=== PATIENT | female | born 1950 | race Caucasian/White ===

== ENCOUNTER → 2016-11-01 | Outpatient (REF) | payer MEDICARE, BC, OTHER ==
[~2016-11-01] MED LIST: /METO2TASA PO; /WARF25TA; ACET-654 PO; ACET50TAOT PO; ACET650S3 PO; ACIT1CAP PO; ALPH0.1S OS; ANUS2.5C2 PR; BACITAB3 PO; BISA10SU4 PR; BRIM1OPD OU; CALC1CAP PO; CALC1CAP31 PO; CATA0.1T PO; CEFD1CAP8 PO; CEPH250T PO; CHLO1.4S2 MT; DARB300VL SC; DARB30SYRN SC; DICY1CAP8 PO; DIFI200T PO; DIFL200T PO; DRIS1CAP PO; DRIS50002 PO; FENO134C PO; FENO48TA2 PO; FERR325T PO; FERR325T3 PO; FIRS1SOL3 PO; FLAG500T PO; FLUC200T2 PO; FOLI1TAB PO; FOLI1TAB2 PO; HEPA1000VL IV; HEPA1INJ IV; HEPA50VL SC; HYDR-3713 PO; HYDR-4266 PO; HYDR-4267 PO; HYDR100T13 PO; HYDR10TAB PO; IMIQ5CRE EXT; IMOD2TAB16 PO; IMODTAB PO; IMUR50TA PO; IMURAN PO; Imuran PO; LOFI134C PO; LOPE2CA PO; LOPR1TAB6 PO; MERO500I IV; METH250T PO; METHY25TA PO; METO-207 PO; METO50TA2 PO; MINO25TA PO; MIRC0.3I IJ; MULTCAP PO; NEPHTAB PO; NIAC500T4 PO; NITR1PA TD; NORCOTAB PO; NYST5000 PO; NYST50SS SS; Non-Formulary Medication XX; ONDA4TAB6 PO; ONDA8TAB8 PO; OXYC-517 PO; PRED1TABL PO; PRED5TA PO; PRED5TAB PO; PREPOI TOP; PROC20004 IJ; PROCAER4 PR; PROCRIT SC; RENA800T7 PO; RENATAB5 PO; RENV2TAB PO; ROCA0.25 PO; SIMV20TA2 PO; SKEL-29 PO; SODI0.65; TELM1TAB PO; TELM1TAB12 PO; TELM1TAB2 PO; THERGRAN PO; TOPR25TA PO; TOPR50TA PO; TYLE650T30 PO; VANC25SOL PO; VICO5TAB; VITA50003 PO; VITATAB11 PO; ZOCO20TA PO; [UNRECOGNIZED DRUG - CODE] EXT; [UNRECOGNIZED DRUG - CODE] INJ; [UNRECOGNIZED DRUG - CODE] PO; [UNRECOGNIZED DRUG - CODE] TOP; [UNRECOGNIZED DRUG - CODE] TOP; [UNRECOGNIZED DRUG - OTHER]; [UNRECOGNIZED DRUG - OTHER] PO; [UNRECOGNIZED DRUG - OTHER] PO; aldomet PO
== END ==
LOC: M LAB REF 12:45
PROVIDERS: ATTEND Internal Medicine Nephrology
DX: D62 Acute posthemorrhagic anemia (principal)

== ENCOUNTER 2016-11-04 11:49 | Outpatient (CLI) | payer MEDICARE, BC, OTHER ==
[~2016-11-04] VITALS: Ht 148.6 cm; Wt 46.4 kg
[2016-11-04 12:00] VITALS: BP 147/68
[2016-11-04 14:00] VITALS: BP 100/62
[2016-11-04] MEDS ORDERED: HEPARIN 1,000 UNITS/ML 10ML VIAL (FOR RADIOLOGY& DIALYSIS ONLY) IV ONE (21:00)
== END 2016-11-04 20:10 | disposition home or self-care (01) ==
LOC: M OPCLI4PV 11:49 → M MSPAV 11:53 → M OPCLI4PV 20:10
PROVIDERS: ATTEND Internal Medicine Nephrology
DX: D50.0 Iron deficiency anemia secondary to blood loss (chronic) (principal)
CPT/HCPCS: 36415; 36430; 86850; 86900; 86901; 86920; P9016

== ENCOUNTER → 2016-11-07 | Outpatient (REF) | payer MEDICARE, BC, OTHER | LOC: M LAB REF 12:50 | PROVIDERS: ATTEND Surgery | DX: C44.42 Squamous cell carcinoma of skin of scalp and neck (principal) ==

== ENCOUNTER → 2016-11-14 | Outpatient (REF) | payer MEDICARE, BC, OTHER | END | disposition home or self-care (01) | LOC: M SFHCPLAZ 17:21 | PROVIDERS: ATTEND Dermatology | DX: C44.622 Squamous cell carcinoma of skin of right upper limb, including shoulder (principal); C44.629 Squamous cell carcinoma of skin of left upper limb, including shoulder; C44.529 Squamous cell carcinoma of skin of other part of trunk; C44.42 Squamous cell carcinoma of skin of scalp and neck | CPT/HCPCS: 11100; 11101; 88305; G0463 ==

== ENCOUNTER → 2016-11-15 | Outpatient (REF) | payer MEDICARE, BC, OTHER ==
[2016-11-15 13:38] LABS: BASO % 0.2 % (0.0-1.0); EOS # 0.2 K/mm3 (0.0-0.50); EOS % 1.9 % (0.0-3.0); LARGE UNSTAINED CELL # 0.1 K/mm3 (0.0-0.4); LARGE UNSTAINED CELL % 0.7 % (0.0-4.0); LYMPH % 9.8 % (24.0-44.0); MEAN CORPUSCULAR HEMOGLOBIN 30.1 pg (27.0-33.0); MEAN CORPUSCULAR HGB CONC 32.3 g/dl (32.0-36.5); MONO # 0.6 K/mm3 (0.0-0.8); MONO % 6.2 % (0.0-5.0); NEUTROPHILS # 8.2 K/mm3 (1.8-7.7); NEUTROPHILS % 81.3 % (36.0-66.0); PLATELET COUNT, AUTOMATED 296 k/mm3 (150-450); RED CELL DISTRIBUTION WIDTH 14.7 % (11.5-14.5)
[2016-11-15 13:43] LABS: ALBUMIN 2.2 GM/DL (3.2-5.2); ALBUMIN/GLOBULIN RATIO 0.79 (1.00-1.93); BILIRUBIN,DIRECT 0.1 MG/DL (0.0-0.2); BILIRUBIN,TOTAL 0.3 MG/DL (0.2-1.0)
== END ==
LOC: M SFHCPLAZ 13:09
PROVIDERS: ATTEND Dermatology
DX: Z51.81 Encounter for therapeutic drug level monitoring (principal)

== ENCOUNTER → 2016-12-05 | Outpatient (REF) | payer MEDICARE, BC, OTHER | LOC: M SFHCPLAZ 15:47 | PROVIDERS: ATTEND Dermatology | DX: C44.329 Squamous cell carcinoma of skin of other parts of face (principal); C44.519 Basal cell carcinoma of skin of other part of trunk; C44.722 Squamous cell carcinoma of skin of right lower limb, including hip | CPT/HCPCS: 11100; 11101; 88305; G0463 ==

== ENCOUNTER → 2016-12-12 | Outpatient (CLI) | payer MEDICARE, BC, OTHER ==
[~2016-12-12] MED LIST changes: +LIDOCAINE 2% MDV 20 ML VIAL As Ordered ONE; +SODIUM BICARBONATE 8.4% INJ 50MEQ 50 ML VIAL As Ordered ONE
--- NOTE | 2016-12-12 16:45 | REPKIM ---
CLINICAL HISTORY: Patient with ESRD presents with a tunneled right IJ hemodialysis catheter. Patient is on peritoneal dialysis. The referring nephrology service has requested to remove the TDC because it is no longer needed. PROCEDURE PERFORMED: Right IJ Tunneled Dialysis Catheter Removal INTERVENTIONALIST: Dr. Cheng Moon CONSENT: The risks, benefits and alternatives to the procedure were explained to the patient and informed written consent was obtained. MEDICATION: Local Lidocaine 2% EBL: 5 mL PROCEDURE/FINDINGS: The patient was brought to the interventional radiology suite and placed in the supine position with head of bed elevated. Time out procedure was performed. The area was prepped and draped in a usual sterile fashion. Local anesthesia was administered subcutaneously to the catheter exit site using 2% Lidocaine. The catheter cuff was bluntly dissected free from the surrounding soft tissues. The catheter was removed, inspected and confirmed to be removed in its entirety. Hemostasis was achieved by manual compression. A sterile dressing was applied. The patient tolerated the procedure well with no immediate complications. No imaging was used. Dr. Moon was present. IMPRESSION: Tunneled dialysis catheter removal as discussed above. cc: Zamzam Rehman MD MTDD
== END | disposition home or self-care (01) ==
LOC: M IRPRO 12:35
PROVIDERS: ATTEND Internal Medicine Nephrology
DX: Z45.2 Encounter for adjustment and management of vascular access device (principal); N18.6 End stage renal disease; Z99.2 Dependence on renal dialysis

== ENCOUNTER → 2016-12-17 | Outpatient (REF) | payer MEDICARE, BC, OTHER ==
[~2016-12-17] MED LIST changes: -LIDOCAINE 2% MDV 20 ML VIAL As Ordered ONE; -SODIUM BICARBONATE 8.4% INJ 50MEQ 50 ML VIAL As Ordered ONE
== END ==
LOC: M LAB REF 17:14
PROVIDERS: ATTEND Surgery
DX: C44.42 Squamous cell carcinoma of skin of scalp and neck (principal); C44.622 Squamous cell carcinoma of skin of right upper limb, including shoulder

== ENCOUNTER → 2016-12-26 | Outpatient (REF) | payer MEDICARE, BC, OTHER ==
[~2016-12-26] MED LIST changes: -HEPA1INJ IV; +HEPA1INJ4 IV
== END ==
LOC: M SFHCPLAZ 15:53
PROVIDERS: ATTEND Dermatology
DX: C44.622 Squamous cell carcinoma of skin of right upper limb, including shoulder (principal)
CPT/HCPCS: 11100; 11101; 88305; G0463

== ENCOUNTER → 2016-12-31 | Outpatient (REF) | payer MEDICARE, BC, OTHER ==
[~2016-12-31] MED LIST changes: +HEPA1INJ IV; -HEPA1INJ4 IV
== END ==
LOC: M LAB REF 16:50
PROVIDERS: ATTEND Surgery
DX: C44.42 Squamous cell carcinoma of skin of scalp and neck (principal); C44.629 Squamous cell carcinoma of skin of left upper limb, including shoulder; C44.529 Squamous cell carcinoma of skin of other part of trunk

== ENCOUNTER → 2017-01-14 | Outpatient (REF) | payer MEDICARE, BC, OTHER | LOC: M LAB REF 16:37 | PROVIDERS: ATTEND Surgery | DX: C44.629 Squamous cell carcinoma of skin of left upper limb, including shoulder (principal) ==

== ENCOUNTER → 2017-01-15 | Outpatient (CLI) | payer MEDICARE, BC, OTHER ==
[~2017-01-15] MED LIST changes: -HEPA1INJ IV; +HEPA1INJ4 IV
--- NOTE | 2017-01-15 12:43 | REP ---
DIGITAL SCREENING BILATERAL MAMMOGRAPHY WITH CAD: Comparison mammography November 09, 2015, October 11, 2014, and October 07, 2013. MAMMOGRAPHIC FINDINGS: The breast parenchyma is heterogeneously dense in a pattern which may inhibit the sensitivity of mammography. There is vascular calcification noted. There is a grouping of predominantly punctate microcalcifications in the 6-o'clock position in the right breast, which appears to be new and which merits further evaluation. No mass lesion is seen. No architectural distortion or spiculation is seen. The left breast is unchanged and unremarkable. IMPRESSION: BIRADS category 0 incomplete breast imaging. Possible new grouping of microcalcifications inferiorly in the right breast. Diagnostic right breast mammography recommended. BI-RADS/ACR category 0 mammogram, incomplete. Additional imaging and/or prior images are needed before a final assessment can be assigned. This mammogram was interpreted with the aid of an FDA-approved computer-aided detection system. The patient states she/he had a clinical breast exam in November 2016. The patient letter being requested is M0 .
== END ==
LOC: M WHC 09:49
PROVIDERS: ATTEND Nurse Practitioner Women's Health
DX: Z12.31 Encounter for screening mammogram for malignant neoplasm of breast (principal)

== ENCOUNTER → 2017-01-17 | Outpatient (CLI) | payer MEDICARE, BC, OTHER ==
--- NOTE | 2017-01-17 12:05 | REP ---
DIGITAL DIAGNOSTIC UNILATERAL RIGHT BREAST MAMMOGRAPHY WITH CAD: HISTORY: Screening mammography from January 15, 2017 was BIRADS 0 incomplete due to an apparent grouping of microcalcifications. Diagnostic imaging was recommended. FINDINGS: Magnified focal spot compression CC, MLO, and MLO views of the right breast were obtained. These confirm the presence of a loose grouping of polymorphic microcalcifications in the 6-o'clock position of the right breast. These occupy an area spanning approximately 2 cm. No mass lesion or spiculation is observed. There are scattered non-grouped microcalcifications elsewhere. Breast parenchyma in the lateral aspect of the right breast is heterogeneously dense in a pattern which may inhibit the sensitivity of mammography. Vascular calcification is observed. IMPRESSION: BIRADS category 4 suspicious right breast imaging. Grouping of microcalcifications seen inferiorly at the 6-o'clock position. Stereotactic needle biopsy recommended. B-RADS/ACR category 4 mammogram. Suspicious abnormality - biopsy should be considered. Usually requires biopsy. This mammogram was interpreted with the aid of an FDA-approved computer-aided detection system. The patient states she/he had a clinical breast exam in November 2016 The patient letter being requested is M4. Signed by Hamzah Oliver MD 01/17/2017 06:35 P
== END ==
LOC: M RAD 10:49
PROVIDERS: ATTEND Nurse Practitioner Women's Health
DX: R92.8 Other abnormal and inconclusive findings on diagnostic imaging of breast (principal)

== ENCOUNTER → 2017-01-28 | Outpatient (REF) | payer MEDICARE, BC, OTHER | LOC: M LAB REF 11:30 | PROVIDERS: ATTEND Surgery | DX: C44.622 Squamous cell carcinoma of skin of right upper limb, including shoulder (principal) ==

== ENCOUNTER → 2017-02-06 | Outpatient (REF) | payer MEDICARE, BC, OTHER | LOC: M LAB REF 11:50 | PROVIDERS: ATTEND Dermatology | DX: C44.729 Squamous cell carcinoma of skin of left lower limb, including hip (principal) | CPT/HCPCS: 11100; 11101; 88305; G0463 ==

== ENCOUNTER → 2017-02-11 | Outpatient (REF) | payer MEDICARE, BC, OTHER | LOC: M LAB REF 15:48 | PROVIDERS: ATTEND Surgery | DX: C44.622 Squamous cell carcinoma of skin of right upper limb, including shoulder (principal); C44.629 Squamous cell carcinoma of skin of left upper limb, including shoulder ==

== ENCOUNTER → 2017-03-06 | Outpatient (REF) | payer MEDICARE, BC, OTHER | LOC: M SFHCPLAZ 12:57 | PROVIDERS: ATTEND Dermatology | DX: C44.629 Squamous cell carcinoma of skin of left upper limb, including shoulder (principal); C44.529 Squamous cell carcinoma of skin of other part of trunk ==

== ENCOUNTER → 2017-03-11 | Outpatient (REF) | payer MEDICARE, BC, OTHER | LOC: M LAB REF 16:35 | PROVIDERS: ATTEND Surgery | DX: C44.722 Squamous cell carcinoma of skin of right lower limb, including hip (principal) ==

== ENCOUNTER → 2017-05-15 | Outpatient (REF) | payer MEDICARE, BC, OTHER ==
[~2017-05-15] MED LIST changes: -ACET-654 PO; +ACET1TAB17 PO; +BACITAB PO; -BACITAB3 PO; +FERR1TAB8 PO; -FERR325T PO; -FOLI1TAB2 PO; +FOLI1TAB4 PO; +HYDR-3910 PO; +HYDR-3911 PO; -HYDR-4266 PO; -HYDR-4267 PO; -IMUR50TA PO; +IMUR50TA6 PO; -METO-207 PO; +METO1TAB7 PO; -METO50TA2 PO; +METO50TA7 PO; +RENA1TAB PO; -RENA800T7 PO; -SKEL-29 PO; +SKEL800T97 PO; +VITA1CAP40 PO; -VITA50003 PO
== END ==
LOC: M LAB REF 17:21
PROVIDERS: ATTEND Surgery
DX: C44.729 Squamous cell carcinoma of skin of left lower limb, including hip (principal)

== ENCOUNTER → 2017-06-02 | Outpatient (CLI) | payer MEDICARE, BC, OTHER ==
--- NOTE | 2017-06-02 15:50 | REP ---
Duplex extremity venous ultrasound: Left lower extremity. History: Left leg pain. Findings: The deep veins are anechoic and fully compressible from the groin to the popliteal fossa in the left lower extremity. Color flow imaging is homogeneous. Spectral Doppler interrogation demonstrates intact respiratory variation in flow and normal manual augmentation of flow. There is no evidence of deep vein thrombosis. Impression: Negative left lower extremity duplex venous ultrasound. No evidence of deep vein thrombosis. Signed by Hamzah Oliver MD 06/02/2017 03:41 P
== END ==
LOC: M RAD 15:12
PROVIDERS: ATTEND Physician Assistant
DX: M79.662 Pain in left lower leg (principal)

== ENCOUNTER → 2017-08-25 | Outpatient (CLI) | payer MEDICARE, BC, OTHER ==
--- NOTE | 2017-08-25 12:46 | REP ---
RIGHT WRIST, FOUR VIEWS: HISTORY: Pain. There is no acute fracture or dislocation. There is narrowing of the first carpal metacarpal joint space. Two dense calcifications are present in the soft tissue dorsal to the radiocarpal joint space. IMPRESSION: Degenerative change as described above. Signed by Nicolas Ayala MD 08/25/2017 12:49 P
== END ==
LOC: M WUC 12:17
PROVIDERS: ATTEND Physician Assistant
DX: M25.531 Pain in right wrist (principal)

== ENCOUNTER 2017-11-12 08:36 | Outpatient (CLI) | payer MEDICARE, BC, OTHER ==
[2017-11-12 10:46] LABS: IMMEDIATE SPIN CROSSMATCH 1 2
== END 2017-11-12 15:20 | disposition home or self-care (01) ==
LOC: M INFU 08:36
DX: D62 Acute posthemorrhagic anemia (principal); Z94.0 Kidney transplant status; Z88.5 Allergy status to narcotic agent; Z88.2 Allergy status to sulfonamides; Z91.011 Allergy to milk products; Z88.8 Allergy status to other drugs, medicaments and biological substances; Z79.52 Long term (current) use of systemic steroids; Z79.899 Other long term (current) drug therapy
CPT/HCPCS: 36430

== ENCOUNTER 2017-11-15 10:18 | Emergency (ER) | payer MEDICARE, BC, OTHER ==
[2017-11-15 11:01] LABS: BASO % 0.2 % (0.0-1.0); EOS # 0.1 10^3/uL (0.0-0.50); EOS % 0.7 % (0.0-3.0); HEMATOCRIT 35.4 % (36.0-47.0); HEMOGLOBIN 11.6 g/dl (12.0-16.0); IMMATURE GRANULOCYTE # 0.3 10^3/uL (0-0); LYMPH # 0.7 10^3/uL (1.5-4.5); LYMPH % 5.4 % (24.0-44.0); MEAN CORPUSCULAR HEMOGLOBIN 31.7 pg (27.0-33.0); MEAN CORPUSCULAR HGB CONC 32.8 g/dl (32.0-36.5); MEAN CORPUSCULAR VOLUME 96.7 fl (80.0-96.0); MONO % 7.1 % (0.0-5.0); NEUTROPHILS # 11.5 10^3/uL (1.8-7.7); NEUTROPHILS % 84.6 % (36.0-66.0); PLATELET COUNT, AUTOMATED 386 10^3/uL (150-450); RED BLOOD COUNT 3.66 10^6/uL (4.00-5.40); RED CELL DISTRIBUTION WIDTH 13.9 % (11.5-14.5); WHITE BLOOD COUNT 13.6 10^3/uL (4.0-10.0)
[2017-11-15 11:12] LABS: INR 1.12; PROTHROMBIN TIME 14.6 SECONDS (12.4-14.5)
[2017-11-15 11:29] LABS: ALBUMIN 1.9 GM/DL (3.2-5.2); ALBUMIN/GLOBULIN RATIO 0.49 (1.00-1.93); ALKALINE PHOSPHATASE 130 U/L (45-117); ALT/SGPT 99 U/L (12-78); ANION GAP 11 MEQ/L (8-16); AST/SGOT 101 U/L (7-37); BILIRUBIN,TOTAL 0.4 MG/DL (0.2-1.0); BLOOD UREA NITROGEN 64 MG/DL (7-18); CALCIUM LEVEL 7.4 MG/DL (8.8-10.2); CARBON DIOXIDE LEVEL 27 MEQ/L (21-32); CHLORIDE LEVEL 98 MEQ/L (98-107); CREATININE FOR GFR 7.37 MG/DL (0.55-1.30); GLOMERULAR FILTRATION RATE 5.8 (>45); GLUCOSE, FASTING 139 MG/DL (70-100); SODIUM LEVEL 136 MEQ/L (136-145); TOTAL PROTEIN 5.8 GM/DL (6.4-8.2)
[2017-11-15 14:26] LABS: LACTIC ACID SEPSIS PROTOCOL 0.8 MMOL/L (0.4-2.0)
[2017-11-15 14:26] LABS: BF MONONUCLEAR CELL % 74.3 % (0-0); BF POLYMORPHONUCLEAR CELL % 25.7 % (0-0); RBC BODY FLUID < 2 10^3/uL (<2); WBC BODY FLUID 35 /uL (0-10)
[2017-11-15 14:28] LABS: APPEARANCE, BODY FLUID CLEAR (CLEAR); BF DIFF IF INDICATED? YES (NO); PERITONEAL FL COLOR PALE YELLOW (COLORLESS); SOURCE, BODY FLUID PERITONEAL
== END 2017-11-15 15:33 | disposition home or self-care (01) ==
LOC: M ED 10:18
DX: R25.2 Cramp and spasm (principal); I12.0 Hypertensive chronic kidney disease with stage 5 chronic kidney disease or end stage renal disease; E78.00 Pure hypercholesterolemia, unspecified; N18.6 End stage renal disease; Z99.2 Dependence on renal dialysis; Z94.0 Kidney transplant status; E03.9 Hypothyroidism, unspecified; D18.00 Hemangioma unspecified site; K75.9 Inflammatory liver disease, unspecified; C92.90 Myeloid leukemia, unspecified, not having achieved remission; F41.9 Anxiety disorder, unspecified; F33.9 Major depressive disorder, recurrent, unspecified; Z86.19 Personal history of other infectious and parasitic diseases; Z79.899 Other long term (current) drug therapy; Z88.2 Allergy status to sulfonamides; Z88.5 Allergy status to narcotic agent; Z88.8 Allergy status to other drugs, medicaments and biological substances; Z91.018 Allergy to other foods
CPT/HCPCS: 71046

== ENCOUNTER → 2017-11-18 | Outpatient (REF) | payer MEDICARE, BC, OTHER ==
[2017-11-18 18:39] LABS: ALBUMIN 2.1 GM/DL (3.2-5.2); ALBUMIN/GLOBULIN RATIO 0.58 (1.00-1.93); ALKALINE PHOSPHATASE 115 U/L (45-117); ALT/SGPT 116 U/L (12-78); AST/SGOT 93 U/L (7-37); BILIRUBIN,DIRECT 0.2 MG/DL (0.0-0.2); BILIRUBIN,TOTAL 0.4 MG/DL (0.2-1.0); TOTAL PROTEIN 5.7 GM/DL (6.4-8.2)
== END ==
LOC: M LAB REF 18:12
DX: R79.89 Other specified abnormal findings of blood chemistry (principal)
CPT/HCPCS: 80076

== ENCOUNTER 2017-12-19 08:33 | Outpatient (CLI) | payer MEDICARE, BC, OTHER ==
[2017-12-19 11:19] LABS: IMMEDIATE SPIN CROSSMATCH 1 1
== END 2017-12-19 14:35 | disposition home or self-care (01) ==
LOC: M INFU 08:33
DX: D64.9 Anemia, unspecified (principal); Z94.0 Kidney transplant status; I10 Essential (primary) hypertension; F32.9 Major depressive disorder, single episode, unspecified; F41.9 Anxiety disorder, unspecified; Z79.899 Other long term (current) drug therapy; Z88.8 Allergy status to other drugs, medicaments and biological substances
CPT/HCPCS: 36430

== ENCOUNTER → 2018-04-02 | Outpatient (REF) | payer MEDICARE, BC, OTHER | LOC: M LAB REF 12:33 | DX: R19.7 Diarrhea, unspecified (principal); A04.71 Enterocolitis due to Clostridium difficile, recurrent | CPT/HCPCS: 87507 ==

== ENCOUNTER → 2018-04-27 | Outpatient (REF) | payer MEDICARE, BC, OTHER ==
[2018-04-27 14:21] LABS: FREE T4 1.12 NG/DL (0.76-1.46)
== END ==
LOC: M LAB REF 13:26
DX: R53.1 Weakness (principal); N18.6 End stage renal disease
CPT/HCPCS: 84443

== ENCOUNTER 2018-08-07 21:17 | Inpatient (IN) | payer MEDICARE, BC, OTHER ==
[2018-08-07] MEDS: traMADol 50 MG TAB PO (23:12)
[2018-08-08] MEDS: NORCO 5/325MG TABLET (BULK FOR ED) PO (01:00)
[2018-08-08] MEDS: PERCOCET 5MG/325MG TAB PO ×3 (05:09→17:24)
[2018-08-08 06:15] LABS: BASO % 0.1 % (0.0-1.0); EOS % 0.3 % (0.0-3.0); HEMATOCRIT 28.4 % (36.0-47.0); HEMOGLOBIN 8.9 g/dl (12.0-15.5); IMMATURE GRANULOCYTE % 0.7 % (0-3.0); LYMPH % 9.3 % (24.0-44.0); MEAN CORPUSCULAR HGB CONC 31.3 g/dl (32.0-36.5); MEAN CORPUSCULAR VOLUME 105.2 fl (80.0-96.0); MONO % 9.3 % (0.0-5.0); NEUTROPHILS # 8.6 10^3/uL (1.8-7.7); NEUTROPHILS % 80.3 % (36.0-66.0); PLATELET COUNT, AUTOMATED 214 10^3/uL (150-450); RED CELL DISTRIBUTION WIDTH 13.8 % (11.5-14.5); WHITE BLOOD COUNT 10.6 10^3/uL (4.0-10.0)
[2018-08-08] MEDS: SIMVASTATIN 20 MG TAB PO ×2 (06:17→21:39)
[2018-08-08 06:42] LABS: ANION GAP 9 MEQ/L (8-16); BLOOD UREA NITROGEN 48 MG/DL (7-18); CALCIUM LEVEL 7.4 MG/DL (8.8-10.2); CARBON DIOXIDE LEVEL 29 MEQ/L (21-32); CHLORIDE LEVEL 96 MEQ/L (98-107); CREATININE FOR GFR 7.28 MG/DL (0.55-1.30); GLOMERULAR FILTRATION RATE 5.9 (>39); GLUCOSE, FASTING 64 MG/DL (70-100); POTASSIUM SERUM 4.4 MEQ/L (3.5-5.1); SODIUM LEVEL 134 MEQ/L (136-145)
[2018-08-08] MEDS: METOPROLOL SUCC (TopROL XL) 50MG **XL** TAB PO ×2 (08:52→21:39)
[2018-08-08] MEDS: FOLIC ACID 1 MG TAB PO (08:52)
[2018-08-08] MEDS: BRIMONIDINE 0.1% OPHTH SOLN 5 ML OU ×2 (08:53→21:39)
[2018-08-08] MEDS: CINACALCET 30 MG TAB (SENSIPAR) PO (08:53)
[2018-08-08] MEDS: predniSONE 1 MG TAB PO (08:53)
[2018-08-08] MEDS: HEPARIN SOD (PORCINE) 5000 UNITS/ML VIAL SQ ×2 (08:53→21:00)
[2018-08-08 15:55] LABS: FERRITIN 3178 NG/ML (8-252); IRON (FE) 36 UG/DL (50-170); PERCENT SATURATION 18.1 % (13.2-45.0); TOTAL IRON BINDING CAPACITY 199 UG/DL (250-450)
[2018-08-08 16:29] LABS: BF MONONUCLEAR CELL % 72.7 % (0-0); BF POLYMORPHONUCLEAR CELL % 27.3 % (0-0); RBC BODY FLUID < 2 10^3/uL (<2); WBC BODY FLUID 106 /uL (0-10)
[2018-08-08 16:30] LABS: APPEARANCE, BODY FLUID CLEAR (CLEAR); PERITONEAL DIALYSATE FL COLOR PALE YELLOW (COLORLESS); SOURCE, BODY FLUID PERITONEAL DIALYSATE
[2018-08-08 16:31] LABS: BF DIFF IF INDICATED? YES (NO)
[2018-08-08] MEDS: DARBEPOETIN 100 MCG/0.5 ML *NON-DIALYSIS* SYRINGE (J0881) SQ (16:41)
[2018-08-08] MEDS: DICYCLOMINE 10 MG CAP PO (18:51)
[2018-08-09] MEDS: PERCOCET 5MG/325MG TAB PO ×2 (06:09→14:27)
[2018-08-09 06:51] LABS: HEMATOCRIT 27.7 % (36.0-47.0); HEMOGLOBIN 8.4 g/dl (12.0-15.5); MEAN CORPUSCULAR HEMOGLOBIN 32.9 pg (27.0-33.0); MEAN CORPUSCULAR HGB CONC 30.3 g/dl (32.0-36.5); MEAN CORPUSCULAR VOLUME 108.6 fl (80.0-96.0); PLATELET COUNT, AUTOMATED 215 10^3/uL (150-450); RED BLOOD COUNT 2.55 10^6/uL (4.00-5.40); WHITE BLOOD COUNT 11.5 10^3/uL (4.0-10.0)
[2018-08-09] MEDS: DICYCLOMINE 10 MG CAP PO ×3 (08:00→17:16)
[2018-08-09 08:09] LABS: ANION GAP 11 MEQ/L (8-16); BLOOD UREA NITROGEN 42 MG/DL (7-18); CALCIUM LEVEL 6.9 MG/DL (8.8-10.2); CARBON DIOXIDE LEVEL 27 MEQ/L (21-32); CHLORIDE LEVEL 96 MEQ/L (98-107); CREATININE FOR GFR 7.91 MG/DL (0.55-1.30); GLOMERULAR FILTRATION RATE 5.4 (>39); GLUCOSE, FASTING 106 MG/DL (70-100); POTASSIUM SERUM 4.1 MEQ/L (3.5-5.1); SODIUM LEVEL 134 MEQ/L (136-145)
[2018-08-09] MEDS: HEPARIN SOD (PORCINE) 5000 UNITS/ML VIAL SQ ×2 (09:00→20:24)
[2018-08-09 09:55] LABS: MAGNESIUM LEVEL 1.8 MG/DL (1.8-2.4)
[2018-08-09] MEDS: CINACALCET 30 MG TAB (SENSIPAR) PO (10:14)
[2018-08-09] MEDS: FOLIC ACID 1 MG TAB PO (10:14)
[2018-08-09] MEDS: predniSONE 1 MG TAB PO (10:14)
[2018-08-09] MEDS: BRIMONIDINE 0.1% OPHTH SOLN 5 ML OU ×2 (10:15→20:25)
[2018-08-09] MEDS: METOPROLOL SUCC (TopROL XL) 50MG **XL** TAB PO ×2 (10:15→20:25)
[2018-08-09] MEDS ORDERED: IRON SUCROSE 100MG 5ML VIAL (J1756 PER 1MG) IV (14:15)
[2018-08-09] MEDS: IRON SUCROSE 25 MG in NS 50 ML IV (16:20)
[2018-08-09] MEDS: (RENVELA) SEVELAMER **CARBONate** 800 MG TAB PO (17:16)
[2018-08-09] MEDS: FENOFIBRATE 145 MG TAB (TRICOR) PO (17:16)
[2018-08-09] MEDS: IRON SUCROSE 175 MG in NS 250 ML IV (17:43)
[2018-08-09] MEDS: SIMVASTATIN 20 MG TAB PO (20:25)
[2018-08-10] MEDS: PERCOCET 5MG/325MG TAB PO ×2 (05:39→22:49)
[2018-08-10 06:12] LABS: HEMATOCRIT 26.5 % (36.0-47.0); HEMOGLOBIN 8.3 g/dl (12.0-15.5); MEAN CORPUSCULAR HEMOGLOBIN 32.4 pg (27.0-33.0); MEAN CORPUSCULAR HGB CONC 31.3 g/dl (32.0-36.5); MEAN CORPUSCULAR VOLUME 103.5 fl (80.0-96.0); PLATELET COUNT, AUTOMATED 243 10^3/uL (150-450); RED BLOOD COUNT 2.56 10^6/uL (4.00-5.40); RED CELL DISTRIBUTION WIDTH 13.7 % (11.5-14.5); WHITE BLOOD COUNT 13.5 10^3/uL (4.0-10.0)
[2018-08-10 06:25] LABS: ANION GAP 9 MEQ/L (8-16); BLOOD UREA NITROGEN 47 MG/DL (7-18); CALCIUM LEVEL 6.8 MG/DL (8.8-10.2); CARBON DIOXIDE LEVEL 29 MEQ/L (21-32); CHLORIDE LEVEL 97 MEQ/L (98-107); CREATININE FOR GFR 7.15 MG/DL (0.55-1.30); GLUCOSE, FASTING 78 MG/DL (70-100); MAGNESIUM LEVEL 1.8 MG/DL (1.8-2.4); POTASSIUM SERUM 4.4 MEQ/L (3.5-5.1); SODIUM LEVEL 135 MEQ/L (136-145)
[2018-08-10] MEDS: predniSONE 1 MG TAB PO (08:17)
[2018-08-10] MEDS: FENOFIBRATE 145 MG TAB (TRICOR) PO (08:17)
[2018-08-10] MEDS: DICYCLOMINE 10 MG CAP PO ×2 (08:17→18:09)
[2018-08-10] MEDS: FOLIC ACID 1 MG TAB PO (08:17)
[2018-08-10] MEDS: CINACALCET 30 MG TAB (SENSIPAR) PO (08:17)
[2018-08-10] MEDS: HEPARIN SOD (PORCINE) 5000 UNITS/ML VIAL SQ ×2 (08:17→21:00)
[2018-08-10] MEDS: (RENVELA) SEVELAMER **CARBONate** 800 MG TAB PO ×3 (08:17→18:09)
[2018-08-10] MEDS: METOPROLOL SUCC (TopROL XL) 50MG **XL** TAB PO ×2 (08:18→21:46)
[2018-08-10] MEDS: BRIMONIDINE 0.1% OPHTH SOLN 5 ML OU ×2 (09:00→21:45)
[2018-08-10 12:31] LABS: BEDSIDE GLUCOSE 124 MG/DL (83-110)
[2018-08-10 13:03] LABS: PTH INTACT 206.6 PG/ML (18.5-88.0)
[2018-08-10 15:16] LABS: RBC BODY FLUID < 2 10^3/uL (<2); WBC BODY FLUID 20 /uL (0-10)
[2018-08-10 15:20] LABS: APPEARANCE, BODY FLUID CLEAR (CLEAR); BF DIFF IF INDICATED? YES (NO); PERITONEAL DIALYSATE FL COLOR COLORLESS (COLORLESS); SOURCE, BODY FLUID PERITONEAL DIALYSATE
[2018-08-10] MEDS: ONDANSETRON 4MG/2ML VIAL (J2405) IV (18:17)
[2018-08-10] MEDS: SIMVASTATIN 20 MG TAB PO (21:46)
[2018-08-11] MEDS: PERCOCET 5MG/325MG TAB PO ×2 (05:40→13:46)
[2018-08-11] MEDS: HEPARIN SOD (PORCINE) 5000 UNITS/ML VIAL SQ ×2 (09:00→21:00)
[2018-08-11] MEDS: DICYCLOMINE 10 MG CAP PO ×2 (09:07→18:13)
[2018-08-11] MEDS: FOLIC ACID 1 MG TAB PO (09:07)
[2018-08-11] MEDS: CINACALCET 30 MG TAB (SENSIPAR) PO (09:07)
[2018-08-11] MEDS: FENOFIBRATE 145 MG TAB (TRICOR) PO (09:07)
[2018-08-11] MEDS: predniSONE 1 MG TAB PO (09:07)
[2018-08-11] MEDS: METOPROLOL SUCC (TopROL XL) 50MG **XL** TAB PO ×2 (09:07→22:51)
[2018-08-11 09:08] LABS: HEMATOCRIT 27.1 % (36.0-47.0); HEMOGLOBIN 8.5 g/dl (12.0-15.5); MEAN CORPUSCULAR HEMOGLOBIN 33.2 pg (27.0-33.0); MEAN CORPUSCULAR HGB CONC 31.4 g/dl (32.0-36.5); MEAN CORPUSCULAR VOLUME 105.9 fl (80.0-96.0); PLATELET COUNT, AUTOMATED 256 10^3/uL (150-450); RED BLOOD COUNT 2.56 10^6/uL (4.00-5.40); RED CELL DISTRIBUTION WIDTH 13.9 % (11.5-14.5); WHITE BLOOD COUNT 12.7 10^3/uL (4.0-10.0)
[2018-08-11] MEDS: (RENVELA) SEVELAMER **CARBONate** 800 MG TAB PO ×3 (09:08→18:13)
[2018-08-11] MEDS: BRIMONIDINE 0.1% OPHTH SOLN 5 ML OU ×2 (09:09→22:51)
[2018-08-11 09:36] LABS: ALBUMIN 1.4 GM/DL (3.2-5.2); ANION GAP 9 MEQ/L (8-16); BLOOD UREA NITROGEN 42 MG/DL (7-18); CARBON DIOXIDE LEVEL 30 MEQ/L (21-32); CHLORIDE LEVEL 94 MEQ/L (98-107); CREATININE FOR GFR 6.72 MG/DL (0.55-1.30); GLOMERULAR FILTRATION RATE 6.5 (>39); GLUCOSE, FASTING 170 MG/DL (70-100); MAGNESIUM LEVEL 1.6 MG/DL (1.8-2.4); PHOSPHORUS LEVEL 2.9 MG/DL (2.5-4.9); POTASSIUM SERUM 3.7 MEQ/L (3.5-5.1); SODIUM LEVEL 133 MEQ/L (136-145)
[2018-08-11] MEDS: ONDANSETRON 4MG/2ML VIAL (J2405) IV (13:43)
[2018-08-11] MEDS: MAG SULF 1GM/100ML (MAG RUN) 1 GM in APPROPRIATE DILUENT 1 EA IV (15:44)
[2018-08-11] MEDS: LOPERAMIDE 2 MG CAP PO (15:45)
[2018-08-11] MEDS: SIMVASTATIN 20 MG TAB PO (22:50)
[2018-08-12] MEDS: PERCOCET 5MG/325MG TAB PO ×2 (06:08→21:36)
[2018-08-12 06:56] LABS: HEMOGLOBIN 8.9 g/dl (12.0-15.5); MEAN CORPUSCULAR HEMOGLOBIN 32.2 pg (27.0-33.0); MEAN CORPUSCULAR HGB CONC 30.7 g/dl (32.0-36.5); MEAN CORPUSCULAR VOLUME 105.1 fl (80.0-96.0); PLATELET COUNT, AUTOMATED 294 10^3/uL (150-450); RED BLOOD COUNT 2.76 10^6/uL (4.00-5.40); WHITE BLOOD COUNT 13.2 10^3/uL (4.0-10.0)
[2018-08-12 07:21] LABS: ANION GAP 8 MEQ/L (8-16); BLOOD UREA NITROGEN 39 MG/DL (7-18); CARBON DIOXIDE LEVEL 31 MEQ/L (21-32); CHLORIDE LEVEL 94 MEQ/L (98-107); CREATININE FOR GFR 6.65 MG/DL (0.55-1.30); GLOMERULAR FILTRATION RATE 6.6 (>39); GLUCOSE, FASTING 65 MG/DL (70-100); MAGNESIUM LEVEL 1.9 MG/DL (1.8-2.4); POTASSIUM SERUM 4.1 MEQ/L (3.5-5.1); SODIUM LEVEL 133 MEQ/L (136-145)
[2018-08-12] MEDS: FENOFIBRATE 145 MG TAB (TRICOR) PO (07:59)
[2018-08-12] MEDS: predniSONE 1 MG TAB PO (07:59)
[2018-08-12] MEDS: FOLIC ACID 1 MG TAB PO (07:59)
[2018-08-12] MEDS: DICYCLOMINE 10 MG CAP PO ×3 (07:59→17:17)
[2018-08-12] MEDS: CINACALCET 30 MG TAB (SENSIPAR) PO (07:59)
[2018-08-12] MEDS: METOPROLOL SUCC (TopROL XL) 50MG **XL** TAB PO ×2 (07:59→21:36)
[2018-08-12] MEDS: (RENVELA) SEVELAMER **CARBONate** 800 MG TAB PO ×3 (08:00→17:17)
[2018-08-12] MEDS: HEPARIN SOD (PORCINE) 5000 UNITS/ML VIAL SQ ×2 (08:00→21:00)
[2018-08-12] MEDS: BRIMONIDINE 0.1% OPHTH SOLN 5 ML OU ×2 (08:00→21:37)
[2018-08-12] MEDS: ONDANSETRON 4MG/2ML VIAL (J2405) IV (08:03)
[2018-08-12] MEDS: LOPERAMIDE 2 MG CAP PO (11:37)
[2018-08-12] MEDS: HEPARIN 1,000 UNITS/ML 10ML VIAL (FOR RADIOLOGY& DIALYSIS ONLY) XX (18:52)
[2018-08-12] MEDS: SIMVASTATIN 20 MG TAB PO (21:35)
[2018-08-13] MEDS: DICYCLOMINE 10 MG CAP PO ×3 (06:09→17:39)
[2018-08-13 06:12] LABS: HEMATOCRIT 30.4 % (36.0-47.0); HEMOGLOBIN 9.6 g/dl (12.0-15.5); MEAN CORPUSCULAR HEMOGLOBIN 32.9 pg (27.0-33.0); MEAN CORPUSCULAR HGB CONC 31.6 g/dl (32.0-36.5); MEAN CORPUSCULAR VOLUME 104.1 fl (80.0-96.0); PLATELET COUNT, AUTOMATED 323 10^3/uL (150-450); RED BLOOD COUNT 2.92 10^6/uL (4.00-5.40); RED CELL DISTRIBUTION WIDTH 14.2 % (11.5-14.5); WHITE BLOOD COUNT 12.7 10^3/uL (4.0-10.0)
[2018-08-13] MEDS: **hydrALAZINE** 50 MG TAB PO (06:13)
[2018-08-13 06:41] LABS: ANION GAP 10 MEQ/L (8-16); BLOOD UREA NITROGEN 35 MG/DL (7-18); CALCIUM LEVEL 7.3 MG/DL (8.8-10.2); CARBON DIOXIDE LEVEL 31 MEQ/L (21-32); CHLORIDE LEVEL 94 MEQ/L (98-107); GLOMERULAR FILTRATION RATE 7.8 (>39); GLUCOSE, FASTING 115 MG/DL (70-100); MAGNESIUM LEVEL 1.8 MG/DL (1.8-2.4); POTASSIUM SERUM 3.8 MEQ/L (3.5-5.1); SODIUM LEVEL 135 MEQ/L (136-145)
[2018-08-13] MEDS: HEPARIN SOD (PORCINE) 5000 UNITS/ML VIAL SQ ×2 (09:00→22:06)
[2018-08-13] MEDS: (RENVELA) SEVELAMER **CARBONate** 800 MG TAB PO ×3 (09:42→17:40)
[2018-08-13] MEDS: predniSONE 1 MG TAB PO (09:43)
[2018-08-13] MEDS: FENOFIBRATE 145 MG TAB (TRICOR) PO (09:43)
[2018-08-13] MEDS: CINACALCET 30 MG TAB (SENSIPAR) PO (09:43)
[2018-08-13] MEDS: FOLIC ACID 1 MG TAB PO (09:43)
[2018-08-13] MEDS: METOPROLOL SUCC (TopROL XL) 50MG **XL** TAB PO ×2 (09:47→22:12)
[2018-08-13] MEDS: BRIMONIDINE 0.1% OPHTH SOLN 5 ML OU ×2 (09:47→22:07)
[2018-08-13] MEDS: PERCOCET 5MG/325MG TAB PO (12:39)
[2018-08-13] MEDS: LOPERAMIDE 2 MG CAP PO (12:39)
[2018-08-13] MEDS: ONDANSETRON 4MG/2ML VIAL (J2405) IV (15:40)
[2018-08-13] MEDS: SIMVASTATIN 20 MG TAB PO (22:06)
[2018-08-14] MEDS: DICYCLOMINE 10 MG CAP PO ×3 (06:13→17:21)
[2018-08-14 06:22] LABS: HEMATOCRIT 27.5 % (36.0-47.0); HEMOGLOBIN 8.6 g/dl (12.0-15.5); MEAN CORPUSCULAR HEMOGLOBIN 32.7 pg (27.0-33.0); MEAN CORPUSCULAR HGB CONC 31.3 g/dl (32.0-36.5); MEAN CORPUSCULAR VOLUME 104.6 fl (80.0-96.0); PLATELET COUNT, AUTOMATED 346 10^3/uL (150-450); RED BLOOD COUNT 2.63 10^6/uL (4.00-5.40); RED CELL DISTRIBUTION WIDTH 14.5 % (11.5-14.5); WHITE BLOOD COUNT 13.2 10^3/uL (4.0-10.0)
[2018-08-14 06:45] LABS: ANION GAP 8 MEQ/L (8-16); BLOOD UREA NITROGEN 40 MG/DL (7-18); CALCIUM LEVEL 6.8 MG/DL (8.8-10.2); CARBON DIOXIDE LEVEL 30 MEQ/L (21-32); CHLORIDE LEVEL 93 MEQ/L (98-107); CREATININE FOR GFR 6.31 MG/DL (0.55-1.30); GLUCOSE, FASTING 62 MG/DL (70-100); MAGNESIUM LEVEL 1.8 MG/DL (1.8-2.4); POTASSIUM SERUM 4.3 MEQ/L (3.5-5.1); SODIUM LEVEL 131 MEQ/L (136-145)
[2018-08-14] MEDS: (RENVELA) SEVELAMER **CARBONate** 800 MG TAB PO ×3 (07:48→17:21)
[2018-08-14] MEDS: FENOFIBRATE 145 MG TAB (TRICOR) PO (07:48)
[2018-08-14] MEDS: CINACALCET 30 MG TAB (SENSIPAR) PO (07:48)
[2018-08-14] MEDS: FOLIC ACID 1 MG TAB PO (07:49)
[2018-08-14] MEDS: predniSONE 1 MG TAB PO (07:49)
[2018-08-14] MEDS: BRIMONIDINE 0.1% OPHTH SOLN 5 ML OU ×2 (07:54→21:17)
[2018-08-14] MEDS: HEPARIN SOD (PORCINE) 5000 UNITS/ML VIAL SQ ×2 (07:54→21:00)
[2018-08-14] MEDS: METOPROLOL SUCC (TopROL XL) 50MG **XL** TAB PO ×2 (07:54→21:18)
[2018-08-14] MEDS: PERCOCET 5MG/325MG TAB PO ×2 (08:02→22:48)
[2018-08-14] MEDS: HEPARIN 1,000 UNITS/ML 10ML VIAL (FOR RADIOLOGY& DIALYSIS ONLY) XX (10:18)
[2018-08-14] MEDS: LOPERAMIDE 2 MG CAP PO (12:32)
[2018-08-14] MEDS: ONDANSETRON 4MG/2ML VIAL (J2405) IV (12:32)
[2018-08-14] MEDS: SIMVASTATIN 20 MG TAB PO (21:18)
[2018-08-15] MEDS: DICYCLOMINE 10 MG CAP PO ×3 (05:34→17:00)
[2018-08-15 08:14] LABS: HEMATOCRIT 31.8 % (36.0-47.0); MEAN CORPUSCULAR HEMOGLOBIN 32.7 pg (27.0-33.0); MEAN CORPUSCULAR HGB CONC 31.4 g/dl (32.0-36.5); MEAN CORPUSCULAR VOLUME 103.9 fl (80.0-96.0); PLATELET COUNT, AUTOMATED 408 10^3/uL (150-450); RED BLOOD COUNT 3.06 10^6/uL (4.00-5.40); RED CELL DISTRIBUTION WIDTH 14.6 % (11.5-14.5); WHITE BLOOD COUNT 12.7 10^3/uL (4.0-10.0)
[2018-08-15 08:43] LABS: ANION GAP 11 MEQ/L (8-16); BLOOD UREA NITROGEN 41 MG/DL (7-18); CALCIUM LEVEL 7.6 MG/DL (8.8-10.2); CARBON DIOXIDE LEVEL 30 MEQ/L (21-32); CHLORIDE LEVEL 91 MEQ/L (98-107); CREATININE FOR GFR 5.93 MG/DL (0.55-1.30); GLOMERULAR FILTRATION RATE 7.5 (>39); GLUCOSE, FASTING 81 MG/DL (70-100); MAGNESIUM LEVEL 1.9 MG/DL (1.8-2.4); POTASSIUM SERUM 3.8 MEQ/L (3.5-5.1); SODIUM LEVEL 132 MEQ/L (136-145)
[2018-08-15] MEDS: HEPARIN SOD (PORCINE) 5000 UNITS/ML VIAL SQ ×2 (09:00→21:00)
[2018-08-15] MEDS: LOPERAMIDE 2 MG CAP PO ×2 (10:30→10:58)
[2018-08-15] MEDS: (RENVELA) SEVELAMER **CARBONate** 800 MG TAB PO ×3 (10:30→18:00)
[2018-08-15] MEDS: predniSONE 1 MG TAB PO (10:30)
[2018-08-15] MEDS: FOLIC ACID 1 MG TAB PO (10:35)
[2018-08-15] MEDS: FENOFIBRATE 145 MG TAB (TRICOR) PO (10:35)
[2018-08-15] MEDS: CINACALCET 30 MG TAB (SENSIPAR) PO (10:35)
[2018-08-15] MEDS: METOPROLOL SUCC (TopROL XL) 50MG **XL** TAB PO ×2 (10:35→21:48)
[2018-08-15] MEDS: DARBEPOETIN 100 MCG/0.5 ML *NON-DIALYSIS* SYRINGE (J0881) SQ (10:36)
[2018-08-15] MEDS: BRIMONIDINE 0.1% OPHTH SOLN 5 ML OU ×2 (10:37→21:48)
[2018-08-15] MEDS: PERCOCET 5MG/325MG TAB PO (14:10)
[2018-08-15] MEDS: ONDANSETRON 4MG/2ML VIAL (J2405) IV (17:23)
[2018-08-15] MEDS: SIMVASTATIN 20 MG TAB PO (21:48)
[2018-08-16] MEDS: DICYCLOMINE 10 MG CAP PO ×3 (05:39→17:15)
[2018-08-16 06:56] LABS: HEMOGLOBIN 9.7 g/dl (12.0-15.5); MEAN CORPUSCULAR HEMOGLOBIN 32.7 pg (27.0-33.0); MEAN CORPUSCULAR HGB CONC 31.3 g/dl (32.0-36.5); MEAN CORPUSCULAR VOLUME 104.4 fl (80.0-96.0); PLATELET COUNT, AUTOMATED 383 10^3/uL (150-450); RED BLOOD COUNT 2.97 10^6/uL (4.00-5.40); RED CELL DISTRIBUTION WIDTH 14.6 % (11.5-14.5); WHITE BLOOD COUNT 11.6 10^3/uL (4.0-10.0)
[2018-08-16 07:25] LABS: ANION GAP 10 MEQ/L (8-16); BLOOD UREA NITROGEN 46 MG/DL (7-18); CALCIUM LEVEL 7.2 MG/DL (8.8-10.2); CARBON DIOXIDE LEVEL 30 MEQ/L (21-32); CHLORIDE LEVEL 92 MEQ/L (98-107); CREATININE FOR GFR 6.19 MG/DL (0.55-1.30); GLOMERULAR FILTRATION RATE 7.1 (>39); GLUCOSE, FASTING 83 MG/DL (70-100); MAGNESIUM LEVEL 1.8 MG/DL (1.8-2.4); PHOSPHORUS LEVEL 4.1 MG/DL (2.5-4.9); POTASSIUM SERUM 3.9 MEQ/L (3.5-5.1); SODIUM LEVEL 132 MEQ/L (136-145)
[2018-08-16] MEDS: (RENVELA) SEVELAMER **CARBONate** 800 MG TAB PO ×3 (08:00→17:15)
[2018-08-16] MEDS: HEPARIN SOD (PORCINE) 5000 UNITS/ML VIAL SQ ×2 (09:00→21:39)
[2018-08-16] MEDS: CINACALCET 30 MG TAB (SENSIPAR) PO (10:19)
[2018-08-16] MEDS: FENOFIBRATE 145 MG TAB (TRICOR) PO (10:19)
[2018-08-16] MEDS: METOPROLOL SUCC (TopROL XL) 50MG **XL** TAB PO ×2 (10:26→21:38)
[2018-08-16] MEDS: predniSONE 1 MG TAB PO (10:27)
[2018-08-16] MEDS: ONDANSETRON 4 MG ORAL DISINTEGRATING TAB (Q0162 PER 1MG) PO (10:27)
[2018-08-16] MEDS: FOLIC ACID 1 MG TAB PO (10:27)
[2018-08-16] MEDS: PERCOCET 5MG/325MG TAB PO (10:27)
[2018-08-16] MEDS: BRIMONIDINE 0.1% OPHTH SOLN 5 ML OU ×2 (10:28→21:39)
[2018-08-16] MEDS: LOPERAMIDE 2 MG CAP PO (12:00)
[2018-08-16] MEDS: SIMVASTATIN 20 MG TAB PO (21:38)
[2018-08-17] MEDS: DICYCLOMINE 10 MG CAP PO ×3 (05:04→18:23)
[2018-08-17] MEDS: CINACALCET 30 MG TAB (SENSIPAR) PO (09:32)
[2018-08-17] MEDS: METOPROLOL SUCC (TopROL XL) 50MG **XL** TAB PO ×2 (09:32→21:58)
[2018-08-17] MEDS: FENOFIBRATE 145 MG TAB (TRICOR) PO (09:33)
[2018-08-17] MEDS: (RENVELA) SEVELAMER **CARBONate** 800 MG TAB PO ×3 (09:33→18:23)
[2018-08-17] MEDS: FOLIC ACID 1 MG TAB PO (09:33)
[2018-08-17] MEDS: predniSONE 1 MG TAB PO (09:33)
[2018-08-17] MEDS: HEPARIN SOD (PORCINE) 5000 UNITS/ML VIAL SQ ×2 (09:34→21:00)
[2018-08-17] MEDS: BRIMONIDINE 0.1% OPHTH SOLN 5 ML OU ×2 (09:34→21:58)
[2018-08-17] MEDS: LOPERAMIDE 2 MG CAP PO ×2 (11:23→11:27)
[2018-08-17] MEDS: PERCOCET 5MG/325MG TAB PO (11:25)
[2018-08-17 12:15] LABS: HEMATOCRIT 31.2 % (36.0-47.0); HEMOGLOBIN 9.8 g/dl (12.0-15.5); MEAN CORPUSCULAR HEMOGLOBIN 33.1 pg (27.0-33.0); MEAN CORPUSCULAR HGB CONC 31.4 g/dl (32.0-36.5); MEAN CORPUSCULAR VOLUME 105.4 fl (80.0-96.0); PLATELET COUNT, AUTOMATED 380 10^3/uL (150-450); RED BLOOD COUNT 2.96 10^6/uL (4.00-5.40); RED CELL DISTRIBUTION WIDTH 14.6 % (11.5-14.5); WHITE BLOOD COUNT 13.8 10^3/uL (4.0-10.0)
[2018-08-17 12:49] LABS: ANION GAP 8 MEQ/L (8-16); BLOOD UREA NITROGEN 45 MG/DL (7-18); CARBON DIOXIDE LEVEL 32 MEQ/L (21-32); CHLORIDE LEVEL 91 MEQ/L (98-107); CREATININE FOR GFR 6.62 MG/DL (0.55-1.30); GLOMERULAR FILTRATION RATE 6.6 (>39); GLUCOSE, FASTING 125 MG/DL (70-100); POTASSIUM SERUM 4.2 MEQ/L (3.5-5.1); SODIUM LEVEL 131 MEQ/L (136-145)
[2018-08-17] MEDS: SIMVASTATIN 20 MG TAB PO (21:58)
[2018-08-18] MEDS: DICYCLOMINE 10 MG CAP PO ×3 (06:44→17:54)
[2018-08-18] MEDS: CINACALCET 30 MG TAB (SENSIPAR) PO (08:50)
[2018-08-18] MEDS: FOLIC ACID 1 MG TAB PO (08:50)
[2018-08-18] MEDS: METOPROLOL SUCC (TopROL XL) 50MG **XL** TAB PO ×2 (08:52→21:22)
[2018-08-18] MEDS: FENOFIBRATE 145 MG TAB (TRICOR) PO (08:52)
[2018-08-18] MEDS: HEPARIN SOD (PORCINE) 5000 UNITS/ML VIAL SQ ×2 (08:52→21:00)
[2018-08-18] MEDS: (RENVELA) SEVELAMER **CARBONate** 800 MG TAB PO ×3 (08:52→17:54)
[2018-08-18] MEDS: predniSONE 1 MG TAB PO (08:53)
[2018-08-18] MEDS: BRIMONIDINE 0.1% OPHTH SOLN 5 ML OU ×2 (08:53→21:23)
[2018-08-18] MEDS: LOPERAMIDE 2 MG CAP PO (12:18)
[2018-08-18] MEDS: SIMVASTATIN 20 MG TAB PO (21:22)
[2018-08-19] MEDS: DICYCLOMINE 10 MG CAP PO ×3 (06:41→17:45)
[2018-08-19] MEDS: HEPARIN SOD (PORCINE) 5000 UNITS/ML VIAL SQ ×2 (08:55→20:12)
[2018-08-19] MEDS: METOPROLOL SUCC (TopROL XL) 50MG **XL** TAB PO ×2 (08:55→20:12)
[2018-08-19] MEDS: (RENVELA) SEVELAMER **CARBONate** 800 MG TAB PO ×3 (08:55→17:45)
[2018-08-19] MEDS: CINACALCET 30 MG TAB (SENSIPAR) PO (08:56)
[2018-08-19] MEDS: FENOFIBRATE 145 MG TAB (TRICOR) PO (08:56)
[2018-08-19] MEDS: predniSONE 1 MG TAB PO (08:56)
[2018-08-19] MEDS: BRIMONIDINE 0.1% OPHTH SOLN 5 ML OU ×2 (08:56→20:13)
[2018-08-19] MEDS: FOLIC ACID 1 MG TAB PO (08:56)
[2018-08-19] MEDS: LOPERAMIDE 2 MG CAP PO ×2 (12:00→12:13)
[2018-08-19] MEDS: SIMVASTATIN 20 MG TAB PO (20:11)
[2018-08-20] MEDS: PERCOCET 5MG/325MG TAB PO (00:09)
[2018-08-20] MEDS: DICYCLOMINE 10 MG CAP PO ×3 (06:32→18:38)
[2018-08-20] MEDS: CINACALCET 30 MG TAB (SENSIPAR) PO (08:12)
[2018-08-20] MEDS: predniSONE 1 MG TAB PO (08:12)
[2018-08-20] MEDS: (RENVELA) SEVELAMER **CARBONate** 800 MG TAB PO ×3 (08:12→18:38)
[2018-08-20] MEDS: FENOFIBRATE 145 MG TAB (TRICOR) PO (08:12)
[2018-08-20] MEDS: HEPARIN SOD (PORCINE) 5000 UNITS/ML VIAL SQ ×2 (08:13→21:00)
[2018-08-20] MEDS: FOLIC ACID 1 MG TAB PO (08:13)
[2018-08-20] MEDS: BRIMONIDINE 0.1% OPHTH SOLN 5 ML OU ×2 (08:13→21:56)
[2018-08-20] MEDS: METOPROLOL SUCC (TopROL XL) 50MG **XL** TAB PO ×2 (08:13→21:56)
[2018-08-20] MEDS: LOPERAMIDE 2 MG CAP PO (12:00)
[2018-08-20 12:41] LABS: HEMATOCRIT 34.9 % (36.0-47.0); HEMOGLOBIN 10.5 g/dl (12.0-15.5); MEAN CORPUSCULAR HEMOGLOBIN 32.1 pg (27.0-33.0); MEAN CORPUSCULAR HGB CONC 30.1 g/dl (32.0-36.5); MEAN CORPUSCULAR VOLUME 106.7 fl (80.0-96.0); PLATELET COUNT, AUTOMATED 385 10^3/uL (150-450); RED BLOOD COUNT 3.27 10^6/uL (4.00-5.40); WHITE BLOOD COUNT 13.8 10^3/uL (4.0-10.0)
[2018-08-20 13:22] LABS: ANION GAP 8 MEQ/L (8-16); BLOOD UREA NITROGEN 40 MG/DL (7-18); CALCIUM LEVEL 7.4 MG/DL (8.8-10.2); CARBON DIOXIDE LEVEL 32 MEQ/L (21-32); CHLORIDE LEVEL 92 MEQ/L (98-107); CREATININE FOR GFR 6.51 MG/DL (0.55-1.30); GLOMERULAR FILTRATION RATE 6.7 (>39); GLUCOSE, FASTING 103 MG/DL (70-100); POTASSIUM SERUM 4.2 MEQ/L (3.5-5.1); SODIUM LEVEL 132 MEQ/L (136-145)
[2018-08-20] MEDS: SIMVASTATIN 20 MG TAB PO (21:56)
[2018-08-21] MEDS: DICYCLOMINE 10 MG CAP PO ×3 (06:14→16:42)
[2018-08-21] MEDS: (RENVELA) SEVELAMER **CARBONate** 800 MG TAB PO ×3 (08:09→16:42)
[2018-08-21] MEDS: FENOFIBRATE 145 MG TAB (TRICOR) PO (08:09)
[2018-08-21] MEDS: HEPARIN SOD (PORCINE) 5000 UNITS/ML VIAL SQ ×3 (08:09→21:00)
[2018-08-21] MEDS: predniSONE 1 MG TAB PO (08:09)
[2018-08-21] MEDS: CINACALCET 30 MG TAB (SENSIPAR) PO (08:09)
[2018-08-21] MEDS: FOLIC ACID 1 MG TAB PO (08:09)
[2018-08-21] MEDS: BRIMONIDINE 0.1% OPHTH SOLN 5 ML OU ×2 (08:11→21:56)
[2018-08-21] MEDS: METOPROLOL SUCC (TopROL XL) 50MG **XL** TAB PO ×2 (08:11→21:56)
[2018-08-21] MEDS: LOPERAMIDE 2 MG CAP PO (11:28)
[2018-08-21] MEDS: SIMVASTATIN 20 MG TAB PO (21:55)
[2018-08-22] MEDS: DICYCLOMINE 10 MG CAP PO ×3 (07:34→17:13)
[2018-08-22] MEDS: (RENVELA) SEVELAMER **CARBONate** 800 MG TAB PO ×3 (08:13→17:14)
[2018-08-22] MEDS: predniSONE 1 MG TAB PO (08:13)
[2018-08-22] MEDS: CINACALCET 30 MG TAB (SENSIPAR) PO (08:14)
[2018-08-22] MEDS: FENOFIBRATE 145 MG TAB (TRICOR) PO (08:14)
[2018-08-22] MEDS: FOLIC ACID 1 MG TAB PO (08:14)
[2018-08-22] MEDS: METOPROLOL SUCC (TopROL XL) 50MG **XL** TAB PO ×2 (08:16→22:17)
[2018-08-22] MEDS: BRIMONIDINE 0.1% OPHTH SOLN 5 ML OU ×2 (08:17→22:17)
[2018-08-22] MEDS: HEPARIN SOD (PORCINE) 5000 UNITS/ML VIAL SQ ×2 (08:17→21:00)
[2018-08-22] MEDS: DARBEPOETIN 100 MCG/0.5 ML *NON-DIALYSIS* SYRINGE (J0881) SQ (09:46)
[2018-08-22] MEDS: LOPERAMIDE 2 MG CAP PO (11:49)
[2018-08-22] MEDS: ACETAMINOPHEN TAB 650MG DOSE (2X325MG) PO (22:17)
[2018-08-22] MEDS: SIMVASTATIN 20 MG TAB PO (22:17)
[2018-08-23] MEDS: DICYCLOMINE 10 MG CAP PO ×3 (06:32→18:00)
[2018-08-23] MEDS: BRIMONIDINE 0.1% OPHTH SOLN 5 ML OU ×2 (08:24→22:26)
[2018-08-23] MEDS: HEPARIN SOD (PORCINE) 5000 UNITS/ML VIAL SQ ×2 (08:24→21:00)
[2018-08-23] MEDS: (RENVELA) SEVELAMER **CARBONate** 800 MG TAB PO ×3 (08:24→18:00)
[2018-08-23] MEDS: FOLIC ACID 1 MG TAB PO (08:24)
[2018-08-23] MEDS: CINACALCET 30 MG TAB (SENSIPAR) PO (08:24)
[2018-08-23] MEDS: METOPROLOL SUCC (TopROL XL) 50MG **XL** TAB PO ×2 (08:24→22:26)
[2018-08-23] MEDS: predniSONE 1 MG TAB PO (08:24)
[2018-08-23] MEDS: LOPERAMIDE 2 MG CAP PO (12:00)
[2018-08-23] MEDS: ACETAMINOPHEN TAB 650MG DOSE (2X325MG) PO (12:47)
[2018-08-23] MEDS: SIMVASTATIN 20 MG TAB PO (22:26)
[2018-08-24] MEDS: ACETAMINOPHEN TAB 650MG DOSE (2X325MG) PO (04:50)
[2018-08-24] MEDS: DICYCLOMINE 10 MG CAP PO ×3 (06:19→17:19)
[2018-08-24] MEDS: HEPARIN SOD (PORCINE) 5000 UNITS/ML VIAL SQ ×2 (09:00→20:41)
[2018-08-24] MEDS: (RENVELA) SEVELAMER **CARBONate** 800 MG TAB PO ×3 (09:47→17:19)
[2018-08-24] MEDS: BRIMONIDINE 0.1% OPHTH SOLN 5 ML OU ×2 (09:47→20:11)
[2018-08-24] MEDS: FOLIC ACID 1 MG TAB PO (09:48)
[2018-08-24] MEDS: predniSONE 1 MG TAB PO (09:48)
[2018-08-24] MEDS: CINACALCET 30 MG TAB (SENSIPAR) PO (09:48)
[2018-08-24] MEDS: METOPROLOL SUCC (TopROL XL) 50MG **XL** TAB PO ×2 (09:48→20:11)
[2018-08-24] MEDS: LOPERAMIDE 2 MG CAP PO (11:02)
[2018-08-24 11:16] LABS: HEMATOCRIT 30.7 % (36.0-47.0); HEMOGLOBIN 9.4 g/dl (12.0-15.5); MEAN CORPUSCULAR HEMOGLOBIN 32.2 pg (27.0-33.0); MEAN CORPUSCULAR HGB CONC 30.6 g/dl (32.0-36.5); MEAN CORPUSCULAR VOLUME 105.1 fl (80.0-96.0); PLATELET COUNT, AUTOMATED 302 10^3/uL (150-450); RED BLOOD COUNT 2.92 10^6/uL (4.00-5.40); RED CELL DISTRIBUTION WIDTH 15.4 % (11.5-14.5); WHITE BLOOD COUNT 12.5 10^3/uL (4.0-10.0)
[2018-08-24 11:43] LABS: ANION GAP 9 MEQ/L (8-16); BLOOD UREA NITROGEN 37 MG/DL (7-18); CALCIUM LEVEL 6.6 MG/DL (8.8-10.2); CARBON DIOXIDE LEVEL 29 MEQ/L (21-32); CHLORIDE LEVEL 99 MEQ/L (98-107); CREATININE FOR GFR 6.07 MG/DL (0.55-1.30); GLOMERULAR FILTRATION RATE 7.3 (>39); GLUCOSE, FASTING 84 MG/DL (70-100); SODIUM LEVEL 137 MEQ/L (136-145)
[2018-08-24] MEDS: SIMVASTATIN 20 MG TAB PO (20:10)
[2018-08-25] MEDS: DICYCLOMINE 10 MG CAP PO ×3 (06:03→18:01)
[2018-08-25] MEDS: METOPROLOL SUCC (TopROL XL) 50MG **XL** TAB PO ×2 (08:09→21:58)
[2018-08-25] MEDS: (RENVELA) SEVELAMER **CARBONate** 800 MG TAB PO ×3 (08:09→18:01)
[2018-08-25] MEDS: HEPARIN SOD (PORCINE) 5000 UNITS/ML VIAL SQ ×2 (08:10→21:00)
[2018-08-25] MEDS: CINACALCET 30 MG TAB (SENSIPAR) PO (08:10)
[2018-08-25] MEDS: predniSONE 1 MG TAB PO (08:10)
[2018-08-25] MEDS: FOLIC ACID 1 MG TAB PO (08:10)
[2018-08-25] MEDS: BRIMONIDINE 0.1% OPHTH SOLN 5 ML OU ×2 (08:10→21:58)
[2018-08-25] MEDS: LOPERAMIDE 2 MG CAP PO (11:28)
[2018-08-25] MEDS: SIMVASTATIN 20 MG TAB PO (21:58)
[2018-08-26] MEDS: DICYCLOMINE 10 MG CAP PO ×3 (06:19→18:25)
[2018-08-26] MEDS: predniSONE 1 MG TAB PO (08:07)
[2018-08-26] MEDS: CINACALCET 30 MG TAB (SENSIPAR) PO (08:07)
[2018-08-26] MEDS: (RENVELA) SEVELAMER **CARBONate** 800 MG TAB PO ×3 (08:07→18:25)
[2018-08-26] MEDS: BRIMONIDINE 0.1% OPHTH SOLN 5 ML OU ×2 (08:07→21:49)
[2018-08-26] MEDS: METOPROLOL SUCC (TopROL XL) 50MG **XL** TAB PO ×2 (08:07→21:48)
[2018-08-26] MEDS: FOLIC ACID 1 MG TAB PO (08:07)
[2018-08-26] MEDS: HEPARIN SOD (PORCINE) 5000 UNITS/ML VIAL SQ ×2 (08:08→21:00)
[2018-08-26] MEDS: ACETAMINOPHEN TAB 650MG DOSE (2X325MG) PO (10:26)
[2018-08-26] MEDS: LOPERAMIDE 2 MG CAP PO (12:00)
[2018-08-26] MEDS: SIMVASTATIN 20 MG TAB PO (21:49)
[2018-08-27] MEDS: ACETAMINOPHEN TAB 650MG DOSE (2X325MG) PO (00:04)
[2018-08-27] MEDS: DICYCLOMINE 10 MG CAP PO ×2 (06:16→11:35)
[2018-08-27] MEDS: (RENVELA) SEVELAMER **CARBONate** 800 MG TAB PO (07:59)
[2018-08-27] MEDS: HEPARIN SOD (PORCINE) 5000 UNITS/ML VIAL SQ (09:00)
[2018-08-27] MEDS: predniSONE 1 MG TAB PO (09:20)
[2018-08-27] MEDS: CINACALCET 30 MG TAB (SENSIPAR) PO (09:20)
[2018-08-27] MEDS: BRIMONIDINE 0.1% OPHTH SOLN 5 ML OU (09:20)
[2018-08-27] MEDS: METOPROLOL SUCC (TopROL XL) 50MG **XL** TAB PO (09:21)
[2018-08-27] MEDS: FOLIC ACID 1 MG TAB PO (09:21)
[2018-08-27] MEDS: LOPERAMIDE 2 MG CAP PO (11:35)
== END 2018-08-27 11:54 | disposition home or self-care (01) | DRG 535 ==
LOC: M ED INP 08-08 02:55 → M MSPAV 08-08 05:20 → M ED 21:17 → M MSPAV 08-10 12:52
DX: S32.512A Fracture of superior rim of left pubis, initial encounter for closed fracture (principal); N18.6 End stage renal disease; E46 Unspecified protein-calorie malnutrition; N25.81 Secondary hyperparathyroidism of renal origin; E87.1 Hypo-osmolality and hyponatremia; Z99.2 Dependence on renal dialysis; Z95.828 Presence of other vascular implants and grafts; D63.1 Anemia in chronic kidney disease; I15.0 Renovascular hypertension; K59.00 Constipation, unspecified; F32.9 Major depressive disorder, single episode, unspecified; E73.9 Lactose intolerance, unspecified; E78.5 Hyperlipidemia, unspecified; Z85.42 Personal history of malignant neoplasm of other parts of uterus; Z85.828 Personal history of other malignant neoplasm of skin; Z85.6 Personal history of leukemia; Z90.710 Acquired absence of both cervix and uterus; Z96.643 Presence of artificial hip joint, bilateral; W01.0XXA Fall on same level from slipping, tripping and stumbling without subsequent striking against object, initial encounter; Y92.009 Unspecified place in unspecified non-institutional (private) residence as the place of occurrence of the external cause; Y93.01 Activity, walking, marching and hiking; Z79.52 Long term (current) use of systemic steroids; Z79.899 Other long term (current) drug therapy; Z88.2 Allergy status to sulfonamides; Z88.5 Allergy status to narcotic agent; Z88.8 Allergy status to other drugs, medicaments and biological substances

== ENCOUNTER 2018-09-30 22:18 | Emergency (ER) | payer MEDICARE, BC, OTHER ==
[2018-09-30] MEDS ORDERED: ACETAMINOPHEN 325 MG TAB As Ordered (23:05)
[2018-09-30] MEDS ORDERED: LIDOCAINE W/EPINEPHRINE 1% 20ML VIAL As Ordered (23:35)
[2018-09-30] MEDS ORDERED: LIDOCAINE W/EPINEPHRINE 1% 20ML VIAL SC (23:45)
== END 2018-10-01 02:21 | disposition home or self-care (01) ==
LOC: M ED 10-01 02:21
DX: L76.21 Postprocedural hemorrhage of skin and subcutaneous tissue following a dermatologic procedure (principal); I10 Essential (primary) hypertension; E78.5 Hyperlipidemia, unspecified; N17.9 Acute kidney failure, unspecified; Z85.828 Personal history of other malignant neoplasm of skin; Z88.5 Allergy status to narcotic agent; Z88.2 Allergy status to sulfonamides; Z91.011 Allergy to milk products; Z99.2 Dependence on renal dialysis; Z79.899 Other long term (current) drug therapy; Z79.52 Long term (current) use of systemic steroids
CPT/HCPCS: 99284

== ENCOUNTER → 2018-11-30 | Outpatient (REF) | payer MEDICARE, BC, OTHER ==
[~2018-11-30] MED LIST changes: -ACET1TAB17 PO; +ACET1TAB55 PO; +ACET500T15 PO; -ACET50TAOT PO; +CINA30TA PO; -DRIS50002 PO; +DRIS50003 PO; +FENO145T13 PO; -FIRS1SOL3 PO; +FIRS50SO PO; +FOLI1TAB11 PO; -FOLI1TAB4 PO; -IMUR50TA6 PO; +IMUR50TA7 PO; +MECL-86 PO; +MUPI2OI; +PERCOCET PO; +PROC1AER16 PR; -PROCAER4 PR; -TELM1TAB12 PO; -TELM1TAB2 PO; +TELM1TAB33 PO; +TELM1TAB37 PO; -TOPR25TA PO; +TOPR25TA13 PO; -TOPR50TA PO; +TOPR50TA23 PO; -VITA1CAP40 PO; +VITA50005 PO
== END ==
LOC: M SFHCPLAZ 17:09
PROVIDERS: ATTEND Dermatology
DX: C44.622 Squamous cell carcinoma of skin of right upper limb, including shoulder (principal); C44.629 Squamous cell carcinoma of skin of left upper limb, including shoulder; C44.729 Squamous cell carcinoma of skin of left lower limb, including hip

== ENCOUNTER → 2018-12-14 | Outpatient (REF) | payer MEDICARE, BC, OTHER ==
[~2018-12-14] MED LIST changes: -/METO2TASA PO; -/WARF25TA; +BRIM1OPD OS; -BRIM1OPD OU; +COUM1TAB18; +HEPA1INJ23 SC; -HEPA50VL SC; +HYDR-2773 PO; +HYDR-3715 PO; -HYDR10TAB PO; +IMUR50TA10 PO; -IMUR50TA7 PO; +MAGN64TASA PO; +MECL-68 PO; +METO-1 PO; +MUPI2OI TOP; +NEPH1TAB11 PO; -NEPHTAB PO; -NORCOTAB PO; +TOPR25TA PO; -TOPR25TA13 PO; +TOPR50TA PO; -TOPR50TA23 PO; +[UNRECOGNIZED DRUG - CODE] EXT; -[UNRECOGNIZED DRUG - CODE] EXT
== END ==
LOC: M SFHCPLAZ 19:00
PROVIDERS: ATTEND Dermatology
DX: C44.329 Squamous cell carcinoma of skin of other parts of face (principal); L57.0 Actinic keratosis

== ENCOUNTER 2018-12-28 09:29 | Inpatient (IN) | payer MEDICARE, BC, OTHER ==
[~2018-12-28] VITALS: Ht 147.3 cm; Wt 51.2 kg
[~2018-12-28 09:29] MED LIST changes: +/METO2TASA PO; +/WARF25TA; -COUM1TAB18; -HEPA1INJ23 SC; +HEPA50VL SC; -HYDR-2773 PO; -HYDR-3715 PO; +HYDR10TAB PO; -IMUR50TA10 PO; +IMUR50TA7 PO; -MAGN64TASA PO; -MECL-68 PO; -METO-1 PO; -MUPI2OI TOP; -NEPH1TAB11 PO; +NEPHTAB PO; +NORCOTAB PO; -TOPR25TA PO; +TOPR25TA13 PO; -TOPR50TA PO; +TOPR50TA23 PO; +[UNRECOGNIZED DRUG - CODE] EXT; -[UNRECOGNIZED DRUG - CODE] EXT
[2018-12-28] MEDS ORDERED: ACETAMINOPHEN 500 MG TAB PO ONE (09:45)
[2018-12-28 10:33] LABS: INFLUENZA A AMPLIFICATION NEGATIVE (NEGATIVE); INFLUENZA B AMPLIFICATION NEGATIVE (NEGATIVE)
[2018-12-28 10:36] LABS: BASO % 0.2 % (0.0-1.0); EOS % 0.1 % (0.0-3.0); HEMOGLOBIN 10.5 g/dl (12.0-15.5); LYMPH # 0.7 10^3/uL (1.5-4.5); LYMPH % 3.2 % (24.0-44.0); MEAN CORPUSCULAR HEMOGLOBIN 33.2 pg (27.0-33.0); MEAN CORPUSCULAR HGB CONC 31.8 g/dl (32.0-36.5); MEAN CORPUSCULAR VOLUME 104.4 fl (80.0-96.0); MONO # 1.4 10^3/uL (0.0-0.8); MONO % 6.2 % (0.0-5.0); NEUTROPHILS % 88.6 % (36.0-66.0); PLATELET COUNT, AUTOMATED 319 10^3/uL (150-450); RED BLOOD COUNT 3.16 10^6/uL (4.00-5.40); WHITE BLOOD COUNT 22.5 10^3/uL (4.0-10.0)
[2018-12-28] MEDS ORDERED: NS 500 ML IV ONE (10:45)
[2018-12-28 10:46] LABS: INR 1.11; PROTHROMBIN TIME 14.5 SECONDS (12.1-14.4)
--- NOTE | 2018-12-28 11:30 | REP ---
Chest two views HISTORY: Fever Comparison: 11/15/2017 Linear densities are present in the left lower lobe consistent with scar. The right lung is clear. The cardiac silhouette is enlarged. The heart is normal in size. The pulmonary vasculature is normal in appearance. The bony structure is intact. IMPRESSION: Cardiomegaly. Electronically Signed by Nicolas Ayala MD 12/28/2018 11:21 A
[2018-12-28] MEDS ORDERED: PIPERACILLIN/TAZOBACTAM SOD 2.25 GM in D5W MINI-BAG PLUS 50 ML IV ONE (11:45)
[2018-12-28] MEDS ORDERED: NS 1,000 ML IV ONE (12:00)
[2018-12-28 12:08] LABS: APPEARANCE, BODY FLUID CLEAR (CLEAR); PERITONEAL FL COLOR COLORLESS (COLORLESS); SOURCE, BODY FLUID PERITONEAL
[2018-12-28 12:15] LABS: ALBUMIN 2.1 GM/DL (3.2-5.2); BILIRUBIN,DIRECT 0.3 MG/DL (0.0-0.2); BILIRUBIN,TOTAL 0.6 MG/DL (0.2-1.0); CALCIUM LEVEL 7.6 MG/DL (8.8-10.2); CREATININE FOR GFR 6.03 MG/DL (0.55-1.30); GLOMERULAR FILTRATION RATE 7.3 (>39); MB/CK RELATIVE INDEX 2.25 (< OR =4); POTASSIUM SERUM 3.9 MEQ/L (3.5-5.1); TOTAL PROTEIN 5.2 GM/DL (6.4-8.2); TROPONIN I 1.04 NG/ML (< 0.10)
[2018-12-28] MEDS ORDERED: VANCOMYCIN HCL 1,000 MG, VIAL MATE ADAPTER 1 EACH in D5W 250 ML IV ONE (12:15)
[2018-12-28 12:18] LABS: SPEC. GRAVITY BODY FLUIDS 1.007 (NOT ESTABLISHED)
[2018-12-28 12:37] LABS: SOURCE, BODY FLUID ALBUMIN PERITONEAL; SOURCE, BODY FLUID GLUCOSE PERITONEAL; SOURCE, BODY FLUID TOT PROTEIN PERITONEAL; TOTAL PROTEIN, BODY FLUID 0.2 G/DL (NOT ESTABLISHED)
[2018-12-28] MEDS ORDERED: MECL-68 PO (13:51)
[2018-12-28] MEDS ORDERED: DICY1CAP8 PO (13:54)
[2018-12-28] MEDS ORDERED: MUPI2OI TOP (13:57)
--- NOTE | 2018-12-28 15:38 | ECGEPIP ---
Stationary ECG Study [facility] - ED Test Date: 2018-12-28 Pat Name: ANSELMO SERRATO Department: Room: - Gender: F [employer]: : 1950 Requested By: Sally Hunter Order Number: [id number] Reading MD: Noman Valdes Measurements Intervals [place] Rate: 98 P: -48 PA: 158 QRS: -15 QRSD: 74 T: 34 QT: 330 QTc: 422 Interpretive Statements ACCELERATED JUNCTIONAL RHYTHM LEFT VENTRICULAR HYPERTROPHY AND ST-T CHANGE SIMILAR TO 08/07/18 Electronically Signed On 12-28-2018 15:38:32 EDT by Noman Valdes
--- NOTE | 2018-12-28 15:42 | HPEPDOC ---
[facility] Medical History & Physical Date of Admission Dec 28, 2018 Attending Physician: TOMMIE NEWTON MD History and Physical CHIEF COMPLAINT: Nausea, Vomiting, Diarrhea, Weakness HISTORY OF PRESENT ILLNESS: Patient is a 68 year old female with a past medical history significant for ESRD on peritoneal dialysis, anemia of chronic disease, history of uterine cancer, hypertension, leukemia, squamous cell carcinoma or the arms, legs and neck, depression, and hyperlipidemia who presented to the [facility] ER with complaint of nausea, vomiting, diarrhea, and generalized weakness which has developed over the past 24 hours. Patient states that she was at home last night and developed nausea and vomiting followed by watery diarrhea. She states that she has lost a considerable amount of strength and found it difficult for her to lift herself up. In the ER the patient was found to be vitally stable with a fever of 101.7 and an elevated WBC. She did receive IV fluid and a dose of Vancomycin and Zosyn. Patient was found to be too weak for discharge and hospitalist service was consulted for further management PAST MEDICAL HISTORY: 1. ESRD on Peritoneal Dialysis 2. Anemia of Chronic Disease 3. Hx of Uterine Cancer 4. Hypertension 5. Leukemia 6. SSC of Arms, Legs, and Neck 7. Depression 8. Hyperlipidemia . PAST SURGICAL HISTORY: 1. Kidney Transplant 2016 (Failed) 2. Hysterectomy 2/2 uterine cancer 3. Removal of skin squamous cell carcinoma in arms and legs 4. Bilateral Hip replacements 5. Left femoral surgery from fracture 6. Left thumb amputation SOCIAL HISTORY: Patient currently lives alone. She denies smoking, alcohol use, or illicit drug use FAMILY HISTORY: Mother is from renal cancer. ALLERGIES: Please see below. REVIEW OF SYSTEMS: CONSTITUTIONAL: Complains of chills and fever. Denies night sweats. Denies unintentional weightloss or weight gain HEENT: Complains of cough. Denies sputum production. Denies changes in vision CARDIOVASCULAR: Denies chest pain, palpitations, or feelings of the heart racing RESPIRATORY: Denies shortness of breath. Complaints of sharp pain when she coughs or vomits. GASTROINTESTINAL: Complains of nausea, vomiting, and diarrhea. Complains of abdominal pain diffuse. GENITOURINARY: Denies dysuria. States that she does not make urine 2/2 ESRD SKIN: Admits to SCC lesions on legs, arms, and throughout entire body MUSCULOSKELETAL: Admits to muscle weakness diffuse NEUROLOGICAL: Denies changes in speech or gait. Admits to weakness PSYCHIATRIC: Admits to depression ENDOCRINE: Denies heat intolerance or cold intolerance HEMATOLOGIC/LYMPHATIC: Denies easy bruising or bleeding HOME MEDICATIONS: Please see below. PHYSICAL EXAMINATION: VITAL SIGNS: Temperature 101.7, pulse 101, respiratory rate 17, blood pressure 135/63, pulse oximetry 99% on room air. GENERAL APPEARANCE: Patient is awake, alert, and oriented. She appears in no acute distress. She is lying in bed comfortably HEENT: Atraumatic normocephalic. Eyes are non-icteric. Trachea is midline. Mucous membranes appear dry. Capillary refill <2 seconds. CARDIOVASCULAR: Regular rate and rhythm 2/6 Holosystolic murmur noted LUNGS: Clear vesicular lung sounds bilaterally with good respiratory effort ABDOMEN: Soft. Slight tenderness to palpation diffusely although more so in right lower quadrant. No rebound tenderness or guarding. MUSCULOSKELETAL: 4/5 muscle strength testing in bilateral lower and upper extremities EXTREMITIES: No edema. Pulses full and equal bilateral upper and lower extremities NEUROLOGICAL: No focal neurological deficits PSYCHIATRIC: Mood and affect appear appropriate LABORATORY DATA: See below. IMAGING: Chest two views HISTORY: Fever Comparison: 11/15/2017 Linear densities are present in the left lower lobe consistent with scar. The right lung is clear. The cardiac silhouette is enlarged. The heart is normal in size. The pulmonary vasculature is normal in appearance. The bony structure is intact. IMPRESSION: Cardiomegaly. Electronically Signed by Nicolas Ayala MD 12/28/2018 11:21 A MICROBIOLOGY: Please see below. ASSESSMENT: Patient is a 68 year old female with a past medical history significant for ESRD on peritoneal dialysis, anemia of chronic disease, SCC, hypertension, history of uterine cancer, and depression who presented to the ED with nausea, vomiting, diarrhea, and weakness. Patient was started on IV hydration and given a dose of vancomycin and zosyn . PLAN: 1. Acute Viral Gastroenteritis -Patient presents with a likely viral gastroenteritis. Her diarrhea has resolved. She does continue to complain of nausea without vomiting at this point in time. She continues to be weak. -Patient appears volume contracted on exam. She will receive IV fluid hydrati on. -Zofran PRN for Nausea -GI panel pending. C. diff assay pending. Patient received antibiotics in the ER. Will hold antibiotics for now pending results of GI panel. -Patient has had a history of C. diff in the past. C. diff assay pending. 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 2. ESRD on peritoneal Dialysis -Patient is being followed by nephrology. 3. Hypertension -Will continue patients home medications Vital Signs Vital Signs Date Time Temp Pulse Resp B/P (MAP) Pulse Ox O2 Delivery O2 Flow Rate FiO2 12/28/18 12:45 118/58 (78) 12/28/18 12:44 86 97 12/28/18 09:55 101.7 17 Room Air Laboratory Data Labs 24H Laboratory Tests 2 12/28/18 09:52: Influenza Type A (RT-PCR) NEGATIVE, Influenza Type B (RT-PCR) NEGATIVE 12/28/18 10:05: Immature Granulocyte % (Auto) 1.7, White Blood Count 22.5H, Red Blood Count 3.16L, Hemoglobin 10.5L, Hematocrit 33.0L, Mean Corpuscular Volume 104.4H, Mean Corpuscular Hemoglobin 33.2H, Mean Corpuscular Hemoglobin Concent 31.8L, Red Cell Distribution Width 13.9, Platelet Count 319, Neutrophils (%) (Auto) 88.6H, Lymphocytes (%) (Auto) 3.2L, Monocytes (%) (Auto) 6.2H, Eosinophils (%) (Auto) 0 .1, Basophils (%) (Auto) 0.2, Neutrophils # (Auto) 20.0H, Lymphocytes # (Auto) 0.7L, Monocytes # (Auto) 1.4H, Eosinophils # (Auto) 0.0, Basophils # (Auto) 0.0, Nucleated Red Blood Cells % (auto) 0.9H, Prothrombin Time 14.5H, Prothromb Time International Ratio 1.11, Lactic Acid Level 4.5*H 12/28/18 10:56: Anion Gap 12, Glomerular Filtration Rate 7.3L, Calcium Level 7.6L, Aspartate Amino Transf (AST/SGOT) 49H, Alanine Aminotransferase (ALT/SGPT) 33, Alkaline Phosphatase 109, Total Bilirubin 0.6, Direct Bilirubin 0.3H, Total Creatine Kinase 71, Creatine Kinase MB 2.0, Creatine Kinase MB Relative Index 2.25, Troponin I 1.04H, Total Protein 5.2L, Albumin 2.1L, Albumin/Globulin Ratio 0.68L, Lipase 361 12/28/18 11:45: Body Fluid Specific [place] 1.007, Body Fluid WBC (Auto) 12H, Body Fluid RBC (Auto) < 2, Body Fluid Mononuclear Cells % Auto 66.7H, Fluid Polymorphonuclear Cell % Auto 33.3H, Body Fluid Glucose Source PERITONEAL, Body Fluid Glucose 247, Body Fluid Protein Source PERITONEAL, Body Fluid Total Protein 0.2, Body Fluid Albumin Source PERITONEAL, Body Fluid Albumin 0.0, Peritoneal Fluid Source PERITONEAL, Peritoneal Fluid Color COLORLESS, Peritoneal Fluid Appearance CLEAR 12/28/18 14:53: CBC/BMP Laboratory Tests 12/28/18 10:05 Red Blood Count 3.16 L, Mean Corpuscular Volume 104.4 H, Mean Corpuscular Hemoglobin 33.2 H, Mean Corpuscular Hemoglobin Concent 31.8 L, Red Cell Distribution Width 13.9, Neutrophils (%) (Auto) 88.6 H, Lymphocytes (%) (Auto) 3.2 L, Monocytes (%) (Auto) 6.2 H, Eosinophils (%) (Auto) 0.1, Basophils (%) (Auto) 0.2, Neutrophils # (Auto) 20.0 H, Lymphocytes # (Auto) 0.7 L, Monocytes # (Auto) 1.4 H, Eosinophils # (Auto) 0.0, Basophils # (Auto) 0.0 12/28/18 10:56 Microbiology Microbiology 12/28/18 Blood Culture, Received Pending 12/28/18 Blood Culture, Received Pending 12/28/18 Fungal Smear, Received Pending 12/28/18 Fungal Culture, Received Pending 12/28/18 Anaerobic Culture, Received Pending 12/28/18 Acid Fast Stain, Received Pending 12/28/18 Mycobacterial Culture, Received Pending 12/28/18 Gram Stain - Final, Resulted 12/28/18 Body Fluid Culture, Resulted Pending 12/28/18 Group A Streptococcus Screen (MARITZA), Received Pending Home Medications Scheduled (Monique-Jimbo) 1 Tab Tab, 1 TAB PO DAILY (Acitretin) 10 Mg Cap, 10 MG PO DAILY Brimonidine Tartrate 0.1% (Alphagan P) 100 Drop/5 Ml Soln, 1 DROP OS BID Calcitriol (Calcitriol) 0.25 Mcg Cap, 0.25 MCG PO 1XWK MONDAYS Cinacalcet Hydrochloride (Sensipar) 30 Mg Tab, 30 MG PO DAILY Fenofibrate (Fenofibrate) 145 Mg Tab, 145 MG PO DAILY Folic Acid (Folic Acid) 1 Mg Tab, 1 MG PO DAILY Meclizine HCl (Meclizine HCl) 25 Mg Tab, 12.5 MG PO BID Metoprolol Succinate (Toprol Xl) 50 Mg Tab, 50 MG PO BID Mupirocin (Mupirocin) 2 % Oin, 1 APLCT TOP ASDIRECTED TO CATH SITE AND AFFECTED AREA(S) Prednisone (Prednisone) 1 Mg Tab, 4 MG PO DAILY Sevelamer Carbonate (Renvela) 800 Mg Tab, 1,600 MG PO WM Sevelamer Carbonate (Renvela) 800 Mg Tab, 800 MG PO DAILY WITH SNACK Simvastatin (Simvastatin) 20 Mg Tab, 20 MG PO QHS Vitamin D (Drisdol) 50,000 Unit Cap, 50,000 UNIT PO 1XWK MONDAYS Scheduled PRN Acetaminophen (Acetaminophen) 325 Mg Tab, 650 MG PO Q4H PRN for PAIN Dicyclomine HCl (Dicyclomine HCl) 10 Mg Cap, 20 MG PO BID PRN for GI UPSET Hydralazine HCl (Hydralazine HCl) 50 Mg Tab, 50 MG PO DAILY PRN for BLOOD PRESSURE >140 Allergies Coded Allergies: Lactose (Verified Adverse Reaction, Intermediate, LACTOSE INTOLERANT, 08/07/18) Morphine (Unverified Adverse Reaction, Unknown, VOMITING, 08/07/18) Sulfa Drugs (Unverified Adverse Reaction, Unknown, NAUSEA,VOMITING, 08/07/18) Sulfamethoxazole (Unverified Adverse Reaction, Unknown, NAUSEA,VOMITING, 08/07/18) Trimethoprim (Unverified Adverse Reaction, Unknown, NAUSEA,VOMITING, 08/07/18) GME ATTESTATION GME ATTESTATION My faculty preceptor for this patient encounter was physically present during the encounter and was fully available. All aspects of the patient interview, examination, medical decision making process, and medical care plan development were reviewed and approved by the faculty preceptor. The faculty preceptor is aware and concurs with the plan as stated in the body of this note and will attest to such by his/her cosignature. PIOTR IBARRA DO Dec 28, 2018 15:41
[2018-12-28] MEDS ORDERED: **hydrALAZINE** 50 MG TAB PO PRN (15:45)
[2018-12-28 16:00] VITALS: BP 165/61
[2018-12-28] MEDS: NS 1,000 ML IV SCH ×2 (17:04→22:07)
[2018-12-28 22:00] VITALS: BP 114/89
[2018-12-28] MEDS: ACETAMINOPHEN TAB 650MG DOSE (2X325MG) PO PRN (22:05)
[2018-12-28] MEDS: MECLIZINE 12.5 MG TAB PO SCH (22:06)
[2018-12-28] MEDS: SIMVASTATIN 20 MG TAB PO SCH (22:06)
[2018-12-28] MEDS: METOPROLOL SUCC (TopROL XL) 50MG **XL** TAB PO SCH (22:06)
[2018-12-28] MEDS: BRIMONIDINE 0.1% OPHTH SOLN 5 ML OS SCH (22:44)
[2018-12-29 06:00] VITALS: BP 116/90
[2018-12-29 06:25] LABS: BASO % 0.1 % (0.0-1.0); EOS # 0.1 10^3/uL (0.0-0.50); EOS % 0.7 % (0.0-3.0); HEMATOCRIT 24.5 % (36.0-47.0); LYMPH # 0.7 10^3/uL (1.5-4.5); LYMPH % 5.5 % (24.0-44.0); MEAN CORPUSCULAR HEMOGLOBIN 33.6 pg (27.0-33.0); MEAN CORPUSCULAR HGB CONC 31.8 g/dl (32.0-36.5); MEAN CORPUSCULAR VOLUME 105.6 fl (80.0-96.0); MONO # 0.7 10^3/uL (0.0-0.8); MONO % 5.5 % (0.0-5.0); NEUTROPHILS # 10.6 10^3/uL (1.8-7.7); NEUTROPHILS % 87.3 % (36.0-66.0); PLATELET COUNT, AUTOMATED 268 10^3/uL (150-450); RED BLOOD COUNT 2.32 10^6/uL (4.00-5.40); WHITE BLOOD COUNT 12.1 10^3/uL (4.0-10.0)
[2018-12-29] MEDS: ACETAMINOPHEN TAB 650MG DOSE (2X325MG) PO PRN ×3 (06:29→22:09)
[2018-12-29 06:36] LABS: HEMOGLOBIN 7.8 g/dl (12.0-15.5)
[2018-12-29 06:46] LABS: CALCIUM LEVEL 6.8 MG/DL (8.8-10.2); CREATININE FOR GFR 5.76 MG/DL (0.55-1.30); GLOMERULAR FILTRATION RATE 7.7 (>39); POTASSIUM SERUM 3.5 MEQ/L (3.5-5.1)
[2018-12-29 07:31] LABS: HEMOGLOBIN 7.9 g/dl (12.0-15.5)
[2018-12-29] MEDS ORDERED: FENOFIBRATE 145 MG TAB (TRICOR) PO SCH (09:00)
[2018-12-29] MEDS: FIDAXOMICIN 200 MG TAB (DIFICID) PO SCH ×2 (09:30→22:08)
[2018-12-29] MEDS: CINACALCET 30 MG TAB (SENSIPAR) PO SCH (09:30)
[2018-12-29] MEDS: MECLIZINE 12.5 MG TAB PO SCH ×2 (09:34→22:09)
[2018-12-29] MEDS: FOLIC ACID 1 MG TAB PO SCH (09:34)
[2018-12-29] MEDS: predniSONE 1 MG TAB PO SCH (09:34)
[2018-12-29] MEDS: BRIMONIDINE 0.1% OPHTH SOLN 5 ML OS SCH ×2 (09:34→22:09)
[2018-12-29] MEDS: NS 1,000 ML IV SCH (09:35)
[2018-12-29] MEDS: METOPROLOL SUCC (TopROL XL) 50MG **XL** TAB PO SCH ×2 (09:35→22:08)
--- NOTE | 2018-12-29 11:38 | IPNPDOC ---
Date Seen The patient was seen on 12/29/18. Progress Note SUBJECTIVE: c/o abdominal cramping and 3 episodes of watery diarrhea since awakening this morning. can't eat yogurt due to lactose intolerance. no fever or chills. "My belly hurts." ID consulted. no other issues per RN. no nausea or vomiting. tolerating her diet. OBJECTIVE: PHYSICAL EXAMINATION: VITAL SIGNS: PLS SEE BELOW GENERAL APPEARANCE: Patient is awake, alert, and oriented. She appears in no acute distress. She is lying in bed comfortably HEENT: Atraumatic normocephalic. Eyes are non-icteric. Trachea is midline. Mucous membranes appear dry. Capillary refill <2 seconds. CARDIOVASCULAR: Regular rate and rhythm 2/6 Holosystolic murmur noted LUNGS: Clear vesicular lung sounds bilaterally with good respiratory effort ABDOMEN: Soft. Slight tenderness to palpation diffusely although more so in right lower quadrant. No rebound tenderness or guarding. MUSCULOSKELETAL: 4/5 muscle strength testing in bilateral lower and upper extremities EXTREMITIES: No edema. Pulses full and equal bilateral upper and lower extremities NEUROLOGICAL: No focal neurological deficits PSYCHIATRIC: Mood and affect appear appropriate LABORATORY DATA, IMAGING STUDIES, MICROBIOLOGY : See below. IMAGING: Chest two views HISTORY: Fever Comparison: 11/15/2017 Linear densities are present in the left lower lobe consistent with scar. The right lung is clear. The cardiac silhouette is enlarged. The heart is normal in size. The pulmonary vasculature is normal in appearance. The bony structure is intact. IMPRESSION: Cardiomegaly. Electronically Signed by Nicolas Ayala MD 12/28/2018 11:21 A MICROBIOLOGY: Please see below. ASSESSMENT/PLAN: Patient is a 68 year old female with a past medical history significant for ESRD on peritoneal dialysis, anemia of chronic disease, history of uterine cancer, hypertension, leukemia, squamous cell carcinoma or the arms, legs and neck, depression, and hyperlipidemia who presented to the [facility] ER with complaint of nausea, vomiting, diarrhea, and generalized weakness which has developed over the past 24 hours. Patient states that she was at home last night and developed nausea and vomiting followed by watery diarrhea. She states that she has lost a considerable amount of strength and found it difficult for her to lift herself up. In the ER the patient was found to be vitally stable with a fever of 101.7 and an elevated WBC. She did receive IV fluid and a dose of Vancomycin and Zosyn. Patient was found to be too weak for discharge and hospitalist service was consulted for further management C diff colitis on IV fluid hydration. Zofran PRN for Nausea Patient has had a history of C. diff in the past. 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 on dificid. ID consulted c/o abd cramping Anemia of chronic Disease hemodilutional component. transfuse if symptomatic or hgb<8 consent for blood transfusion signed ESRD on peritoneal Dialysis Patient is being followed by nephrology. Hypertension Will continue patients home medications Hx of Uterine Cancer Leukemia SSC of Arms, Legs, and Neck Depression Hyperlipidemia . VS, I&O, 24H, Fishbone Vital Signs/I&O Vital Signs Date Time Temp Pulse Resp B/P (MAP) Pulse Ox O2 Delivery O2 Flow Rate FiO2 12/29/18 09:35 71 127/63 12/29/18 06:00 98.1 19 95 12/28/18 09:55 Room Air I&O- Last 24 Hours up to 6 AM 12/29/18 06:00 Intake Total 3240 ml Output Total 1200 ml Balance 2040 ml Laboratory Data 24H LABS Laboratory Tests 2 12/28/18 10:56: Anion Gap 12, Glomerular Filtration Rate 7.3L, Calcium Level 7.6L, Aspartate Amino Transf (AST/SGOT) 49H, Alanine Aminotransferase (ALT/SGPT) 33, Alkaline Phosphatase 109, Total Bilirubin 0.6, Direct Bilirubin 0.3H, Total Creatine Kinase 71, Creatine Kinase MB 2.0, Creatine Kinase MB Relative Index 2.25, Troponin I 1.04H, Total Protein 5.2L, Albumin 2.1L, Albumin/Globulin Ratio 0.68L, Lipase 361 12/28/18 11:45: Body Fluid Specific [place] 1.007, Body Fluid WBC (Auto) 12H, Body Fluid RBC (Auto) < 2, Body Fluid Mononuclear Cells % Auto 66.7H, Fluid Polymorphonuclear Cell % Auto 33.3H, Body Fluid Glucose Source PERITONEAL, Body Fluid Glucose 247, Body Fluid Protein Source PERITONEAL, Body Fluid Total Protein 0.2, Body Fluid Albumin Source PERITONEAL, Body Fluid Albumin 0.0, Peritoneal Fluid Source PERITONEAL, Peritoneal Fluid Color COLORLESS, Peritoneal Fluid Appearance CLEAR 12/28/18 14:53: Lactic Acid Followup at 4 Hours 0.9 12/29/18 02:54: Stool Clostridium difficile Result NEGATIVE, Clostridium difficile (PCR)(LAB) POSITIVEA 12/29/18 05:33: Immature Granulocyte % (Auto) 0.9, White Blood Count 12.1H, Red Blood Count 2.32L, Hemoglobin 7.8#L, Hematocrit 24.5L, Mean Corpuscular Volume 105.6H, Mean Corpuscular Hemoglobin 33.6H, Mean Corpuscular Hemoglobin Concent 31.8L, Red Cell Distribution Width 14.2, Platelet Count 268, Neutrophils (%) (Auto) 87.3H, Lymphocytes (%) (Auto) 5.5L, Monocytes (%) (Auto) 5.5H, Eosinophils (%) (Auto) 0.7, Basophils (%) (Auto) 0.1, Neutrophils # (Auto) 10.6H, Lymphocytes # (Auto) 0.7L, Monocytes # (Auto) 0.7, Eosinophils # (Auto) 0.1, Basophils # (Auto) 0.0, Nucleated Red Blood Cells % (auto) 0.2H, Anion Gap 7L, Glomerular Filtration Rate 7.7L, Blood Urea Nitrogen 43H, Creatinine 5.76H, Sodium Level 141, Potassium Level 3.5, Chloride Level 109H, Carbon Dioxide Level 25, Calcium Level 6.8L CBC/BMP Laboratory Tests 12/28/18 10:56 12/29/18 05:33 Red Blood Count 2.32 L, Mean Corpuscular Volume 105.6 H, Mean Corpuscular Hemoglobin 33.6 H, Mean Corpuscular Hemoglobin Concent 31.8 L, Red Cell Distribution Width 14.2, Neutrophils (%) (Auto) 87.3 H, Lymphocytes (%) (Auto) 5.5 L, Monocytes (%) (Auto) 5.5 H, Eosinophils (%) (Auto) 0.7, Basophils (%) (Auto) 0.1, Neutrophils # (Auto) 10.6 H, Lymphocytes # (Auto) 0.7 L, Monocytes # (Auto) 0.7, Eosinophils # (Auto) 0.1, Basophils # (Auto) 0.0, Calcium Level 6.8 L 12/29/18 07:25 Microbiology Microbiology 12/28/18 Blood Culture, Received Pending 12/28/18 Blood Culture, Received Pending 12/28/18 Fungal Smear, Received Pending 12/28/18 Fungal Culture, Received Pending 12/28/18 Anaerobic Culture, Received Pending 12/28/18 Acid Fast Stain, Received Pending 12/28/18 Mycobacterial Culture, Received Pending 12/28/18 Gram Stain - Final, Resulted 12/28/18 Body Fluid Culture, Resulted Pending 12/28/18 Group A Streptococcus Screen (MARITZA) - Final, Complete TOMMIE NEWTON MD Dec 29, 2018 10:32
[2018-12-29] MEDS ORDERED: traMADol 50 MG TAB PO ONE (11:45)
[2018-12-29] MEDS: LACTOBACILLUS ACIDOPHILUS CAP (BACID) PO SCH ×2 (12:09→17:59)
--- NOTE | 2018-12-29 13:27 | CR ---
DATE OF CONSULTATION: 12/29/2018 REQUESTING PHYSICIAN: Dr. Jannie Wyman CONSULTING PHYSICIAN: Dr. Alvarado REASON FOR CONSULTATION: Management of end-stage renal disease and peritoneal dialysis. CHIEF COMPLAINT: Patient presented to the hospital yesterday with nausea, vomiting, and diarrhea along with extreme weakness for about two days. 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 She presented to the hospital yesterday with nausea, vomiting, and diarrhea and generalized body weakness. It was going on for about 24 hours. Patient reported that she was having frequent diarrhea and she was so weak that she was unable to walk or get up from the toilet bowl. When patient presented to the emergency room, she was found to have fever spike of 101.7 degrees Fahrenheit. She had elevated white cell count. She had an elevated lactate. She was started on intravenous (IV) fluid hydration and was admitted under the hospitalist's service. Initial dose of vancomycin and Zosyn were ordered, but as reported by patient, she refused the IV antibiotics because she has history of C. difficile. Patient has history of peritoneal dialysis so nephrology service was called for further help in the management of peritoneal dialysis. I saw and evaluated the patient today morning at the bedside. She was sitting up in the sofa. She reported that she is feeling slightly better today as compared with yesterday. I had already ordered her peritoneal dialysis. She denies any complaints with peritoneal dialysis overnight. Lactic acid level and white cell count are improving today. PAST MEDICAL HISTORY: End-stage renal disease on peritoneal dialysis. History of anemia secondary to end-stage renal disease. Multiple squamous cell carcinoma lesions on the skin. Hypertension. Depression. Hyperlipidemia. History of uterine cancer in the past. History of failed kidney transplant. PAST SURGICAL HISTORY: Status post kidney transplant in 2016, which has failed. Status post hysterectomy in the past secondary to uterine cancer. History of removal of multiple squamous cell carcinoma lesions in upper extremities, head and neck area. Status post bilateral hip replacement. History of left hip surgery. Status post left thumb amputation. ALLERGIES: Patient is ALLERGIC to MORPHINE, SULFA DRUGS, and LACTOSE. FAMILY HISTORY: No family history of end-stage renal disease. There is positive family history of renal cancer in the mother. SOCIAL HISTORY: Patient lives at home. She lives alone. She denies any illicit drug abuse, smoking, or alcohol abuse. REVIEW OF SYSTEMS: CONSTITUTIONAL: When patient came in she complained of feeling very weak and tired and fatigued. EYES: She denies any blurry vision, double vision. EARS, NOSE, AND THROAT (ENT): She denies any dysphagia or odynophagia. CARDIOVASCULAR: She denies any chest pain, palpitations, or lower extremity edema. RESPIRATORY: She denies any shortness of breath, cough, or phlegm. GASTROINTESTINAL (GI): She denies nausea, vomiting, and diarrhea. She also reports abdominal pain. GENITOURINARY: She denies any dysuria, hematuria. MUSCULOSKELETAL: She reports muscle weakness on arrival. CENTRAL NERVOUS SYSTEM (SEEING EYE DOG TEACHER): She denies any strokes, seizures. PSYCHIATRIC: She reports history of depression. ENDOCRINE: She reports secondary hyperparathyroidism. HEMATOLOGICAL/ONCOLOGICAL: She denies any easy bleeding or bruising. All other review of systems is negative. PHYSICAL EXAM: GENERAL: Patient is awake, alert, oriented times three, sitting up in the sofa, in no apparent distress. VITAL SIGNS: Temperature is 98.1 degrees Fahrenheit, blood pressure 116/90, pulse is 80, respiratory rate of 19, saturating 95% on room air. HEAD AND NECK EXAM: Extraocular muscles intact. Pupils are equally round and reactive to light. Multiple precancerous and cancerous lesions on the head and neck area. Neck is supple. There is no jugular venous distention (JVD). CARDIOVASCULAR: S1, S2. Regular rate. No edema of the bilateral lower extremities. RESPIRATORY: Chest is clear to auscultation bilaterally. Bilateral equal air entry. No rales or rhonchi. ABDOMEN: Is soft, moderate amount of tenderness to deep palpation all over the abdomen. Peritoneal dialysis catheter was noted. Exit site is clean. MUSCULOSKELETAL: No clubbing or cyanosis. Power is 5/5 in all extremities. CENTRAL NERVOUS SYSTEM (SEEING EYE DOG TEACHER): No focal deficit. Patient is communicating and mentating well. SKIN: Multiple cancerous and precancerous lesions on the skin. PSYCHOLOGICAL: Normal mood and affect. LAB REVIEW: CBC showed WBC of 22.5 yesterday, 12.1 today, hemoglobin is 7.9, platelets are 268. BMP showed sodium 141, potassium 3.5, chloride 109, bicarbonate 25, BUN 43, creatinine is 5.6. Lactic acid was 4.5 on arrival, 0.9 today. Calcium is 6.8. Serology: C. difficile PCR is positive. IMAGING: A chest x-ray was done yesterday. It showed cardiomegaly. No acute infiltrate. CURRENT INPATIENT MEDICATIONS: Patient is getting normal saline. I have decreased it today to 60 mL an hour. She continues to be on Sensipar 30 mg by mouth daily, Tylenol as needed. She is on fenofibrate which I have stopped because of renal failure. She has been started on Dificid 200 mg by mouth twice a day. She is on folic acid 1 mg by mouth daily, hydralazine 50 mg by mouth daily as needed for blood pressure more than 140, Bacid one capsule with meal, Antivert 12.5 mg by mouth twice a day, metoprolol succinate 50 mg by mouth twice a day, prednisone 4 mg by mouth daily, Zofran as needed, simvastatin 20 mg nightly, and tramadol 50 mg by mouth, one dose was given today morning. ASSESSMENT: 68-year-old female with past medical history of end-stage renal disease on peritoneal dialysis, history of anemia, squamous cell carcinoma lesions of the skin, hypertension, and depression, admitted at this time with nausea, vomiting, diarrhea, dehydration, and leukocytosis. PLAN: 1. End-stage renal disease on peritoneal dialysis. I have already ordered her peritoneal dialysis manual exchanges, all 1.5 liter, all 1.5%. Volume status is optimal. Actually, she came in dry. Electrolytes are within the acceptable limit at this point. 2. Acute gastroenteritis. Most likely, patient has a viral gastroenteritis. She has history of Clostridium (C) difficile in the past requiring fecal transplant. I would avoid giving her any antibiotics at this point. Okay to continue intravenous (IV) fluids, but since she only weighs 47 kg, I have decreased the IV fluid rate to 60 mL/h for now. 3. Anemia, secondary to end-stage renal disease. Her hemoglobin level is dropping. It is 7.9 right now. Patient is already going to get 1 unit of packed red blood cells (PRBCs) transfusion. 4. Secondary hyperparathyroidism. Continue current dose of Sensipar 30 mg by mouth daily. 5. Hyperlipidemia. It is okay to continue simvastatin 20 mg nightly and stopping the Tricor because of renal failure. 6. Hypertension with end-stage renal disease. Continue current dose of metoprolol 50 mg by mouth twice a day and hydralazine as needed for blood pressure more than 140. Thank you for involving me in the care of this patient. I shall be happy to follow the patient along with you tomorrow morning.
[2018-12-29] MEDS: ONDANSETRON 4MG/2ML VIAL (J2405) IV PRN (14:19)
[2018-12-29 22:00] VITALS: BP 115/74
[2018-12-29] MEDS: SIMVASTATIN 20 MG TAB PO SCH (22:08)
--- NOTE | 2018-12-30 00:21 | CR ---
DATE OF CONSULTATION: 12/29/2018 My attending on this case is Jordana Martin REQUESTING PHYSICIAN: Dr. Jannie Wyman. REASON FOR CONSULTATION: Recurrent Clostridium difficile (C diff). HISTORY OF THE PRESENT ILLNESS: Ms. Thornton is a 68-year-old female with a pertinent past medical history of end-stage renal disease - on peritoneal dialysis, hypertension, multiple squamous cell carcinoma lesions of the skin, recurrent Clostridium difficile in the past with status post stool transplant times two, who presented to the emergency department (ED) on 12/28/2018, morning, for nausea, vomiting, diarrhea, and generalized weakness for the last 2 days. Patient states that she has noticed that her diarrheal symptoms have worsened in the last couple of days. She states that she has been having frequent diarrhea since her stool transplant, relatively about 3 years ago, and she has been managing it with Imodium and dicyclomine. She states that her symptoms are usually pretty manageable with this combination of drugs, but she has recently noted in the last 2 days that it has gotten worse. She is believed to have 6-8 diarrheal symptoms in the last few days, and she is unable to quantify how much she has had in the last 24 hours. She states that it used to be loose in nature but now it is more watery, and it is consistent to when she had Clostridium difficile in the past. She states to have some abdominal cramping but no sharp shooting pain and no nausea right now. She states that her mentation has improved since she has been admitted, and she does not feel as dehydrated. She did have a fever in the ER of 101.7, and she had a slight WBC and an elevated lactate. She was started on intravenous (IV) hydration. Initially she was ordered to get vancomycin and Zosyn in the emergency room (ER), but the patient requested not to have the antibiotics for she does know that she has a history of Clostridium difficile, and she cannot take antibiotics. Since being admitted, she was not started on any antibiotics. This morning, her stool culture did come back positive of Clostridium difficile and she was started on Dificid. She has no other complaints at this time. PAST MEDICAL HISTORY: 1. End-stage renal disease, on peritoneal dialysis. 2. Multiple squamous cell carcinoma lesions of the skin. 3. Hypertension. 4. Depression. 5. Hyperlipidemia. 6. History of uterine cancer in the past. 7. Failed kidney transplant, status post removal 2014. 8. History of anemia secondary to end-stage renal disease. 9. Recurrent Clostridium difficile, status post stool transplant times two. PAST SURGICAL HISTORY: 1. Status post kidney transplantation in 2016. 2. Status post hysterectomy secondary to uterine cancer. 3. Multiple squamous cell carcinoma lesions removal in the upper extremities, head and neck area. 4. Status post bilateral hip replacement. 5. Left hip surgery. 6. Left thumb amputation. ALLERGIES: Allergic to MORPHINE, SULFA and LACTOSE. FAMILY HISTORY: Positive for renal cancer in mother. No other pertinent family history. SOCIAL HISTORY: Lives at home alone. Denies any illicit drug use, alchohol abuse or any smoking. REVIEW OF SYSTEMS: Unless stated in the history of the present illness, the remaining 12-point system is negative. PHYSICAL EXAMINATION: Vital signs: Temperature 98.1, pulse 80, respirations 19, blood pressure 116/90 (99), pulse oximetry 95% on room air. General: This is a very pleasant 68-year-old female who does not appear in any acute distress, appropriately answering questions in a pleasant manner, able to speak in full sentences with no accessory muscle use. HEENT: Atraumatic, normocephalic. Pupils are equal, round, and reactive. Multiple skin lesions are appreciated on the head and neck area with multiple healing scars from skin removal from precancerous and cancerous lesions. No lymphadenopathy, no jugular venous distention (JVD) noted. Cardiovascular: Regular rate and rhythm. Systolic murmur in the right intercostal space 2/6, normal S1, S2 sounds. No lower extremity edema bilaterally. Respirations: Clear to auscultate bilaterally with no audible rales or rhonchi. Abdomen: Soft, nontender with soft palpation. With deep palpation, very minimal tenderness, though. Peritoneal dialysis is noted. No discharge, erythema at the site. Musculoskeletal: No clubbing, no cyanosis. Neurologic: Alert and oriented times three. No noticeable focal deficit. LABORATORY: Hematology: WBC 12.1, hemoglobin 7.8, hematocrit 24.5, platelets 268. Chemistry: Sodium 141, potassium 3.5, chloride 109, carbon dioxide 25, BUN 43, creatinine 5.76, fasting glucose 61, lactic acid on admission 4.5, followup 0.9, calcium 6.8. Serology positive for Clostridium difficile PCR, negative for influenza A and B. Microbiology: Blood cultures times two negative for growth for 24 hours. Gram stain of peritoneal fluid is negative. Body fluid cultures currently pending. Peritoneal fluid acid fast, anaerobic and fungal smears pending. Group A Streptococcus screen is negative. IMAGING: Chest x-ray done on admission was positive for cardiomegaly. IMPRESSION AND PLAN: This is a 68-year-old female with a pertinent past medical history of recurrent Clostridium difficile, status post stool transplant times two 3 years ago. 1. Diarrhea. Patient is positive for Clostridium difficile. She has had a history of Clostridium difficile in the past as well, and she has had stool transplants as well. She states that she has had diarrhea since the transplant, which is possibly due to postinfection irritable bowel syndrome. She said it used to be managed with Imodium, which is concurrent, but the fact that she currently has Clostridium difficile, we will treat her with Dificid. She does not have any recent antibiotic exposure. We do not recommend any other antibiotics at this time and will continue Dificid. I do not think she has any other underlying infectious process that can cause the nausea, vomiting, diarrhea. Will continue to follow the patient clinically. 2. History of end-stage renal disease, on peritoneal dialysis. Peritoneal dialysis fluid showed WBCs of 12 and PMNs of 33. It is unlikely that she has spontaneous bacterial peritonitis (SBP). We agree that no antibiotic treatment is needed at the time. We do recommend to follow the recommendations of nephrology for her peritoneal dialysis manual exchanges, and will follow the recommendations for IV fluid maintenance. 3. Anemia. Secondary to end-stage renal disease. Hemoglobin is currently 7.9. Will follow the recommendations of the hospitalist team and nephrology for transfusions. My faculty preceptor for this patient encounter was physically present during the encounter and was fully available. All aspects of the patient interview, examination, medical decision making process, and medical care plan development were reviewed and approved by the faculty preceptor. The faculty preceptor is aware and concurs with the plan as stated in the body of this note and will attest to such by his/her cosignature. FRANKLIN
[2018-12-30] MEDS: NS 1,000 ML IV SCH (01:54)
[2018-12-30 06:00] VITALS: BP 146/56
[2018-12-30] MEDS: ACETAMINOPHEN TAB 650MG DOSE (2X325MG) PO PRN ×3 (06:10→17:55)
[2018-12-30 06:13] LABS: BASO % 0.2 % (0.0-1.0); EOS # 0.1 10^3/uL (0.0-0.50); EOS % 0.9 % (0.0-3.0); HEMOGLOBIN 10.4 g/dl (12.0-15.5); LYMPH # 0.9 10^3/uL (1.5-4.5); LYMPH % 10.5 % (24.0-44.0); MEAN CORPUSCULAR HEMOGLOBIN 32.3 pg (27.0-33.0); MEAN CORPUSCULAR HGB CONC 32.5 g/dl (32.0-36.5); MEAN CORPUSCULAR VOLUME 99.4 fl (80.0-96.0); MONO # 0.8 10^3/uL (0.0-0.8); MONO % 8.8 % (0.0-5.0); NEUTROPHILS % 78.6 % (36.0-66.0); PLATELET COUNT, AUTOMATED 228 10^3/uL (150-450); RED BLOOD COUNT 3.22 10^6/uL (4.00-5.40); WHITE BLOOD COUNT 8.9 10^3/uL (4.0-10.0)
[2018-12-30 06:28] LABS: CALCIUM LEVEL 6.5 MG/DL (8.8-10.2); CREATININE FOR GFR 4.96 MG/DL (0.55-1.30); GLOMERULAR FILTRATION RATE 9.2 (>39); POTASSIUM SERUM 3.3 MEQ/L (3.5-5.1)
[2018-12-30] MEDS ORDERED: POTASSIUM CHLORIDE 10% LIQ 20 MEQ/15 ML UDC PO ONE (09:00)
[2018-12-30 09:15] LABS: CLOSTRIDIUM DIFFICILE PCR POSITIVE (NEGATIVE)
[2018-12-30] MEDS: FIDAXOMICIN 200 MG TAB (DIFICID) PO SCH ×2 (09:55→21:45)
[2018-12-30] MEDS: predniSONE 1 MG TAB PO SCH (09:55)
[2018-12-30] MEDS: LACTOBACILLUS ACIDOPHILUS CAP (BACID) PO SCH ×3 (09:55→17:56)
[2018-12-30] MEDS: FOLIC ACID 1 MG TAB PO SCH (09:55)
[2018-12-30] MEDS: CINACALCET 30 MG TAB (SENSIPAR) PO SCH (09:55)
[2018-12-30] MEDS: BRIMONIDINE 0.1% OPHTH SOLN 5 ML OS SCH ×2 (09:56→21:47)
[2018-12-30] MEDS: METOPROLOL SUCC (TopROL XL) 50MG **XL** TAB PO SCH ×2 (09:59→21:47)
[2018-12-30] MEDS: MECLIZINE 12.5 MG TAB PO SCH ×2 (10:00→21:46)
[2018-12-30] MEDS: MUPIROCIN 2% OINT 22 GM TUBE TOP SCH ×2 (12:39→21:47)
[2018-12-30 14:00] VITALS: BP 150/60
--- NOTE | 2018-12-30 15:49 | IPN ---
DATE: 12/30/2018 SUBJECTIVE: Patient as seen and examined at the bedside today morning. Patient reports that her diarrhea is getting better, and she wants to intravenous (IV) fluids to be stopped now. She does report pain at the peritoneal dialysis catheter exit site. She reports that fluid is clear, but the exit site is hurting. She denies any fevers or chills at this point. OBJECTIVE: Vital signs: Temperature is 97.2 degrees Fahrenheit, blood pressure 146/56, pulse is 60, respiratory rate of 15, saturating 99% on room air. Intake and output: There is no urine output recorded. Weight in the bed scale is not available. PHYSICAL EXAMINATION: GENERAL: Patient is awake, alert, oriented times three, sitting up in the sofa in no apparent distress. HEAD AND NECK: Extraocular muscles intact. Pupils equally round and reactive to light. Mucous membranes are moist. Neck is supple. There is no jugular venous distention (JVD). CARDIOVASCULAR: S1, S2, regular rate. Trace edema of the bilateral lower extremities. RESPIRATORY: Chest is clear to auscultation bilaterally. Bilateral equal air entry. No rales or rhonchi. ABDOMEN: Soft. Positive bowel sounds. Mild amount of tenderness to deep palpation. Peritoneal dialysis catheter in the left lower quadrant was noted. Exit site has mild erythema. There is no drainage, and there is moderate amount of tenderness on palpation. MUSCULOSKELETAL: No clubbing or cyanosis. Pulses are 2+. CENTRAL NERVOUS SYSTEM: No focal deficit. Power is 5/5 in all extremities. SKIN: Multiple cancerous and precancerous lesions on the skin. LABORATORY REVIEW: CBC showed a WBC of 8.9, hemoglobin 10.4, platelets are 228. BMP showed sodium 141, potassium 3.3, chloride 110, bicarbonate 24, BUN 37, creatinine is 4.9. CURRENT INPATIENT MEDICATIONS: Patient's medications were all reviewed by me. IV fluids have been stopped by myself today morning. I have started her on Bactroban for exit site, and I gave her a dose of potassium chloride 20 mEq by mouth today morning. ASSESSMENT AND PLAN: 1. End-stage renal disease, on peritoneal dialysis. Continue current regimen of 5 manual exchanged, all 1.5 liters, all 1.5%. Volume status is optimal. 2. Clostridium (C) difficile colitis diarrhea. Patient's symptoms are getting better. She is currently on oral Dificid. White cell count is also improving. IV fluids have been stopped. 3. Anemia secondary to end-stage renal disease. Hemoglobin level was low. Patient was given 1 unit of packed red blood cells (PRBC) transfusion. Hemoglobin is 10.4, which is optimal. I would also give her a dose of Aranesp. 4. Hypokalemia. Potassium level was 3.3. She was given a dose of potassium chloride orally today morning. 5. Hypertension with end-stage renal disease. Continue current dose of metoprolol and hydralazine. 6. Peritoneal catheter exit site infection. I have started the patient on topical mupirocin. I would avoid giving oral bas because of C. difficile colitis.
--- NOTE | 2018-12-30 17:33 | IPNPDOC ---
Date Seen The patient was seen on 12/30/18. Progress Note SUBJECTIVE: Despite dificid, pt had persistent diarrhea yesterday with abdominal cramping. "It was so much I couldn't count." NO changes in medications per ID for now. Pt feels a little bit better this morning, but still has persistent abdominal discomfort. had some nausea and dry heaving yesterday, but none today. no fever or chills. OBJECTIVE: PHYSICAL EXAMINATION: VITAL SIGNS: PLS SEE BELOW GENERAL APPEARANCE: Patient is awake, alert, and oriented. She appears in no acute distress. She is lying in bed comfortably HEENT: Atraumatic normocephalic. Eyes are non-icteric. Trachea is midline. Mucous membranes appear dry. Capillary refill <2 seconds. CARDIOVASCULAR: Regular rate and rhythm 2/6 Holosystolic murmur noted LUNGS: Clear vesicular lung sounds bilaterally with good respiratory effort ABDOMEN: Soft. Slight tenderness to palpation diffusely although more so in right lower quadrant. No rebound tenderness or guarding. MUSCULOSKELETAL: 4/5 muscle strength testing in bilateral lower and upper extremities EXTREMITIES: No edema. Pulses full and equal bilateral upper and lower extremities NEUROLOGICAL: No focal neurological deficits PSYCHIATRIC: Mood and affect appear appropriate LABORATORY DATA, IMAGING STUDIES, MICROBIOLOGY : See below. IMAGING: Chest two views HISTORY: Fever Comparison: 11/15/2017 Linear densities are present in the left lower lobe consistent with scar. The right lung is clear. The cardiac silhouette is enlarged. The heart is normal in size. The pulmonary vasculature is normal in appearance. The bony structure is intact. IMPRESSION: Cardiomegaly. Electronically Signed by Nicolas Ayala MD 12/28/2018 11:21 A MICROBIOLOGY: Please see below. ASSESSMENT/PLAN: Patient is a 68 year old female with a past medical history significant for ESRD on peritoneal dialysis, anemia of chronic disease, history of uterine cancer, hypertension, leukemia, squamous cell carcinoma or the arms, legs and neck, depression, and hyperlipidemia who presented to the [facility] ER with complaint of nausea, vomiting, diarrhea, and generalized weakness which has developed over the past 24 hours. Patient states that she was at home last night and developed nausea and vomiting followed by watery diarrhea. She states that she has lost a considerable amount of strength and found it difficult for her to lift herself up. In the ER the patient was found to be vitally stable with a fever of 101.7 and an elevated WBC. She did receive IV fluid and a dose of Vancomycin and Zosyn. Patient was found to be too weak for discharge and hospitalist service was consulted for further management C diff colitis , slowing down this morning s/p IV fluid hydration. Zofran PRN for Nausea Patient has had a history of C. diff in the past. 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 on dificid. ID consulted c/o abd cramping with no changes in dificid per ID. Anemia of chronic Disease due to renal failure and hemodilutional component. s/p 1unit rbc transfusion due to generalized weakness on 12/29/18. consent for blood transfusion signed. ESRD on peritoneal Dialysis Patient is being followed by nephrology. Hypertension Will continue patients home medications Hx of Uterine Cancer Leukemia SSC of Arms, Legs, and Neck Depression Hyperlipidemia . disposition: pending clinical improvement of diarrhea. VS, I&O, 24H, Fishbone Vital Signs/I&O Vital Signs Date Time Temp Pulse Resp B/P (MAP) Pulse Ox O2 Delivery O2 Flow Rate FiO2 12/30/18 14:00 97.1 60 18 150/60 (90) 98 12/28/18 09:55 Room Air I&O- Last 24 Hours up to 6 AM 12/30/18 06:00 Intake Total 02831 ml Output Total 8600 ml Balance 2020 ml Laboratory Data 24H LABS Laboratory Tests 2 12/30/18 05:44: Immature Granulocyte % (Auto) 1.0, White Blood Count 8.9, Red Blood Count 3.22L, Hemoglobin 10.4#L, Hematocrit 32.0L, Mean Corpuscular Volume 99.4H, Mean Corpuscular Hemoglobin 32.3, Mean Corpuscular Hemoglobin Concent 32.5, Red Cell Distribution Width 16.5H, Platelet Count 228, Neutrophils (%) (Auto) 78.6H, Lymphocytes (%) (Auto) 10.5L, Monocytes (%) (Auto) 8.8H, Eosinophils (%) (Auto) 0.9, Basophils (%) (Auto) 0.2, Neutrophils # (Auto) 7.0, Lymphocytes # (Auto) 0.9L, Monocytes # (Auto) 0.8, Eosinophils # (Auto) 0.1, Basophils # (Auto) 0.0, Nucleated Red Blood Cells % (auto) 0.2H, Anion Gap 7L, Glomerular Filtration Rate 9.2L, Blood Urea Nitrogen 37H, Creatinine 4.96H, Sodium Level 141, Potassium Level 3.3L, Chloride Level 110H, Carbon Dioxide Level 24, Calcium Level 6.5L CBC/BMP Laboratory Tests 12/30/18 05:44 Red Blood Count 3.22 L, Mean Corpuscular Volume 99.4 H, Mean Corpuscular Hemoglobin 32.3, Mean Corpuscular Hemoglobin Concent 32.5, Red Cell Distribution Width 16.5 H, Neutrophils (%) (Auto) 78.6 H, Lymphocytes (%) (Auto) 10.5 L, Monocytes (%) (Auto) 8.8 H, Eosinophils (%) (Auto) 0.9, Basophils (%) (Auto) 0.2, Neutrophils # (Auto) 7.0, Lymphocytes # (Auto) 0.9 L, Monocytes # (Auto) 0.8, Eosinophils # (Auto) 0.1, Basophils # (Auto) 0.0, Calcium Level 6.5 L Microbiology Microbiology 12/28/18 Blood Culture - Preliminary, Resulted No Growth after 48 hours. All Specime... 12/28/18 Blood Culture - Preliminary, Resulted No Growth after 48 hours. All Specime... 12/28/18 Fungal Smear, Received Pending 12/28/18 Fungal Culture, Received Pending 12/28/18 Anaerobic Culture - Final, Complete 12/28/18 Acid Fast Stain, Received Pending 12/28/18 Mycobacterial Culture, Received Pending 12/28/18 Gram Stain - Final, Complete 12/28/18 Body Fluid Culture - Final, Complete 12/28/18 Group A Streptococcus Screen (MARITZA) - Final, Complete TOMMIE NEWTON MD Dec 30, 2018 17:33
[2018-12-30] MEDS: SIMVASTATIN 20 MG TAB PO SCH (21:46)
[2018-12-30 22:00] VITALS: BP 159/64
[2018-12-31] MEDS: ACETAMINOPHEN TAB 650MG DOSE (2X325MG) PO PRN ×4 (00:23→20:32)
[2018-12-31 06:00] VITALS: BP 162/66
[2018-12-31 06:24] LABS: BASO % 0.2 % (0.0-1.0); EOS # 0.1 10^3/uL (0.0-0.50); EOS % 0.7 % (0.0-3.0); HEMATOCRIT 31.1 % (36.0-47.0); HEMOGLOBIN 10.2 g/dl (12.0-15.5); LYMPH % 11.6 % (24.0-44.0); MEAN CORPUSCULAR HEMOGLOBIN 32.8 pg (27.0-33.0); MEAN CORPUSCULAR HGB CONC 32.8 g/dl (32.0-36.5); MONO # 0.7 10^3/uL (0.0-0.8); MONO % 8.5 % (0.0-5.0); NEUTROPHILS # 6.6 10^3/uL (1.8-7.7); NEUTROPHILS % 78.1 % (36.0-66.0); PLATELET COUNT, AUTOMATED 234 10^3/uL (150-450); RED BLOOD COUNT 3.11 10^6/uL (4.00-5.40); WHITE BLOOD COUNT 8.5 10^3/uL (4.0-10.0)
[2018-12-31 06:36] LABS: CALCIUM LEVEL 6.6 MG/DL (8.8-10.2); CREATININE FOR GFR 4.7 MG/DL (0.55-1.30); GLOMERULAR FILTRATION RATE 9.8 (>39); POTASSIUM SERUM 3.3 MEQ/L (3.5-5.1)
[2018-12-31] MEDS ORDERED: POTASSIUM CHLORIDE 10% LIQ 20 MEQ/15 ML UDC PO SCH (09:00)
[2018-12-31] MEDS: CINACALCET 30 MG TAB (SENSIPAR) PO SCH (10:24)
[2018-12-31] MEDS: predniSONE 1 MG TAB PO SCH (10:24)
[2018-12-31] MEDS: FOLIC ACID 1 MG TAB PO SCH (10:24)
[2018-12-31] MEDS: METOPROLOL SUCC (TopROL XL) 50MG **XL** TAB PO SCH ×2 (10:24→20:31)
[2018-12-31] MEDS: POTASSIUM CHLORIDE 10 MEQ SR TABLET PO SCH ×2 (10:24→20:32)
[2018-12-31] MEDS: MECLIZINE 12.5 MG TAB PO SCH ×2 (10:24→20:32)
[2018-12-31] MEDS: FIDAXOMICIN 200 MG TAB (DIFICID) PO SCH ×2 (10:25→20:30)
[2018-12-31] MEDS: LACTOBACILLUS ACIDOPHILUS CAP (BACID) PO SCH ×3 (10:25→18:12)
[2018-12-31] MEDS: ONDANSETRON 4MG/2ML VIAL (J2405) IV PRN (10:31)
[2018-12-31] MEDS: BRIMONIDINE 0.1% OPHTH SOLN 5 ML OS SCH ×2 (10:32→20:32)
[2018-12-31] MEDS: MUPIROCIN 2% OINT 22 GM TUBE TOP SCH ×2 (10:32→20:33)
[2018-12-31 14:00] VITALS: BP 158/72
[2018-12-31] MEDS: DARBEPOETIN 100 MCG/0.5 ML *NON-DIALYSIS* SYRINGE (J0881) SC SCH (14:28)
--- NOTE | 2018-12-31 14:28 | IPN ---
DATE OF SERVICE: 12/31/2018 SUBJECTIVE: Patient was seen and examined at the bedside today morning. Patient is afebrile and hemodynamically stable. She denies any problems with the PD catheter. Her diarrhea is significantly better. The patient still has a persistent hypokalemia and leukocytosis is also improved. OBJECTIVE: Vital Signs: Temperature is 97.2 degrees Fahrenheit, blood pressure 162/66, pulse is 65, respiratory rate of 18, saturating 97% on room air. Intake and Output: There is no urine output recorded. Weight in the bed scale is not available. PHYSICAL EXAMINATION: GENERAL: Patient is awake, alert, oriented times three, sitting up in the bed in no apparent distress. HEAD AND NECK: Extraocular muscles intact. Pupils equally round and reactive to light. Mucous membranes are moist. Neck is supple. There is no jugular venous distention (JVD). CARDIOVASCULAR: S1, S2, regular rate. Trace edema of the bilateral lower extremities. RESPIRATORY: Chest is clear to auscultation bilaterally. Bilateral equal air entry. No rales or rhonchi. ABDOMEN: Soft. Positive bowel sounds. No tenderness. Peritoneal dialysis catheter on the left side, exit site is nontender today and it is covered with antibiotic ointment. MUSCULOSKELETAL: No clubbing or cyanosis. Pulses are 2+. CENTRAL NERVOUS SYSTEM: No focal deficit. Power is 5/5 in all extremities. SKIN: Multiple cancerous and precancerous lesions on the skin. LABORATORY REVIEW: CBC showed a WBC of 8.5, hemoglobin 10.2, platelets are 234. BMP showed sodium 139, potassium 3.3, chloride 109, bicarbonate 23, BUN 34, creatinine is 4.7, calcium 6.6. CURRENT INPATIENT MEDICATIONS: Patient's medications were all reviewed by me. There is no change in the medications today as compared with yesterday. ASSESSMENT AND PLAN: 1. End-stage renal disease, on peritoneal dialysis. Continue current regimen of 5 manual exchanges, all 1.5%, all 1.5 liters. 2. Clostridium (C) difficile colitis. Symptoms significantly better. Continue current dose of oral Dificid. 3. Anemia secondary to end-stage renal disease. The patient is status post 1 unit of packed red blood cells (PRBC) transfusion. Hemoglobin is stable at 10.2. The patient will be given a dose of Aranesp today. 4. Hypokalemia. Patient has persistent hypokalemia. I have started her on potassium chloride 20 mEq by mouth twice a day. 5. Hypertension with end-stage renal disease. Continue current dose of metoprolol and hydralazine. 6. Peritoneal catheter exit site infection. She is on topical mupirocin. Symptoms are getting better.
--- NOTE | 2018-12-31 19:21 | IPNPDOC ---
Date Seen The patient was seen on 12/31/18. Progress Note SUBJECTIVE: Patient was seen and examined at the bedside. Chart has been reviewed. She has had no diarrhea today, and feels feel. She is tolerating her diet, without nausea, vomiting, and abdominal pain is improved. She has been very cooperative with physical therapy, but still c/o generalized weakness. She is anxious to go home soon. OBJECTIVE: PHYSICAL EXAMINATION: VITAL SIGNS: PLS SEE BELOW GENERAL APPEARANCE: Patient is awake, alert, and oriented. She appears in no acute distress. She is lying in bed comfortably HEENT: Atraumatic normocephalic. Eyes are non-icteric. Trachea is midline. Mucous membranes appear dry. Capillary refill <2 seconds. CARDIOVASCULAR: Regular rate and rhythm 2/6 Holosystolic murmur noted LUNGS: Clear vesicular lung sounds bilaterally with good respiratory effort ABDOMEN: Soft. Slight tenderness to palpation diffusely although more so in right lower quadrant. No rebound tenderness or guarding. MUSCULOSKELETAL: 4/5 muscle strength testing in bilateral lower and upper extremities EXTREMITIES: No edema. Pulses full and equal bilateral upper and lower extremities NEUROLOGICAL: No focal neurological deficits PSYCHIATRIC: Mood and affect appear appropriate LABORATORY DATA, IMAGING STUDIES, MICROBIOLOGY : See below. IMAGING: Chest two views HISTORY: Fever Comparison: 11/15/2017 Linear densities are present in the left lower lobe consistent with scar. The right lung is clear. The cardiac silhouette is enlarged. The heart is normal in size. The pulmonary vasculature is normal in appearance. The bony structure is intact. IMPRESSION: Cardiomegaly. Electronically Signed by Nicolas Ayala MD 12/28/2018 11:21 A MICROBIOLOGY: Please see below. ASSESSMENT/PLAN: Patient is a 68 year old female with a past medical history significant for ESRD on peritoneal dialysis, anemia of chronic disease, history of uterine cancer, hypertension, leukemia, squamous cell carcinoma or the arms, legs and neck, depression, and hyperlipidemia who [facility] with complaint of nausea, vomiting, diarrhea, and generalized weakness which has developed over the past 24 hours. Patient states that she was at home last night and developed nausea and vomiting followed by watery diarrhea. She states that she has lost a considerable amount of strength and found it difficult for her to lift herself up. In the ER the patient was found to be vitally stable with a fever of 101.7 and an elevated WBC. She did receive IV fluid and a dose of Vancomycin and Zosyn. Patient was found to be too weak for discharge and hospitalist service was consulted for further management C diff colitis , resolving on Dificid s/p IV fluid hydration. ID consulted. Zofran PRN for Nausea Patient has had a history of C. diff in the past. 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 Anemia of chronic Disease due to renal failure and hemodilutional component. s/p 1unit rbc transfusion due to generalized weakness on 12/29/18. consent for blood transfusion signed. ESRD on peritoneal Dialysis Patient is being followed by nephrology. Hypertension Will continue patients home medications Hx of Uterine Cancer Leukemia SSC of Arms, Legs, and Neck Depression Hyperlipidemia . disposition: await PT recommendations. medically stable for discharge. VS, I&O, 24H, Fishbone Vital Signs/I&O Vital Signs Date Time Temp Pulse Resp B/P (MAP) Pulse Ox O2 Delivery O2 Flow Rate FiO2 12/31/18 10:24 60 163/73 12/31/18 06:00 97.2 18 97 12/28/18 09:55 Room Air I&O- Last 24 Hours up to 6 AM 12/31/18 06:00 Intake Total 8510 ml Output Total 8900 ml Balance -390 ml Laboratory Data 24H LABS Laboratory Tests 2 12/31/18 05:51: Immature Granulocyte % (Auto) 0.9, White Blood Count 8.5, Red Blood Count 3.11L, Hemoglobin 10.2L, Hematocrit 31.1L, Mean Corpuscular Volume 100.0H, Mean Corpuscular Hemoglobin 32.8, Mean Corpuscular Hemoglobin Concent 32.8, Red Cell Distribution Width 16.0H, Platelet Count 234, Neutrophils (%) (Auto) 78.1H, Lym phocytes (%) (Auto) 11.6L, Monocytes (%) (Auto) 8.5H, Eosinophils (%) (Auto) 0.7, Basophils (%) (Auto) 0.2, Neutrophils # (Auto) 6.6, Lymphocytes # (Auto) 1.0L, Monocytes # (Auto) 0.7, Eosinophils # (Auto) 0.1, Basophils # (Auto) 0.0, Nucleated Red Blood Cells % (auto) 0.6H, Anion Gap 7L, Glomerular Filtration Rate 9.8L, Blood Urea Nitrogen 34H, Creatinine 4.70H, Sodium Level 139, Potassium Level 3.3L, Chloride Level 109H, Carbon Dioxide Level 23, Calcium Level 6.6L CBC/BMP Laboratory Tests 12/31/18 05:51 Red Blood Count 3.11 L, Mean Corpuscular Volume 100.0 H, Mean Corpuscular Hemoglobin 32.8, Mean Corpuscular Hemoglobin Concent 32.8, Red Cell Distribution Width 16.0 H, Neutrophils (%) (Auto) 78.1 H, Lymphocytes (%) (Auto) 11.6 L, Monocytes (%) (Auto) 8.5 H, Eosinophils (%) (Auto) 0.7, Basophils (%) (Auto) 0.2, Neutrophils # (Auto) 6.6, Lymphocytes # (Auto) 1.0 L, Monocytes # (Auto) 0.7, Eosinophils # (Auto) 0.1, Basophils # (Auto) 0.0, Calcium Level 6.6 L Microbiology Microbiology 12/28/18 Blood Culture - Preliminary, Resulted No Growth after 72 hours. All specime... 12/28/18 Blood Culture - Preliminary, Resulted No Growth after 72 hours. All specime... 12/28/18 Fungal Smear, Received Pending 12/28/18 Fungal Culture, Received Pending 12/28/18 Anaerobic Culture - Final, Complete 12/28/18 Acid Fast Stain, Received Pending 12/28/18 Mycobacterial Culture, Received Pending 12/28/18 Gram Stain - Final, Complete 12/28/18 Body Fluid Culture - Final, Complete 12/28/18 Group A Streptococcus Screen (MARITZA) - Final, Complete TOMMIE NEWTON MD Dec 31, 2018 19:21
--- NOTE | 2018-12-31 20:05 | CR ---
DATE OF CONSULTATION: 12/29/2018 Apple seems to be doing much better today. She has no nausea, vomiting or diarrhea. She had no bowel movement today. She thought she was going to have a bowel movement, but she went to the bathroom and was not able to defecate. She has had no fever or chills. She would like to have a regular diet. LABORATORY DATA White count is 8.5 down from 22.5, hemoglobin 10.2, hematocrit 31.1, platelets 234, 78% neutrophils, 12% lymphocytes, 8% monocytes. Sodium 139, potassium 3.3, chloride 109, bicarb 23, BUN 34, creatinine 4.7, glucose 63, calcium 6.6. On 12/28, group A strep was negative. Peritoneal fluid culture was negative. Blood cultures two sets were negative. Fluid had only 12 white cells and less than two red cells. PHYSICAL EXAMINATION: Temperature is 97.2, pulse 65, respirations 18, blood pressure 162/66, O2 sat 97% on room air. Heart: Normal S1, S2. No murmurs. Lungs: Clear. No wheezes, rales or rhonchi. Abdomen: Nontender. PT catheter. Extremities: +1 pitting edema with multiple scaly lesions from multiple skin cancers. IMPRESSION 1. cDIFFICILE COLITIS Last episode was March of 2018. There was no precipitating antibiotic this time. The patient is doing much better with fidaxomicin, day number 12/24. 2. End-stage renal disease on peritoneal dialysis with no evidence of peritonitis. PLAN Advance diet to regular. Continue fidaxomicin. Please send prior authorization to see if she could afford this prescription as an outpatient. I would recommend using 200 mg by mouth (p.o.) twice a day for 5 days and then tapering schedule off every other day for 20 days. This would be a total prescription of 20 tablets which is what would be covered by her insurance. Continue probiotics. MTDD
[2018-12-31] MEDS: SIMVASTATIN 20 MG TAB PO SCH (20:32)
[2018-12-31 22:00] VITALS: BP 148/50
[2019-01-01 05:59] LABS: BASO % 0.2 % (0.0-1.0); EOS # 0.1 10^3/uL (0.0-0.50); EOS % 0.4 % (0.0-3.0); HEMATOCRIT 38.6 % (36.0-47.0); HEMOGLOBIN 12.5 g/dl (12.0-15.5); LYMPH # 1.6 10^3/uL (1.5-4.5); LYMPH % 12.4 % (24.0-44.0); MEAN CORPUSCULAR HEMOGLOBIN 32.6 pg (27.0-33.0); MEAN CORPUSCULAR HGB CONC 32.4 g/dl (32.0-36.5); MEAN CORPUSCULAR VOLUME 100.5 fl (80.0-96.0); MONO # 0.9 10^3/uL (0.0-0.8); MONO % 7.3 % (0.0-5.0); NEUTROPHILS % 78.8 % (36.0-66.0); PLATELET COUNT, AUTOMATED 282 10^3/uL (150-450); RED BLOOD COUNT 3.84 10^6/uL (4.00-5.40); WHITE BLOOD COUNT 12.6 10^3/uL (4.0-10.0)
[2019-01-01 06:00] VITALS: BP 158/89
[2019-01-01 06:27] LABS: CALCIUM LEVEL 6.9 MG/DL (8.8-10.2); CREATININE FOR GFR 4.64 MG/DL (0.55-1.30); GLOMERULAR FILTRATION RATE 9.9 (>39); POTASSIUM SERUM 4.5 MEQ/L (3.5-5.1)
[2019-01-01] MEDS: FOLIC ACID 1 MG TAB PO SCH (09:13)
[2019-01-01] MEDS: LACTOBACILLUS ACIDOPHILUS CAP (BACID) PO SCH ×3 (09:13→18:47)
[2019-01-01] MEDS: CINACALCET 30 MG TAB (SENSIPAR) PO SCH (09:13)
[2019-01-01] MEDS: predniSONE 1 MG TAB PO SCH (09:13)
[2019-01-01] MEDS: FIDAXOMICIN 200 MG TAB (DIFICID) PO SCH ×2 (09:13→20:51)
[2019-01-01] MEDS: MECLIZINE 12.5 MG TAB PO SCH ×2 (09:13→20:52)
[2019-01-01] MEDS: BRIMONIDINE 0.1% OPHTH SOLN 5 ML OS SCH ×2 (09:14→20:53)
[2019-01-01] MEDS: POTASSIUM CHLORIDE 10 MEQ SR TABLET PO SCH (09:14)
[2019-01-01] MEDS: MUPIROCIN 2% OINT 22 GM TUBE TOP SCH ×2 (09:15→20:53)
[2019-01-01] MEDS: ACETAMINOPHEN TAB 650MG DOSE (2X325MG) PO PRN ×2 (09:16→20:51)
[2019-01-01] MEDS: METOPROLOL SUCC (TopROL XL) 50MG **XL** TAB PO SCH ×2 (11:06→21:01)
--- NOTE | 2019-01-01 13:41 | IPNPDOC ---
Date Seen The patient was seen on 01/01/19. Progress Note SUBJECTIVE: Patient was seen and examined at the bedside. Chart has been reviewed. "I had a horrible day. My diarrhea won't stop." Pt c/o worsening weakness due to persistent >10 bm watery yesterday with more frequent abdominal cramping with starting a solid diet. Pt was doing well with no diarrhea and controlled abd pain on liquid diet. After dinner last night, pt had worsening symptoms and discharge postponed today. OBJECTIVE: PHYSICAL EXAMINATION: VITAL SIGNS: PLS SEE BELOW GENERAL APPEARANCE: Patient is awake, alert, and oriented. She appears in no acute distress. She is lying in bed comfortably HEENT: Atraumatic normocephalic. Eyes are non-icteric. Trachea is midline. Mucous membranes appear dry. Capillary refill <2 seconds. CARDIOVASCULAR: Regular rate and rhythm 2/6 Holosystolic murmur noted LUNGS: Clear vesicular lung sounds bilaterally with good respiratory effort ABDOMEN: Soft. Slight tenderness to palpation diffusely although more so in right lower quadrant. No rebound tenderness or guarding. MUSCULOSKELETAL: 4/5 muscle strength testing in bilateral lower and upper extremities EXTREMITIES: No edema. Pulses full and equal bilateral upper and lower extremities NEUROLOGICAL: No focal neurological deficits PSYCHIATRIC: Mood and affect appear appropriate LABORATORY DATA, IMAGING STUDIES, MICROBIOLOGY : See below. IMAGING: Chest two views HISTORY: Fever Comparison: 11/15/2017 Linear densities are present in the left lower lobe consistent with scar. The right lung is clear. The cardiac silhouette is enlarged. The heart is normal in size. The pulmonary vasculature is normal in appearance. The bony structure is intact. IMPRESSION: Cardiomegaly. Electronically Signed by Nicolas Ayala MD 12/28/2018 11:21 A MICROBIOLOGY: Please see below. ASSESSMENT/PLAN: Patient is a 68 year old female with a past medical history significant for ESRD on peritoneal dialysis, anemia of chronic disease, history of uterine cancer, hypertension, leukemia, squamous cell carcinoma or the arms, legs and neck, depression, and hyperlipidemia who presented to the [facility] ER with complaint of nausea, vomiting, diarrhea, and generalized weakness which has developed over the past 24 hours. Patient states that she was at home last night and developed nausea and vomiting followed by watery diarrhea. She states that she has lost a considerable amount of strength and found it difficult for her to lift herself up. In the ER the patient was found to be vitally stable with a fever of 101.7 and an elevated WBC. She did receive IV fluid and a dose of Vancomycin and Zosyn. Patient was found to be too weak for discharge and hospitalist service was consulted for further management C diff colitis , resolving on Dificid s/p IV fluid hydration. ID consulted. Zofran PRN for Nausea Patient has had a history of C. diff in the past. 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 Anemia of chronic Disease due to renal failure and hemodilutional component. s/p 1unit rbc transfusion due to generalized weakness on 12/29/18. consent for blood transfusion signed. ESRD on peritoneal Dialysis Patient is being followed by nephrology. Hypertension Will continue patients home medications Hx of Uterine Cancer Leukemia SSC of Arms, Legs, and Neck Depression Hyperlipidemia . VS, I&O, 24H, Fishbone Vital Signs/I&O Vital Signs Date Time Temp Pulse Resp B/P (MAP) Pulse Ox O2 Delivery O2 Flow Rate FiO2 01/01/19 11:06 66 144/70 01/01/19 06:00 97.8 19 98 12/28/18 09:55 Room Air I&O- Last 24 Hours up to 6 AM 01/01/19 06:00 Intake Total 8230 ml Output Total 9000 ml Balance -770 ml Laboratory Data 24H LABS Laboratory Tests 2 01/01/19 05:31: Immature Granulocyte % (Auto) 0.9, White Blood Count 12.6H, Red Blood Count 3.84L, Hemoglobin 12.5#, Hematocrit 38.6, Mean Corpuscular Volume 100.5H, Mean Corpuscular Hemoglobin 32.6, Mean Corpuscular Hemoglobin Concent 32.4, Red Cell Distribution Width 16.3H, Platelet Count 282, Neutrophils (%) (Auto) 78.8H, Lymphocytes (%) (Auto) 12.4L, Monocytes (%) (Auto) 7.3H, Eosinophils (%) (Auto) 0.4, Basophils (%) (Auto) 0.2, Neutrophils # (Auto) 10.0H, Lymphocytes # (Auto) 1.6, Monocytes # (Auto) 0.9H, Eosinophils # (Auto) 0.1, Basophils # (Auto) 0.0, Nucleated Red Blood Cells % (auto) 0.2H, Anion Gap 11, Glomerular Filtration Rate 9.9L, Blood Urea Nitrogen 35H, Creatinine 4.64H, Sodium Level 138, Potassium Level 4.5#, Chloride Level 106, Carbon Dioxide Level 21, Calcium Level 6.9L CBC/BMP Laboratory Tests 01/01/19 05:31 Red Blood Count 3.84 L, Mean Corpuscular Volume 100.5 H, Mean Corpuscular Hemoglobin 32.6, Mean Corpuscular Hemoglobin Concent 32.4, Red Cell Distribution Width 16.3 H, Neutrophils (%) (Auto) 78.8 H, Lymphocytes (%) (Auto) 12.4 L, Monocytes (%) (Auto) 7.3 H, Eosinophils (%) (Auto) 0.4, Basophils (%) (Auto) 0.2, Neutrophils # (Auto) 10.0 H, Lymphocytes # (Auto) 1.6, Monocytes # (Auto) 0.9 H, Eosinophils # (Auto) 0.1, Basophils # (Auto) 0.0, Calcium Level 6.9 L Microbiology Microbiology 12/28/18 Blood Culture - Preliminary, Resulted No Growth after 72 hours. All specime... 12/28/18 Blood Culture - Preliminary, Resulted No Growth after 72 hours. All specime... 12/28/18 Fungal Smear, Received Pending 12/28/18 Fungal Culture, Received Pending 12/28/18 Anaerobic Culture - Final, Complete 12/28/18 Acid Fast Stain, Received Pending 12/28/18 Mycobacterial Culture, Received Pending 12/28/18 Gram Stain - Final, Complete 12/28/18 Body Fluid Culture - Final, Complete 12/28/18 Group A Streptococcus Screen (MARITZA) - Final, Complete TOMMIE NEWTON MD Jan 01, 2019 13:41
[2019-01-01] MEDS: ONDANSETRON 4MG/2ML VIAL (J2405) IV PRN (13:53)
[2019-01-01 14:00] VITALS: BP 164/72
--- NOTE | 2019-01-01 19:34 | IPN ---
DATE: 01/01/2019 SUBJECTIVE: The patient was seen and examined at the bedside today, morning. The patient reports that she started eating a regular diet, and she started having a lot of diarrhea yesterday. She complains of abdominal pain and discomfort. She had three bowel movements yesterday, almost five bowel movements so far today since overnight. She is complaining that she is unable to do peritoneal exchanges with 1.5 liters, and she wants to reduce the amount of fluid. She is otherwise afebrile and hemodynamically stable. OBJECTIVE: VITAL SIGNS: Temperature is 97.8 degrees Fahrenheit, blood pressure 144/70, pulse is 66, respiratory rate of 19, saturating 98% on room air. INTAKE/OUTPUT: Patient is in 500 mL negative fluid balance since overnight. Weight on the bed scale is not available. PHYSICAL EXAMINATION: GENERAL: The patient is awake, alert, oriented times three, laying in bed, in no apparent distress. HEAD AND NECK EXAM: Extraocular muscles intact. Pupils equally round and reactive to light. Mucous membranes are moist. Neck is supple. There is no jugular venous distention (JVD). CARDIOVASCULAR: S1, S2, regular rate. No edema of the bilateral lower extremities. RESPIRATORY: Chest is clear to auscultation bilaterally. Bilateral equal air entry. No rales or rhonchi. ABDOMEN: Abdomen is soft. Positive bowel sounds, mildly tender to deep palpation. Peritoneal dialysis catheter on the left side. MUSCULOSKELETAL: No clubbing or cyanosis. Pulses are 2+. CENTRAL NERVOUS SYSTEM: No focal deficit. Power is 5/5 in all extremities. SKIN: Multiple cancerous and precancerous lesions. LAB REVIEW: CBC showed a WBC of 12.6, hemoglobin 12.5, platelets are 282. BMP showed sodium 138, potassium 4.5, chloride 106, bicarbonate 21, BUN 35, creatinine is 4.6. CURRENT INPATIENT MEDICATIONS: The patient's medications were all reviewed by me. Her potassium chloride dose has been changed to 20 mEq by mouth once a day. No other change in the medications today as compared with yesterday. ASSESSMENT AND PLAN: 1. End-stage renal disease, on peritoneal dialysis. Patient is having diarrhea, and she is refusing to have 1.5 liter exchanges. I have changed the peritoneal dialysis to 1 liter exchanges, all 1.5%, five manual exchanges per day. 2. Clostridium difficile diarrhea. Patient's diarrhea episodes are worse. She is going to be placed back on a liquid diet. Continue current dose of Dificid. 3. Hypokalemia. Potassium level has improved. I have decreased the potassium dose to 20 mEq by mouth once a day. 4. Hypertension. Continue current dose of metoprolol and hydralazine. Volume status is optimal. 5. Peritoneal dialysis (PD) catheter exit site infection. Continue topical mupirocin at this point.
[2019-01-01] MEDS: SIMVASTATIN 20 MG TAB PO SCH (20:52)
--- NOTE | 2019-01-01 23:09 | IPN ---
DATE: 01/01/2019 SUBJECTIVE: The patient was seen and examined this morning. Last night, she did have multiple bowel movements after she had a regular diet. She was doing really well the whole day until the evening time and they she continued to have watery diarrhea. She is very sadden because there is no improvement of the symptoms. She can't continue to live like this. She denies having any fevers, chills, night sweats, nausea or vomiting. She denies having any abdominal pain. There is no other overnight events reported. LABORATORY DATA: White blood count (WBC) 12.6, hemoglobin 12.5, hematocrit 38.6, platelets 282. Chemistry: Sodium 138, k4.5, chloride 106, carbon dioxide 21, anion gap 11, BUN 35, creatinine 4.64, fasting glucose 69, calcium 6.9. PHYSICAL EXAMINATION: VITAL SIGNS: Temperature 98.0, pulse 67, respirations 16, blood pressure 164/72 (102), pulse oximetry 100% on room air. GENERAL: This is a very pleasant 68-year-old female, who does not appear in acute distress laying down comfortably flat on the bed with a blanket around her head. HEART: Normal S1, S2 sounds. Right intercostal space 2/6 systolic murmur. LUNGS: Clear to auscultation bilaterally. ABDOMEN: Soft, nontender. Positive bowel sounds in all four quadrants. LOWER EXTREMITIES: No lower extremity edema. ASSESSMENT AND PLAN: 1. Recurrent Clostridium difficile, last episode March 2018. There was no precipitating antibiotic at this time. Will continue with the Dificid day 4 out of 14. 2. End-stage renal disease on peritoneal dialysis. No evidence of peritonitis. PLAN: Will continue with the Dificid, day 4 of 14. We are waiting for prior authorization so we can continue this outpatient. Will continue to monitor her for improvement of her diarrhea after tolerating a meal. We would recommend using Dificid 200 mg by mouth twice a day for five days and tapering schedule off every other day for 20 days. This will be a total prescription of 20 tablets, which should be covered by insurance. Will continue with probiotics. Because the patient would like to have snf relief to reduce her recurrence, we can consider possible Zinplava infusion, which is a one time infusion that can be done after her current infection is under control. My faculty preceptor for this patient encounter was physically present during the encounter and was fully available. All aspects of the patient interview, examination, medical decision making process, and medical care plan development were reviewed and approved by the faculty preceptor. The faculty preceptor is aware and concurs with the plan as stated in the body of this note and will attest to such by his/her cosignature.
[2019-01-02 06:00] VITALS: BP 155/58
[2019-01-02 06:33] LABS: CALCIUM LEVEL 6.9 MG/DL (8.8-10.2); CREATININE FOR GFR 4.89 MG/DL (0.55-1.30); GLOMERULAR FILTRATION RATE 9.3 (>39); POTASSIUM SERUM 4.3 MEQ/L (3.5-5.1)
[2019-01-02 06:36] LABS: BASO % 0.2 % (0.0-1.0); EOS # 0.1 10^3/uL (0.0-0.50); HEMATOCRIT 37.8 % (36.0-47.0); HEMOGLOBIN 12.4 g/dl (12.0-15.5); LYMPH # 1.8 10^3/uL (1.5-4.5); LYMPH % 14.2 % (24.0-44.0); MEAN CORPUSCULAR HEMOGLOBIN 33.1 pg (27.0-33.0); MEAN CORPUSCULAR HGB CONC 32.8 g/dl (32.0-36.5); MEAN CORPUSCULAR VOLUME 100.8 fl (80.0-96.0); MONO # 0.8 10^3/uL (0.0-0.8); MONO % 6.6 % (0.0-5.0); NEUTROPHILS # 9.6 10^3/uL (1.8-7.7); NEUTROPHILS % 76.8 % (36.0-66.0); PLATELET COUNT, AUTOMATED 289 10^3/uL (150-450); RED BLOOD COUNT 3.75 10^6/uL (4.00-5.40); WHITE BLOOD COUNT 12.5 10^3/uL (4.0-10.0)
[2019-01-02] MEDS: FOLIC ACID 1 MG TAB PO SCH (09:26)
[2019-01-02] MEDS: LACTOBACILLUS ACIDOPHILUS CAP (BACID) PO SCH ×3 (09:26→18:18)
[2019-01-02] MEDS: FIDAXOMICIN 200 MG TAB (DIFICID) PO SCH ×2 (09:26→21:49)
[2019-01-02] MEDS: METOPROLOL SUCC (TopROL XL) 50MG **XL** TAB PO SCH ×2 (09:26→21:50)
[2019-01-02] MEDS: MECLIZINE 12.5 MG TAB PO SCH ×2 (09:26→21:49)
[2019-01-02] MEDS: predniSONE 1 MG TAB PO SCH (09:26)
[2019-01-02] MEDS: CINACALCET 30 MG TAB (SENSIPAR) PO SCH (09:26)
[2019-01-02] MEDS: BRIMONIDINE 0.1% OPHTH SOLN 5 ML OS SCH ×2 (09:27→21:50)
[2019-01-02] MEDS: POTASSIUM CHLORIDE 10 MEQ SR TABLET PO SCH (09:27)
[2019-01-02] MEDS: MUPIROCIN 2% OINT 22 GM TUBE TOP SCH ×2 (09:27→21:50)
[2019-01-02] MEDS: ACETAMINOPHEN TAB 650MG DOSE (2X325MG) PO PRN ×2 (09:38→21:49)
[2019-01-02 14:00] VITALS: BP 148/74
--- NOTE | 2019-01-02 18:49 | IPNPDOC ---
Date Seen The patient was seen on 01/02/19. Progress Note SUBJECTIVE: Pt's diet was changed back to liquids, and diarrhea lessened after dinner last night. She feels less exhausted today, and feels more rested. no fever, chills, had 11 bm yesterday. OBJECTIVE: PHYSICAL EXAMINATION: VITAL SIGNS: PLS SEE BELOW GENERAL APPEARANCE: Patient is awake, alert, and oriented. She appears in no acute distress. She is lying in bed comfortably HEENT: Atraumatic normocephalic. Eyes are non-icteric. Trachea is midline. Mucous membranes appear dry. Capillary refill <2 seconds. CARDIOVASCULAR: Regular rate and rhythm 2/6 Holosystolic murmur noted LUNGS: Clear vesicular lung sounds bilaterally with good respiratory effort ABDOMEN: Soft. Slight tenderness to palpation diffusely although more so in right lower quadrant. No rebound tenderness or guarding. MUSCULOSKELETAL: 4/5 muscle strength testing in bilateral lower and upper extremities EXTREMITIES: No edema. Pulses full and equal bilateral upper and lower extremities NEUROLOGICAL: No focal neurological deficits PSYCHIATRIC: Mood and affect appear appropriate LABORATORY DATA, IMAGING STUDIES, MICROBIOLOGY : See below. IMAGING: Chest two views HISTORY: Fever Comparison: 11/15/2017 Linear densities are present in the left lower lobe consistent with scar. The right lung is clear. The cardiac silhouette is enlarged. The heart is normal in size. The pulmonary vasculature is normal in appearance. The bony structure is intact. IMPRESSION: Cardiomegaly. Electronically Signed by Nicolas Ayala MD 12/28/2018 11:21 A MICROBIOLOGY: Please see below. ASSESSMENT/PLAN: Patient is a 68 year old female with a past medical history significant for ESRD on peritoneal dialysis, anemia of chronic disease, history of uterine cancer, hypertension, leukemia, squamous cell carcinoma or the arms, legs and neck, depression, and hyperlipidemia who presented to the [facility] ER with complaint of nausea, vomiting, diarrhea, and generalized weakness which has developed over the past 24 hours. Patient states that she was at home last night and developed nausea and vomiting followed by watery diarrhea. She states that she has lost a considerable amount of strength and found it difficult for her to lift herself up. In the ER the patient was found to be vitally stable with a fever of 101.7 and an elevated WBC. She did receive IV fluid and a dose of Vancomycin and Zosyn. Patient was found to be too weak for discharge and hospitalist service was consulted for further management C diff colitis , resolving on Dificid s/p IV fluid hydration. ID consulted. Zofran PRN for Nausea Patient has had a history of C. diff in the past. 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 Anemia of chronic Disease due to renal failure and hemodilutional component. s/p 1unit rbc transfusion due to generalized weakness on 12/29/18. consent for blood transfusion signed. ESRD on peritoneal Dialysis Patient is being followed by nephrology. Hypertension Will continue patients home medications Hx of Uterine Cancer Leukemia SSC of Arms, Legs, and Neck Depression Hyperlipidemia . disposition: discharge postponed friday due to ongoing diarrhea which improved after solid diet changed back to liquids. VS, I&O, 24H, Fishbone Vital Signs/I&O Vital Signs Date Time Temp Pulse Resp B/P (MAP) Pulse Ox O2 Delivery O2 Flow Rate FiO2 01/02/19 14:00 97.1 72 18 148/74 (98) 99 12/28/18 09:55 Room Air I&O- Last 24 Hours up to 6 AM 01/02/19 06:00 Intake Total 6600 ml Output Total 6800 ml Balance -200 ml Laboratory Data 24H LABS Laboratory Tests 2 01/02/19 05:58: Immature Granulocyte % (Auto) 1.2, White Blood Count 12.5H, Red Blood Count 3.75L, Hemoglobin 12.4, Hematocrit 37.8, Mean Corpuscular Volume 100.8H, Mean Corpuscular Hemoglobin 33.1H, Mean Corpuscular Hemoglobin Concent 32.8, Red Cell Distribution Width 16.4H, Platelet Count 289, Neutrophils (%) (Auto) 76.8H, Lymphocytes (%) (Auto) 14.2L, Monocytes (%) (Auto) 6.6H, Eosinophils (%) (Auto) 1.0, Basophils (%) (Auto) 0.2, Neutrophils # (Auto) 9.6H, Lymphocytes # (Auto) 1.8, Monocytes # (Auto) 0.8, Eosinophils # (Auto) 0.1, Basophils # (Auto) 0.0, Nucleated Red Blood Cells % (auto) 0.4H, Anion Gap 9, Glomerular Filtration Rate 9.3L, Blood Urea Nitrogen 35H, Creatinine 4.89H, Sodium Level 140, Potassium Level 4.3, Chloride Level 106, Carbon Dioxide Level 25, Calcium Level 6.9L CBC/BMP Laboratory Tests 01/02/19 05:58 Red Blood Count 3.75 L, Mean Corpuscular Volume 100.8 H, Mean Corpuscular Hemoglobin 33.1 H, Mean Corpuscular Hemoglobin Concent 32.8, Red Cell Distribution Width 16.4 H, Neutrophils (%) (Auto) 76.8 H, Lymphocytes (%) (Auto) 14.2 L, Monocytes (%) (Auto) 6.6 H, Eosinophils (%) (Auto) 1.0, Basophils (%) (Auto) 0.2, Neutrophils # (Auto) 9.6 H, Lymphocytes # (Auto) 1.8, Monocytes # (Auto) 0.8, Eosinophils # (Auto) 0.1, Basophils # (Auto) 0.0, Calcium Level 6.9 L Microbiology Microbiology 12/28/18 Blood Culture - Final, Complete NO GROWTH AFTER 5 DAYS 12/28/18 Blood Culture - Final, Complete NO GROWTH AFTER 5 DAYS 12/28/18 Fungal Smear, Received Pending 12/28/18 Fungal Culture, Received Pending 12/28/18 Anaerobic Culture - Final, Complete 12/28/18 Acid Fast Stain, Received Pending 12/28/18 Mycobacterial Culture, Received Pending 12/28/18 Gram Stain - Final, Complete 12/28/18 Body Fluid Culture - Final, Complete 12/28/18 Group A Streptococcus Screen (MARITZA) - Final, Complete TOMMIE NEWTON MD Jan 02, 2019 18:49
[2019-01-02] MEDS: SIMVASTATIN 20 MG TAB PO SCH (21:49)
[2019-01-02 22:00] VITALS: BP 160/70
[2019-01-03 06:00] VITALS: BP 135/83
[2019-01-03 07:00] LABS: BASO % 0.2 % (0.0-1.0); EOS # 0.1 10^3/uL (0.0-0.50); EOS % 1.1 % (0.0-3.0); HEMATOCRIT 41.8 % (36.0-47.0); HEMOGLOBIN 13.4 g/dl (12.0-15.5); LYMPH # 2.3 10^3/uL (1.5-4.5); LYMPH % 17.4 % (24.0-44.0); MEAN CORPUSCULAR HEMOGLOBIN 32.8 pg (27.0-33.0); MEAN CORPUSCULAR HGB CONC 32.1 g/dl (32.0-36.5); MEAN CORPUSCULAR VOLUME 102.5 fl (80.0-96.0); MONO # 0.9 10^3/uL (0.0-0.8); MONO % 6.4 % (0.0-5.0); NEUTROPHILS # 9.8 10^3/uL (1.8-7.7); PLATELET COUNT, AUTOMATED 324 10^3/uL (150-450); RED BLOOD COUNT 4.08 10^6/uL (4.00-5.40); WHITE BLOOD COUNT 13.3 10^3/uL (4.0-10.0)
[2019-01-03 07:22] LABS: CALCIUM LEVEL 6.8 MG/DL (8.8-10.2); CREATININE FOR GFR 5.21 MG/DL (0.55-1.30); GLOMERULAR FILTRATION RATE 8.7 (>39); POTASSIUM SERUM 4.8 MEQ/L (3.5-5.1)
[2019-01-03] MEDS: LACTOBACILLUS ACIDOPHILUS CAP (BACID) PO SCH ×3 (08:00→18:10)
--- NOTE | 2019-01-03 09:42 | IPNPDOC ---
Date Seen The patient was seen on 01/03/19. Progress Note SUBJECTIVE: Pt was changed back to full liquids due to profuse diarrhea on renal diet. Pt has had some improvment from 11 to 5 bm but requesting "just broth and some toast." She still c/o abdomina discomfort with foods and tearful that she could not be advanced on her diet and her discharge postponed. OBJECTIVE: PHYSICAL EXAMINATION: VITAL SIGNS: PLS SEE BELOW GENERAL APPEARANCE: Patient is awake, alert, and oriented. She appears in no acute distress. She is lying in bed comfortably HEENT: Atraumatic normocephalic. Eyes are non-icteric. Trachea is midline. Mucous membranes appear dry. Capillary refill <2 seconds. CARDIOVASCULAR: Regular rate and rhythm 2/6 Holosystolic murmur noted LUNGS: Clear vesicular lung sounds bilaterally with good respiratory effort ABDOMEN: Soft. Slight tenderness to palpation diffusely although more so in right lower quadrant. No rebound tenderness or guarding. MUSCULOSKELETAL: 4/5 muscle strength testing in bilateral lower and upper extremities EXTREMITIES: No edema. Pulses full and equal bilateral upper and lower extremities NEUROLOGICAL: No focal neurological deficits PSYCHIATRIC: Mood and affect appear appropriate LABORATORY DATA, IMAGING STUDIES, MICROBIOLOGY : See below. IMAGING: Chest two views HISTORY: Fever Comparison: 11/15/2017 Linear densities are present in the left lower lobe consistent with scar. The right lung is clear. The cardiac silhouette is enlarged. The heart is normal in size. The pulmonary vasculature is normal in appearance. The bony structure is intact. IMPRESSION: Cardiomegaly. Electronically Signed by Nicolas Ayala MD 12/28/2018 11:21 A MICROBIOLOGY: Please see below. ASSESSMENT/PLAN: Patient is a 68 year old female with a past medical history significant for ESRD on peritoneal dialysis, anemia of chronic disease, history of uterine cancer, hypertension, leukemia, squamous cell carcinoma or the arms, legs and neck, depression, and hyperlipidemia who presented to the [facility] ER with complaint of nausea, vomiting, diarrhea, and generalized weakness which has developed over the past 24 hours. Patient states that she was at home last night and developed nausea and vomiting followed by watery diarrhea. She states that she has lost a considerable amount of strength and found it difficult for her to lift herself up. In the ER the patient was found to be vitally stable with a fever of 101.7 and an elevated WBC. She did receive IV fluid and a dose of Vancomycin and Zosyn. Patient was found to be too weak for discharge and hospitalist service was con sulted for further management C diff colitis , resolving on Dificid s/p IV fluid hydration. ID consulted. Zofran PRN for Nausea Patient has had a history of C. diff in the past. 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 Anemia of chronic Disease due to renal failure and hemodilutional component. s/p 1unit rbc transfusion due to generalized weakness on 12/29/18. consent for blood transfusion signed. ESRD on peritoneal Dialysis Patient is being followed by nephrology. Hypertension Will continue patients home medications Hx of Uterine Cancer Leukemia SSC of Arms, Legs, and Neck Depression Hyperlipidemia . disposition: discharge postponed friday due to ongoing diarrhea which improved after solid diet changed back to liquids. VS, I&O, 24H, Fishbone Vital Signs/I&O Vital Signs Date Time Temp Pulse Resp B/P (MAP) Pulse Ox O2 Delivery O2 Flow Rate FiO2 01/03/19 06:00 97.4 69 20 135/83 (100) 97 12/28/18 09:55 Room Air I&O- Last 24 Hours up to 6 AM 01/03/19 06:00 Intake Total 5120 ml Output Total 5700 ml Balance -580 ml Laboratory Data 24H LABS Laboratory Tests 2 01/03/19 06:39: Immature Granulocyte % (Auto) 0.9, White Blood Count 13.3H, Red Blood Count 4.08, Hemoglobin 13.4, Hematocrit 41.8, Mean Corpuscular Volume 102.5H, Mean Corpuscular Hemoglobin 32.8, Mean Corpuscular Hemoglobin Concent 32.1, Red Cell Distribution Width 17.1H, Platelet Count 324, Neutrophils (%) (Auto) 74.0H, Lymp hocytes (%) (Auto) 17.4L, Monocytes (%) (Auto) 6.4H, Eosinophils (%) (Auto) 1.1, Basophils (%) (Auto) 0.2, Neutrophils # (Auto) 9.8H, Lymphocytes # (Auto) 2.3, Monocytes # (Auto) 0.9H, Eosinophils # (Auto) 0.1, Basophils # (Auto) 0.0, Nucleated Red Blood Cells % (auto) 0.5H, Anion Gap 10, Glomerular Filtration Rate 8.7L, Blood Urea Nitrogen 37H, Creatinine 5.21H, Sodium Level 140, Potassium Level 4.8, Chloride Level 108H, Carbon Dioxide Level 22, Calcium Level 6.8L CBC/BMP Laboratory Tests 01/03/19 06:39 Red Blood Count 4.08, Mean Corpuscular Volume 102.5 H, Mean Corpuscular Hemoglobin 32.8, Mean Corpuscular Hemoglobin Concent 32.1, Red Cell Distribution Width 17.1 H, Neutrophils (%) (Auto) 74.0 H, Lymphocytes (%) (Auto) 17.4 L, Monocytes (%) (Auto) 6.4 H, Eosinophils (%) (Auto) 1.1, Basophils (%) (Auto) 0.2, Neutrophils # (Auto) 9.8 H, Lymphocytes # (Auto) 2.3, Monocytes # (Auto) 0.9 H, Eosinophils # (Auto) 0.1, Basophils # (Auto) 0.0, Calcium Level 6.8 L Microbiology Microbiology 12/28/18 Blood Culture - Final, Complete NO GROWTH AFTER 5 DAYS 12/28/18 Blood Culture - Final, Complete NO GROWTH AFTER 5 DAYS 12/28/18 Fungal Smear, Received Pending 12/28/18 Fungal Culture, Received Pending 12/28/18 Anaerobic Culture - Final, Complete 12/28/18 Acid Fast Stain, Received Pending 12/28/18 Mycobacterial Culture, Received Pending 12/28/18 Gram Stain - Final, Complete 12/28/18 Body Fluid Culture - Final, Complete 12/28/18 Group A Streptococcus Screen (MARITZA) - Final, Complete TOMMIE NEWTON MD Jan 03, 2019 09:42
[2019-01-03] MEDS: CINACALCET 30 MG TAB (SENSIPAR) PO SCH (10:30)
[2019-01-03] MEDS: POTASSIUM CHLORIDE 10 MEQ SR TABLET PO SCH (10:30)
[2019-01-03] MEDS: FIDAXOMICIN 200 MG TAB (DIFICID) PO SCH ×2 (10:30→21:40)
[2019-01-03] MEDS: FOLIC ACID 1 MG TAB PO SCH (10:31)
[2019-01-03] MEDS: predniSONE 1 MG TAB PO SCH (10:31)
[2019-01-03] MEDS: MECLIZINE 12.5 MG TAB PO SCH ×2 (10:31→21:41)
[2019-01-03] MEDS: BRIMONIDINE 0.1% OPHTH SOLN 5 ML OS SCH ×2 (10:35→21:44)
[2019-01-03] MEDS: METOPROLOL SUCC (TopROL XL) 50MG **XL** TAB PO SCH ×2 (10:35→21:46)
[2019-01-03] MEDS: MUPIROCIN 2% OINT 22 GM TUBE TOP SCH ×2 (10:35→21:44)
[2019-01-03 14:00] VITALS: BP 132/56
--- NOTE | 2019-01-03 15:15 | IPN ---
DATE: 01/02/2019 SUBJECTIVE: The patient was seen and examined at the bedside today morning. The patient reports that her diarrhea is better today since she is not taking the regular diet. She is just on liquids at this point. She denies any problems with the peritoneal dialsysis. Shed any fevers or chills. OBJECTIVE: VITAL SIGNS: Temperature is 97.1 degrees Fahrenheit, blood pressure 148/74, pulse is 72, respiratory rate of 18, saturating 99% on room air. INTAKE AND OUTPUT: There is no urine output recorded. Output with the peritoneal dialysis is 4.6 liters. Weight on the bed scale is 37.5 kg. PHYSICAL EXAMINATION: GENERAL: The patient is awake, alert and oriented times three, laying in bed, in no apparent distress. HEAD AND NECK: Extraocular muscles intact. Pupils equally round and reactive to light. Mucous membranes are moist. Neck is supple. There is no jugular venous distention (JVD). CARDIOVASCULAR: S1, S2, regular rate. Trace edema of the bilateral lower extremities. RESPIRATORY: Chest is clear to auscultation bilaterally. Bilateral equal air entry. No rales or rhonchi. ABDOMEN: Abdomen is soft. Positive bowel sounds. Left lower quadrant peritoneal dialysis catheter access site is nontender at this point. MUSCULOSKELETAL: No clubbing or cyanosis. Pulses are 2+. CENTRAL NERVOUS SYSTEM (PURCHASE ANALYST): No focal deficit. Power is 5/5 in all extremities. SKIN: Multiple cancerous and precancerous lesions on the skin all over the body. LABORATORY REVIEW: CBC showed a WBC of 12.5, hemoglobin 12.4, platelets are 289. BMP showed sodium 140, potassium 4.3, chloride 106, bicarbonate 25, BUN 35, creatinine is 4.8. MICROBIOLOGY: Cultures are negative so far. CURRENT INPATIENT MEDICATIONS: The patient's medications were all reviewed by me. There is no change in the medications today as compared with yesterday. ASSESSMENT AND PLAN: 1. End-stage renal disease, on peritoneal dialysis. Because of the Clostridium (C) difficile associated diarrhea, she is only getting one liter exchanges, all 1.5%, total of five manual exchanges a day. 2. C. difficile colitis diarrhea. She had 11 bowel movements yesterday. Her was changed back to a liquid diet. Continue Dificid. Rest of the management is as per infectious disease (ID) recommendations. 3. Hypertension. Blood pressure is optimal. Continue current dose of metoprolol and hydralazine. 4. Peritoneal dialysis (PD) catheter exit site infection. Symptoms are better. Continue current dose of mupirocin topical.
[2019-01-03] MEDS: ACETAMINOPHEN TAB 650MG DOSE (2X325MG) PO PRN (21:40)
[2019-01-03] MEDS: SIMVASTATIN 20 MG TAB PO SCH (21:41)
[2019-01-03 22:00] VITALS: BP 158/62
[2019-01-04 06:00] VITALS: BP 148/62
[2019-01-04 06:08] LABS: BASO % 0.4 % (0.0-1.0); EOS # 0.1 10^3/uL (0.0-0.50); HEMATOCRIT 37.7 % (36.0-47.0); HEMOGLOBIN 11.9 g/dl (12.0-15.5); LYMPH # 1.3 10^3/uL (1.5-4.5); LYMPH % 11.4 % (24.0-44.0); MEAN CORPUSCULAR HEMOGLOBIN 32.6 pg (27.0-33.0); MEAN CORPUSCULAR HGB CONC 31.6 g/dl (32.0-36.5); MEAN CORPUSCULAR VOLUME 103.3 fl (80.0-96.0); MONO # 0.6 10^3/uL (0.0-0.8); MONO % 5.8 % (0.0-5.0); NEUTROPHILS # 8.9 10^3/uL (1.8-7.7); NEUTROPHILS % 80.5 % (36.0-66.0); PLATELET COUNT, AUTOMATED 281 10^3/uL (150-450); RED BLOOD COUNT 3.65 10^6/uL (4.00-5.40)
[2019-01-04 06:41] LABS: ALBUMIN 1.3 GM/DL (3.2-5.2); CALCIUM LEVEL 6.5 MG/DL (8.8-10.2); CREATININE FOR GFR 5.21 MG/DL (0.55-1.30); GLOMERULAR FILTRATION RATE 8.7 (>39); POTASSIUM SERUM 4.5 MEQ/L (3.5-5.1)
[2019-01-04 07:20] VITALS: BP 184/66
[2019-01-04] MEDS: FIDAXOMICIN 200 MG TAB (DIFICID) PO SCH ×2 (08:34→23:10)
[2019-01-04] MEDS: METOPROLOL SUCC (TopROL XL) 50MG **XL** TAB PO SCH ×2 (08:34→23:10)
[2019-01-04] MEDS: CINACALCET 30 MG TAB (SENSIPAR) PO SCH (08:34)
[2019-01-04] MEDS: FOLIC ACID 1 MG TAB PO SCH (08:35)
[2019-01-04] MEDS: predniSONE 1 MG TAB PO SCH (08:35)
[2019-01-04] MEDS: MECLIZINE 12.5 MG TAB PO SCH ×2 (08:35→23:09)
[2019-01-04] MEDS: LACTOBACILLUS ACIDOPHILUS CAP (BACID) PO SCH ×3 (08:35→18:20)
[2019-01-04] MEDS: MUPIROCIN 2% OINT 22 GM TUBE TOP SCH ×2 (08:36→23:09)
[2019-01-04] MEDS: BRIMONIDINE 0.1% OPHTH SOLN 5 ML OS SCH ×2 (08:36→23:08)
--- NOTE | 2019-01-04 09:38 | IPNPDOC ---
Date Seen The patient was seen on 01/04/19. Progress Note SUBJECTIVE: Pt was changed back to clear liquids and due to profuse diarrhea on renal diet. Pt has had some improvment from 11 to 5 bm but requesting "just broth and some toast." improved abdominal discomfort and requesting egg whites and "clear ensure". business systems administrator consulted. OBJECTIVE: PHYSICAL EXAMINATION: VITAL SIGNS: PLS SEE BELOW GENERAL APPEARANCE: Patient is awake, alert, and oriented. She appears in no acute distress. She is lying in bed comfortably HEENT: Atraumatic normocephalic. Eyes are non-icteric. Trachea is midline. Mucous membranes appear dry. Capillary refill <2 seconds. CARDIOVASCULAR: Regular rate and rhythm 2/6 Holosystolic murmur noted LUNGS: Clear vesicular lung sounds bilaterally with good respiratory effort ABDOMEN: Soft. Slight tenderness to palpation diffusely although more so in right lower quadrant. No rebound tenderness or guarding. MUSCULOSKELETAL: 4/5 muscle strength testing in bilateral lower and upper extremities EXTREMITIES: No edema. Pulses full and equal bilateral upper and lower extremities NEUROLOGICAL: No focal neurological deficits PSYCHIATRIC: Mood and affect appear appropriate LABORATORY DATA, IMAGING STUDIES, MICROBIOLOGY : See below. IMAGING: Chest two views HISTORY: Fever Comparison: 11/15/2017 Linear densities are present in the left lower lobe consistent with scar. The right lung is clear. The cardiac silhouette is enlarged. The heart is normal in size. The pulmonary vasculature is normal in appearance. The bony structure is intact. IMPRESSION: Cardiomegaly. Electronically Signed by Nicolas Ayala MD 12/28/2018 11:21 A MICROBIOLOGY: Please see below. ASSESSMENT/PLAN: Patient is a 68 year old female with a past medical history significant for ESRD on peritoneal dialysis, anemia of chronic disease, history of uterine cancer, hypertension, leukemia, squamous cell carcinoma or the arms, legs and neck, depression, and hyperlipidemia who presented to the [facility] ER with complaint of nausea, vomiting, diarrhea, and generalized weakness which has developed over the past 24 hours. Patient states that she was at home last night and developed nausea and vomiting followed by watery diarrhea. She states that she has lost a considerable amount of strength and found it difficult for her to lift herself up. In the ER the patient was found to be vitally stable with a fever of 101.7 and an elevated WBC. She did receive IV fluid and a dose of Vancomycin and Zosyn. Patient was found to be too weak for discharge and hospitalist service was consulted for further management C diff colitis , resolving on Dificid s/p IV fluid hydration. ID consulted. Zofran PRN for Nausea Patient has had a history of C. diff in the past. 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 Anemia of chronic Disease due to renal failure and hemodilutional component. s/p 1unit rbc transfusion due to generalized weakness on 12/29/18. consent for blood transfusion signed. ESRD on peritoneal Dialysis Patient is being followed by nephrology. Hypertension Will continue patients home medications Hx of Uterine Cancer Leukemia SSC of Arms, Legs, and Neck Depression Hyperlipidemia . disposition: discharge postponed friday due to ongoing diarrhea which improved after solid diet changed back to liquids. VS, I&O, 24H, Fishbone Vital Signs/I&O Vital Signs Date Time Temp Pulse Resp B/P (MAP) Pulse Ox O2 Delivery O2 Flow Rate FiO2 01/04/19 08:34 68 184/66 01/04/19 07:20 98.0 16 97 I&O- Last 24 Hours up to 6 AM 01/04/19 06:00 Intake Total 5600 ml Output Total 4400 ml Balance 1200 ml Laboratory Data 24H LABS Laboratory Tests 2 01/04/19 05:41: Immature Granulocyte % (Auto) 0.9, White Blood Count 11.0H, Red Blood Count 3.65L, Hemoglobin 11.9L, Hematocrit 37.7, Mean Corpuscular Volume 103.3H, Mean Corpuscular Hemoglobin 32.6, Mean Corpuscular Hemoglobin Concent 31.6L, Red Cell Distribution Width 17.0H, Platelet Count 281, Neutrophils (%) (Auto) 80.5H, Lymphocytes (%) (Auto) 11.4L, Monocytes (%) (Auto) 5.8H, Eosinophils (%) (Auto) 1.0, Basophils (%) (Auto) 0.4, Neutrophils # (Auto) 8.9H, Lymphocytes # (Auto) 1.3L, Monocytes # (Auto) 0.6, Eosinophils # (Auto) 0.1, Basophils # (Auto) 0.0, Nucleated Red Blood Cells % (auto) 0.7H, Anion Gap 9, Glomerular Filtration Rate 8.7L, Blood Urea Nitrogen 33H, Creatinine 5.21H, Sodium Level 143, Potassium Level 4.5, Chloride Level 111H, Carbon Dioxide Level 23, Calcium Level 6.5L, Phosphorus Level 3.0, Albumin 1.3L CBC/BMP Laboratory Tests 01/04/19 05:41 Red Blood Count 3.65 L, Mean Corpuscular Volume 103.3 H, Mean Corpuscular Hemoglobin 32.6, Mean Corpuscular Hemoglobin Concent 31.6 L, Red Cell Distribution Width 17.0 H, Neutrophils (%) (Auto) 80.5 H, Lymphocytes (%) (Auto) 11.4 L, Monocytes (%) (Auto) 5.8 H, Eosinophils (%) (Auto) 1.0, Basophils (%) (Auto) 0.4, Neutrophils # (Auto) 8.9 H, Lymphocytes # (Auto) 1.3 L, Monocytes # (Auto) 0.6, Eosinophils # (Auto) 0.1, Basophils # (Auto) 0.0, Calcium Level 6.5 L Microbiology Microbiology 12/28/18 Blood Culture - Final, Complete NO GROWTH AFTER 5 DAYS 12/28/18 Blood Culture - Final, Complete NO GROWTH AFTER 5 DAYS 12/28/18 Fungal Smear, Received Pending 12/28/18 Fungal Culture, Received Pending 12/28/18 Anaerobic Culture - Final, Complete 12/28/18 Acid Fast Stain, Received Pending 12/28/18 Mycobacterial Culture, Received Pending 12/28/18 Gram Stain - Final, Complete 12/28/18 Body Fluid Culture - Final, Complete 12/28/18 Group A Streptococcus Screen (MARITZA) - Final, Complete TOMMIE NEWTON MD Jan 04, 2019 08:54
[2019-01-04] MEDS ORDERED: **hydrALAZINE** 50 MG TAB PO ONE (10:00)
[2019-01-04 10:11] LABS: PREALBUMIN 18.3 MG/DL (20.0-40.0)
--- NOTE | 2019-01-04 11:20 | IPN ---
DATE OF SERVICE: 01/03/2019 SUBJECTIVE: Apple was seen and examined this morning at the bedside. She denies any acute overnight issues. She continues on the clear liquid diet and tells me that her bowel movements are improving. Temperature 98.0, pulse 72, respiratory rate 20, blood pressure 132/56, saturating 99% on room. Review of intake and output yesterday shows net negative 580 mL. Weight on the bed scale today is not recorded. There were 5 bowel movements recorded yesterday; thus far today only 2 bowel movements are recorded. General, patient is seen lying in bed, elderly female, frail and petite, in no distress. Extraocular muscles are intact. Pupils are round and reactive to light. Mucous membranes are moist. Neck is supple. No jugular venous distention (JVD). Cardiac: S1, S2, regular rate. Trace edema in the lower extremities. Respiratory: Lungs are clear to auscultation bilaterally. Bilateral equal air entry. No rales or rhonchi. Abdomen is soft. There are bowel sounds. Her left lower quadrant peritoneal dialysis (PD) catheter access site has some scab formation and no drainage. Skin: There is multiple cancerous and precancerous lesions all over the body and multiple sites of biopsies and skin resection. Neurologic: She is conversational, interactive, appropriate at baseline mentation and moving all extremities. LABS: White count 13.3, hemoglobin 13.4, platelets 324. Sodium 140, potassium 4.8, glucose 61. INPATIENT MEDICATIONS: Reviewed by myself, and no change from prior. PROBLEMS: 1. End-stage renal disease, on peritoneal dialysis. Because of the Clostridium (C) difficile associated diarrhea, she is only getting 1 liter exchanges. All are 1.5%. Total of five manual exchanges per day. Her volume status and electrolytes are acceptable, and no changes presently being made to her prescription. As her diarrhea improves, I will go back to the usual 1.5 liter exchange. 2. Clostridium (C) difficile with diarrhea. Her frequency of bowel movements is decreasing. She continues on Dificid, as per infectious disease, she continues on a liquid diet. 3. Hypertension. Blood pressures are acceptable. Systolic is from 130s-160s. She continues on metoprolol and hydralazine. No changes are being made. She has not been requiring the hydralazine with the generous holding parameters. 4. Anemia related to chronic renal failure. The patient continues on Aranesp, and hemoglobin is above target at 13.4. She is not due for another dose of Aranesp until , and hemoglobin remains above target, I will hold it at that time. 5. Hypokalemia. This is significantly improved. Potassium has gone from 3.3 up to 4.8 in the past couple of days, and I am discontinuing the potassium supplement.
[2019-01-04] MEDS ORDERED: DIFI200T PO (12:19)
[2019-01-04 14:11] VITALS: BP 154/65
[2019-01-04 18:00] LABS: C REACTIVE PROTEIN QUANTITATIV 5.15 MG/DL (0.00-0.30)
--- NOTE | 2019-01-04 19:26 | IPN ---
DATE: 01/04/2019 Apple seems to be doing better today. She states she had only one bowel movement today which was semi-formed. She is still only drinking liquids and some toast. She is worried about eating regular food as the last time Friday when she ate, she had severe abdominal pain and diarrhea. She has no nausea or vomiting. No fever or chills. On physical exam, temperature is 96.4, pulse 70, respirations 16, oxygen saturation (O2 sat) 99% on room air Heart: Normal S1, S2. No murmurs appreciated. Lungs are clear. No wheezes, rales, or rhonchi. Abdomen is soft, tender in the lower quadrant on the left side. She has a peritoneal dialysis (PD) catheter. Extremities: Trace edema. Multiple cancerous and precancerous lesions all over her body. Neurologic Exam: Alert, oriented times three and motor strength within normal. LABORATORY DATA: White count is 11, hemoglobin 11.9, hematocrit 37.7, platelets 281, 80% neutrophils, 11% lymphocytes, 6% monocytes. Sodium 143, potassium 4.5, chloride 111, bicarbonate 23, BUN 33, creatinine 5.2, glucose 61, calcium 6.5, phosphorus 3, albumin 1.3, prealbumin 18.3. IMPRESSION: 1. Clostridium difficile (C difficile) colitis, currently day number #7 of fidaxomicin and probiotics, doing better. 2. End-stage renal disease, on peritoneal dialysis, doing well with negative peritoneal cultures. 3. Protein-calorie malnutrition. The patient was encouraged to start eating some protein, she is worried that it may worsen her C difficile. PLAN: Encourage more oral intake. I have discussed with her IV Zinplava monoclonal antibodies to decrease the risk of recurrent C difficile. This will need prior authorization as an outpatient and will be done through the infusion unit once she is discharged. Please also obtain prior authorization for fidaxomicin. I would suggest doing a tapering schedule on her of 200 mg by mouth twice a day for 2 weeks total, then every other day for 3 weeks. MTDD
[2019-01-04 22:00] VITALS: BP 157/64
[2019-01-04] MEDS: SIMVASTATIN 20 MG TAB PO SCH (23:09)
[2019-01-04] MEDS: ACETAMINOPHEN TAB 650MG DOSE (2X325MG) PO PRN (23:10)
[2019-01-05 06:00] VITALS: BP 160/60
--- NOTE | 2019-01-05 07:06 | IPN ---
DATE OF VISIT: 01/04/2019 SUBJECTIVE: The patient is seen and examined this morning at the bedside reports she is still having the multi-liquid diet but now wants to try some toast and egg whites. Her stool is semiformed. PHYSICAL EXAMINATION: VITAL SIGNS: Temperature 98.0, pulse 68, respiratory rate 16, blood pressure systolic 140-180, saturating 97-99% on room air. Intake yesterday and output yesterday shows net positive of 1.1 liter. Weight in the bed scale today is 45.3 kg. GENERAL: The patient is seen lying in bed. She is an elderly female, frail and petite. No distress. HEENT: Extraocular muscles intact. Pupils equal, round, and reactive to light. Moist mucous membranes. NECK: Supple, no jugular venous distention. CARDIAC: S1, S2, regular rate. Trace edema in the lower extremities. LUNGS: Clear to auscultation bilaterally. Equal air entry. No rales or rhonchi. ABDOMEN: Soft, there are bowel sounds. Left lower quadrant peritoneal dialysis (PD) catheter exit site has a dressing. SKIN: Multiple cancerous and precancerous lesions all over the body and multiple sites of biopsies. NEUROLOGY: She is oriented times four at baseline mentation. No focal deficit. LABORATORY DATA: White count 11.0, hemoglobin 11.9, platelets 281. Sodium 143, potassium 4.5, glucose 61, phosphorus 3.0. INPATIENT MEDICATIONS: Reviewed by myself. She received hydralazine today. The remainder of the medications are unchanged from prior. PROBLEMS: 1. End-stage renal disease on peritoneal dialysis. Because of the Clostridium difficile diarrhea, she is only getting 1 liter exchanged, all are 1.5%, total of 5 manual exchanges per day. She is refusing to increase the volume to 1500 mL at present. We will rediscuss with her tomorrow since her diarrhea is now improving. 2. Clostridium difficile with diarrhea, improving. Continues on Dificid, as per infectious diseases and the patient reports that she wants to try something beyond the liquid diet. Her stool is now semi formed. 3. Hypertension. Blood pressures have been above her usual range. She did receive a dose of hydralazine. She otherwise continues on metoprolol. 4. Anemia related to chronic renal failure. She continues on Aranesp and her hemoglobin is fairly close to target. 5. Protein calorie malnutrition. Albumin of only 1.3. She wants to try some egg whites and also Ensure plus. Encourage dietary protein intake as tolerated. She is chronically significantly hypoalbuminemic related to her renal failure and chronic inflammatory state.
[2019-01-05] MEDS: MECLIZINE 12.5 MG TAB PO SCH ×2 (10:11→22:57)
[2019-01-05] MEDS: CINACALCET 30 MG TAB (SENSIPAR) PO SCH (10:11)
[2019-01-05] MEDS: FOLIC ACID 1 MG TAB PO SCH (10:11)
[2019-01-05] MEDS: FIDAXOMICIN 200 MG TAB (DIFICID) PO SCH ×2 (10:11→22:57)
[2019-01-05] MEDS: predniSONE 1 MG TAB PO SCH (10:12)
[2019-01-05] MEDS: METOPROLOL SUCC (TopROL XL) 50MG **XL** TAB PO SCH ×2 (10:15→22:57)
[2019-01-05] MEDS: BRIMONIDINE 0.1% OPHTH SOLN 5 ML OS SCH ×2 (10:16→22:58)
[2019-01-05] MEDS: MUPIROCIN 2% OINT 22 GM TUBE TOP SCH ×2 (10:16→22:58)
[2019-01-05] MEDS: LACTOBACILLUS ACIDOPHILUS CAP (BACID) PO SCH ×3 (10:24→18:44)
[2019-01-05 14:00] VITALS: BP 158/63
--- NOTE | 2019-01-05 18:07 | IPN ---
DATE: 01/05/2019 SUBJECTIVE: Apple is seen and examined this morning, walking around the room with the physical therapist and then sitting at the chair. She states she is feeling better, is starting to tolerate some food; had eggs this morning. Reports her stool is more formed and complains of some puffiness in the legs. VITAL SIGNS: Temperature 98.5, pulse 63, respiratory rate 20, blood pressure 158/63, saturating 96% on room air. Intake yesterday and output yesterday shows negative fluid balance of 600 mL. Weight on the bed scale today is 51.2 kg, which is significantly different from previous days and likely inaccurate. General: The patient is seen walking around the room with the physical therapist and then sitting at the chair, elderly, frail, and small female in no distress. Extraocular muscles are intact. Tongue is moist. Neck is supple. No jugular venous distention. Cardiac: S1, S2, regular rate. There is some trace edema in the lower extremities that goes up to the mid nassar. Lungs: Clear to auscultation bilaterally, equal air entry. No rales or rhonchi. Abdomen: Soft. There are bowel sounds. The peritoneal dialysis (PD) catheter exit site has a dressing. Skin: Shows multiple cancerous and precancerous lesions all over the body and multiple sites of prior resections and biopsies. Neurologic: She is oriented times four, at baseline mentation. No focal deficit. LABORATORY: White count 11.0, hemoglobin 11.9. Sodium 143, potassium 4.5. INPATIENT MEDICATIONS: Reviewed by myself and no change from prior. PROBLEMS: 1. End-stage renal disease, on peritoneal dialysis. Her diarrhea is improving; stool is more formed. I am switching her to two exchanges of 2.5% Dianeal in addition to three exchanges of 1.5% because her legs are looking a little bit puffy as compared to prior days. She is refusing to increase the volume to 1500 mL, but we will revisit this topic with her tomorrow now that her appetite and diarrhea are both improving. 2. Clostridium difficile with diarrhea. Improving, on Dificid. Followed by infectious disease. Now having some improved dietary intake and formed stool. 3. Hypertension. Blood pressure has been above her usual range. As we start the 2.5% Dianeal exchanges, I expect blood pressures to improve. She continues on metoprolol and hydralazine. 4. Anemia related to chronic renal failure. Continues on Aranesp. Hemoglobin is at target. 5. Protein-calorie malnutrition. A chronic problem related to her renal failure and her chronic inflammatory state. Albumin is only 1.3. Encouraged dietary protein as tolerated.
--- NOTE | 2019-01-05 20:19 | IPN ---
DATE: 01/05/2019 SUBJECTIVE: The patient is seen and examined in the room today. Patient stated her loose stool started to improve. She thinks that she may have seen some very small formed stools, but the majority of stool is still loose. Denies any fever or chills. Denies any abdominal pain. OBJECTIVE: VITAL SIGNS: Temperature is 98.2, pulse is 65, respirations 20, blood pressure is 160/60, pulse oximetry is 95% in room air. GENERAL: No sign of acute distress. Alert and awake. HEENT: Normocephalic, atraumatic. Extraocular motor grossly intact. CARDIOVASCULAR: Positive S1, S2, positive systolic murmur. LUNGS: Clear to auscultation bilaterally. ABDOMEN: Soft, nondistended. MUSCULOSKELETAL: Positive lower extremity edema. DERMATOLOGICAL: There are some scattered rash and skin plaques throughout the body. LABORATORY DATA: Most recent laboratory data showed WBC 10, hemoglobin 11.9, hematocrit 37.7, platelet count is 281. Sodium 143, potassium 4.5, chloride is 111, carbon dioxide 23, BUN 33, creatinine 5.21, GFR is 8.7, fasting glucose 61, calcium 6.5, phosphorus 3, C-reactive protein is 5.15, albumin 1.3, prealbumin is 18.3. ASSESSMENT AND PLAN: 1. Clostridium difficile Colitis. Infectious disease consulted. Gastrointestinal (GI) symptoms improving. Patient is on Dificid. Patient on probiotics. storage worker is helping with medication preauthorization. 2. End-stage renal disease, on peritoneal dialysis. Nephrology consulted, appreciate their assistance. 3. Anemia of chronic disease. The patient had a one pack red blood cell transfusion on 12/29/2018. Continue to monitor hemoglobin and hematocrit. No sign of active bleeding at this moment. 4. History of uterine cancer. 5. Squamous cell carcinoma of the arm, leg, and neck. Patient is following with law reporter in the outpatient setting. 6. History of leukemia. 7. Deep vein thrombosis (DVT) prophylaxis. On thromboembolism deterrent (DHEERAJ) stockings. MTDD
[2019-01-05 22:00] VITALS: BP 169/62
[2019-01-05] MEDS: SIMVASTATIN 20 MG TAB PO SCH (22:57)
[2019-01-05] MEDS: ACETAMINOPHEN TAB 650MG DOSE (2X325MG) PO PRN (22:58)
[2019-01-06 02:00] VITALS: BP 152/70
[2019-01-06 06:00] VITALS: BP 155/64
[2019-01-06 06:48] LABS: HEMATOCRIT 37.9 % (36.0-47.0); MEAN CORPUSCULAR HEMOGLOBIN 32.1 pg (27.0-33.0); MEAN CORPUSCULAR HGB CONC 31.7 g/dl (32.0-36.5); MEAN CORPUSCULAR VOLUME 101.3 fl (80.0-96.0); PLATELET COUNT, AUTOMATED 237 10^3/uL (150-450); RED BLOOD COUNT 3.74 10^6/uL (4.00-5.40); WHITE BLOOD COUNT 9.9 10^3/uL (4.0-10.0)
[2019-01-06 07:09] LABS: C REACTIVE PROTEIN QUANTITATIV 5.48 MG/DL (0.00-0.30); CALCIUM LEVEL 6.3 MG/DL (8.8-10.2); CREATININE FOR GFR 5.37 MG/DL (0.55-1.30); GLOMERULAR FILTRATION RATE 8.4 (>39); MAGNESIUM LEVEL 1.4 MG/DL (1.8-2.4); POTASSIUM SERUM 3.3 MEQ/L (3.5-5.1)
--- NOTE | 2019-01-06 08:30 | IPN ---
DATE: 01/05/2019 Apple is doing fairly well. She only had one bowel movement today. She has no nausea, vomiting. She does have some abdominal pain, but she states it is because she had 1.5 liters of peritoneal fluid for dialysis today, which caused her to have some bloating. She also was weak with ambulation and was feeling lightheaded. She has not been increased her diet from clears yet. She only eats some broth and may be some toast. She is worried about increasing her diet and causing worsening diarrhea. At this point, her bowel movement was soft and only one this morning. LABS: White count is 11, hemoglobin 11.9, hematocrit 281, 80% neutrophils, 11% lymphocytes, 5% monocytes. Sodium 143, potassium 4.5, chloride 111, bicarb 23, BUN 33, creatinine 5.21, glucose 61, calcium 6.5, phosphorus 3, albumin of 1.3, CRP 5.15. Temperature is 98.5, pulse 63, respirations 20, blood pressure 158/63, O2 sat 96% on room air. Heart: Normal S1-S2. No murmurs. Lungs: Clear. No wheezes or rhonchi. Abdomen: Soft and mildly tender in the lower quadrant around the PD catheter. Extremities: +1 pitting edema bilaterally. Skin: With multiple cancerous lesions. IMPRESSION: 1. C. difficile colitis on fidaxomicin. I have sent a prescription to her pharmacy. The plan on discharge would be to give her one tablet twice a day for 5 days and then every other day for 20 days. Also, I have asked for prior authorization for intravenous ZINPLAVA infusion at a dose of 500 mg times one dose as an outpatient. This will be done 1-2 days after discharge. My nurse at the office is working for the prior authorization. 2. End-stage renal disease on peritoneal dialysis with an increased volume of 1500 mL for her exchanges. 3. Protein calorie malnutrition. Patient was advised to start eating a regular diet, increase her protein intake, as much of her edema is related to hypoalbuminemia. PLAN: Continue to fidaxomicin 200 mg p.o. b.i.d., IV ZINPLAVA 500 mg as an outpatient. Continue probiotics.
[2019-01-06] MEDS: MAGNESIUM CHLORIDE 64 MG TABCR (SLO MAG) PO SCH (09:00)
[2019-01-06] MEDS ORDERED: POTASSIUM CHLORIDE 10 MEQ SR TABLET PO ONE (10:00)
[2019-01-06] MEDS: BRIMONIDINE 0.1% OPHTH SOLN 5 ML OS SCH ×2 (10:39→22:02)
[2019-01-06] MEDS: MECLIZINE 12.5 MG TAB PO SCH ×2 (10:40→22:01)
[2019-01-06] MEDS: CINACALCET 30 MG TAB (SENSIPAR) PO SCH (10:40)
[2019-01-06] MEDS: FIDAXOMICIN 200 MG TAB (DIFICID) PO SCH ×2 (10:41→22:01)
[2019-01-06] MEDS: FOLIC ACID 1 MG TAB PO SCH (10:41)
[2019-01-06] MEDS: predniSONE 1 MG TAB PO SCH (10:41)
[2019-01-06] MEDS: METOPROLOL SUCC (TopROL XL) 50MG **XL** TAB PO SCH ×2 (10:46→22:01)
[2019-01-06] MEDS: LACTOBACILLUS ACIDOPHILUS CAP (BACID) PO SCH ×3 (10:53→18:27)
[2019-01-06 14:00] VITALS: BP 131/65
--- NOTE | 2019-01-06 18:42 | IPNPDOC ---
Text Note Date of Service The patient was seen on 01/06/19. NOTE SUBJECTIVE: The patient is seen and examined in the room today. Patient feels her bowel movements are improving. Denies fever or chill. Denies any abdominal pain. OBJECTIVE: VITAL SIGNS: Listed below. GENERAL: No sign of acute distress. Alert and awake. HEENT: Normocephalic, atraumatic. Extraocular motor grossly intact. CARDIOVASCULAR: Positive S1, S2, positive systolic murmur. LUNGS: Clear to auscultation bilaterally. ABDOMEN: Soft, nondistended. MUSCULOSKELETAL: Positive lower extremity edema. DERMATOLOGICAL: Some scattered rash and skin plaques throughout the body. Posi tive lower extremity swellings. LABORATORY DATA: Listed below ASSESSMENT AND PLAN: #. Clostridium difficile Colitis. - Infectious disease consulted. On Dificid. Patient on probiotics. care worker is helping with medication preauthorization. #. End-stage renal disease, - On peritoneal dialysis. Nephrology consulted. #. Anemia of chronic disease. - S/P one pack red blood cell transfusion on 12/29/2018. Continue to monitor hemoglobin and hematocrit. No sign of active bleeding at this moment. #. History of uterine cancer. #. Squamous cell carcinoma of the arm, leg, and neck. - Patient is following with medical billing manager in the outpatient setting. #. History of leukemia. #. Deep vein thrombosis (DVT) prophylaxis. On thromboembolism deterrent (DHEERAJ) stockings. VS,Fishbone, I+O VS, Fishbone, I+O Laboratory Tests 01/06/19 06:36 Red Blood Count 3.74 L, Mean Corpuscular Volume 101.3 H, Mean Corpuscular Hemoglobin 32.1, Mean Corpuscular Hemoglobin Concent 31.7 L, Red Cell Distribution Width 17.6 H, Calcium Level 6.3 L Vital Signs Date Time Temp Pulse Resp B/P (MAP) Pulse Ox O2 Delivery O2 Flow Rate FiO2 01/06/19 14:00 96.2 74 17 131/65 (87) 100 I&O- Last 24 Hours up to 6 AM 01/06/19 06:00 Intake Total 6680 ml Output Total 6000 ml Balance 680 ml MANJULA MCDANIEL DO Jan 06, 2019 18:42
[2019-01-06 22:00] VITALS: BP 163/78
[2019-01-06] MEDS: SIMVASTATIN 20 MG TAB PO SCH (22:01)
[2019-01-07 06:00] VITALS: BP 170/77
[2019-01-07 06:27] LABS: HEMATOCRIT 40.6 % (36.0-47.0); HEMOGLOBIN 12.9 g/dl (12.0-15.5); MEAN CORPUSCULAR HGB CONC 31.8 g/dl (32.0-36.5); MEAN CORPUSCULAR VOLUME 103.8 fl (80.0-96.0); PLATELET COUNT, AUTOMATED 255 10^3/uL (150-450); RED BLOOD COUNT 3.91 10^6/uL (4.00-5.40); WHITE BLOOD COUNT 13.4 10^3/uL (4.0-10.0)
[2019-01-07 06:52] LABS: CALCIUM LEVEL 6.4 MG/DL (8.8-10.2); CREATININE FOR GFR 5.64 MG/DL (0.55-1.30); GLOMERULAR FILTRATION RATE 7.9 (>39); MAGNESIUM LEVEL 1.4 MG/DL (1.8-2.4); POTASSIUM SERUM 4.1 MEQ/L (3.5-5.1)
[2019-01-07] MEDS: MECLIZINE 12.5 MG TAB PO SCH ×2 (09:10→22:00)
[2019-01-07] MEDS: LACTOBACILLUS ACIDOPHILUS CAP (BACID) PO SCH ×3 (09:10→18:43)
[2019-01-07] MEDS: FIDAXOMICIN 200 MG TAB (DIFICID) PO SCH ×2 (09:10→22:00)
[2019-01-07] MEDS: FOLIC ACID 1 MG TAB PO SCH (09:10)
[2019-01-07] MEDS: CINACALCET 30 MG TAB (SENSIPAR) PO SCH (09:10)
[2019-01-07] MEDS: predniSONE 1 MG TAB PO SCH (09:11)
[2019-01-07] MEDS: METOPROLOL SUCC (TopROL XL) 50MG **XL** TAB PO SCH ×2 (09:11→22:01)
[2019-01-07] MEDS: MAGNESIUM CHLORIDE 64 MG TABCR (SLO MAG) PO SCH (09:11)
[2019-01-07] MEDS: BRIMONIDINE 0.1% OPHTH SOLN 5 ML OS SCH ×2 (09:11→22:00)
[2019-01-07] MEDS: DARBEPOETIN 100 MCG/0.5 ML *NON-DIALYSIS* SYRINGE (J0881) SC SCH (10:40)
[2019-01-07] MEDS: MAG SULF 1GM/100ML (MAG RUN) 1 GM in APPROPRIATE DILUENT 1 EA IV SCH ×2 (10:56→12:00)
--- NOTE | 2019-01-07 11:29 | IPN ---
DATE: 01/06/2019 SUBJECTIVE: Apple is seen and examined this morning at the bedside. Reports improved oral intake. Reports formed stool and reports leg swelling. VITAL SIGNS: Temperature 96.2, pulse 74, respiratory rate 17, blood pressure 131/65, saturating 100% on room air. Review of intake and output yesterday showed positive fluid balance of 900 mL. Weight on the bed scale today is not recorded. PHYSICAL EXAMINATION: GENERAL: The patient is seen lying down. Elderly, frail female in no acute distress. Extraocular muscles are intact. Tongue is moist. Neck is supple. Jugular veins are not elevated. Cardiac: S1, S2, regular rate. There is 1+ edema in the lower extremities that goes up to the knee. Lungs: Clear to auscultation bilaterally, equal air entry. No rales or rhonchi. Abdomen: Soft. There are bowel sounds. The peritoneal dialysis (PD) catheter exit site has a dressing. Skin: Shows multiple cancerous and precancerous lesions all over the body and multiple sites of prior resections and biopsies. Neurologic: She is oriented times four, at baseline mentation. No focal deficit. LABORATORY: White count 9.9, hemoglobin 12.0, platelets 237. Sodium 143, potassium 3.3, magnesium 1.4. INPATIENT MEDICATIONS: She received potassium 40 mEq by mouth times one and was started on Slo-Mag one tablet daily. Remainder of medications are unchanged from prior. PROBLEMS: 1. End-stage renal disease, on peritoneal dialysis. Hypervolemia noted. 1+ edema in the legs. Switching to all 2.5% Dianeal exchanges now. Her appetite and diarrhea have both improved, that is accounting for the mild edema. She has not been following appropriate fluid restriction. She had almost 2 liters of oral fluid intake yesterday. She should be on a 1500 mL oral fluid restriction. 2. Clostridium difficile. Improving, on Dificid. Followed by infectious disease. Having much improved oral intake and reports formed stool. 3. Hypertension. She continues on metoprolol and hydralazine with holding parameters. Her blood pressure is a little bit higher than her usual baseline. All of her exchanges will now be 2.5% Dianeal. 4. Anemia related to chronic renal failure. Hemoglobin is acceptable. She continues on weekly Aranesp. 5. Hypokalemia, hypomagnesemia. She is receiving appropriate supplementation.
[2019-01-07 14:00] VITALS: BP 153/75
--- NOTE | 2019-01-07 18:56 | IPNPDOC ---
Text Note Date of Service The patient was seen on 01/07/19. NOTE SUBJECTIVE: The patient is seen and examined in the room today. Patient states most of her stools are formed. Denies fever or chill. Denies any abdominal pain. OBJECTIVE: VITAL SIGNS: Listed below. GENERAL: No sign of acute distress. Alert and awake. HEENT: Normocephalic, atraumatic. Extraocular motor grossly intact. CARDIOVASCULAR: Positive S1, S2, positive systolic murmur. LUNGS: Clear to auscultation bilaterally. ABDOMEN: Soft, nondistended. MUSCULOSKELETAL: Positive lower extremity edema. DERMATOLOGICAL: Some scattered rash and skin plaques throughout the body. Positive lower extremity swelling. LABORATORY DATA: Listed below ASSESSMENT AND PLAN: #. Clostridium difficile Colitis. - Infectious disease consulted. On Dificid. Patient on probiotics. farmworker bulbs is helping with medication preauthorization. - Continue PT/OT. #. End-stage renal disease, - On peritoneal dialysis. Nephrology consulted. #. Anemia of chronic disease. - S/P one pack red blood cell transfusion on 12/29/2018. Continue to monitor hemoglobin and hematocrit. No sign of active bleeding at this moment. #. History of uterine cancer. #. Squamous cell carcinoma of the arm, leg, and neck. - Patient is following with administrative accountant in the outpatient setting. #. History of leukemia. #. Deep vein thrombosis (DVT) prophylaxis. On thromboembolism deterrent (DHEERAJ) stockings. VS,Fishbone, I+O VS, Fishbone, I+O Laboratory Tests 01/07/19 06:03 Red Blood Count 3.91 L, Mean Corpuscular Volume 103.8 H, Mean Corpuscular Hemoglobin 33.0, Mean Corpuscular Hemoglobin Concent 31.8 L, Red Cell Distribution Width 18.2 H, Calcium Level 6.4 L Vital Signs Date Time Temp Pulse Resp B/P (MAP) Pulse Ox O2 Delivery O2 Flow Rate FiO2 01/07/19 14:00 98.2 73 18 153/75 (101) 98 I&O- Last 24 Hours up to 6 AM 01/07/19 06:00 Intake Total 5510 ml Output Total 5800 ml Balance -290 ml MANJULA MCDANIEL DO Jan 07, 2019 18:56
[2019-01-07 22:00] VITALS: BP 156/70
[2019-01-07] MEDS: SIMVASTATIN 20 MG TAB PO SCH (22:00)
[2019-01-08 06:00] VITALS: BP 150/70
[2019-01-08 06:18] LABS: HEMATOCRIT 39.1 % (36.0-47.0); HEMOGLOBIN 12.4 g/dl (12.0-15.5); MEAN CORPUSCULAR HGB CONC 31.7 g/dl (32.0-36.5); PLATELET COUNT, AUTOMATED 225 10^3/uL (150-450); RED BLOOD COUNT 3.87 10^6/uL (4.00-5.40); WHITE BLOOD COUNT 13.1 10^3/uL (4.0-10.0)
[2019-01-08 06:31] LABS: CALCIUM LEVEL 6.4 MG/DL (8.8-10.2); CREATININE FOR GFR 5.71 MG/DL (0.55-1.30); GLOMERULAR FILTRATION RATE 7.8 (>39); MAGNESIUM LEVEL 2.2 MG/DL (1.8-2.4)
[2019-01-08] MEDS: BRIMONIDINE 0.1% OPHTH SOLN 5 ML OS SCH (08:46)
[2019-01-08] MEDS: LACTOBACILLUS ACIDOPHILUS CAP (BACID) PO SCH ×2 (08:47→12:54)
[2019-01-08] MEDS: FIDAXOMICIN 200 MG TAB (DIFICID) PO SCH (08:47)
[2019-01-08] MEDS: CINACALCET 30 MG TAB (SENSIPAR) PO SCH (08:47)
[2019-01-08] MEDS: MAGNESIUM CHLORIDE 64 MG TABCR (SLO MAG) PO SCH (08:47)
[2019-01-08] MEDS: FOLIC ACID 1 MG TAB PO SCH (08:47)
[2019-01-08 08:48] VITALS: BP 142/76
[2019-01-08] MEDS: predniSONE 1 MG TAB PO SCH (08:48)
[2019-01-08] MEDS: METOPROLOL SUCC (TopROL XL) 50MG **XL** TAB PO SCH (08:48)
[2019-01-08] MEDS: MECLIZINE 12.5 MG TAB PO SCH (08:48)
[2019-01-08] MEDS ORDERED: BACITAB PO (11:43)
[2019-01-08] MEDS ORDERED: MAGN64TASA PO (11:43)
[2019-01-08] MEDS ORDERED: RENV2TAB PO ×2 (11:48)
--- NOTE | 2019-01-08 16:24 | IPN ---
DATE: 01/08/2019 Apple is to doing very well today. She is anxious to go home. She has no nausea, vomiting, or diarrhea. No abdominal pain. She had two bowel movements today, which were semi-formed. She has no fever. Temperature is 97.6, pulse 68, respirations 18, blood pressure 150/70, oxygen saturation 99% room air. Heart: Normal S1, S2. No murmurs. Lungs are clear. No wheezes, rales, or rhonchi. Abdomen soft, nontender. Peritoneal dialysis (PD) catheter. No erythema. Extremities: Trace edema. LABORATORY DATA: White count 13.1, hemoglobin 12.4, hematocrit 39.1, platelets 225. Sodium 140, potassium 4, chloride 107, bicarbonate 23, BUN 35, creatinine 5.7, glucose 67, calcium 6.4. IMPRESSION: Recurrent Clostridium (C) difficile colitis. The patient is doing much better on by mouth fidaxomicin. She received a total of 10 days while in the hospital. PLAN She will continue with fidaxomicin 200 mg by mouth twice a day for 5 more days and then every other day for 20 days. The patient will continue using probiotics one tablet twice a day. She is scheduled to have effusion on January 11 at 2 p.m. of intravenous (IV) Zinplava 500 mg, which is a monoclonal C. difficile toxin antibody, to prevent recurrent disease. The patient is aware about appointment. She will followup with infectious disease in 7-10 days. [facility]
[2019-01-08] MEDS ORDERED: DIFI200T PO (20:20)
--- NOTE | 2019-01-09 10:20 | IPN ---
DATE OF SERVICE: 01/07/2019 SUBJECTIVE: General, patient is seen this morning lying in bed. She denies any acute overnight events or issues. She is tolerating her PD exchanges. Her stools are mostly formed. She is tolerating oral diet. She inquires in regards to discharge plans. VITAL SIGNS: Temperature 98.2, pulse 73, respiratory rate 18, blood pressure 153/75, saturating 98-100% on room air. INTAKE AND OUTPUT: Intake and output yesterday reviewed and showed net negative 300 mL. Weight on the bed scale today is not recorded. PHYSICAL EXAMINATION: Patient is seen lying down in bed, elderly female, frail, and small stature. No acute distress. Extraocular muscles are intact. Tongue is moist. Neck is supple. Jugular veins are not elevated. Cardiac S1, S2, regular rate. There is 1+ edema in the lower extremities that goes up to the mid nassar. Lungs clear to auscultation bilaterally, equal air entry. No rales or rhonchi. Abdomen is soft. There are bowel sounds. There is a PD catheter with a dressing at the exit site. Skin shows multiple cancerous and precancerous lesions all over the body and multiple sites of prior resections and biopsies. Neurologic she is oriented times four, at baseline mentation. No focal deficit. LABS: White count 13.4, hemoglobin 12.9, platelets 255. Sodium 141, potassium 4.1, magnesium 1.4. INPATIENT MEDICATIONS: Reviewed by myself. She is ordered for 2 grams of magnesium sulfate. Remainder of medications are unchanged from prior. PROBLEMS: 1. End-stage renal disease on peritoneal dialysis with mild hypervolemia (1+ edema to mid nassar). Continue all 2.5% DIANEAL exchanges. Increase volume to 1500 mL. Her appetite and her diarrhea have both improved. She is put back on appropriate fluid restriction which she has been following now. 2. C. difficile colitis. Improving. Stools are mostly formed. On Dificid, followed by infectious diseases. Having improved tolerance of solid food. Phosphorous binders should be resumed upon discharge and she is being set up for IV ZINPLAVA per infectious diseases. 3. Hypertension. Blood pressures are acceptable and I am making no changes to her antihypertensive regimen. 4. Anemia related to chronic renal failure. Weekly Aranesp is discontinued. Hemoglobin is above goal. 5. Hypomagnesemia. She is receiving IV supplementation today.
--- NOTE | 2019-01-09 12:23 | DSES ---
DATE OF ADMISSION: 12/28/2018 DATE OF DISCHARGE: 01/08/2019 PRIMARY CARE PROVIDER: Dr. Rehman CONSULTANTS: Nephrology. Infectious disease. DISCHARGE DIAGNOSES: Recurrent Clostridium C. difficile colitis. End-stage renal disease on peritoneal dialysis. Anemia of chronic disease. History of uterine cancer. Squamous cell carcinoma of the arm, leg, and the neck. History of leukemia. HOSPITALIZATION COURSE: The patient is a 68-year-old female, presented to [facility] on 12/28/2018 with complaint of nausea, vomiting, and diarrhea. Diagnostic workup initiated, patient started on the intravenous (IV) support, and nephrology consulted for the end-stage renal disease. Infectious disease was also consulted for the recurrent C. difficile colitis, and patient started on the antibiotic for recurrent C. difficile colitis. Patient was found to have generalized weakness due to anemia, and 1 packed red blood cells transfusion was given to the patient after blood consent. Initially, patient had improvement of the bowel movements. Patient's diet was advanced. Later, patient had worsening of the diarrhea. Patient's diet was then adjusted. the patient was switched back to the liquid diet, the frequency and severity of the diarrhea started to improve. Later, patient started to see some formed stool. Advancement of the diet was attempted again. Patient tolerated well, and on 01/08/2019 patient was determined stable for discharge with recommendation to followup with primary care provider (PCP), Dr. Rehman in 1 week. Patient should follow with peritoneal dialysis nurse at the scheduled time to resume her home peritoneal dialysis. Patient should also follow with Dr. Martin in 2 weeks. Patient should follow 1.5 liter fluid restriction. Patient recommended to finish the course of antibiotics for her recurrent C. difficile. After discharge, patient should have IV Zinplava monoclonal antibody at the schedule time to decrease the risk of recurrent C. difficile. DISCHARGE MEDICATIONS: - IV Zinplava 500 mg on 01/11/2019 at 2 p.m. - Dificid 200 mg by mouth twice a day for 5 days, then 200 mg every 2 days for 20 days - Bacid one tablet by mouth with meal - magnesium chloride 64 mg by mouth daily - Tylenol 650 mg by mouth every 4 hour as needed - acitretin 10 mg by mouth daily - Alphagan one drop left eye twice a day - calcitriol 0.25 mcg by mouth once a week - Sensipar 30 mg by mouth daily - dicyclomine 20 mg by mouth twice a day as needed for gastrointestinal (GI) upset - fenofibrate 145 mg by mouth daily - folic acid 1 mg by mouth daily - hydralazine 50 mg by mouth daily as needed for hypertension - meclizine 12.5 mg by mouth twice a day - metoprolol succinate 50 mg by mouth twice a day - prednisone 4 mg by mouth daily - Renvela 1600 mg by mouth with meals - Renvela 800 mg by mouth daily - simvastatin 20 mg by mouth nightly - vitamin D 50,000 units by mouth once a week DISCHARGE INSTRUCTIONS: Discontinue line. Discharge home. Activity as tolerated. Renal diet as tolerated. Patient should follow with primary care provider in 1 week. Patient should follow with peritoneal dialysis nurse to resume her home peritoneal dialysis. Patient should follow with infectious disease doctor in 1 week. Patient should follow with the plate stacker at scheduled time. Patient has an appointment on 01/11/2019 at 2 p.m. for LISSETTE Majano. Patient should finish a course of Dificid taper. DISCHARGE CONDITION: Fair. DISCHARGE TIME: Greater than 30 minutes.
== END 2019-01-08 14:58 | disposition home or self-care (01) | DRG 371 ==
LOC: M ED 09:29 → EDBD 09:29 → M ED INP 14:02 → M MSPAV 16:48 → OBSVTOIN 12-29 07:08
PROVIDERS: ADMIT Internal Medicine; ATTEND Internal Medicine
PROC: 30233N1 Transfusion of Nonautologous Red Blood Cells into Peripheral Vein, Percutaneous Approach (ICD-10-PCS; principal; 2018-12-29)
DX: A04.71 Enterocolitis due to Clostridium difficile, recurrent (principal); N18.6 End stage renal disease; E46 Unspecified protein-calorie malnutrition; I12.0 Hypertensive chronic kidney disease with stage 5 chronic kidney disease or end stage renal disease; D63.1 Anemia in chronic kidney disease; Z85.42 Personal history of malignant neoplasm of other parts of uterus; Z85.828 Personal history of other malignant neoplasm of skin; Z85.6 Personal history of leukemia; Z79.899 Other long term (current) drug therapy; E78.5 Hyperlipidemia, unspecified; F32.9 Major depressive disorder, single episode, unspecified; Z96.641 Presence of right artificial hip joint; Z96.642 Presence of left artificial hip joint; Z88.2 Allergy status to sulfonamides; Z88.5 Allergy status to narcotic agent; Z88.8 Allergy status to other drugs, medicaments and biological substances; E73.9 Lactose intolerance, unspecified; E87.6 Hypokalemia

== ENCOUNTER 2019-01-11 13:39 | Outpatient (CLI) | payer MEDICARE, BC, OTHER ==
--- NOTE | 2019-01-09 10:32 | IPN ---
DATE: 01/08/2019 SUBJECTIVE: Apple is seen and examined this morning at the bedside. She has discharge pending. She denies any overnight complaints, reports her leg edema is resolving. She has had two bowel movement thus far, which were pasty. VITAL SIGNS: Temperature 97.6, pulse 68, respiratory rate 18, blood pressure 150/70 saturating 99% on room air. Review of intake and output yesterday shows net negative 100 mL. Weight on the bed scale today is not recorded. General: The patient is seen lying down in bed, thin and frail elderly female, in no acute distress. Extraocular muscles are intact. The tongue is moist. Neck is supple. Jugular veins are not elevated. Heart sounds are regular, S1, S2. There is improving edema in the legs, only trace now. Lungs are clear to auscultation bilaterally. No rales or rhonchi. Abdomen is soft. There are bowel sounds. There is peritoneal dialysis fluid in situ. Skin shows multiple cancerous and precancerous lesions all over the body and multiple sites of prior resections and biopsy. Neurologic: She is oriented times four, at baseline mentation. No focal deficits. LABORATORY: Sodium 140, potassium 4, magnesium 2.2, INPATIENT MEDICATIONS: Reviewed by myself and no change from prior. PROBLEMS: 1. End-stage renal disease, on peritoneal dialysis. Her mild hypervolemia is improving. She is being discharged today. I asked her to use all 2.5% Dianeal exchanges at home. She will continue with her usual peritoneal dialysis (PD) prescription and oral fluid restriction, and she will followup in the home therapies clinic. 2. Clostridium (C) difficile colitis, improving. On Dificid. Followed by infectious diseases and [facility] She reports semiformed stool now and improving oral intake. 3. Hypertension. Continue metoprolol and hydralazine. Continue 2.5% Dianeal exchanges. 4. Anemia related to chronic renal failure. Hemoglobin is above target. Aranesp is on hold. DISPOSITION: Patient is acceptable for discharge from a nephrology point of view.
[~2019-01-11] VITALS: Ht 147.3 cm; Wt 51.2 kg
[~2019-01-11 13:39] MED LIST changes: -/METO2TASA PO; -/WARF25TA; +COUM1TAB18; +HEPA1INJ23 SC; -HEPA50VL SC; +HYDR-2773 PO; +HYDR-3715 PO; -HYDR10TAB PO; +IMUR50TA10 PO; -IMUR50TA7 PO; +MAGN64TASA PO; +MECL-68 PO; +METO-1 PO; +MUPI2OI TOP; +NEPH1TAB11 PO; -NEPHTAB PO; -NORCOTAB PO; +TOPR25TA PO; -TOPR25TA13 PO; +TOPR50TA PO; -TOPR50TA23 PO; +[UNRECOGNIZED DRUG - CODE] EXT; -[UNRECOGNIZED DRUG - CODE] EXT
[2019-01-11 13:55] VITALS: BP 175/72
[2019-01-11] MEDS ORDERED: FILTER 1.2 MICRON (ADULT TPN/MANNITOL/REMICADE) XX ONE (14:00)
[2019-01-11] MEDS ORDERED: BEZLOTOXUMAB 500 MG in NS 100 ML IV ONE (14:00)
[2019-01-11 16:26] VITALS: BP 162/74
== END 2019-01-11 16:30 | disposition home or self-care (01) ==
LOC: M INFU 13:39
PROVIDERS: ATTEND Internal Medicine Infectious Disease
DX: A04.71 Enterocolitis due to Clostridium difficile, recurrent (principal); N18.6 End stage renal disease; I12.0 Hypertensive chronic kidney disease with stage 5 chronic kidney disease or end stage renal disease; D63.1 Anemia in chronic kidney disease; E73.9 Lactose intolerance, unspecified; Z88.1 Allergy status to other antibiotic agents; Z88.2 Allergy status to sulfonamides; Z88.5 Allergy status to narcotic agent
CPT/HCPCS: 96365; J0565

== ENCOUNTER → 2019-01-19 | Outpatient (REF) | payer MEDICARE, BC, OTHER ==
[~2019-01-19] MED LIST changes: -CINA30TA PO; +CINA30TA4 PO
== END ==
LOC: M SFHCPLAZ 17:56
PROVIDERS: ATTEND Dermatology
DX: C44.622 Squamous cell carcinoma of skin of right upper limb, including shoulder (principal)

== ENCOUNTER → 2019-02-25 | Outpatient (REF) | payer MEDICARE, BC, OTHER | LOC: M SFHCPLAZ 18:06 | PROVIDERS: ATTEND Dermatology | DX: C44.722 Squamous cell carcinoma of skin of right lower limb, including hip (principal) ==

== ENCOUNTER → 2019-03-11 | Outpatient (REF) | payer MEDICARE, BC, OTHER ==
[~2019-03-11] MED LIST changes: +LOPE1CAP5 PO; +ONDA-195 PO
== END ==
LOC: M SFHCPLAZ 09:50
PROVIDERS: ATTEND Dermatology
DX: C44.42 Squamous cell carcinoma of skin of scalp and neck (principal)

== ENCOUNTER → 2019-03-17 | Outpatient (CLI) | payer MEDICARE, BC, OTHER ==
[~2019-03-17] MED LIST changes: -LOPE1CAP5 PO; -ONDA-195 PO
--- NOTE | 2019-03-17 13:19 | REPMRS ---
Patient History The patient states she had a clinical breast exam in 01/2019. Patient is postmenopausal, has history of other cancer at age 50, had previous chemotherapy at age 50, and has history of endometrial cancer at age 43. Family history of breast cancer at age 50 or over in maternal grandmother. Benign stereotactic core biopsy of the right breast, March 01, 2018. Took unspecified hormones for 10 years. 3D TOMOSYNTHESIS WAS PERFORMED. Digital Woman Screen Mammo: March 17, 2019 - Exam #: [id number] Bilateral CC and MLO view(s) were taken. Technologist: Roma Mckeon, Technologist Prior study comparison: January 17, 2017, right breast digital mammo diagnostic unilateral, performed at [facility]. January 15, 2017, digital woman screen mammo performed at [facility]. FINDINGS: The breast tissue is extremely dense which could obscure a lesion on mammography. There is no evidence of cancer on this mammogram. Large coarse benign appearing calcifications are present. Assessment: BI-RADS/ACR category 2 mammogram. Benign Findings. Recommendation Routine screening mammogram of both breasts in 1 year (for women over age 40). This mammogram was interpreted with the aid of an FDA-approved computer-aided dectection system. Electronically Signed By: Karthikeyan Chen MD 03/17/19 [id number]
== END ==
LOC: M WHC 11:22
PROVIDERS: ATTEND Nurse Practitioner Women's Health
DX: Z12.31 Encounter for screening mammogram for malignant neoplasm of breast (principal); Z78.0 Asymptomatic menopausal state; Z92.21 Personal history of antineoplastic chemotherapy; Z85.42 Personal history of malignant neoplasm of other parts of uterus

== ENCOUNTER 2019-04-04 08:58 | Inpatient (IN) | payer MEDICARE, BC, OTHER ==
[~2019-04-04] VITALS: Ht 147.3 cm; Wt 44.0 kg
[2019-04-04] VITALS (13 sets, daily range): BP systolic 105–192; BP diastolic 55–87
[2019-04-04] MEDS ORDERED: TOPR25TA PO (09:23)
[2019-04-04 10:58] LABS: BASO % 0.2 % (0.0-1.0); EOS # 0.1 10^3/uL (0.0-0.50); EOS % 0.7 % (0.0-3.0); HEMATOCRIT 28.6 % (36.0-47.0); HEMOGLOBIN 9.5 g/dl (12.0-15.5); LYMPH # 1.4 10^3/uL (1.5-4.5); LYMPH % 12.7 % (24.0-44.0); MEAN CORPUSCULAR HEMOGLOBIN 34.5 pg (27.0-33.0); MEAN CORPUSCULAR HGB CONC 33.2 g/dl (32.0-36.5); MONO # 1.1 10^3/uL (0.0-0.8); NEUTROPHILS # 8.4 10^3/uL (1.8-7.7); NEUTROPHILS % 75.6 % (36.0-66.0); PLATELET COUNT, AUTOMATED 162 10^3/uL (150-450); RED BLOOD COUNT 2.75 10^6/uL (4.00-5.40); WHITE BLOOD COUNT 11.1 10^3/uL (4.0-10.0)
[2019-04-04] MEDS ORDERED: NS 1,000 ML IV SCH (11:04)
[2019-04-04] MEDS ORDERED: METOPROLOL SUCC *XL* 25MG TAB (TopROL *XL*) PO ONE (11:15)
--- NOTE | 2019-04-04 11:20 | REP ---
CT of the abdomen pelvis without IV and oral contrast: Comparison is 08/14/2016. There are bilateral nephrostomies. This is unchanged. There are small bilateral pleural effusions. There is a 16 mm pleural-based nodule in the deep lateral sulcus of the right hemithorax, unchanged from the prior study. There is a hypodense lesion containing multiple calcifications. These calcifications are not present previously. On the prior study. This was thought to be consistent with a cavernous hemangioma. The hepatic parenchyma is otherwise unremarkable. The gallbladder is unremarkable. There is a cyst in the body of the pancreas measuring up to 16 mm. This measured 32 mm previously. The spleen is normal size and unremarkable except for calcified granulomas. This is unchanged. There is an abdominal dialysis catheter. There is free fluid throughout the abdomen. This is unchanged. The adrenals are unremarkable. There are bilateral nephrectomies. Abdominal aorta is unremarkable except for calcified atheroma. There is no periaortic adenopathy or mass. There is no bowel distension or obstruction. Pelvis: The previous right rectus sheath hematoma has resolved. There are diverticula in the descending colon and sigmoid colon without evidence of diverticulitis. There is a 13 mm ring-shaped lesion arising from the sigmoid colon posteriorly on image 89. This measured 7 mm previously. This may represent appendagitis or sequela of appendagitis. There is a hysterectomy. Vaginal cuff and adnexa are unremarkable. The appendix is not identified. There is no pericecal phlegmon. There is free fluid throughout the abdomen and pelvis. The terminal ileum is unremarkable. There is bilateral hip internal fixation. This is unchanged. There is a fracture of the pubic symphysis on the left. This is an interval change. Impression: Bilateral nephrectomy. The superior dialysis catheter. Free fluid throughout the abdomen and pelvis. There is a cyst in the body of the pancreas and is decreased size from the prior study. The pancreas is otherwise unremarkable. There is a large hypodense lesion containing calcifications posteriorly in the hepatic right lobe, previously compatible with cavernous hemangioma. Splenic granulomas, unchanged. Bilateral small pleural effusions. No bowel distension or obstruction. The appendix is not identified. There is free fluid throughout the pelvis. No definite pericecal phlegmon. Hysterectomy. Vaginal cuff and adnexa are unremarkable. Diverticulosis without diverticulitis. Sigmoid colon appendagitis/appendagitis sequelae as described. Bilateral hip internal fixation. Fracture of the pubic symphysis on the left, age indeterminate, not present previously. Electronically Signed by Karthikeyan Rooney MD 04/04/2019 11:11 A
[2019-04-04] MEDS ORDERED: ACETAMINOPHEN 325 MG TAB As Ordered ONE (11:21)
[2019-04-04 11:28] LABS: ALBUMIN 2.2 GM/DL (3.2-5.2); BILIRUBIN,DIRECT 0.4 MG/DL (0.0-0.2); BILIRUBIN,TOTAL 0.7 MG/DL (0.2-1.0); CREATININE FOR GFR 6.66 MG/DL (0.55-1.30); GLOMERULAR FILTRATION RATE 6.5 (>39); MAGNESIUM LEVEL 1.3 MG/DL (1.8-2.4); PHOSPHORUS LEVEL 4.5 MG/DL (2.5-4.9); POTASSIUM SERUM 2.9 MEQ/L (3.5-5.1); TOTAL PROTEIN 5.9 GM/DL (6.4-8.2)
[2019-04-04] MEDS ORDERED: ACETAMINOPHEN TAB 650MG DOSE (2X325MG) PO ONE (11:30)
[2019-04-04] MEDS ORDERED: RENV2TAB PO ×2 (11:57)
[2019-04-04] MEDS ORDERED: NIAC500T4 PO (11:57)
[2019-04-04] MEDS ORDERED: LOPE1CAP5 PO (11:57)
[2019-04-04] MEDS ORDERED: HYDR-3910 PO (11:57)
[2019-04-04] MEDS ORDERED: ONDA-195 PO (11:57)
[2019-04-04] MEDS ORDERED: FENO134C PO (11:57)
[2019-04-04] MEDS ORDERED: ACET500T15 PO (11:57)
[2019-04-04] MEDS ORDERED: METO1TAB7 PO (11:57)
[2019-04-04] MEDS ORDERED: POTASSIUM CHLORIDE 10 MEQ SR TABLET PO ONE (12:00)
[2019-04-04] MEDS ORDERED: KCL 10MEQ/100ML SWI (KRUN) 10 MEQ in APPROPRIATE DILUENT 1 EA IV ONE (12:00)
[2019-04-04] MEDS ORDERED: ONDANSETRON 4MG/2ML VIAL (J2405) As Ordered ONE (12:13)
[2019-04-04] MEDS ORDERED: ONDANSETRON 4MG/2ML VIAL (J2405) IV ONE (12:15)
--- NOTE | 2019-04-04 13:40 | HPEPDOC ---
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 Patient reported that on Friday evening she began to experience abdominal discomfort and diarrhea. . She does with that. She started with 5 bowel movements a day that is progressive 10 or more bowel movements a day. , Described as watery with trace amounts of blood at the end. Patient to be subluxed to hemorrhoids. Patient does experience nausea and was seen and vomiting in the emergency room. She reports very poor appetite. Patient has had a history of C. difficile colitis and has received a stool transplant in the past. Patient denies chest pain, shortness of breath, palpitations, cough or any fevers or chills in the last 2 weeks. Home Medications Scheduled Acitretin (Acitretin) 10 Mg Cap, 10 MG PO QPM, (Reported) Brimonidine Tartrate (Alphagan P) 100 Drop/5 Ml Soln, 1 DROP OS BID, (Reported) Calcitriol (Calcitriol) 0.25 Mcg Cap, 0.25 MCG PO DAILY, (Reported) Cinacalcet (Sensipar) 30 Mg Tab, 30 MG PO Q2D, (Reported) Dicyclomine HCl (Dicyclomine HCl) 10 Mg Cap, 10 MG PO BID, (Reported) BEFORE MEALS Ergocalciferol (Vitamin D2) (Drisdol) 50,000 Unit Cap, 50,000 UNIT PO 1XWK, (Reported) MONDAYS Fenofibrate,Micronized (Fenofibrate) 134 Mg Capsule, 134 MG PO DAILY, (Reported) Folic Acid (Folic Acid) 1 Mg Tab, 1 MG PO DAILY, (Reported) Folic Acid/Vit B Complex and C (Monique-Jimbo Tablet) 1 Tab Tab, 1 TAB PO DAILY, (Reported) Loperamide HCl (Loperamide) 2 Mg Capsule, 2 MG PO QHS, (Reported) Metoprolol Succinate (Toprol Xl) 50 Mg Tab, 50 MG PO QPM, (Reported) Metoprolol Succinate (Metoprolol Succinate) 50 Mg Tab.er.24h, 25 MG PO DAILY, (Reported) Mupirocin (Mupirocin) 2 % Oin, 1 APLCT TOP ASDIRECTED, (Reported) TO CATH SITE AND AFFECTED AREA(S) Niacinamide (Niacinamide) 500 Mg Tablet, 500 MG PO QHS, (Reported) Prednisone (Prednisone) 1 Mg Tab, 4 MG PO DAILY, (Reported) Sevelamer Carbonate (Renvela) 800 Mg Tablet, 1,600 MG PO WM, (Reported) Sevelamer Carbonate (Renvela) 800 Mg Tablet, 800 MG PO ASDIRECTED, (Reported) WITH SNACKS Simvastatin (Simvastatin) 20 Mg Tab, 20 MG PO QHS, (Reported) Scheduled PRN Acetaminophen (Acetaminophen) 500 Mg Tablet, 1,000 MG PO Q4H PRN for PAIN, (Reported) Hydralazine HCl (Hydralazine HCl) 25 Mg Tablet, 25 MG PO BID PRN for BP >140, (Reported) Ondansetron HCl (Ondansetron HCl) 4 Mg Tablet, 4 MG PO Q8H PRN for NAUSEA OR VOMITING, (Reported) Allergies Coded Allergies: Sulfa (Sulfonamide Antibiotics) (Verified Adverse Reaction, Intermediate, n/v, 01/06/19) lactose (Verified Adverse Reaction, Intermediate, intolerant, 01/06/19) morphine (Verified Adverse Reaction, Intermediate, vomitting, 01/06/19) sulfamethoxazole (Verified Adverse Reaction, Intermediate, n/v, 01/06/19) trimethoprim (Verified Adverse Reaction, Intermediate, n/v, 01/06/19) Past Medical History Medical History ESRD on PD, HTN, DLP, Anemia of Chronic disease, Hx of Uterine CA, Hx of Leukemia, 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), Depression and history of recurrent C. diff colitis (s/p Stool transplant) Surgical History Kidney transfer, had failed in 2016 Hysterectomy and bilateral salpingo-oophorectomy secondary to uterine cancer Removal of squamous cell carcinoma at arms and legs; follows with dermatology Bilateral pain placement for hip fracture prophylaxis Left thumb amputation Family History - Mother with a history of renal cancer Social History - Denies the use of alcohol, tobacco or illicit drugs - Denies recent travel or sick contacts - Lives alone Review of Systems Other systems 10 point review of systems complete, all negative otherwise stated in HPI Vital Signs - Vitals: BP 201/65, HR 68, RR 16, Sat 100%RA, Temp 97.3F - General: Lying in bed, No acute distress, Speaking in full sentences, AAOx3 - HEENT: NC, AT, PERRLA, EOMI - CVS: RRR, +S1S2, - Lungs: Fair air entry bilaterally, No wheezing / rales / rhonchi - Abdomen: Soft, Non-distended, Non-tender - Extremities: No lower extremity edema, No calf tenderness - Neuro: No focal motor or sensory deficit - Skin: No visible rashes Laboratory Data Labs 24H Laboratory Tests 2 04/04/19 09:59: Immature Granulocyte % (Auto) 0.8, White Blood Count 11.1H, Red Blood Count 2.75L, Hemoglobin 9.5L, Hematocrit 28.6L, Mean Corpuscular Volume 104.0H, Mean Corpuscular Hemoglobin 34.5H, Mean Corpuscular Hemoglobin Concent 33.2, Red Cell Distribution Width 15.3H, Platelet Count 162, Neutrophils (%) (Auto) 75.6H, Lymphocytes (%) (Auto) 12.7L, Monocytes (%) (Auto) 10.0H, Eosinophils (%) (Auto) 0.7, Basophils (%) (Auto) 0.2, Neutrophils # (Auto) 8.4H, Lymphocytes # (Auto) 1.4L, Monocytes # (Auto) 1.1H, Eosinophils # (Auto) 0.1, Basophils # (Auto) 0.0, Nucleated Red Blood Cells % (auto) 0.0, Anion Gap 12, Glomerular Filtration Rate 6.5L, Calcium Level 8.0L, Phosphorus Level 4.5, Magnesium Level 1.3L, Aspartate Amino Transf (AST/SGOT) 40H, Alanine Aminotransferase (ALT/SGPT) 30, Alkaline Phosphatase 78, Total Bilirubin 0.7, Direct Bilirubin 0.4H, Total Protein 5.9L, Albumin 2.2L, Albumin/Globulin Ratio 0.59L, Lipase 921H 04/04/19 12:17: Lactic Acid Level 1.0 CBC/BMP Laboratory Tests 04/04/19 09:59 Red Blood Count 2.75 L, Mean Corpuscular Volume 104.0 H, Mean Corpuscular Hemoglobin 34.5 H, Mean Corpuscular Hemoglobin Concent 33.2, Red Cell Distribution Width 15.3 H, Neutrophils (%) (Auto) 75.6 H, Lymphocytes (%) (Auto) 12.7 L, Monocytes (%) (Auto) 10.0 H, Eosinophils (%) (Auto) 0.7, Basophils (%) (Auto) 0.2, Neutrophils # (Auto) 8.4 H, Lymphocytes # (Auto) 1.4 L, Monocytes # (Auto) 1.1 H, Eosinophils # (Auto) 0.1, Basophils # (Auto) 0.0 Microbiology Microbiology 04/04/19 Gastrointestinal Tract Panel (PCR) - Final, Complete Clostridium Difficile A/B Plan / VTE VTE Prophylaxis Ordered?: Yes Plan Plan Abdominal pain / Diarrhea - likely 2/2 C. diff colitis - Presented to the ER with abdominal pain and diarrhea since Friday - Patient has a history of C. 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 difficile colitis on 01/08 and was discharged with Fidaxomycin - No significant leukocytosis noted, no lactic acidosis - Creatinine does appear to be elevated from her baseline - Will start the patient on Fidaxomycin Electrolyte abnormalities - Low potassium and magnesium - EKG reviewed without any changes - Will supplement orally and by IV - Repeat levels after supplementation Anemia of Chronic disease - Patients hemoglobin appears to be lower than her baseline - Currently hemoglobin of possibly 9.5, baseline runs approximately 12 - Will continue to follow hemoglobin ESRD on PD - Will consult Nephrology HTN Urgency - Likely 2/2 inability to take oral medications - Patients home medication of her presumed to the emergency room - Will continue with hydralazine IV with modified old and parameters DLP - Currently not on any medications Hx of Uterine CA - s/p Hysterectomy and bilateral salpingo-oophorectomy Hx of Leukemia - s/p Cytoxan 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) - Follows with Dermatology as an outpatient Depression - Currently not on any medications DVT prophylaxis - Will start DHEERAJ / SHARYN Brenner MD Apr 04, 2019 13:40
[2019-04-04] MEDS ORDERED: DICYCLOMINE 10 MG CAP PO PRN (13:45)
[2019-04-04] MEDS: KCL 40MEQ in NS 1000ML 1,000 ML IV SCH (14:42)
[2019-04-04] MEDS: MAG SULF 1GM/100ML (MAG RUN) 1 GM in APPROPRIATE DILUENT 1 EA IV SCH ×2 (14:43→16:32)
[2019-04-04] MEDS: hydrALAZINE INJ 20 MG/ML VIAL IV SCH ×2 (14:44→21:42)
[2019-04-04] MEDS: FOLIC ACID 1 MG TAB PO SCH (14:51)
[2019-04-04] MEDS: FIDAXOMICIN 200 MG TAB (DIFICID) PO SCH ×2 (15:39→21:00)
[2019-04-04 16:13] LABS: HEMATOCRIT 28.1 % (36.0-47.0); HEMOGLOBIN 9.2 g/dl (12.0-15.5)
[2019-04-04] MEDS: ONDANSETRON 4MG/2ML VIAL (J2405) IV PRN (16:32)
[2019-04-04 16:52] LABS: CALCIUM LEVEL 7.6 MG/DL (8.8-10.2); CREATININE FOR GFR 6.53 MG/DL (0.55-1.30); GLOMERULAR FILTRATION RATE 6.7 (>39); POTASSIUM SERUM 3.6 MEQ/L (3.5-5.1)
[2019-04-04] MEDS: ACETAMINOPHEN TAB 650MG DOSE (2X325MG) PO PRN (19:52)
[2019-04-04] MEDS: BRIMONIDINE 0.1% OPHTH SOLN 5 ML OS SCH (21:01)
[2019-04-04] MEDS: METOPROLOL SUCC (TopROL XL) 50MG **XL** TAB PO SCH (21:01)
[2019-04-04] MEDS: SIMVASTATIN 20 MG TAB PO SCH (21:01)
[2019-04-04 22:26] LABS: APPEARANCE, BODY FLUID CLEAR (CLEAR); SOURCE, BODY FLUID PERITONEAL DIALYSATE
[2019-04-04 22:27] LABS: PERITONEAL DIALYSATE FL COLOR PALE YELLOW (COLORLESS)
[2019-04-05] VITALS (11 sets, daily range): BP systolic 116–169; BP diastolic 58–78
[2019-04-05] MEDS: KCL 40MEQ in NS 1000ML 1,000 ML IV SCH (02:38)
[2019-04-05] MEDS: ACETAMINOPHEN TAB 650MG DOSE (2X325MG) PO PRN ×4 (04:15→22:56)
--- NOTE | 2019-04-05 04:33 | CR ---
DATE OF CONSULTATION: 04/04/2019 REQUESTING PHYSICIAN: Dr. Keith Zhang REASON FOR CONSULTATION: Management of end-stage renal disease on peritoneal dialysis in this patient who was admitted with recurrent Clostridium difficile (C. diff). HISTORY OF PRESENT ILLNESS: Apple Thornton is well known to me. She is a 68-year-old female with a past medical history of end-stage renal disease on peritoneal dialysis, history of hypertension, secondary hyperparathyroidism of renal origin, multiple squamous cell carcinoma skin lesions, history of recurrent Clostridium difficile (C. diff) and other comorbid conditions mentioned below. The patient has a long history of Clostridium difficile (C. diff) and she has failed fecal transplants. She has also received intravenous (IV) Zinplava recently as an outpatient. She presented to the emergency room (ER) with complaint of watery diarrhea and poor appetite and generalized weakness and nausea. It has been going on for several days and it has been worsening and she complains of weakness and was having more than five watery bowel movements a day. She was admitted for Clostridium difficile (C. diff) and a nephrology consultation was requested for management of her peritoneal dialysis. PAST MEDICAL HISTORY: 1. End-stage renal disease on peritoneal dialysis (PD). 2. Multiple squamous cell carcinoma lesions of the skin. 3. Hypertension. 4. Depression. 5. Dyslipidemia. 6. Vertigo. 7. History of uterine cancer in the past. 8. History of failed kidney transplant status post removal. 9. History of anemia secondary to end-stage renal disease. 10. History of recurrent Clostridium difficile status post failed stool transplants multiple times. PAST SURGICAL HISTORY: 1. Status post kidney transplantation and removal of failed allograft. 2. Status post hysterectomy. 3. Multiple squamous cell carcinoma lesions removal diffusely. 4. Status post bilateral hip replacement. 5. Status post left thumb amputation. 6. Status post peritoneal dialysis (PD) catheter placement. 7. Status post multiple colonoscopy and fecal transplants. 8. Status post bilateral [place] nephrectomy. ALLERGIES: MORPHINE, SULFA, TRIMETHOPRIM, and LACTOSE. FAMILY HISTORY: Renal cancer in her mother. No other family history of end-stage renal disease. SOCIAL HISTORY: She lives at home. A son lives nearby. She denies any illicit drug use, alcohol abuse or any smoking. HOME MEDICATIONS: Home medications are reviewed and include: - Tylenol - calcitriol - Sensipar - dicyclomine - vitamin D - fenofibrate - folic acid - hydralazine - loperamide - metoprolol - niacin - Zofran - Renvela - simvastatin REVIEW OF SYSTEMS: CONSTITUTIONAL: She complains of generalized weakness and fatigue. She denies fevers or chills. HEENT: Eyes: She denies any new visual changes or tearing. ENT: She denies epistaxis or rhinorrhea or dysphasia. CARDIAC: She denies chest pain or palpitations or leg edema. RESPIRATORY: She denies shortness of breath or cough. GASTROINTESTINAL (GI): She reports some nausea, poor appetite and diarrhea and history of recurrent Clostridium difficile (C. diff). ENDOCRINE: She reports secondary hyperparathyroidism of renal origin. She denies diabetes. HEMATOLOGY: She reports a chronic anemia. She denies anticoagulant use. MUSCULOSKELETAL: She denies any new myalgias or arthralgias. She complains of generalized weakness and deconditioning. NEUROLOGIC: She denies syncope or seizure. SKIN: She reports multiple skin lesions and recent resections and very close dermatology followup for her history of skin cancer. The remainder of review of systems is negative or as per history of present illness. PHYSICAL EXAMINATION: VITAL SIGNS: Temperature 96.7, pulse 71, respiratory rate 20, blood pressure 148/68, saturating 100% on room air. GENERAL: The patient is seen in the intensive care unit lying in bed. An elderly female anxious but in no distress, awake, alert and oriented x3. Extraocular muscles are intact. Tongue is moist. Neck is supple. There are diffuse skin lesions present on her head, neck and extremities. She has bandages in various places where she has had recent resections. CARDIAC: Regular rate and rhythm. S1, S2. No edema in the peripheries. LUNGS: Lungs show symmetric air entry bilaterally. No crackle or rales. ABDOMEN: Abdomen is soft. There is peritoneal dialysis fluid in place. The peritoneal dialysis (PD) catheter exit site is clean, dry and intact with dressing. EXTREMITIES: The extremities are negative for edema. SKIN: The skin shows diffuse lesions and skin cancers as mentioned previously. LABORATORY DATA: White count 11.1, hemoglobin 9.5. Sodium 138, potassium 3.6, bicarbonate 21, stool polymerase chain reaction (PCR) showed Clostridium difficile (C. diff). CT of the abdomen and pelvis: There is bilateral nephrectomy. There is a cavernous hemangioma in the liver. There are bilateral small pleural effusions. There is peritoneal dialysis fluid present. There is diverticulosis without diverticulitis. INPATIENT MEDICATIONS: The patient is receiving: - potassium supplementation intravenous (IV) and is on normal saline plus 40 mEq of potassium chloride running at 150 mL per hour - Tylenol as needed - Sensipar 30 mg every other day - Dificid 200 mg by mouth twice a day - folic acid 1 mg by mouth daily - hydralazine as needed - metoprolol 50 mg in the evening and 25 mg in the morning - Zofran as needed - simvastatin 20 mg by mouth at bedtime PROBLEMS: 1. End-stage renal disease on peritoneal dialysis. Given that the patient is having a recurrence of her Clostridium difficile (C. diff) and is having nausea and poor oral intake, I have put her on a very gentle peritoneal dialysis prescription of 5 exchanges daily. Each exchange will be low volume of 1 liter and we will use 1.5% Dianeal. I am cutting the intravenous (IV) fluids down to 30 mL an hour now that her potassium has improved. We will check a peritoneal cell count as well although I am not suspicious of peritonitis. 2. Diarrhea likely recurrent Clostridium difficile (C. diff) colitis. The patient has had a lengthy history of Clostridium difficile (C. diff) colitis and has had multiple stool transplants in the past and has received intravenous (IV) Zinplava as well and she follows up with Dr. Martin. The primary team has restarted the patient on Dificid. Peritoneal dialysis (PD) prescription will be gentle in view of gastrointestinal (GI) issues. Intravenous (IV) fluids are being cut down. 3. Hypokalemia. She has received oral and intravenous (IV) supplementation. I am cutting down the rate of intravenous (IV) fluids. Her potassium level has already improved and normalized. 4. Hypertension. Continue patient's home regimen of metoprolol and hydralazine. Thank you for involving me in the care of Ms. Thornton. I will be happy to follow her along with you.
[2019-04-05] MEDS: hydrALAZINE INJ 20 MG/ML VIAL IV SCH (06:29)
--- NOTE | 2019-04-05 06:54 | ECGEPIP ---
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
[2019-04-05 07:16] LABS: BASO % 0.3 % (0.0-1.0); EOS # 0.1 10^3/uL (0.0-0.50); EOS % 0.7 % (0.0-3.0); HEMATOCRIT 28.3 % (36.0-47.0); LYMPH # 1.3 10^3/uL (1.5-4.5); LYMPH % 12.4 % (24.0-44.0); MEAN CORPUSCULAR HGB CONC 31.8 g/dl (32.0-36.5); MEAN CORPUSCULAR VOLUME 103.7 fl (80.0-96.0); MONO # 1.2 10^3/uL (0.0-0.8); NEUTROPHILS # 8.1 10^3/uL (1.8-7.7); NEUTROPHILS % 74.7 % (36.0-66.0); PLATELET COUNT, AUTOMATED 178 10^3/uL (150-450); RED BLOOD COUNT 2.73 10^6/uL (4.00-5.40); WHITE BLOOD COUNT 10.8 10^3/uL (4.0-10.0)
[2019-04-05 07:41] LABS: CALCIUM LEVEL 7.8 MG/DL (8.8-10.2); CREATININE FOR GFR 6.44 MG/DL (0.55-1.30); GLOMERULAR FILTRATION RATE 6.8 (>39); MAGNESIUM LEVEL 2.2 MG/DL (1.8-2.4); POTASSIUM SERUM 4.2 MEQ/L (3.5-5.1)
[2019-04-05] MEDS: FIDAXOMICIN 200 MG TAB (DIFICID) PO SCH ×2 (09:24→20:14)
[2019-04-05] MEDS: CINACALCET 30 MG TAB (SENSIPAR) PO SCH (09:25)
[2019-04-05] MEDS: METOPROLOL SUCC *XL* 25MG TAB (TopROL *XL*) PO SCH (09:25)
[2019-04-05] MEDS: FOLIC ACID 1 MG TAB PO SCH (09:25)
[2019-04-05] MEDS: BRIMONIDINE 0.1% OPHTH SOLN 5 ML OS SCH ×2 (09:25→20:11)
--- NOTE | 2019-04-05 09:28 | IPNPDOC ---
Text Note Date of Service The patient was seen on 04/05/19. 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 Patient reported that on Friday evening she began to experience abdominal discomfort and diarrhea. . She does with that. She started with 5 bowel movements a day that is progressive 10 or more bowel movements a day. In the ER she was found to be C. diff positive. Patient was admitted to hospitalist service for further evaluation and treatment Patient was seen and examined at the bedside. Patient reports her abdominal pain is resolving. Denies any nausea or vomiting. Reports her diarrhea is subsiding. Denies chest pain, short of breath or palpitations. Objective: Vitals (See below) General: Lying in bed, no acute distress, comfortable, AAOx3 HEENT: NC, AT CVS: +S1S2 Lungs: Fair air entry b/l, -w/r/r Abdomen: Soft, ND, NT, +PD catheter Extremities: - Edema, - Calf tenderness Assessment and plan: Abdominal pain / Diarrhea - likely 2/2 C. diff colitis - Presented to the ER with abdominal pain and diarrhea since Friday; has a history of C. 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 difficile colitis on 01/08 and was discharged with Fidaxomycin - Currently, patient reports that her diarrhea subsiding - No significant leukocytosis noted, no lactic acidosis - c/w Fidaxomicin (Day #2) s/p Electrolyte abnormalities - s/p supplementation Anemia of Chronic disease - Patients hemoglobin appears to be lower than her baseline of 12 - Has remained stable ESRD on PD - Nephrology on consult HTN ; s/p Urgency - likely 2/2 inability to take oral medications - BP better controlled - c/w Metoprolol; will transition Hydralazine to PO today DLP - Currently not on any medications Hx of Uterine CA - s/p Hysterectomy and bilateral salpingo-oophorectomy Hx of Leukemia - s/p Cytoxan 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) - Follows with Dermatology as an outpatient Depression - Currently not on any medications DVT prophylaxis - c/w DHEERAJ / Sequentials Disposition: - Will transition to Med/Surg today VS,Fishbone, I+O VS, Fishbone, I+O Laboratory Tests 04/04/19 09:59 Red Blood Count 2.75 L, Mean Corpuscular Volume 104.0 H, Mean Corpuscular Hemoglobin 34.5 H, Mean Corpuscular Hemoglobin Concent 33.2, Red Cell Distribution Width 15.3 H, Neutrophils (%) (Auto) 75.6 H, Lymphocytes (%) (Auto) 12.7 L, Monocytes (%) (Auto) 10.0 H, Eosinophils (%) (Auto) 0.7, Basophils (%) (Auto) 0.2, Neutrophils # (Auto) 8.4 H, Lymphocytes # (Auto) 1.4 L, Monocytes # (Auto) 1.1 H, Eosinophils # (Auto) 0.1, Basophils # (Auto) 0.0 04/04/19 16:07 Calcium Level 7.6 L 04/05/19 06:54 Red Blood Count 2.73 L, Mean Corpuscular Volume 103.7 H, Mean Corpuscular Hemoglobin 33.0, Mean Corpuscular Hemoglobin Concent 31.8 L, Red Cell Distribution Width 16.0 H, Neutrophils (%) (Auto) 74.7 H, Lymphocytes (%) (Auto) 12.4 L, Monocytes (%) (Auto) 11.0 H, Eosinophils (%) (Auto) 0.7, Basophils (%) (Auto) 0.3, Neutrophils # (Auto) 8.1 H, Lymphocytes # (Auto) 1.3 L, Monocytes # (Auto) 1.2 H, Eosinophils # (Auto) 0.1, Basophils # (Auto) 0.0, Calcium Level 7.8 L Vital Signs Date Time Temp Pulse Resp B/P (MAP) Pulse Ox O2 Delivery O2 Flow Rate FiO2 04/05/19 06:29 157/70 04/05/19 06:00 81 15 96 04/05/19 04:00 98.0 04/04/19 13:57 Room Air I&O- Last 24 Hours up to 6 AM 04/05/19 06:00 Intake Total 3510 ml Output Total 3700 ml Balance -190 ml SHARYN MAO MD Apr 05, 2019 09:28
[2019-04-05] MEDS: ONDANSETRON 4MG/2ML VIAL (J2405) IV PRN (09:44)
[2019-04-05] MEDS ORDERED: SLF 3 ML SYR IV PRN (16:15)
[2019-04-05] MEDS: METOPROLOL SUCC (TopROL XL) 50MG **XL** TAB PO SCH (20:18)
[2019-04-05] MEDS: SIMVASTATIN 20 MG TAB PO SCH (20:19)
[2019-04-05] MEDS: **hydrALAZINE HCL** 25 MG TAB PO SCH (20:48)
[2019-04-05] MEDS: SLF 3 ML SYR IV SCH (22:52)
[2019-04-06] VITALS (7 sets, daily range): BP systolic 110–176; BP diastolic 62–82
[2019-04-06 05:59] LABS: BASO % 0.2 % (0.0-1.0); EOS # 0.1 10^3/uL (0.0-0.50); EOS % 1.2 % (0.0-3.0); HEMATOCRIT 27.7 % (36.0-47.0); HEMOGLOBIN 8.9 g/dl (12.0-15.5); LYMPH # 1.4 10^3/uL (1.5-4.5); LYMPH % 14.3 % (24.0-44.0); MEAN CORPUSCULAR HEMOGLOBIN 33.2 pg (27.0-33.0); MEAN CORPUSCULAR HGB CONC 32.1 g/dl (32.0-36.5); MEAN CORPUSCULAR VOLUME 103.4 fl (80.0-96.0); MONO # 1.1 10^3/uL (0.0-0.8); MONO % 10.9 % (0.0-5.0); NEUTROPHILS # 7.2 10^3/uL (1.8-7.7); NEUTROPHILS % 72.6 % (36.0-66.0); PLATELET COUNT, AUTOMATED 157 10^3/uL (150-450); RED BLOOD COUNT 2.68 10^6/uL (4.00-5.40); WHITE BLOOD COUNT 9.9 10^3/uL (4.0-10.0)
[2019-04-06] MEDS: SLF 3 ML SYR IV SCH ×3 (06:00→21:32)
[2019-04-06 06:32] LABS: CALCIUM LEVEL 7.5 MG/DL (8.8-10.2); CREATININE FOR GFR 6.45 MG/DL (0.55-1.30); GLOMERULAR FILTRATION RATE 6.8 (>39); MAGNESIUM LEVEL 1.9 MG/DL (1.8-2.4); POTASSIUM SERUM 3.7 MEQ/L (3.5-5.1)
--- NOTE | 2019-04-06 08:35 | IPN ---
DATE: 04/05/2019 SUBJECTIVE: Jazzy seen and examined this morning at the bedside. Reports no issues with her PD exchanges overnight she is starting to feel hungry has not had any recurrent vomiting and reports that the watery diarrhea is less from prior. She continues on Dificid. Her peritoneal cell count was negative temperature 97.5, pulse 69, respiratory rate 16, blood pressure 125/68, saturating 99% on room air. Intake yesterday and output yesterday was reviewed. Weight in the bed scale today is 44.6 kg which is stable. General: The patient is seen lying in bed, looks to be in better spirits today as compared to yesterday, smiles, makes good eye contact. Tongue is moist. Neck is supple. Jugular veins are not elevated. There are dressings present on her forehead and the right side of her face which she had recent resections of skin cancer. Cardiac S1, S2 regular rate and rhythm. Lungs were clear to auscultation bilaterally. No crackle rale or rhonchus. Abdomen is soft and nontender. There are PD catheter exit site was not examined today. There is peritoneal fluid present. The lower extremities have compression stockings and there is no significant peripheral edema. Neurologic: She is oriented times three at baseline mentation cooperative and interactive. Skin has diffuse skin lesions and the sites of previous resection of her widespread skin cancers WBC is 10.8, hemoglobin is 9.0, sodium 140, potassium 4.2, magnesium 2.2. INPATIENT MEDICATIONS: Her IV fluids were discontinued. Remainder medications are unchanged from prior. PROBLEMS: 1. End-stage renal disease on peritoneal dialysis. The patient continues on five exchanges daily all 1.5% Dianeal with a volume of 1 liter. It is a gentle prescription in view of her C diff colitis and poor oral intake. Her volume status and electrolytes are acceptable. She is off of IV fluids. I am making no change to the current prescription. Her peritoneal cell count was benign and negative for peritonitis. 2. Diarrhea with C diff colitis. The patient has lengthy history of c-diff and has had failed stool transplant in the past and the previously received IV. She follows with Dr. Martin as an outpatient. She is presently back on Dificid and symptomatically improving deferred to primary team and infectious diseases the peritoneal dialysis prescription is gentle in view of her GI issues. 3. Hypokalemia it is resolved. She received vigorous supplementation and her potassium level and magnesium level both improved and normalized. 4. Hypertension. Continue her home regimen of metoprolol and hydralazine. 5. Anemia related to a chronic renal failure and if she remains in house we will give a dose of Aranesp at the end of the week.
[2019-04-06] MEDS: FOLIC ACID 1 MG TAB PO SCH (09:07)
[2019-04-06] MEDS: FIDAXOMICIN 200 MG TAB (DIFICID) PO SCH ×2 (09:07→21:25)
[2019-04-06] MEDS: BRIMONIDINE 0.1% OPHTH SOLN 5 ML OS SCH ×2 (09:07→21:25)
[2019-04-06] MEDS: **hydrALAZINE HCL** 25 MG TAB PO SCH ×2 (09:11→17:02)
[2019-04-06] MEDS: METOPROLOL SUCC *XL* 25MG TAB (TopROL *XL*) PO SCH (09:12)
--- NOTE | 2019-04-06 13:52 | IPNPDOC ---
Date Seen The patient was seen on 04/06/19. 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 Patient reported that on Friday evening she began to experience abdominal discomfort and diarrhea. She started with 5 bowel movements a day that progressed to 10 or more bowel movements a day. In the ER she was found to be C. diff positive. Patient was admitted to hospitalist service for further evaluation and treatment Patient was seen sitting in bed. She states she had the urge to use the restroom but denies producing an stool. Patient reports her abdominal pain is resolving. She feels abdominal pressure from the peritoneal dialysis and has been experiencing flatulence. Denies any nausea or vomiting. Reports she had diarrhea of a liquid consistency yesterday evening. Denies chest pain, short of breath or palpitations. OBJECTIVE PHYSICAL EXAMINATION: VITAL SIGNS: Please see below. General: Sitting in bed, anxious about being discharged home due to the fact that she lives alone, no acute distress, comfortable, AAOx3 HEENT: NC, AT CVS: +S1S2 Lungs: Fair air entry b/l, no appreciable rhonchi / rales / wheezing Abdomen: Distended, NT, +PD catheter, no rebound tenderness Extremities: - Edema, - denies calf tenderness LABORATORY DATA, IMAGING STUDIES, MICROBIOLOGY: Please see below. Echocardiogram: Moderate voltage criteria for LVH, consider normal variant DVT prophylaxis ordered?: Yes, c/w DHEERAJ / Sequentials. 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 PROBLEMS: Abdominal pain / Diarrhea - likely 2/2 C. diff colitis - Presented to the ER with abdominal pain and diarrhea since Friday; has a history of C. 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 difficile colitis on 01/08 and was discharged with Fidaxomicin - The patient reports she had 5 episodes of diarrhea yesterday. Last night the diarrhea was "liquid" in form. - Patient producing flatulence but no stool as of this morning - No significant leukocytosis noted, no lactic acidosis - c/w Fidaxomicin (Day #3) - Will consult infectious disease; considering stool transplant or bezlotoxumab immune therapy as potential treatment options s/p Electrolyte abnormalities - s/p supplementation Anemia of Chronic disease - Patients hemoglobin appears to be lower than her baseline of 12. 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 - Physical therapy visited patient for a Home safety evaluation in order to move forward with discharge orders. VS, I&O, 24H, Fishbone Vital Signs/I&O Vital Signs Date Time Temp Pulse Resp B/P (MAP) Pulse Ox O2 Delivery O2 Flow Rate FiO2 04/06/19 12:00 98.0 76 18 141/64 (89) 98 04/04/19 13:57 Room Air I&O- Last 24 Hours up to 6 AM 04/06/19 06:00 Intake Total 5360 ml Output Total 5800 ml Balance -440 ml Laboratory Data 24H LABS Laboratory Tests 2 04/06/19 05:41: Immature Granulocyte % (Auto) 0.8, White Blood Count 9.9, Red Blood Count 2.68L, Hemoglobin 8.9L, Hematocrit 27.7L, Mean Corpuscular Volume 103.4H, Mean Corpuscular Hemoglobin 33.2H, Mean Corpuscular Hemoglobin Concent 32.1, Red Cell Distribution Width 16.0H, Platelet Count 157, Neutrophils (%) (Auto) 72.6H, Lymphocytes (%) (Auto) 14.3L, Monocytes (%) (Auto) 10.9H, Eosinophils (%) (Auto) 1.2, Basophils (%) (Auto) 0.2, Neutrophils # (Auto) 7.2, Lymphocytes # (Auto) 1.4L, Monocytes # (Auto) 1.1H, Eosinophils # (Auto) 0.1, Basophils # (Auto) 0.0, Nucleated Red Blood Cells % (auto) 0.0, Anion Gap 9, Glomerular Filtration Rate 6.8L, Blood Urea Nitrogen 42H, Creatinine 6.45H, Sodium Level 141, Potassium Level 3.7, Chloride Level 110H, Carbon Dioxide Level 22, Calcium Level 7.5L, Magnesium Level 1.9 CBC/BMP Laboratory Tests 04/06/19 05:41 Red Blood Count 2.68 L, Mean Corpuscular Volume 103.4 H, Mean Corpuscular Hemoglobin 33.2 H, Mean Corpuscular Hemoglobin Concent 32.1, Red Cell Distribution Width 16.0 H, Neutrophils (%) (Auto) 72.6 H, Lymphocytes (%) (Auto) 14.3 L, Monocytes (%) (Auto) 10.9 H, Eosinophils (%) (Auto) 1.2, Basophils (%) (Auto) 0.2, Neutrophils # (Auto) 7.2, Lymphocytes # (Auto) 1.4 L, Monocytes # (Auto) 1.1 H, Eosinophils # (Auto) 0.1, Basophils # (Auto) 0.0, Calcium Level 7.5 L Microbiology Microbiology 04/04/19 Gastrointestinal Tract Panel (PCR) - Final, Complete Clostridium Difficile A/B GME ATTESTATION GME ATTESTATION My faculty preceptor for this patient encounter was physically present during the encounter and was fully available. All aspects of the patient interview, ex amination, medical decision making process, and medical care plan development were reviewed and approved by the faculty preceptor. The faculty preceptor is aware and concurs with the plan as stated in the body of this note and will attest to such by his/her cosignature. ATTENDING NOTE I, Keith Mao, have independently examined this patient and performed my own physical exam, as well as reviewed the documentation and edited where necessary. I have discussed in detail with the resident / student the findings and plan of treatment as documented by the resident / student and edited their note. I agree with their findings and treatment plan and have edited their documentation. I will continue to follow the patient during this hospital stay. ROMA AMBROSE-3 Apr 06, 2019 13:52 KEITH MAO MD Apr 06, 2019 13:55
--- NOTE | 2019-04-06 14:34 | IPN ---
DATE: 04/06/2019 SUBJECTIVE: Ms. Thornton is seen and examined this morning on bedside rounds. She is having no issues with her peritoneal dialysis (PD) exchanges. She is in very poor spirits as she is extremely discouraged because she does not feel like her antibiotics for her C difficile are working and she has no appetite. It appears as though she is rather afraid to eat because it is just "going right through her". She does continue on Dificid. PHYSICAL EXAMINATION: VITALS: Temperature 98, pulse 75, respiratory rate 17, blood pressure 172/82, pulse oximetry 99% on room air. GENERAL: Patient is seen lying in bed, she unfortunately is not in very good spirits today, very tearful on physical examination. Moist mucous membranes, cannot appreciated elevated jugular veins. HEENT: There continues to be dressing on the right side of her forehead, this is from a recent resection for skin cancer. Extraocular muscles intact. CARDIAC: Normal S1 and S2. No murmurs, rubs or gallops appreciated. LUNGS: Clear to auscultation bilaterally, somewhat diminished bibasilar, there are no crackles, rales or rhonchi on examination. ABDOMEN: Soft and nontender to palpation. No rebound, rigidity or guarding, no hepatosplenomegaly or masses appreciated, there is a PD catheter exit site, which was not examined during physical examination today. Peritoneal fluid is present. EXTREMITIES: Lower extremities do have compression stockings on again today, there is no peripheral edema, cyanosis or mottling appreciated. NEUROLOGIC: She is awake, alert and oriented times three. She is cooperative and interactive. No focal deficits appreciated. PSYCHIATRIC: The patient does appear sad on examination today. She is frustrated with her clinical course and tearful on examination. INPATIENT MEDICATIONS: Medications reviewed: It appears as though hydralazine 25 mg by mouth twice a day has been scheduled for her elevated blood pressures. PROBLEMS: 1. End-stage renal disease on peritoneal dialysis: Patient continues on 5 exchanges daily, 1.5% Dianeal with a volume of 1 liter. This is gentle prescription due to her current C difficile colitis, and consequent poor oral intake. Volume status and electrolytes are acceptable today. She is no longer on IV fluids. There will be no changes to her current medical regimen. 2. Diarrhea with C difficile colitis: Patient does have quite a lengthy history of C difficile and has failed two stool transplants in the past and previously received IV antibiotics. She follows with Dr. Martin as an outpatient. She is on Dificid currently and unfortunately, this morning she states that she is still having diarrhea, even being on antibiotics, she is afraid to eat because it goes right through her. She is currently being treated for her C difficile by the primary managing team. 3. Hypokalemia: Potassium today was normal at 3.7. Magnesium level was also noted to be normal at 1.9. She is status post supplementation of both. 4. Hypertension: She may continue on metoprolol and hydralazine dosing, which was increased. 5. Anemia: Hemoglobin and hematocrit is suboptimal but stable at 8.9 and 27.7 respectively. Likely secondary to her chronic renal failure. By the end of the week, should this not improve or should worsen, we will likely give her a dose of Aranesp. MTDD
[2019-04-06] MEDS: ONDANSETRON 4MG/2ML VIAL (J2405) IV PRN (20:44)
[2019-04-06] MEDS: SIMVASTATIN 20 MG TAB PO SCH (21:25)
[2019-04-06] MEDS: METOPROLOL SUCC (TopROL XL) 50MG **XL** TAB PO SCH (21:31)
[2019-04-07 04:00] VITALS: BP 160/60
[2019-04-07 05:11] LABS: BASO % 0.3 % (0.0-1.0); EOS # 0.1 10^3/uL (0.0-0.50); HEMATOCRIT 27.7 % (36.0-47.0); HEMOGLOBIN 8.9 g/dl (12.0-15.5); LYMPH # 1.9 10^3/uL (1.5-4.5); LYMPH % 16.6 % (24.0-44.0); MEAN CORPUSCULAR HEMOGLOBIN 33.7 pg (27.0-33.0); MEAN CORPUSCULAR HGB CONC 32.1 g/dl (32.0-36.5); MEAN CORPUSCULAR VOLUME 104.9 fl (80.0-96.0); MONO # 1.4 10^3/uL (0.0-0.8); MONO % 12.2 % (0.0-5.0); NEUTROPHILS # 7.9 10^3/uL (1.8-7.7); NEUTROPHILS % 69.1 % (36.0-66.0); PLATELET COUNT, AUTOMATED 162 10^3/uL (150-450); RED BLOOD COUNT 2.64 10^6/uL (4.00-5.40); WHITE BLOOD COUNT 11.4 10^3/uL (4.0-10.0)
[2019-04-07 05:24] LABS: CALCIUM LEVEL 7.2 MG/DL (8.8-10.2); CREATININE FOR GFR 6.66 MG/DL (0.55-1.30); GLOMERULAR FILTRATION RATE 6.5 (>39); MAGNESIUM LEVEL 1.8 MG/DL (1.8-2.4); POTASSIUM SERUM 3.6 MEQ/L (3.5-5.1)
[2019-04-07] MEDS: SLF 3 ML SYR IV SCH ×3 (06:37→22:43)
[2019-04-07 08:00] VITALS: BP 179/70
[2019-04-07] MEDS ORDERED: predniSONE 1 MG TAB PO SCH (09:00)
[2019-04-07] MEDS: FOLIC ACID 1 MG TAB PO SCH (09:04)
[2019-04-07] MEDS: FIDAXOMICIN 200 MG TAB (DIFICID) PO SCH ×2 (09:04→21:52)
[2019-04-07] MEDS: CINACALCET 30 MG TAB (SENSIPAR) PO SCH (09:04)
[2019-04-07] MEDS: BRIMONIDINE 0.1% OPHTH SOLN 5 ML OS SCH ×2 (09:05→22:43)
[2019-04-07] MEDS: METOPROLOL SUCC *XL* 25MG TAB (TopROL *XL*) PO SCH (09:05)
[2019-04-07] MEDS: **hydrALAZINE HCL** 25 MG TAB PO SCH ×2 (09:05→21:55)
[2019-04-07] MEDS: ACETAMINOPHEN TAB 650MG DOSE (2X325MG) PO PRN ×2 (10:50→18:43)
--- NOTE | 2019-04-07 10:51 | IPNPDOC ---
Text Note Date of Service The patient was seen on 04/07/19. 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 Patient reported that on Friday evening she began to experience abdominal discomfort and diarrhea. . She does with that. She started with 5 bowel movements a day that is progressive 10 or more bowel movements a day. In the ER she was found to be C. diff positive. Patient was admitted to hospitalist service for further evaluation and treatment Patient was seen and examined at the bedside. Patient reports that she is still expressing diarrhea. Denies any shortness of breath, palpitations or CP. Denies nausea, vomiting, has been advanced on full diet. Denies abdominal pain, still expresses loose watery diarrhea. Objective: Vitals (See below) General: Lying in bed, no acute distress, comfortable, AAOx3 HEENT: NC, AT CVS: +S1S2 Lungs: Fair air entry b/l, auscultation is without wheezing, rhonchi, rales Abdomen: Soft, nondistended, without tenderness, +PD catheter Extremities: Trace edema noted, - Calf tenderness Assessment and plan: Abdominal pain / Diarrhea - likely 2/2 C. diff colitis - Presented to the ER with abdominal pain and diarrhea since Friday; has a history of C. 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 difficile colitis on 01/08 and was discharged with Fidaxomicin - Persistent watery diarrhea - Mild leukocytosis noted, no lactic acidosis - c/w Fidaxomicin (Day #4) - Infectious diseases on consultation; discussions about immunotherapy versus possible stool transplant s/p Electrolyte abnormalities - s/p supplementation Anemia of Chronic disease - Patients hemoglobin appears to be lower than her baseline of 12 - Has remained stable ESRD on PD - Nephrology on consult HTN ; s/p Urgency - likely 2/2 inability to take oral medications - BP better controlled this morning - c/w Metoprolol and Hydralazine PO DLP - Currently not on any medications Hx of Uterine CA - s/p Hysterectomy and bilateral salpingo-oophorectomy Hx of Leukemia - s/p Cytoxan 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 stool transplant based on ID recommendations VS,Fishbone, I+O VS, Fishbone, I+O Laboratory Tests 04/07/19 04:22 Red Blood Count 2.64 L, Mean Corpuscular Volume 104.9 H, Mean Corpuscular Hemoglobin 33.7 H, Mean Corpuscular Hemoglobin Concent 32.1, Red Cell Distribution Width 16.4 H, Neutrophils (%) (Auto) 69.1 H, Lymphocytes (%) (Auto) 16.6 L, Monocytes (%) (Auto) 12.2 H, Eosinophils (%) (Auto) 1.0, Basophils (%) (Auto) 0.3, Neutrophils # (Auto) 7.9 H, Lymphocytes # (Auto) 1.9, Monocytes # (Auto) 1.4 H, Eosinophils # (Auto) 0.1, Basophils # (Auto) 0.0, Calcium Level 7.2 L Vital Signs Date Time Temp Pulse Resp B/P (MAP) Pulse Ox O2 Delivery O2 Flow Rate FiO2 04/07/19 09:05 146/68 04/07/19 09:05 88 04/07/19 08:00 97.9 18 98 04/04/19 13:57 Room Air I&O- Last 24 Hours up to 6 AM 04/07/19 06:00 Intake Total 4510 ml Output Total 3900 ml Balance 610 ml SHARYN MAO MD Apr 07, 2019 10:51
[2019-04-07 11:54] VITALS: BP 132/62
--- NOTE | 2019-04-07 11:59 | IPN ---
DATE: 04/07/2019 SUBJECTIVE: Ms. Thornton is seen and examined this morning on bedside rounds. She is lying in bed and appears comfortable, although she does appear sad again today due to her current situation. She does not think that her diarrhea is improving very much. She does not have a very good appetite. She states that she ate a little bit of toast this morning, but again it went right through her. She does continue on Dificid. PHYSICAL EXAMINATION: VITAL SIGNS: Temperature 97.9, pulse 86, respiratory rate is 18, blood pressure 179/70, pulse oximetry is 98% on room air. GENERAL: The patient is lying in bed, she is not in very good spirits unfortunately again today. She does say that she feels better that she is able to get roses to her granddaughter's graduation, although she does not think that she will be able to attend in person, this makes her sad. HEENT: There are dressings on the right side of her forehead and just anterior to her right ear. This is for recent resection for skin cancer. Moist mucous membranes. Extraocular muscles intact. CARDIAC: Normal S1, S2. No murmurs, rubs or gallops appreciated. LUNGS: Clear to auscultation bilaterally. Somewhat diminished in the bibasilar area. There are no crackles, rales or rhonchi on examination. ABDOMEN: Minimal tenderness throughout on examination. No rebound, rigidity or guarding. No hepatosplenomegaly or masses. There is a PD catheter exit site that was not examined on physical examination today. Peritoneal fluid is present. EXTREMITIES: Lower extremities do have compression stockings on. There is no peripheral, cyanosis, or mottling appreciated. NEUROLOGIC: She is awake, alert, and oriented times three. She is cooperative and interactive. Speaking in full sentences. No focal deficits appreciated. PSYCHIATRIC: She has a little bit of improvement in her emotional status today, as she states that she is happy that she will at least be able to give roses to her granddaughter, although she does not think that she will be able to attend her graduation in her person. However, she is frustrated and a bit sad on examination given her current sickness. PROBLEMS: 1. End stage renal disease on peritoneal dialysis. There will be no changes made to her PDD prescription. She continues on five exchanges daily, 1.5% Dianeal with a volume of 1 liter. It is a gentle prescription due to her current Clostridium (C.) difficile colitis. She unfortunately still has poor oral intake. Again, her volume status and electrolytes are acceptable for us today. Status post IV fluids. She did receive a dose of Aranesp today. 2. Diabetes with Clostridium (C.) difficile colitis. The patient has a lengthy history of Clostridium (C.) difficile and has failed two stool transplants in the past. She also has previously received IV antibiotics. She continues on Dificid. There are talks apparently of her having a third stool transplant this visit. She follows with Dr. Martin as an outpatient. She is currently being treated for C difficile by the primary managing team and infectious disease. 3. Hypokalemia. Potassium today was noted to be 3.6. Magnesium level is acceptable. She is status post supplementation. 4. Hypertension. She continues on metoprolol and hydralazine dosing. 5. Anemia. Hemoglobin and hematocrit are again suboptimal but stable today at 8.9 and 27.7. As mentioned above, she is getting a dose of Aranesp today.
--- NOTE | 2019-04-07 14:35 | CR.PDOC ---
General Date of Consultation: Apr 07, 2019 Referring Provider: SHARYN MAO MD Attending Physician: Jordana Martin MD Consultation INFECTIOUS DISEASE CONSULTATION REASON FOR CONSULTATION/CHIEF COMPLAINT: recurrent C. Diff HISTORY OF PRESENT ILLNESS: Ms. Thornton is a 68 yo F patient here for diarrhea and generalized malaise. She has a hx of two previous fecal transplants done 1 week apart in 04/[address] Overton for recurrent C. Diff infections. She states she no longer had any C. Diff infections since the transplant until December of this year, and again now. After her last discharge 01/09/19, she also received IV Zinplava to prevent recurrent episodes, which apparently was not effective. She reports nonbloody, loose BMs throughout the day and waking her up at night as well, too numerous for her to count, associated n/v. Denies f/c, abd pain, bright red blood or melena. Symptoms have been ongoing for the past 1 week, without any inciting factors. No recent antibiotic use, travel history, or sick contacts. She tested positive for C. Diff on this hospitalization and Infectious Disease was consulted to assist with this. She is currently on Dificid inpatient, currently Day 4. She reports her diarrhea has not much improved yet. Denies any other complaints. ALLERGIES: Please see below. HOME MEDICATIONS: Please see below. PAST MEDICAL HISTORY: 1. History of recurrent C. Diff 2. HTN 3. Dyslipidemia 4. ESRD with peritoneal dialysis 5. Squamous cell skin cancer 6. 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 PHYSICAL EXAMINATION: VITAL SIGNS: Please see below. General exam: Alert and cooperative, A&O 3, NAD Eye exam: PERRLA, EOMI, subconjunctival hemorrhage of left medial eye ENT: Atraumatic, normocephalic, dry mucous membranes Neck: supple without adenopathy Cardiac: RRR, normal S1 & S2, 2/6 systolic murmur heard best on right sternal border Respiratory: CTAB, equal chest rise, no adventitious sounds Abdomen: hyperactive bowel sounds, soft, nontender, nondistended, PD catheter in place Extremity: no edema or tenderness Skin: [place], warm. Multiple ecchymosis throughout limbs. Dressings on face & neck from recent skin cancers Psych: Normal mood and affect LABORATORY DATA: Please see below. ASSESSMENT/PLAN: Recurrent C. Diff infection in setting of two prior failed fecal transplants. Continue on Dificid and monitor volume status and supplement dehydration as needed. In the past, pt has required extended course of treatment for her infection given her slow response to improve. She may again take lo [id number] to recover. She is otherwise afebrile and doing well. Continue contact precautions. Limit long-term antibiotics and acid-suppressing medications. Pt may benefit from additional fecal transplant-recommend consulting Dr. Overton. This was briefly discussed with pt earlier today. She is hesitant about taking bowel prep given her PD catheter, but other options include upper GI tract, to which she is amenable. Thank you for the consult. We shall be happy to follow along. Vital Signs/I&O Vital Signs Date Time Temp Pulse Resp B/P (MAP) Pulse Ox O2 Delivery O2 Flow Rate FiO2 04/07/19 08:00 97.9 86 18 179/70 (106) 98 04/04/19 13:57 Room Air I&O- Last 24 Hours up to 6 AM 04/07/19 06:00 Intake Total 4510 ml Output Total 3900 ml Balance 610 ml Laboratory Data Labs 24H Laboratory Tests 2 04/07/19 04:22: Immature Granulocyte % (Auto) 0.8, White Blood Count 11.4H, Red Blood Count 2.64L, Hemoglobin 8.9L, Hematocrit 27.7L, Mean Corpuscular Volume 104.9H, Mean Corpuscular Hemoglobin 33.7H, Mean Corpuscular Hemoglobin Concent 32.1, Red Cell Distribution Width 16.4H, Platelet Count 162, Neutrophils (%) (Auto) 69.1H, Lymphocytes (%) (Auto) 16.6L, Monocytes (%) (Auto) 12.2H, Eosinophils (%) (Auto) 1.0, Basophils (%) (Auto) 0.3, Neutrophils # (Auto) 7.9H, Lymphocytes # (Auto) 1.9, Monocytes # (Auto) 1.4H, Eosinophils # (Auto) 0.1, Basophils # (Auto) 0.0, Nucleated Red Blood Cells % (auto) 0.0, Anion Gap 10, Glomerular Filtration Rate 6.5L, Blood Urea Nitrogen 39H, Creatinine 6.66H, Sodium Level 142, Potassium Level 3.6, Chloride Level 108H, Carbon Dioxide Level 24, Calcium Level 7.2L, Magnesium Level 1.8 CBC/BMP Laboratory Tests 04/07/19 04:22 Red Blood Count 2.64 L, Mean Corpuscular Volume 104.9 H, Mean Corpuscular Hemoglobin 33.7 H, Mean Corpuscular Hemoglobin Concent 32.1, Red Cell Distr ibution Width 16.4 H, Neutrophils (%) (Auto) 69.1 H, Lymphocytes (%) (Auto) 16.6 L, Monocytes (%) (Auto) 12.2 H, Eosinophils (%) (Auto) 1.0, Basophils (%) (Auto) 0.3, Neutrophils # (Auto) 7.9 H, Lymphocytes # (Auto) 1.9, Monocytes # (Auto) 1.4 H, Eosinophils # (Auto) 0.1, Basophils # (Auto) 0.0, Calcium Level 7.2 L Microbiology Microbiology 04/04/19 Gastrointestinal Tract Panel (PCR) - Final, Complete Clostridium Difficile A/B Allergies Coded Allergies: Sulfa (Sulfonamide Antibiotics) (Verified Adverse Reaction, Intermediate, n/v, 01/06/19) lactose (Verified Adverse Reaction, Intermediate, intolerant, 01/06/19) morphine (Verified Adverse Reaction, Intermediate, vomitting, 01/06/19) sulfamethoxazole (Verified Adverse Reaction, Intermediate, n/v, 01/06/19) trimethoprim (Verified Adverse Reaction, Intermediate, n/v, 01/06/19) Home Medications Scheduled Acitretin (Acitretin) 10 Mg Cap, 10 MG PO QPM, (Reported) Brimonidine Tartrate (Alphagan P) 100 Drop/5 Ml Soln, 1 DROP OS BID, (Reported) Calcitriol (Calcitriol) 0.25 Mcg Cap, 0.25 MCG PO DAILY, (Reported) Cinacalcet (Sensipar) 30 Mg Tab, 30 MG PO Q2D, (Reported) Dicyclomine HCl (Dicyclomine HCl) 10 Mg Cap, 10 MG PO BID, (Reported) BEFORE MEALS Ergocalciferol (Vitamin D2) (Drisdol) 50,000 Unit Cap, 50,000 UNIT PO 1XWK, (Reported) MONDAYS Fenofibrate,Micronized (Fenofibrate) 134 Mg Capsule, 134 MG PO DAILY, (Reported) Folic Acid (Folic Acid) 1 Mg Tab, 1 MG PO DAILY, (Reported) Folic Acid/Vit B Complex and C (Monique-Jimbo Tablet) 1 Tab Tab, 1 TAB PO DAILY, (Reported) Loperamide HCl (Loperamide) 2 Mg Capsule, 2 MG PO QHS, (Reported) Metoprolol Succinate (Toprol Xl) 50 Mg Tab, 50 MG PO QPM, (Reported) Metoprolol Succinate (Metoprolol Succinate) 50 Mg Tab.er.24h, 25 MG PO DAILY, (Reported) Mupirocin (Mupirocin) 2 % Oin, 1 APLCT TOP ASDIRECTED, (Reported) TO CATH SITE AND AFFECTED AREA(S) Niacinamide (Niacinamide) 500 Mg Tablet, 500 MG PO QHS, (Reported) Prednisone (Prednisone) 1 Mg Tab, 4 MG PO DAILY, (Reported) Sevelamer Carbonate (Renvela) 800 Mg Tablet, 1,600 MG PO WM, (Reported) Sevelamer Carbonate (Renvela) 800 Mg Tablet, 800 MG PO ASDIRECTED, (Reported) WITH SNACKS Simvastatin (Simvastatin) 20 Mg Tab, 20 MG PO QHS, (Reported) Scheduled PRN Acetaminophen (Acetaminophen) 500 Mg Tablet, 1,000 MG PO Q4H PRN for PAIN, (Reported) Hydralazine HCl (Hydralazine HCl) 25 Mg Tablet, 25 MG PO BID PRN for BP >140, (Reported) Ondansetron HCl (Ondansetron HCl) 4 Mg Tablet, 4 MG PO Q8H PRN for NAUSEA OR VO MITING, (Reported) GME ATTESTATION GME ATTESTATION My faculty preceptor for this patient encounter was physically present during the encounter and was fully available. All aspects of the patient interview, examination, medical decision making process, and medical care plan development were reviewed and approved by the faculty preceptor. The faculty preceptor is aware and concurs with the plan as stated in the body of this note and will attest to such by his/her cosignature. ELIZABETH MARTIN DO Apr 07, 2019 09:02
[2019-04-07] MEDS: predniSONE 1 MG TAB PO SCH (14:43)
[2019-04-07 16:00] VITALS: BP 147/66
[2019-04-07 18:55] VITALS: BP 114/81
[2019-04-07] MEDS: SIMVASTATIN 20 MG TAB PO SCH (21:52)
[2019-04-07] MEDS: METOPROLOL SUCC (TopROL XL) 50MG **XL** TAB PO SCH (21:54)
[2019-04-07 22:00] VITALS: BP 138/68
[2019-04-08 06:00] VITALS: BP 140/68
[2019-04-08] MEDS: SLF 3 ML SYR IV SCH ×3 (06:19→22:55)
[2019-04-08 06:29] LABS: BASO % 0.2 % (0.0-1.0); EOS % 0.2 % (0.0-3.0); HEMATOCRIT 26.9 % (36.0-47.0); LYMPH # 1.8 10^3/uL (1.5-4.5); LYMPH % 14.6 % (24.0-44.0); MEAN CORPUSCULAR HEMOGLOBIN 35.3 pg (27.0-33.0); MEAN CORPUSCULAR HGB CONC 33.5 g/dl (32.0-36.5); MEAN CORPUSCULAR VOLUME 105.5 fl (80.0-96.0); MONO # 0.9 10^3/uL (0.0-0.8); MONO % 7.3 % (0.0-5.0); NEUTROPHILS # 9.6 10^3/uL (1.8-7.7); NEUTROPHILS % 76.9 % (36.0-66.0); PLATELET COUNT, AUTOMATED 146 10^3/uL (150-450); RED BLOOD COUNT 2.55 10^6/uL (4.00-5.40); WHITE BLOOD COUNT 12.5 10^3/uL (4.0-10.0)
[2019-04-08 06:56] LABS: CALCIUM LEVEL 7.3 MG/DL (8.8-10.2); CREATININE FOR GFR 6.81 MG/DL (0.55-1.30); GLOMERULAR FILTRATION RATE 6.4 (>39); MAGNESIUM LEVEL 1.8 MG/DL (1.8-2.4); POTASSIUM SERUM 3.1 MEQ/L (3.5-5.1)
[2019-04-08] MEDS: FIDAXOMICIN 200 MG TAB (DIFICID) PO SCH ×3 (08:57→23:34)
[2019-04-08] MEDS: predniSONE 1 MG TAB PO SCH (08:57)
[2019-04-08] MEDS: METOPROLOL SUCC *XL* 25MG TAB (TopROL *XL*) PO SCH (08:57)
[2019-04-08] MEDS: FOLIC ACID 1 MG TAB PO SCH (08:58)
[2019-04-08] MEDS: **hydrALAZINE HCL** 25 MG TAB PO SCH ×2 (08:58→22:54)
[2019-04-08] MEDS: BRIMONIDINE 0.1% OPHTH SOLN 5 ML OS SCH ×2 (08:59→22:56)
[2019-04-08] MEDS: ACETAMINOPHEN TAB 650MG DOSE (2X325MG) PO PRN ×2 (09:49→16:53)
[2019-04-08] MEDS ORDERED: POTASSIUM CHLORIDE 10 MEQ SR TABLET PO ONE (11:00)
[2019-04-08] MEDS: DARBEPOETIN 100 MCG/0.5 ML *NON-DIALYSIS* SYRINGE (J0881) SC SCH (11:28)
--- NOTE | 2019-04-08 12:40 | IPN ---
DATE OF SERVICE: 04/08/2019 SUBJECTIVE: Ms. Thornton is seen and examined this morning on bedside rounds. She is laying in bed. She appears comfortable. Her spirits do seem improved today. She talked about her granddaughter winning an award ceremony at her high school. She thinks that her diarrhea has improved a little bit. She states that she did have a bowel movement this morning that did have some formed stool in it. She also ate some bagel this morning for breakfast, which she was happy about. PHYSICAL EXAMINATION: Vital Signs: Temperature 97.2, pulse 74, respiratory rate 15, blood pressure 140/68 and pulse oximetry 98% on room air. General: Ms. Thornton is laying in bed, her spirits seem somewhat improved today. She states that she feels a little bit better and she does admit to having recently a more formed bowel movement. She is speaking in complete sentences and is in no acute distress. HEENT: Continued dressings on the right side of her forehead secondary to resection for skin cancer. Moist mucous membranes. Extraocular muscles intact (EOMI). No jugular venous distention (JVD) appreciated. Cardiac: Normal S1 and S2. No murmurs, rubs or gallops appreciated. Lungs: Clear to auscultation bilaterally. There is somewhat diminished breath sounds in the bases, likely secondary to patient effort. No crackles, rales or rhonchi. Abdomen: There is no tenderness to palpation. There is no rebound, rigidity or guarding. No hepatosplenomegaly or masses. She has a PD catheter exit site that was not examined today. Peritoneal fluid is present. Normoactive bowel sounds times four. Extremities: Lower extremities actually have sequentials on today. There is no cyanosis, mottling or edema appreciated. Neurologic: She is awake, alert and oriented times three, cooperative and interactive, speaking in full sentences. No focal deficits appreciated. Psychiatric: She is improved in her spirits today, she is very proud that her granddaughter was given high awards at a recent graduation ceremony. PROBLEMS: 1. End stage renal disease on peritoneal dialysis. There will be no changes made to her PDD prescription. She continues on five exchanges daily with 1.5% Dianeal with a volume of 1 liter. Gentle prescription in light of her current Clostridium difficile colitis. Her oral intake seems to have improved a little bit this morning, which is fortunate. Her volume status is acceptable, we did supplement her potassium today for a low potassium this morning on her lab work. She is status post IV fluids. She is receiving Aranesp. 2. Diarrhea with Clostridium difficile colitis. Patient reports that she had somewhat formed stool this morning which she was happy about. She does have history of Clostridium difficile in the past with at least two stool transplants. There is talk of having another stool transplant this stay. She has received IV antibiotic in the past for her Clostridium difficile. She now continues on Dificid. She is being seen by infectious disease. 3. Hypokalemia. Potassium was supplemented today. Potassium this morning was noted to be 3.1. Magnesium was noted to be acceptable this morning. 4. Hypertension. Stable. She continues on metoprolol and hydralazine. 5. Anemia. Hemoglobin and hematocrit today are 9 and 26.9, suboptimal. She is getting Aranesp.
[2019-04-08 14:00] VITALS: BP 138/72
--- NOTE | 2019-04-08 14:37 | IPNPDOC ---
Subjective Date Seen The patient was seen on 04/08/19. Subjective Chief Complaint/HPI Patient seen and examined at the bedside. Continues to have loose stools. States that her main complaint today is arthritic pain in her back which is chronic. Denies any other complaints of nausea or vomiting. Does endorse mild abdominal pain. Objective Physical Examination General Exam: Positive: Alert, Cooperative, No Acute Distress ENT Exam: Positive: Atraumatic, Mucous membr. moist/pink Neck Exam: Negative: JVD Chest Exam: Positive: Clear to auscultation, Normal air movement Heart Exam: Positive: Rate Normal, Normal S1, Normal S2 Abdomen Exam: Positive: Soft, Tenderness (mild tenderness to deep palpation in the lower abdominal quadrants. No rebound tenderness, guarding, or rigidity noted. +PD Catheter) Extremity Exam: Negative: Tenderness, Swelling Psych Exam: Positive: Oriented x 3 Assessment /Plan Plan/VTE VTE Prophylaxis Ordered?: Yes Plan Abdominal pain / Diarrhea / C. diff colitis Patient has a history of C. difficile colitis; received stool transplant x 2 in 04/2016 Patient had a recent episode of C. 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 VS, I&O, 24H, Fishbone Vital Signs/I&O Vital Signs Date Time Temp Pulse Resp B/P (MAP) Pulse Ox O2 Delivery O2 Flow Rate FiO2 04/08/19 08:58 137/61 04/08/19 08:57 87 04/08/19 06:00 97.2 15 98 04/04/19 13:57 Room Air I&O- Last 24 Hours up to 6 AM 04/08/19 06:00 Intake Total 7120 ml Output Total 6250 ml Balance 870 ml Laboratory Data 24H LABS Laboratory Tests 2 04/08/19 05:50: Immature Granulocyte % (Auto) 0.8, White Blood Count 12.5H, Red Blood Count 2.55L, Hemoglobin 9.0L, Hematocrit 26.9L, Mean Corpuscular Volume 105.5H, Mean Corpuscular Hemoglobin 35.3H, Mean Corpuscular Hemoglobin Concent 33.5, Red Cell Distribution Width 16.1H, Platelet Count 146L, Neutrophils (%) (Auto) 76.9H, Lymphocytes (%) (Auto) 14.6L, Monocytes (%) (Auto) 7.3H, Eosinophils (%) (Auto) 0.2, Basophils (%) (Auto) 0.2, Neutrophils # (Auto) 9.6H, Lymphocytes # (Auto) 1.8, Monocytes # (Auto) 0.9H, Eosinophils # (Auto) 0.0, Basophils # (Auto) 0.0, Nucleated Red Blood Cells % (auto) 0.0, Anion Gap 8, Glomerular Filtration Rate 6.4L, Blood Urea Nitrogen 38H, Creatinine 6.81H, Sodium Level 143, Potassium Level 3.1L, Chloride Level 108H, Carbon Dioxide Level 27, Calcium Level 7.3L, Magnesium Level 1.8 CBC/BMP Laboratory Tests 04/08/19 05:50 Red Blood Count 2.55 L, Mean Corpuscular Volume 105.5 H, Mean Corpuscular Hemoglobin 35.3 H, Mean Corpuscular Hemoglobin Concent 33.5, Red Cell Distribut ion Width 16.1 H, Neutrophils (%) (Auto) 76.9 H, Lymphocytes (%) (Auto) 14.6 L, Monocytes (%) (Auto) 7.3 H, Eosinophils (%) (Auto) 0.2, Basophils (%) (Auto) 0.2, Neutrophils # (Auto) 9.6 H, Lymphocytes # (Auto) 1.8, Monocytes # (Auto) 0.9 H, Eosinophils # (Auto) 0.0, Basophils # (Auto) 0.0, Calcium Level 7.3 L Microbiology Microbiology 04/04/19 Gastrointestinal Tract Panel (PCR) - Final, Complete Clostridium Difficile A/B JOEL TAYLOR MD Apr 08, 2019 14:36
--- NOTE | 2019-04-08 18:02 | IPN ---
DATE: 04/08/2019 Apple continues to have watery diarrhea. Her abdominal cramps somewhat improved. She is scheduled to have a fecal transplantation done through an upper endoscopy by Dr. Overton tomorrow. She has been switched back to clear liquid diet even though she is hungry, which is good news. LABORATORY DATA: White count 12.5, hemoglobin 9, hematocrit 26.9, platelets 146, 77% neutrophils, 15% lymphocytes, 7% monocytes. Sodium 143, potassium 3.1, chloride 108, bicarbonate 27, BUN 38, creatinine 6.81, glucose 90, calcium 7.3, magnesium 1.8. PHYSICAL EXAMINATION: HEART: Normal S1, S2. No murmurs. LUNGS: Clear. No wheezes, rales, or rhonchi. ABDOMEN: Soft, mildly tender diffusely. Peritoneal dialysis (PD) catheter in place. EXTREMITIES: No edema. IMPRESSION: 1. Recurrent Clostridium (C) difficile colitis with minimal improvement after 5 days of fidaxomicin. Has already received intravenous (IV) bezlotoxumab in December 2018. patient is scheduled for fecal transplantation through the upper endoscopy. 2. End-stage renal disease, on peritoneal dialysis with mild hypokalemia. The patient will definitely benefit from potassium replacement.. PLAN: Discontinue the fidaxomicin today. The patient is on the add-on schedule tomorrow for fecal transplantation. MTDD
[2019-04-08 22:00] VITALS: BP 136/70
[2019-04-08] MEDS: SIMVASTATIN 20 MG TAB PO SCH (22:53)
[2019-04-08] MEDS: METOPROLOL SUCC (TopROL XL) 50MG **XL** TAB PO SCH (22:54)
[2019-04-09] MEDS: ACETAMINOPHEN TAB 650MG DOSE (2X325MG) PO PRN ×2 (00:32→23:05)
[2019-04-09 06:00] VITALS: BP 98/48
[2019-04-09] MEDS ORDERED: HEPARIN SOD (PORCINE) 5000 UNITS/ML VIAL PD ONE (06:00)
[2019-04-09 06:30] VITALS: BP 105/53
[2019-04-09] MEDS: SLF 3 ML SYR IV SCH ×3 (06:43→21:45)
[2019-04-09 06:50] LABS: BASO % 0.2 % (0.0-1.0); EOS % 0.1 % (0.0-3.0); HEMATOCRIT 27.9 % (36.0-47.0); HEMOGLOBIN 9.1 g/dl (12.0-15.5); LYMPH # 1.3 10^3/uL (1.5-4.5); LYMPH % 5.6 % (24.0-44.0); MEAN CORPUSCULAR HEMOGLOBIN 34.6 pg (27.0-33.0); MEAN CORPUSCULAR HGB CONC 32.6 g/dl (32.0-36.5); MEAN CORPUSCULAR VOLUME 106.1 fl (80.0-96.0); MONO # 1.7 10^3/uL (0.0-0.8); MONO % 7.1 % (0.0-5.0); NEUTROPHILS # 20.2 10^3/uL (1.8-7.7); NEUTROPHILS % 85.9 % (36.0-66.0); PLATELET COUNT, AUTOMATED 173 10^3/uL (150-450); RED BLOOD COUNT 2.63 10^6/uL (4.00-5.40); WHITE BLOOD COUNT 23.5 10^3/uL (4.0-10.0)
[2019-04-09 07:17] LABS: CALCIUM LEVEL 7.1 MG/DL (8.8-10.2); CREATININE FOR GFR 6.8 MG/DL (0.55-1.30); GLOMERULAR FILTRATION RATE 6.4 (>39); MAGNESIUM LEVEL 1.6 MG/DL (1.8-2.4); POTASSIUM SERUM 3.5 MEQ/L (3.5-5.1)
[2019-04-09] MEDS ORDERED: MAGNESIUM OXIDE 400 MG TAB (MAG-OX) PO ONE (08:15)
[2019-04-09] MEDS: **hydrALAZINE HCL** 25 MG TAB PO SCH ×3 (09:00→21:44)
[2019-04-09] MEDS: CINACALCET 30 MG TAB (SENSIPAR) PO SCH (09:18)
[2019-04-09] MEDS: predniSONE 1 MG TAB PO SCH (09:18)
[2019-04-09] MEDS: FOLIC ACID 1 MG TAB PO SCH (09:19)
[2019-04-09] MEDS: BRIMONIDINE 0.1% OPHTH SOLN 5 ML OS SCH ×2 (09:25→21:45)
[2019-04-09] MEDS: METOPROLOL SUCC *XL* 25MG TAB (TopROL *XL*) PO SCH (09:25)
[2019-04-09] MEDS: KCL 20MEQ IN D5W 1000ML 1,000 ML IV SCH (12:00)
--- NOTE | 2019-04-09 13:34 | IPN ---
DATE: 04/09/2019 SUBJECTIVE: Ms. Thornton is seen and examined with bedside rounds this morning. She is laying in bed and appears comfortable. Fortunately, her symptoms are much improved today, she began talking of how proud she is of her granddaughter for winning a scholarship award at her high school. Unfortunately, though she thinks that her diarrhea has not improved at all, she admits to at least nine loose watery bowel movements yesterday. She has been nothing by mouth in anticipation of stool transplant later today, however, this does not look like it will happen as there have been difficulties in obtaining a stool specimen. This news was relayed to us via nursing staff. PHYSICAL EXAMINATION: VITAL SIGNS: Temperature 97.4, pulse 87, respiratory rate 17, blood pressure 98/48, pulse ox is 99 on room air. GENERAL: This is an elderly 68-year-old female who is laying in bed and appears comfortable, she is speaking in full sentences. She is smiling today on physical examination as she thinks about how proud she is of her granddaughter. No acute distress. HEENT: Continue dressing on the right side of her forehead secondary to resection for skin cancer. Moist mucous membranes. Extraocular muscles intact. NECK: No jugular venous distention (JVD) appreciated. CARDIAC: There is normal S1, and S2. No murmur, rubs or gallops appreciated. LUNGS: Clear to auscultation bilaterally. No crackles, rales or rhonchi appreciated. ABDOMEN: No tenderness to palpation. There is no rebound, rigidity or guarding and non hepatosplenomegaly or masses. She has a peritoneal dialysis (PD) catheter exit site that was not examined today. Peritoneal fluid is present. Normoactive bowel sounds times four. EXTREMITIES: Lower extremities actually have no cyanosis mottling or edema appreciated. NEUROLOGIC: She is awake, alert, oriented times three, cooperative and interactive. She is speaking in full sentences. Cannot appreciate any focal deficits. PSYCHIATRIC: She is much improved in her emotional state today. She has a normal affect. PROBLEMS: 1. End-stage renal disease on peritoneal dialysis: There are no changes made to her PD prescription. She does continue on five exchanges daily of 1.5% Dianeal with a volume of 1 liter. Nursing staff did alert us that as they were instilling 1000 mL, that they only received back 100, we are aware of this, likely secondary to patient's dehydration. Her sodium did elevate a little bit today on laboratory work. As such, we are going to give her a little bit of fluid today and see how she does with this. This has been ordered. She does have a general prescription for her PDD prescriptions in light of current c difficile colitis. Oral intake is hard to ascertain today as she has been nothing by mouth. Volume status today, she does appear a little bit dry. As discussed above, we are beginning some IV fluids, she does have free water deficit and hypernatremia. This is why we are beginning hypotonic fluids today. 2. Diarrhea with C difficile colitis: Patient has reported that she had at least nine watery bowel movements overnight. This also was documented. She has a history of C difficile colitis in the past with at least two stool plants. The plan was for her to get a stool transplant today, her nursing staff has told us that this may not happen until mid next week as stool specimen was unable to be obtained. She has received IV antibiotics in the past for C difficile. She continues on Dificid. She is being seen and treated by infectious disease. 3. Hypokalemia, status post supplementation: Her potassium this morning is was noted to be 3.5, as mentioned above, we are beginning fluids, KCL 20 mEq and D5W. 4. Hypertension: This is stable. She continues on metoprolol and hydralazine which she did not receive today due to parameters. 5. Anemia: Hemoglobin and hematocrit stable today 9.1 and 27.9. She is getting Aranesp.
[2019-04-09 14:00] VITALS: BP 138/61
[2019-04-09] MEDS: ONDANSETRON 4MG/2ML VIAL (J2405) IV PRN (14:24)
--- NOTE | 2019-04-09 15:00 | IPNPDOC ---
Subjective Date Seen The patient was seen on 04/09/19. Subjective Chief Complaint/HPI Patient seen and examined at the bedside. Reports that she continues to have watery bowel movements and abdominal cramping. Denies any nausea or vomiting. She is tentatively scheduled for a stool transplant today with GI. Objective Physical Examination General Exam: Positive: Alert, Cooperative, No Acute Distress ENT Exam: Positive: Atraumatic, Mucous membr. moist/pink Neck Exam: Negative: JVD Chest Exam: Positive: Clear to auscultation, Normal air movement Heart Exam: Positive: Rate Normal, Normal S1, Normal S2 Abdomen Exam: Positive: Soft, Tenderness (mild tenderness to deep palpation in the lower abdominal quadrants. No rebound tenderness, guarding, or rigidity noted. +PD Catheter) Extremity Exam: Negative: Tenderness, Swelling Psych Exam: Positive: Oriented x 3 Assessment /Plan Plan/VTE VTE Prophylaxis Ordered?: Yes Plan Abdominal pain / Diarrhea 2/2 C. diff colitis Patient has a history of C. difficile colitis; received stool transplant x 2 in 04/2016 Patient had a recent episode of C. 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 VS, I&O, 24H, Fishbone Vital Signs/I&O Vital Signs Date Time Temp Pulse Resp B/P (MAP) Pulse Ox O2 Delivery O2 Flow Rate FiO2 04/09/19 09:25 86 139/59 04/09/19 06:00 97.4 17 99 04/04/19 13:57 Room Air I&O- Last 24 Hours up to 6 AM 04/09/19 06:00 Intake Total 6420 ml Output Total 25262 ml Balance -5580 ml Laboratory Data 24H LABS Laboratory Tests 2 04/09/19 06:02: Immature Granulocyte % (Auto) 1.1, White Blood Count 23.5H, Red Blood Count 2.63L, Hemoglobin 9.1L, Hematocrit 27.9L, Mean Corpuscular Volume 106.1H, Mean Corpuscular Hemoglobin 34.6H, Mean Corpuscular Hemoglobin Concent 32.6, Red Cell Distribution Width 16.5H, Platelet Count 173, Neutrophils (%) (Auto) 85.9H, Lymphocytes (%) (Auto) 5.6L, Monocytes (%) (Auto) 7.1H, Eosinophils (%) (Auto) 0.1, Basophils (%) (Auto) 0.2, Neutrophils # (Auto) 20.2H, Lymphocytes # (Auto) 1.3L, Monocytes # (Auto) 1.7H, Eosinophils # (Auto) 0.0, Basophils # (Auto) 0.0, Nucleated Red Blood Cells % (auto) 0.0, Anion Gap 12, Glomerular Filtration Rate 6.4L, Blood Urea Nitrogen 39H, Creatinine 6.80H, Sodium Level 149H, Potassium Level 3.5, Chloride Level 112H, Carbon Dioxide Level 25, Calcium Level 7.1L, Magnesium Level 1.6L CBC/BMP Laboratory Tests 04/09/19 06:02 Red Blood Count 2.63 L, Mean Corpuscular Volume 106.1 H, Mean Corpuscular Hemoglobin 34.6 H, Mean Corpuscular Hemoglobin Concent 32.6, Red Cell Distribution Width 16.5 H, Neutrophils (%) (Auto) 85.9 H, Lymphocytes (%) (Auto) 5.6 L, Monocytes (%) (Auto) 7.1 H, Eosinophils (%) (Auto) 0.1, Basophils (%) (Auto) 0.2, Neutrophils # (Auto) 20.2 H, Lymphocytes # (Auto) 1.3 L, Monocytes # (Auto) 1.7 H, Eosinophils # (Auto) 0.0, Basophils # (Auto) 0.0, Calcium Level 7.1 L Microbiology Microbiology 04/04/19 Gastrointestinal Tract Panel (PCR) - Final, Complete Clostridium Difficile A/B JOEL TAYLOR MD Apr 09, 2019 15:00
[2019-04-09] MEDS: SIMVASTATIN 20 MG TAB PO SCH (21:43)
[2019-04-09] MEDS: FIDAXOMICIN 200 MG TAB (DIFICID) PO SCH (21:43)
[2019-04-09] MEDS: METOPROLOL SUCC (TopROL XL) 50MG **XL** TAB PO SCH (21:44)
[2019-04-09 22:00] VITALS: BP 144/63
[2019-04-10] MEDS: SLF 3 ML SYR IV SCH ×3 (05:34→21:29)
[2019-04-10] MEDS: KCL 20MEQ IN D5W 1000ML 1,000 ML IV SCH (05:54)
[2019-04-10 06:00] VITALS: BP 142/63
[2019-04-10 06:57] LABS: BASO % 0.1 % (0.0-1.0); EOS # 0.1 10^3/uL (0.0-0.50); EOS % 0.4 % (0.0-3.0); HEMATOCRIT 24.9 % (36.0-47.0); HEMOGLOBIN 7.9 g/dl (12.0-15.5); LYMPH # 2.2 10^3/uL (1.5-4.5); LYMPH % 12.7 % (24.0-44.0); MEAN CORPUSCULAR HEMOGLOBIN 33.2 pg (27.0-33.0); MEAN CORPUSCULAR HGB CONC 31.7 g/dl (32.0-36.5); MEAN CORPUSCULAR VOLUME 104.6 fl (80.0-96.0); MONO # 1.3 10^3/uL (0.0-0.8); MONO % 7.5 % (0.0-5.0); NEUTROPHILS # 13.3 10^3/uL (1.8-7.7); NEUTROPHILS % 78.2 % (36.0-66.0); PLATELET COUNT, AUTOMATED 166 10^3/uL (150-450); RED BLOOD COUNT 2.38 10^6/uL (4.00-5.40)
[2019-04-10] MEDS ORDERED: HEPARIN SOD (PORCINE) 5000 UNITS/ML VIAL IP ONE (07:00)
[2019-04-10 07:12] LABS: CALCIUM LEVEL 7.1 MG/DL (8.8-10.2); CREATININE FOR GFR 6.66 MG/DL (0.55-1.30); GLOMERULAR FILTRATION RATE 6.5 (>39); MAGNESIUM LEVEL 1.4 MG/DL (1.8-2.4); POTASSIUM SERUM 3.6 MEQ/L (3.5-5.1)
[2019-04-10] MEDS ORDERED: MAG SULF 1GM/100ML (MAG RUN) 1 GM in APPROPRIATE DILUENT 1 EA IV ONE (08:45)
[2019-04-10 09:03] LABS: PERCENT SATURATION 55.8 % (13.2-45.0)
[2019-04-10] MEDS: FIDAXOMICIN 200 MG TAB (DIFICID) PO SCH ×2 (10:06→21:28)
[2019-04-10] MEDS: METOPROLOL SUCC *XL* 25MG TAB (TopROL *XL*) PO SCH (10:07)
[2019-04-10] MEDS: predniSONE 1 MG TAB PO SCH (10:07)
[2019-04-10] MEDS: **hydrALAZINE HCL** 25 MG TAB PO SCH ×2 (10:08→21:28)
[2019-04-10] MEDS: BRIMONIDINE 0.1% OPHTH SOLN 5 ML OS SCH ×2 (10:08→21:28)
[2019-04-10] MEDS: FOLIC ACID 1 MG TAB PO SCH (10:09)
[2019-04-10] MEDS: ACETAMINOPHEN TAB 650MG DOSE (2X325MG) PO PRN ×3 (10:12→21:55)
[2019-04-10 14:00] VITALS: BP 138/58
--- NOTE | 2019-04-10 14:31 | IPNPDOC ---
Subjective Date Seen The patient was seen on 04/10/19. Subjective Chief Complaint/HPI Patient seen and examined at the bedside. She is noted to be tearful this morning, as she continues to have loose bowel movements and abdominal cramping. Denies any nausea or vomiting. She tells me that she does not want to consider a colonoscopy based stool transplant. Objective Physical Examination General Exam: Positive: Alert, Cooperative, Mild Distress (tearful) ENT Exam: Positive: Atraumatic, Mucous membr. moist/pink Neck Exam: Negative: JVD Chest Exam: Positive: Clear to auscultation, Normal air movement Heart Exam: Positive: Rate Normal, Normal S1, Normal S2 Abdomen Exam: Positive: Soft, Tenderness (mild tenderness to deep palpation in the lower abdominal quadrants. No rebound tenderness, guarding, or rigidity noted. +PD Catheter) Extremity Exam: Negative: Tenderness, Swelling Psych Exam: Positive: Oriented x 3 Assessment /Plan Plan/VTE VTE Prophylaxis Ordered?: Yes Plan Abdominal pain / Diarrhea 2/2 C. diff colitis Patient has a history of C. difficile colitis; received stool transplant x 2 in 04/2016 Patient had a recent episode of C. difficile colitis on 01/08 and was discharged with Fidaxomicin However continues to have persistent watery diarrhea, abdominal discomfort Continues to have leukocytosis, however WBC is improved this AM Infectious diseases input appreciated GI consulted for stool transplant---Unfortunately the patient could not get a stool transplant yesterday as the sample was not available. Apparently the stool sample for EGD based stool transplantation will not be available until Friday04/14/19. I discussed the option of having a Colonoscopy based stool transplantation with the patient (Dr. Overton has said that this can be done on Thursday 04/12). She has adamantly declined this option as she states that she cannot tolerate the bowel prep. I discussed the risks, benefits, and alternative options in depth with the patient. She has verbalized understanding of the same, and she notes that she will only consider EGD based stool transplantation. In the meantime, we will continue to try to optimize the patient and see whether the patient can be discharged home and follow-up as an outpatient or whether she will have to stay here until this transplant can be done. We will continue Dificid in the mean time. 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 VS, I&O, 24H, Fishbone Vital Signs/I&O Vital Signs Date Time Temp Pulse Resp B/P (MAP) Pulse Ox O2 Delivery O2 Flow Rate FiO2 04/10/19 10:07 72 140/78 04/10/19 06:00 98.0 17 98 04/04/19 13:57 Room Air I&O- Last 24 Hours up to 6 AM 04/10/19 06:00 Intake Total 4940 ml Output Total 3000 ml Balance 1940 ml Laboratory Data 24H LABS Laboratory Tests 2 04/10/19 06:25: Immature Granulocyte % (Auto) 1.1, White Blood Count 17.0H, Red Blood Count 2.38L, Hemoglobin 7.9L, Hematocrit 24.9L, Mean Corpuscular Volume 104.6H, Mean Corpuscular Hemoglobin 33.2H, Mean Corpuscular Hemoglobin Concent 31.7L, Red Cell Distribution Width 16.1H, Platelet Count 166, Neutrophils (%) (Auto) 78.2H, Lymphocytes (%) (Auto) 12.7L, Monocytes (%) (Auto) 7.5H, Eosinophils (%) (Auto) 0.4, Basophils (%) (Auto) 0.1, Neutrophils # (Auto) 13.3H, Lymphocytes # (Auto) 2.2, Monocytes # (Auto) 1.3H, Eosinophils # (Auto) 0.1, Basophils # (Auto) 0.0, Nucleated Red Blood Cells % (auto) 0.1H, Anion Gap 10, Glomerular Filtration Rate 6.5L, Blood Urea Nitrogen 39H, Creatinine 6.66H, Sodium Level 140#, Potassium Level 3.6, Chloride Level 106, Carbon Dioxide Level 24, Calcium Level 7.1L, Magnesium Level 1.4L, Iron Level 116, Total Iron Binding Capacity 208L, Transferrin % Saturation 55.8H, Ferritin 3754H CBC/BMP Laboratory Tests 04/10/19 06:25 Red Blood Count 2.38 L, Mean Corpuscular Volume 104.6 H, Mean Corpuscular Hemoglobin 33.2 H, Mean Corpuscular Hemoglobin Concent 31.7 L, Red Cell Distribution Width 16.1 H, Neutrophils (%) (Auto) 78.2 H, Lymphocytes (%) (Auto) 12.7 L, Monocytes (%) (Auto) 7.5 H, Eosinophils (%) (Auto) 0.4, Basophils (%) (Auto) 0.1, Neutrophils # (Auto) 13.3 H, Lymphocytes # (Auto) 2.2, Monocytes # (Auto) 1.3 H, Eosinophils # (Auto) 0.1, Basophils # (Auto) 0.0, Calcium Level 7.1 L Microbiology Microbiology 04/04/19 Gastrointestinal Tract Panel (PCR) - Final, Complete Clostridium Difficile A/B JOEL TAYLOR MD Apr 10, 2019 14:31
--- NOTE | 2019-04-10 15:01 | IPN ---
DATE OF SERVICE: 04/10/2019 SUBJECTIVE: Patient was seen and examined at the bedside today morning. Patient reports that she is still having loose bowel movements. She denies any problems with the peritoneal dialysis. Peritoneal fluid was reported to be cloudy by the nurse and today heparin intraperitoneal has been ordered. She is otherwise hemodynamically stable. She was started on IV fluid hydration yesterday because of dehydration secondary to diarrhea. She is feeling better. OBJECTIVE: Vital signs: Temperature is 98.0 degrees Fahrenheit, blood pressure 142/63, pulse is 81, respiratory of 17, saturating 98% on room air. Intake and output with peritoneal dialysate so far since overnight is 1100 mL. Weight in the bed scale is of 44 kg. PHYSICAL EXAMINATION: General: Patient is awake, alert, oriented times three, laying in bed. She has facial puffiness. Mucous membranes are moist. Neck is supple. There is no jugular venous distention (JVD). Cardiovascular: S1, S2, regular rate, 1+ edema of the bilateral lower extremities. Respiratory: Chest is clear to auscultation bilaterally. Bilateral equal air entry. No rales or rhonchi. Abdomen: Soft, mildly tender. Positive bowel sounds. Peritoneal dialysis catheter exit site is clean. Musculoskeletal: No clubbing or cyanosis. 1+ edema of the bilateral lower extremities. Skin: Patient has multiple precancerous and cancerous lesions on the skin all over. 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 Power is 5/5 in bilateral upper extremities. LAB REVIEW: CBC showed WBC of 17, hemoglobin 7.9, platelets are 166. BMP showed sodium 140, potassium 3.6, chloride 106, bicarbonate 24, BUN 39, creatinine is 6.6, calcium 7.1, magnesium is 1.4. CURRENT INPATIENT MEDICATIONS: Patient's medications were all reviewed by me. She continues to be on KCl 20 mEq in D5W at 60 mL/h. I have changed it to 40 mL/h now. I have also ordered magnesium sulfate 1 gram IV times one dose. ASSESSMENT/PLAN: 1. End-stage renal disease on peritoneal dialysis. Patient is getting very gentle peritoneal dialysis because of ongoing diarrhea. She is getting five exchanges of 1 liter each all 1.5%. Continue the current regimen. Patient does not want to increase the volume of the peritoneal dialysate because she has difficulty walking with higher volume 2. Clostridium (C) difficile associated diarrhea. Patient continues to have diarrhea. She is pending a fecal transplant next week. Because of the diarrhea, she is getting gentle IV fluid hydration. She will get a total of 1.5 liters of fluid. 3. Hypomagnesemia. Patient will be given 1 gram of magnesium sulfate IV today morning. 4. Anemia in end-stage renal disease. Hemoglobin has dropped to 7.9. I am going to check the iron levels. She was already given a dose of Aranesp before the weekend. If hemoglobin drops further, I will give her a unit of her packed red blood cells (PRBC) transfusion tomorrow. 5. Hypertension. Patient is receiving hydralazine and metoprolol with holding parameters. 6. Fibrin in the peritoneal dialysate. Patient will get a dose of heparin 1000 units intraperitoneally with peritoneal exchange.
--- NOTE | 2019-04-10 15:03 | CR ---
DATE OF CONSULTATION: 04/08/2019 68-year white female apparently known to me from 3-4 years ago where the patient had refractory Clostridium (C) difficile and had received to two stool transplants which apparently resolved her symptoms. The patient is now admitted with current medical problems including end-stage renal disease on peritoneal dialysis, hypertension, anemia of chronic disease, history of uterine cancer, history of leukemia, depression, and a history again of recurrent C diff. The patient is having complaints of abdominal pain and frequent bowel movements up to 7-10 times a day. No apparent melena, hematochezia, or bright blood per rectum. The patient has no complains of chest pain, shortness of breath, or fevers. The patient is being seen by GI again for stool transplant because the patient is on standard treatments including Dificid and she is not having good resolution of her diarrhea. The patient's medications is as in the patient's admission note. ALLERGIES to SULFA, MORPHINE, BACTRIM, and LACTOSE. PAST MEDICAL HISTORY: As above. SURGICAL HISTORY: 1. 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 2. Hysterectomy. 3. Total hysterectomy for uterine cancer. 4. 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 5. Bilateral pin placement for hip fracture prophylaxis. FAMILY HISTORY: Mother had a history of renal cancer. SOCIAL HISTORY: Cigarettes, alcohol, drugs negative. 10 point review of systems noncontributory to the above problem. PHYSICAL EXAMINATION: Well-developed, thin white female, in no acute distress. Lungs clear to auscultation. Cardiovascular exam showed a regular rhythm with a 1/6 systolic ejection murmur left lower sternal border. Abdomen was soft, nontender. No masses, guarding, rebound, hepatosplenomegaly. Bowel sounds positive. Laboratory studies on the patient including a CBC from 04/04/2019 showed a white count of 11,000. Hemoglobin and hematocrit was 9.5 and 28.6. MCV was 104. Platelets 462,000. The patient's chemistry was basically normal. The patient has a BUN and creatinine that is elevated due to chronic renal failure. Imaging studies include and abdominal CT, which did not show any colonic inflammation or strictures. Microbiology studies for the patient's stool testing was again positive for C diff. ANALYSIS: Recurrent diarrhea, abdominal pain with positive stool sampling showing C diff again. The patient will be setup for a stool transplant. The patient and I have discussed this. She did not wish to attempt colonoscopy in bowel prep, so we will set the patient up for an upper endoscopy with transfer of stool material within the distal small bowel. [place]
[2019-04-10] MEDS: SIMVASTATIN 20 MG TAB PO SCH (21:28)
[2019-04-10] MEDS: METOPROLOL SUCC (TopROL XL) 50MG **XL** TAB PO SCH (21:29)
[2019-04-10 22:00] VITALS: BP 140/64
[2019-04-11] MEDS: ACETAMINOPHEN TAB 650MG DOSE (2X325MG) PO PRN ×3 (05:40→14:10)
[2019-04-11] MEDS: SLF 3 ML SYR IV SCH ×3 (05:41→20:56)
[2019-04-11 06:00] VITALS: BP 132/63
[2019-04-11 06:10] LABS: BASO % 0.1 % (0.0-1.0); EOS % 0.3 % (0.0-3.0); HEMATOCRIT 28.1 % (36.0-47.0); LYMPH # 2.3 10^3/uL (1.5-4.5); LYMPH % 14.8 % (24.0-44.0); MEAN CORPUSCULAR HEMOGLOBIN 33.1 pg (27.0-33.0); MEAN CORPUSCULAR VOLUME 103.3 fl (80.0-96.0); MONO # 1.2 10^3/uL (0.0-0.8); MONO % 7.9 % (0.0-5.0); NEUTROPHILS # 11.5 10^3/uL (1.8-7.7); NEUTROPHILS % 75.3 % (36.0-66.0); PLATELET COUNT, AUTOMATED 196 10^3/uL (150-450); RED BLOOD COUNT 2.72 10^6/uL (4.00-5.40); WHITE BLOOD COUNT 15.3 10^3/uL (4.0-10.0)
[2019-04-11 06:30] LABS: CALCIUM LEVEL 7.2 MG/DL (8.8-10.2); CREATININE FOR GFR 6.3 MG/DL (0.55-1.30); MAGNESIUM LEVEL 1.8 MG/DL (1.8-2.4); POTASSIUM SERUM 3.8 MEQ/L (3.5-5.1)
[2019-04-11] MEDS: CINACALCET 30 MG TAB (SENSIPAR) PO SCH (10:06)
[2019-04-11] MEDS: **hydrALAZINE HCL** 25 MG TAB PO SCH ×2 (10:06→20:56)
[2019-04-11] MEDS: FOLIC ACID 1 MG TAB PO SCH (10:06)
[2019-04-11] MEDS: predniSONE 1 MG TAB PO SCH (10:07)
[2019-04-11] MEDS: METOPROLOL SUCC *XL* 25MG TAB (TopROL *XL*) PO SCH (10:07)
[2019-04-11] MEDS: FIDAXOMICIN 200 MG TAB (DIFICID) PO SCH ×2 (10:07→20:55)
--- NOTE | 2019-04-11 11:31 | IPNPDOC ---
Subjective Date Seen The patient was seen on 04/11/19. Subjective Chief Complaint/HPI Patient seen and examined at bedside. Reports that her stool is becoming a bit more formed. However, continues to have increased frequency. Objective Physical Examination General Exam: Positive: Alert, Cooperative, No Acute Distress ENT Exam: Positive: Atraumatic, Mucous membr. moist/pink Neck Exam: Negative: JVD Chest Exam: Positive: Clear to auscultation, Normal air movement Heart Exam: Positive: Rate Normal, Normal S1, Normal S2 Abdomen Exam: Positive: Soft, Tenderness (mild tenderness to deep palpation in the lower abdominal quadrants. No rebound tenderness, guarding, or rigidity noted. +PD Catheter) Extremity Exam: Negative: Tenderness, Swelling Psych Exam: Positive: Oriented x 3 Assessment /Plan Plan/VTE VTE Prophylaxis Ordered?: Yes Plan Abdominal pain / Diarrhea 2/2 C. diff colitis Patient has a history of C. difficile colitis; received stool transplant x 2 in 04/2016 Patient had a recent episode of C. difficile colitis on 01/08 and was discharged with Fidaxomicin However continues to have persistent watery diarrhea, abdominal discomfort Continues to have leukocytosis, however WBC is improved this AM Infectious diseases input appreciated GI consulted for stool transplant---Unfortunately the patient could not get a stool transplant on 04/09 as the sample was not available. Apparently the stool sample for EGD based stool transplantation will not be available until Friday04/14/19. I discussed the option of having a Colonoscopy based stool transplantati on with the patient (Dr. Overton has said that this can be done on Thursday 04/12). She has adamantly declined this option as she states that she cannot tolerate the bowel prep. I discussed the risks, benefits, and alternative options in depth with the patient. She has verbalized understanding of the same, and she notes that she will only consider EGD based stool transplantation. In the meantime, we will continue to try to optimize the patient and see whether the patient can be discharged home and follow-up as an outpatient or whether she will have to stay here until this transplant can be done. We will continue Dificid in the mean time. 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 VS, I&O, 24H, Fishbone Vital Signs/I&O Vital Signs Date Time Temp Pulse Resp B/P (MAP) Pulse Ox O2 Delivery O2 Flow Rate FiO2 04/11/19 10:07 74 131/64 04/11/19 06:00 97.5 18 98 I&O- Last 24 Hours up to 6 AM 04/11/19 06:00 Intake Total 5730 ml Output Total 5100 ml Balance 630 ml Laboratory Data 24H LABS Laboratory Tests 2 04/11/19 05:25: Immature Granulocyte % (Auto) 1.6, White Blood Count 15.3H, Red Blood Count 2.72L, Hemoglobin 9.0L, Hematocrit 28.1L, Mean Corpuscular Volume 103.3H, Mean Corpuscular Hemoglobin 33.1H, Mean Corpuscular Hemoglobin Concent 32.0, Red Cell Distribution Width 15.8H, Platelet Count 196, Neutrophils (%) (Auto) 75.3H, Lymphocytes (%) (Auto) 14.8L, Monocytes (%) (Auto) 7.9H, Eosinophils (%) (Auto) 0.3, Basophils (%) (Auto) 0.1, Neutrophils # (Auto) 11.5H, Lymphocytes # (Auto) 2.3, Monocytes # (Auto) 1.2H, Eosinophils # (Auto) 0.0, Basophils # (Auto) 0.0, Nucleated Red Blood Cells % (auto) 0.3H, Anion Gap 12, Glomerular Filtration Rate 7.0L, Blood Urea Nitrogen 40H, Creatinine 6.30H, Sodium Level 136, Potassium Level 3.8, Chloride Level 101, Carbon Dioxide Level 23, Calcium Level 7.2L, Magnesium Level 1.8 CBC/BMP Laboratory Tests 04/11/19 05:25 Red Blood Count 2.72 L, Mean Corpuscular Volume 103.3 H, Mean Corpuscular Hemoglobin 33.1 H, Mean Corpuscular Hemoglobin Concent 32.0, Red Cell Distribution Width 15.8 H, Neutrophils (%) (Auto) 75.3 H, Lymphocytes (%) (Auto) 14.8 L, Monocytes (%) (Auto) 7.9 H, Eosinophils (%) (Auto) 0.3, Basophils (%) (Auto) 0.1, Neutrophils # (Auto) 11.5 H, Lymphocytes # (Auto) 2.3, Monocytes # (Auto) 1.2 H, Eosinophils # (Auto) 0.0, Basophils # (Auto) 0.0, Calcium Level 7.2 L Microbiology Microbiology 04/04/19 Gastrointestinal Tract Panel (PCR) - Final, Complete Clostridium Difficile A/B JOEL TAYLOR MD Apr 11, 2019 11:31
[2019-04-11] MEDS: BRIMONIDINE 0.1% OPHTH SOLN 5 ML OS SCH ×2 (12:33→20:55)
[2019-04-11] MEDS: DIAPER RELIEF PASTE (DESITIN) 60GM TOP SCH ×2 (12:34→17:17)
[2019-04-11 14:00] VITALS: BP 125/61
--- NOTE | 2019-04-11 16:21 | IPN ---
DATE: 04/11/2019 SUBJECTIVE: Patient was seen and examined at the bedside today morning. She denies any complaints with the peritoneal dialysis. The fibrin in the peritoneal dialysis is clearing. She was given a dose of heparin yesterday; however, she does report persistent diarrhea and she reports rash in the gluteal region because of persistent diarrhea and she has pain in the rash area. She otherwise is afebrile and hemodynamically stable. OBJECTIVE: VITAL SIGNS: Temperature is 97.5 degrees Fahrenheit, blood pressure 132/63, pulse is 79, respiratory rate of 18, saturating 98% on room air. INTAKE AND OUTPUT: There is no urine output recorded. Output with the peritoneal dialysate exchange overnight is 1 liter. Weight in the bed scale is not available. She has had three bowel movements so far since overnight. PHYSICAL EXAMINATION: GENERAL: Patient is awake, alert, oriented times three, laying in bed in no apparent distress. HEAD AND NECK EXAM: Extraocular muscles intact. Pupils equally round and reactive to light. Mucous membranes are moist. She has a mild facial puffiness. Neck is supple. There is no jugular venous distention (JVD). CARDIOVASCULAR: S1, S2. Regular rate. Trace edema of the bilateral lower extremities. RESPIRATORY: Chest is clear to auscultation bilaterally. Bilateral equal air entry. No rales or rhonchi. ABDOMEN: Soft. Positive bowel sounds. Mildly tender to deep palpation. Catheter exit site is clean. MUSCULOSKELETAL: No clubbing or cyanosis. Pulses are 2+. 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 Power is 5/5 in all extremities. SKIN: Patient has multiple precancerous lesions on the skin. LABORATORY REVIEW: Complete blood count (CBC) showed a WBC of 15.3, hemoglobin is 9, platelets are 196. Basic metabolic panel (BMP) showed sodium 136, potassium 3.8, chloride 101, bicarbonate 23, BUN 40, creatinine 6.3. CURRENT INPATIENT MEDICATIONS: Patient's medications were all reviewed by me. Intravenous (IV) fluids have been stopped now. Patient continues to be on Dificid for Clostridium (C) difficile. ASSESSMENT/PLAN 1. End-stage renal disease on peritoneal dialysis. Continue current gentle peritoneal dialysis regimen of five exchanges, all 1 liter, all 1.5%. 2. Clostridium (C) difficile-associated diarrhea. Continue Dificid. Patient is going to have an esophagogastroduodenoscopy (EGD) based fecal transplant which will be done on coming Friday. She is refusing to have colonoscopy-based fecal transplant. 3. Anemia in end-stage renal disease. Patient's iron levels are adequate. She was given a dose of Aranesp. Hemoglobin level is improving. No need of blood transfusion. 4. Hypertension. Blood pressure is optimal. Continue current dose of metoprolol and hydralazine with holding parameters. 5. Rash in the gluteal area secondary to diarrhea. I have prescribed Desitin for the rash.
[2019-04-11] MEDS: ONDANSETRON 4MG/2ML VIAL (J2405) IV PRN (17:16)
[2019-04-11] MEDS: SIMVASTATIN 20 MG TAB PO SCH (20:55)
[2019-04-11] MEDS: METOPROLOL SUCC (TopROL XL) 50MG **XL** TAB PO SCH (20:55)
[2019-04-11 22:00] VITALS: BP 142/69
[2019-04-12] MEDS: DIAPER RELIEF PASTE (DESITIN) 60GM TOP SCH ×5 (00:19→23:27)
[2019-04-12] MEDS: SLF 3 ML SYR IV SCH ×3 (05:59→21:56)
[2019-04-12 06:00] VITALS: BP 116/63
[2019-04-12 08:22] LABS: HEMOGLOBIN 9.1 g/dl (12.0-15.5); MEAN CORPUSCULAR HEMOGLOBIN 34.5 pg (27.0-33.0); MEAN CORPUSCULAR HGB CONC 32.5 g/dl (32.0-36.5); MEAN CORPUSCULAR VOLUME 106.1 fl (80.0-96.0); PLATELET COUNT, AUTOMATED 205 10^3/uL (150-450); RED BLOOD COUNT 2.64 10^6/uL (4.00-5.40); WHITE BLOOD COUNT 11.5 10^3/uL (4.0-10.0)
[2019-04-12 08:43] LABS: CALCIUM LEVEL 7.5 MG/DL (8.8-10.2); CREATININE FOR GFR 6.38 MG/DL (0.55-1.30); GLOMERULAR FILTRATION RATE 6.9 (>39); POTASSIUM SERUM 3.5 MEQ/L (3.5-5.1)
[2019-04-12] MEDS: METOPROLOL SUCC *XL* 25MG TAB (TopROL *XL*) PO SCH (09:00)
[2019-04-12] MEDS: **hydrALAZINE HCL** 25 MG TAB PO SCH ×2 (09:00→21:00)
[2019-04-12] MEDS: predniSONE 1 MG TAB PO SCH (09:48)
[2019-04-12] MEDS: FOLIC ACID 1 MG TAB PO SCH (09:51)
[2019-04-12] MEDS: FIDAXOMICIN 200 MG TAB (DIFICID) PO SCH ×2 (09:51→21:55)
[2019-04-12] MEDS: BRIMONIDINE 0.1% OPHTH SOLN 5 ML OS SCH ×2 (09:52→21:56)
[2019-04-12 14:00] VITALS: BP 98/46
--- NOTE | 2019-04-12 14:13 | IPNPDOC ---
Subjective Date Seen The patient was seen on 04/12/19. Subjective Chief Complaint/HPI Patient seen and examined at bedside. Reports that she had some nausea and vomiting yesterday. However, states that she is feeling much better today. She notes that she was able to eat a bagel and have some juice for breakfast this morning without any acute complaints. Denies any loose bowel movements over the last 12 hours. Reports that her nausea has resolved. Objective Physical Examination General Exam: Positive: Alert, Cooperative, No Acute Distress ENT Exam: Positive: Atraumatic, Mucous membr. moist/pink Neck Exam: Negative: JVD Chest Exam: Positive: Clear to auscultation, Normal air movement Heart Exam: Positive: Rate Normal, Normal S1, Normal S2 Abdomen Exam: Positive: Soft, Tenderness (mild tenderness to deep palpation in the lower abdominal quadrants. No rebound tenderness, guarding, or rigidity noted. +PD Catheter) Extremity Exam: Negative: Tenderness, Swelling Psych Exam: Positive: Oriented x 3 Assessment /Plan Plan/VTE VTE Prophylaxis Ordered?: Yes Plan Abdominal pain / Diarrhea 2/2 C. diff colitis Patient has a history of C. difficile colitis; received stool transplant x 2 in 04/2016 Patient had a recent episode of C. difficile colitis on 01/08 and was discharged with Fidaxomicin However continues to have persistent watery diarrhea, abdominal discomfort Continues to have leukocytosis, however WBC is improved once again this AM Infectious diseases input appreciated GI consulted for stool transplant---Unfortunately the patient could not get a stool transplant on 04/09 as the sample was not available. Apparently the stool sample for EGD based stool transplantation will not be available until Friday04/14/19. I discussed the option of having a Colonoscopy based stool transplantation with the patient (Dr. Overton has said that this can be done on Thursday 04/12). She has adamantly declined this option as she states that she cannot tolerate the bowel prep. I discussed the risks, benefits, and alternative options in depth with the patient. She has verbalized understanding of the same, and she notes that she will only consider EGD based stool transplantation. In the meantime, we will continue to try to optimize the patient and see whether the patient can be discharged home and follow-up as an outpatient or whether she will have to stay here until this transplant can be done. We will continue Dificid in the mean time. 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 VS, I&O, 24H, Fishbone Vital Signs/I&O Vital Signs Date Time Temp Pulse Resp B/P (MAP) Pulse Ox O2 Delivery O2 Flow Rate FiO2 04/12/19 09:00 98/51 04/12/19 06:00 96.8 77 18 98 I&O- Last 24 Hours up to 6 AM 04/12/19 06:00 Intake Total 4700 ml Output Total 4100 ml Balance 600 ml Laboratory Data 24H LABS Laboratory Tests 2 04/12/19 08:06: Nucleated Red Blood Cells % (auto) 0.2H, Anion Gap 10, Glomerular Filtration Rate 6.9L, Blood Urea Nitrogen 40H, Creatinine 6.38H, Sodium Level 135L, Potassium Level 3.5, Chloride Level 100, Carbon Dioxide Level 25, Calcium Level 7.5L CBC/BMP Laboratory Tests 04/12/19 08:06 Red Blood Count 2.64 L, Mean Corpuscular Volume 106.1 H, Mean Corpuscular Hemoglobin 34.5 H, Mean Corpuscular Hemoglobin Concent 32.5, Red Cell Distribution Width 15.9 H, Calcium Level 7.5 L Microbiology Microbiology 04/04/19 Gastrointestinal Tract Panel (PCR) - Final, Complete Clostridium Difficile A/B JOEL TAYLOR MD Apr 12, 2019 14:13
[2019-04-12 14:36] VITALS: BP_SYST 102; BP_SYST 90; BP_DIAS 47; BP_DIAS 48; BP_DIAS 53
[2019-04-12] MEDS: ACETAMINOPHEN TAB 650MG DOSE (2X325MG) PO PRN (18:34)
[2019-04-12] MEDS: METOPROLOL SUCC (TopROL XL) 50MG **XL** TAB PO SCH (21:00)
--- NOTE | 2019-04-12 21:12 | IPN ---
DATE: 04/12/2019 SUBJECTIVE: Patient was seen and examined at the bedside today morning. She is afebrile, hemodynamically stable. She reports that her diarrhea is slightly better today as compared with yesterday. She was given Desitin for the rash in the gluteal region. She reports rash and pain is also better. She denies any complaints with the peritoneal dialysis. Leukocytosis is slightly better today as compared with yesterday. OBJECTIVE VITAL SIGNS: Temperature is 98.2 degrees Fahrenheit, blood pressure 102/53, pulse is 85, respiratory rate of 18, saturating 98% on room air. INTAKE AND OUTPUT: Urine output is not recorded. Peritoneal dialysate output is 4 liters. Weight in the bed scale is not available. She had she has had two bowel movements so far since overnight. PHYSICAL EXAMINATION: GENERAL: Patient is awake, alert, oriented times three, laying in bed in no apparent distress. HEAD AND NECK EXAM: Extraocular muscles intact. Pupils equally round and reactive to light. Mucous membranes are moist. Neck is supple. There is no jugular venous distention (JVD). CARDIOVASCULAR: S1, S2. Regular rate. 1+ edema of the bilateral lower extremities. RESPIRATORY: Chest is clear to auscultation bilaterally. Bilateral equal air entry. No rales or rhonchi. ABDOMEN: Soft. Positive bowel sounds. Nontender. MUSCULOSKELETAL: No clubbing or cyanosis. Pulses are 2+. CENTRAL NERVOUS SYSTEM (CODE INSPECTOR): No focal deficit. Power is 5/5 in all extremities. LABORATORY REVIEW: Complete blood count (CBC) showed a WBC 11.5, hemoglobin is 9.1, platelets of 205. Basic metabolic panel (BMP) showed sodium 135, potassium 3.5, chloride 100, bicarbonate 25, BUN 40, creatinine is 6.3. CURRENT INPATIENT MEDICATIONS: Patient's medications were all reviewed by me. Patient continues to be on Dificid. There is no change in the medications today as compared with yesterday. ASSESSMENT AND PLAN: 1. End-stage renal disease on peritoneal dialysis. Patient's peritoneal dialysis regimen is very gentle. She is getting five manual exchanges of 1.5%, all 1 liter. If patient starts to develop edema, then her regimen will be changed to a mix of 1.5% and 2.5%. Patient refuses to have more than 1 liter of volume in the peritoneal dialysate exchange, because she reports she is unable to walk around with that much fluid in the abdomen. 2. Clostridium (C) difficile colitis diarrhea. The patient's diarrhea symptoms are getting better. She has not had fecal transplant so far. She is refusing the colonoscopy-based prep. She will get the esophagogastroduodenoscopy (EGD)-based prep on coming Friday. 3. Anemia in end-stage renal disease. Patient is currently on Aranesp. Hemoglobin level is improving to 9.1 today. 4. Hypertension. Continue current dose of metoprolol and hydralazine.
[2019-04-12] MEDS: SIMVASTATIN 20 MG TAB PO SCH (21:55)
[2019-04-12 22:00] VITALS: BP 110/64
[2019-04-13] MEDS: ACETAMINOPHEN TAB 650MG DOSE (2X325MG) PO PRN (01:10)
[2019-04-13 06:00] VITALS: BP 114/54
[2019-04-13 06:14] LABS: HEMATOCRIT 28.5 % (36.0-47.0); HEMOGLOBIN 9.1 g/dl (12.0-15.5); MEAN CORPUSCULAR HEMOGLOBIN 34.3 pg (27.0-33.0); MEAN CORPUSCULAR HGB CONC 31.9 g/dl (32.0-36.5); MEAN CORPUSCULAR VOLUME 107.5 fl (80.0-96.0); PLATELET COUNT, AUTOMATED 206 10^3/uL (150-450); RED BLOOD COUNT 2.65 10^6/uL (4.00-5.40); WHITE BLOOD COUNT 10.5 10^3/uL (4.0-10.0)
[2019-04-13] MEDS: SLF 3 ML SYR IV SCH ×3 (06:20→22:39)
[2019-04-13] MEDS: DIAPER RELIEF PASTE (DESITIN) 60GM TOP SCH ×3 (06:21→17:01)
[2019-04-13 07:04] LABS: CALCIUM LEVEL 7.5 MG/DL (8.8-10.2); CREATININE FOR GFR 6.53 MG/DL (0.55-1.30); GLOMERULAR FILTRATION RATE 6.7 (>39); POTASSIUM SERUM 3.3 MEQ/L (3.5-5.1)
[2019-04-13] MEDS: predniSONE 1 MG TAB PO SCH (09:00)
[2019-04-13] MEDS: **hydrALAZINE HCL** 25 MG TAB PO SCH ×2 (09:00→20:17)
[2019-04-13] MEDS ORDERED: POTASSIUM CHLORIDE 10 MEQ SR TABLET PO ONE (10:00)
[2019-04-13] MEDS: FOLIC ACID 1 MG TAB PO SCH (10:27)
[2019-04-13] MEDS: METOPROLOL SUCC *XL* 25MG TAB (TopROL *XL*) PO SCH (10:28)
[2019-04-13] MEDS: CINACALCET 30 MG TAB (SENSIPAR) PO SCH (10:29)
[2019-04-13] MEDS: BRIMONIDINE 0.1% OPHTH SOLN 5 ML OS SCH ×2 (10:29→20:21)
--- NOTE | 2019-04-13 11:43 | IPNPDOC ---
Date Seen The patient was seen on 04/13/19. Progress Note SUBJECTIVE: The patient is a 68-year-old female who presented to the ER with complaints of abdominal pain and diarrhea. Patient seen sitting in chair eating broth. Patient is happy to be out of bed and is in a good mood today. Reports that she was able to eat a bagel and have some juice for breakfast yesterday without having any acute complaints. Denies any loose bowel movements over the last 12 hours. Reports that her nausea has resolved. She was awakened last night on multiple occasions from pain associated with rash in gluteal region. She plans on taking a shower this afternoon. OBJECTIVE PHYSICAL EXAMINATION: VITAL SIGNS: Please see below. General Exam: Positive: Alert, Pleasant demeanor, No Acute Distress ENT Exam: Positive: Atraumatic, Mucous membr. moist/pink Neck Exam: Negative: JVD Chest Exam: Positive: Clear to auscultation, Normal air movement Heart Exam: Positive: Rate Normal, Normal S1, Normal S2 Abdomen Exam: Positive: Soft, Tenderness (mild tenderness to deep palpation in the lower abdominal quadrants. No rebound tenderness, guarding, or rigidity noted. +PD Catheter) Extremity Exam: Negative: Tenderness, Swelling Psych Exam: Positive: Oriented x 3 LABORATORY DATA, IMAGING STUDIES, MICROBIOLOGY: Please see below. DVT prophylaxis ordered?: Yes. 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 PROBLEMS: Abdominal pain / Diarrhea 2/2 C. diff colitis Patient has a history of C. difficile colitis; received stool transplant x 2 in 04/2016 Patient had a recent episode of C. difficile colitis on 01/08 and was discharged with Fidaxomicin However continues to have persistent watery diarrhea, abdominal discomfort Continues to have leukocytosis, however WBC is improved once again this AM Infectious diseases input appreciated GI consulted for stool transplant---Unfortunately the patient could not get a stool transplant on 04/09 as the sample was not available. Apparently the stool sample for EGD based stool transplantation will not be available until Friday04/14/19. I discussed the option of having a Colonoscopy based stool transplantation with the patient (Dr. Overton has said that this can be done on Thursday 04/12). She has adamantly declined this option as she states that she cannot tolerate the bowel prep. I discussed the risks, benefits, and alternative options in depth with the patient. She has verbalized understanding of the same, and she notes that she will only consider EGD based stool transplantation. Patient placed on clear liquid diet while awaiting EGD based stool transplant on Friday04/14/19. Fidaxomicin discontinued 04/13/19 for anticipation of stool transplant Leukocytosis 2/2 Above Continue to monitor CBC. WBC is improved once again this AM. 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 She is on a clear liquid diet and awaiting EGD based stool transplant. GI is on board and their input is appreciated. VS, I&O, 24H, Fishbone Vital Signs/I&O Vital Signs Date Time Temp Pulse Resp B/P (MAP) Pulse Ox O2 Delivery O2 Flow Rate FiO2 04/13/19 10:28 76 113/56 04/13/19 06:00 97.5 16 99 I&O- Last 24 Hours up to 6 AM 04/13/19 06:00 Intake Total 6120 ml Output Total 5600 ml Balance 520 ml Laboratory Data 24H LABS Laboratory Tests 2 04/13/19 05:33: Nucleated Red Blood Cells % (auto) 0.5H, Anion Gap 11, Glomerular Filtration Rate 6.7L, Blood Urea Nitrogen 39H, Creatinine 6.53H, Sodium Level 140, Potassium Level 3.3L, Chloride Level 104, Carbon Dioxide Level 25, Calcium Level 7.5L CBC/BMP Laboratory Tests 04/13/19 05:33 Red Blood Count 2.65 L, Mean Corpuscular Volume 107.5 H, Mean Corpuscular Hemoglobin 34.3 H, Mean Corpuscular Hemoglobin Concent 31.9 L, Red Cell Distribution Width 16.4 H, Calcium Level 7.5 L Microbiology Microbiology 04/04/19 Gastrointestinal Tract Panel (PCR) - Final, Complete Clostridium Difficile A/B GME ATTESTATION GME ATTESTATION My faculty preceptor for this patient encounter was physically present during the encounter and was fully available. All aspects of the patient interview, examination, medical decision making process, and medical care plan development were reviewed and approved by the faculty preceptor. The faculty preceptor is aware and concurs with the plan as stated in the body of this note and will attest to such by his/her cosignature. ATTENDING NOTE I, Keith Mao, have independently examined this patient and performed my own physical exam, as well as reviewed the documentation and edited where necessary. I have discussed in detail with the resident / student the findings and plan of treatment as documented by the resident / student and edited their note. I agree with their findings and treatment plan and have edited their documentation. I will continue to follow the patient during this hospital stay. ROMA AMBROSE S-3 Apr 13, 2019 11:43 KEITH MAO MD Apr 13, 2019 16:24
--- NOTE | 2019-04-13 11:50 | IPN ---
DATE OF SERVICE: 04/13/2019 SUBJECTIVE: Patient was seen and examined at the bedside today morning. She still reports mild persistent diarrhea. She denies any complaints with the peritoneal dialysis, however, she is not getting much ultrafiltration done and she is scared that she might start getting edema without ultrafiltration. She does report mild abdominal fullness and gaseous distention. The rest of the review of systems is negative. OBJECTIVE VITAL SIGNS: Temperature is 97.5 degrees Fahrenheit, blood pressure 114/54, pulse is 78, respiratory rate of 16, saturating 99% on room air. INTAKE AND OUTPUT: Peritoneal dialysis output was 4600 yesterday with a positive fluid balance of 400 mL and is 1 liter so far today. Weight on the bed scale is not available. PHYSICAL EXAMINATION: GENERAL: Patient is awake, alert, oriented times three, laying in bed, in no apparent distress. HEAD AND NECK EXAM: Extraocular muscles intact. Pupils equally round and reactive to light. Mucous membranes are moist. Neck is supple. There is no jugular venous distention (JVD). CARDIOVASCULAR: S1, S2. Regular rate. Trace edema of the bilateral lower extremities. RESPIRATORY: Chest is clear to auscultation bilaterally. Bilateral equal air entry. No rales or rhonchi. ABDOMEN: Soft. Mildly distended. Tympanitic percussion note. Positive bowel sounds. PD catheter exit site is clean. MUSCULOSKELETAL: No clubbing or cyanosis. Pulses are 2+. CENTRAL NERVOUS SYSTEM (CORRECTIONAL SUPERVISING COOK): No focal deficit. Power is 5/5 in all extremities. LABORATORY REVIEW: Complete blood count (CBC) showed a WBC 10.5, hemoglobin is 9.1 and platelets of 206. Basic metabolic panel (BMP) showed sodium 140, potassium 3.3, chloride 104, bicarbonate 25, BUN 39, creatinine is 6.5. CURRENT INPATIENT MEDICATIONS: Patient's medications were all reviewed by me. She was given a dose of potassium chloride 20 mEq by mouth times one dose today morning. Dificid has been stopped. No other change in the medications today as compared with yesterday. ASSESSMENT AND PLAN: 1. End-stage renal disease on peritoneal dialysis. Patient is getting very gentle dialysis regimen because of diarrhea. She is getting five manual exchanges all 1 liter, all 1.5%. The patient retained fluid yesterday. I have changed her PD regimen to 1 exchange of 2.5% in the afternoon today. 2. Clostridium (C) difficile associated diarrhea. The patient was getting Dificid. She is getting prepared for esophagogastroduodenoscopy (EGD)-based cecal transplant which will be done tomorrow morning. Dificid has been stopped now. 3. Anemia in end-stage renal disease. Hemoglobin level is stable. Continue current dose of Aranesp 100 mcg subcutaneous once a week on . 4. Hypertension. The patient is on hydralazine and metoprolol with holding parameters and most of the time the patient is not receiving the medications because of low blood pressures. 5. Secondary hyperparathyroidism. Continue current dose of Sensipar 30 mg by mouth every other day.
[2019-04-13 14:00] VITALS: BP 137/67
[2019-04-13] MEDS: METOPROLOL SUCC (TopROL XL) 50MG **XL** TAB PO SCH (20:17)
[2019-04-13] MEDS: SIMVASTATIN 20 MG TAB PO SCH (20:21)
[2019-04-13 22:00] VITALS: BP 107/56
[2019-04-14] MEDS: DIAPER RELIEF PASTE (DESITIN) 60GM TOP SCH ×5 (00:09→23:23)
[2019-04-14 06:00] VITALS: BP 137/70
[2019-04-14] MEDS: SLF 3 ML SYR IV SCH ×3 (06:14→22:11)
[2019-04-14 06:43] LABS: HEMATOCRIT 29.5 % (36.0-47.0); HEMOGLOBIN 9.2 g/dl (12.0-15.5); MEAN CORPUSCULAR HEMOGLOBIN 34.6 pg (27.0-33.0); MEAN CORPUSCULAR HGB CONC 31.2 g/dl (32.0-36.5); MEAN CORPUSCULAR VOLUME 110.9 fl (80.0-96.0); PLATELET COUNT, AUTOMATED 210 10^3/uL (150-450); RED BLOOD COUNT 2.66 10^6/uL (4.00-5.40)
[2019-04-14 07:00] LABS: CALCIUM LEVEL 7.2 MG/DL (8.8-10.2); CREATININE FOR GFR 6.13 MG/DL (0.55-1.30); GLOMERULAR FILTRATION RATE 7.2 (>39); POTASSIUM SERUM 3.6 MEQ/L (3.5-5.1)
[2019-04-14] MEDS: predniSONE 1 MG TAB PO SCH (10:07)
[2019-04-14] MEDS: METOPROLOL SUCC *XL* 25MG TAB (TopROL *XL*) PO SCH (10:07)
[2019-04-14] MEDS: FOLIC ACID 1 MG TAB PO SCH (10:07)
[2019-04-14] MEDS: **hydrALAZINE HCL** 25 MG TAB PO SCH ×2 (10:08→21:00)
[2019-04-14] MEDS: BRIMONIDINE 0.1% OPHTH SOLN 5 ML OS SCH ×2 (10:08→22:11)
--- NOTE | 2019-04-14 11:04 | IPNPDOC ---
Text Note Date of Service The patient was seen on 04/14/19. 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 Patient reported that on Friday evening she began to experience abdominal discomfort and diarrhea. . She does with that. She started with 5 bowel movements a day that is progressive 10 or more bowel movements a day. In the ER she was found to be C. diff positive. Patient was admitted to hospitalist service for further evaluation and treatment Patient was seen and examined at the bedside. Reports her abdominal pain is doing better. Denies nausea, vomiting. Has not eating anything today in anticipation for her procedure. Still reports loose stools. Denies chest pain, shortness of breath or palpitations. Objective: Vitals (See below) General: Lying in bed, no acute distress, comfortable, AAOx3 HEENT: NC, AT CVS: +S1S2 Lungs: Fair air entry b/l, no appreciable rales, rhonchi or wheezing Abdomen: Remains soft without distention or tenderness, +PD catheter Extremities: Again trace edema still appreciated - Calf tenderness Assessment and plan: Abdominal pain / Diarrhea - likely 2/2 C. diff colitis - Presented to the ER with abdominal pain and diarrhea since Friday; has a history of C. difficile colitis; received stool transplant x2 on 04/2016 - Patient had a recent episode of C. difficile colitis on 01/08 and was discharged with Fidaxomicin - Persistent watery diarrhea - Leukocytosis noted, no lactic acidosis - s/p Fidaxomicin - Patient will be going for EGD stool transplant today with Dr. Overton - Infectious diseases on consultation; appreciate their input s/p Electrolyte abnormalities - s/p supplementation Anemia of Chronic disease - Patients hemoglobin appears to be lower than her baseline of 12 - Has remained stable ESRD on PD - Nephrology on consult HTN ; s/p Urgency - likely 2/2 inability to take oral medications - BP better controlled this morning - c/w Metoprolol and Hydralazine PO Possible adrenal insufficiency - Has chronically been on prednisone since her kidney transplant DLP - Currently not on any medications Hx of Uterine CA - s/p Hysterectomy and bilateral salpingo-oophorectomy Hx of Leukemia - s/p Cytoxan 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) - Follows with Dermatology as an outpatient DVT prophylaxis - c/w DHEERAJ / Sequentials Disposition: - Awaiting resolution of diarrhea after stool transplant VS,Fishbone, I+O VS, Fishbone, I+O Laboratory Tests 04/14/19 06:21 Red Blood Count 2.66 L, Mean Corpuscular Volume 110.9 H, Mean Corpuscular Hemoglobin 34.6 H, Mean Corpuscular Hemoglobin Concent 31.2 L, Red Cell Distribution Width 17.1 H, Calcium Level 7.2 L Vital Signs Date Time Temp Pulse Resp B/P (MAP) Pulse Ox O2 Delivery O2 Flow Rate FiO2 04/14/19 10:07 87 140/70 04/14/19 06:00 97.2 16 100 I&O- Last 24 Hours up to 6 AM 04/14/19 05:59 Intake Total 6230 ml Output Total 6600 ml Balance -370 ml SHARYN MAO MD Apr 14, 2019 11:04
[2019-04-14] MEDS ORDERED: FECAL MICROBIOTA PREPARATION 30 ML BTL (J3590) XX ONE (12:00)
[2019-04-14] MEDS ORDERED: PROPOFOL 200 MG/20 ML VIAL As Ordered ONE (13:02)
[2019-04-14] MEDS ORDERED: fentaNYL 100 MCG/2 ML INJECTION (J3010) As Ordered ONE (13:02)
[2019-04-14] MEDS ORDERED: LIDOCAINE 2% INJ 100 MG/5 ML SDV (FOR ANES.) As Ordered ONE (13:02)
--- NOTE | 2019-04-14 14:10 | ROOR ---
Patient Name: Apple Thornton Procedure Date: 04/14/2019 1:37 PM Date of : 1950 Age: 68 Room: [facility] Gender: Female Note Status: Finalized Procedure: Upper GI endoscopy + Fecal Microbiota Transplant Indications: Diarrhea, presumed infectious Providers: Domingo Overton MD Referring MD: Zamzam Rehman MD Requesting Provider: Medicines: Monitored Anesthesia Care Complications: No immediate complications. Procedure: Pre-Anesthesia Assessment: - The heart rate, respiratory rate, oxygen saturations, blood pressure, adequacy of pulmonary ventilation, and response to care were monitored throughout the procedure. The Enteroscope was introduced through the mouth, and advanced to the fourth part of duodenum. The upper GI endoscopy was accomplished without difficulty. The patient tolerated the procedure well. Findings: The Z-line was regular and was found 40 cm from the incisors. No other significant abnormalities were identified in a careful examination of the stomach. The exam of the duodenum was otherwise normal. Stool Transplant-30 cc The exam was otherwise without abnormality. Impression: - Z-line regular, 40 cm from the incisors. - The examination was otherwise normal. - No specimens collected. Stool Transplant-30 cc into the distal small bowel using the pediatric colonoscope. - The examination was otherwise normal. Recommendation: - Patient has a contact number available for emergencies. The signs and symptoms of potential delayed complications were discussed with the patient. Return to normal activities tomorrow. Written discharge instructions were provided to the patient. - Return patient to [facility] for ongoing care. - The findings and recommendations were discussed with the patient and their primary physician. Domingo Overton MD Domingo Overton MD 04/14/2019 2:10:11 PM Electronically signed by Domingo Overton MD Number of Addenda: 0 Note Initiated On: 04/14/2019 1:37 PM Estimated Blood Loss: Estimated blood loss: none.
[2019-04-14 14:42] VITALS: BP 123/58
[2019-04-14 15:20] VITALS: BP 122/56
[2019-04-14] MEDS: METOPROLOL SUCC (TopROL XL) 50MG **XL** TAB PO SCH (21:00)
--- NOTE | 2019-04-14 21:29 | IPN ---
DATE: 04/14/2019 SUBJECTIVE The patient was seen and examined at the bedside today morning. She is afebrile, hemodynamically stable. She continues to have loose stools. She is going to have her fecal transplant done today. She got one exchange of 2.5% dextrose and she put out a lot of fluid with that. Volume status is optimal. She denies any problems with peritoneal dialysis at this point. OBJECTIVE Vital signs: Temperature is 97.2 degrees Fahrenheit, blood pressure 137/70, pulse is 90, respiratory rate of 16, saturating 100% on room air. Intake and output: There is no urine output recorded. Patient had five bowel movements yesterday. Ultrafiltration with peritoneal dialysis yesterday was 1600 mL. Weight in the bed scale is not available. PHYSICAL EXAMINATION General: The patient is awake, alert, oriented times three, laying in bed, in no apparent distress. Head and neck examination: Extraocular muscles intact. Pupils equally round and reactive to light. Mucous membranes are moist. Neck is supple. There is no jugular venous distention (JVD). Cardiovascular: S1, S2, regular rate. Very trace edema of the bilateral lower extremities. Respiratory: Chest is clear to auscultation bilaterally, bilateral equal air entry. No rales or rhonchi. Abdomen: Soft. Positive bowel sounds. Nontender. No organomegaly. PD catheter in the left lower quadrant was noted. Musculoskeletal: No clubbing or cyanosis. Pulses are 2+. SALES REPRESENTATIVE SALES MANAGER: No focal deficit. Power is 05/05 in all extremities. LAB REVIEW: CBC showed a WBC of 14, hemoglobin 9.2, platelets of 210. BMP showed sodium 142, potassium 3.6, chloride 108, bicarb 23, BUN 36, creatinine is 6.1, calcium 7.2 CURRENT INPATIENT MEDICATIONS: The patient's medications were all reviewed by me. There is no change in the medications today as compared with yesterday. ASSESSMENT/PLAN 1. End-stage renal disease on peritoneal dialysis. The patient is getting four exchanges of 1.5% 1 liter each and one exchanges performed 2.5% 1 liter. Volume status is optimal. I would continue the current regimen. 2. C diff colitis diarrhea. Patient Dificid was stopped. She is going to have EGD based fecal transplant done by GI today. 3. Anemia and end-stage renal disease, hemoglobin level is improving. Continue current dose of once a week Aranesp 100 mcg. 4. Hypertension. Continue metoprolol and hydralazine with holding parameters.
[2019-04-14 22:00] VITALS: BP 110/50
[2019-04-14] MEDS: SIMVASTATIN 20 MG TAB PO SCH (22:08)
[2019-04-14] MEDS: ACETAMINOPHEN TAB 650MG DOSE (2X325MG) PO PRN (22:08)
[2019-04-15] MEDS: SLF 3 ML SYR IV SCH (05:41)
[2019-04-15] MEDS: DIAPER RELIEF PASTE (DESITIN) 60GM TOP SCH ×3 (05:42→17:14)
[2019-04-15 06:00] VITALS: BP 115/56
[2019-04-15 07:49] LABS: HEMATOCRIT 27.5 % (36.0-47.0); HEMOGLOBIN 8.7 g/dl (12.0-15.5); MEAN CORPUSCULAR HEMOGLOBIN 35.2 pg (27.0-33.0); MEAN CORPUSCULAR HGB CONC 31.6 g/dl (32.0-36.5); MEAN CORPUSCULAR VOLUME 111.3 fl (80.0-96.0); PLATELET COUNT, AUTOMATED 194 10^3/uL (150-450); RED BLOOD COUNT 2.47 10^6/uL (4.00-5.40)
[2019-04-15 08:04] LABS: C REACTIVE PROTEIN QUANTITATIV 8.46 MG/DL (0.00-0.30); CALCIUM LEVEL 7.2 MG/DL (8.8-10.2); CREATININE FOR GFR 6.29 MG/DL (0.55-1.30); MAGNESIUM LEVEL 1.9 MG/DL (1.8-2.4); POTASSIUM SERUM 3.1 MEQ/L (3.5-5.1)
[2019-04-15] MEDS: **hydrALAZINE HCL** 25 MG TAB PO SCH ×2 (09:00→21:00)
[2019-04-15] MEDS: BRIMONIDINE 0.1% OPHTH SOLN 5 ML OS SCH ×2 (09:00→21:36)
[2019-04-15] MEDS: DARBEPOETIN 100 MCG/0.5 ML *NON-DIALYSIS* SYRINGE (J0881) SC SCH (09:00)
[2019-04-15] MEDS ORDERED: POTASSIUM CHLORIDE 10 MEQ SR TABLET PO ONE (09:15)
--- NOTE | 2019-04-15 10:09 | IPNPDOC ---
Text Note Date of Service The patient was seen on 04/15/19. 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 Patient reported that on Friday evening she began to experience abdominal discomfort and diarrhea. . She does with that. She started with 5 bowel movements a day that is progressive 10 or more bowel movements a day. In the ER she was found to be C. diff positive. Patient was admitted to hospitalist service for further evaluation and treatment Patient was seen and examined at the bedside. Patient has received 2 stool transplant yesterday. They do report several bowel movements yesterday evening and this morning. Bowel movements have not been watery but reported as more solid in consistency. She denies nausea, vomiting or abdominal pain. Denies chest pain, shortness breath or palpitations. Objective: Vitals (See below) General: Lying in bed, no acute distress, comfortable, AAOx3 HEENT: NC, AT CVS: +S1S2 Lungs: Air entry remains fair bilaterally without rhonchi, rales or wheezing Abdomen: Abdomen is soft, without any distention or tenderness, +PD catheter Extremities: Trace pitting edema is noted bilaterally at her ankles, - Calf tenderness Assessment and plan: Abdominal pain / Diarrhea - likely 2/2 C. diff colitis - Presented to the ER with abdominal pain and diarrhea since Friday; has a history of C. difficile colitis; received stool transplant x2 on 04/2016 - Patient had a recent episode of C. difficile colitis on 01/08 and was discharged with Fidaxomicin - Currently patient has noted improvement in the consistency of her diarrhea - Leukocytosis noted, no lactic acidosis - s/p Fidaxomicin - s/p EGD stool transplant 04/14/[address] Overton - Infectious diseases on consultation; appreciate their input s/p Electrolyte abnormalities - s/p supplementation Anemia of Chronic disease - Patients hemoglobin appears to be lower than her baseline of 12 - Has remained stable ESRD on PD - Nephrology on consult HTN ; s/p Urgency - likely 2/2 inability to take oral medications - BP better controlled this morning - c/w Metoprolol and Hydralazine PO Possible adrenal insufficiency - Has chronically been on prednisone since her kidney transplant DLP - Currently not on any medications Hx of Uterine CA - s/p Hysterectomy and bilateral salpingo-oophorectomy Hx of Leukemia - s/p Cytoxan 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) - Follows with Dermatology as an outpatient DVT prophylaxis - c/w DHEERAJ / Sequentials Disposition: - Anticipate discharge home tomorrow VS,Dyana, I+O VS, Dyana I+O Laboratory Tests 04/15/19 07:03 Red Blood Count 2.47 L, Mean Corpuscular Volume 111.3 H, Mean Corpuscular Hemoglobin 35.2 H, Mean Corpuscular Hemoglobin Concent 31.6 L, Red Cell Distribution Width 17.2 H, Calcium Level 7.2 L Vital Signs Date Time Temp Pulse Resp B/P (MAP) Pulse Ox O2 Delivery O2 Flow Rate FiO2 04/15/19 06:00 96.4 81 17 115/56 (75) 99 I&O- Last 24 Hours up to 6 AM 04/15/19 06:00 Intake Total 6510 ml Output Total 5500 ml Balance 1010 ml SHARYN MAO MD Apr 15, 2019 10:09
[2019-04-15] MEDS: predniSONE 1 MG TAB PO SCH (10:45)
[2019-04-15] MEDS: POTASSIUM CHLORIDE 10 MEQ SR TABLET PO SCH (10:46)
[2019-04-15] MEDS: CINACALCET 30 MG TAB (SENSIPAR) PO SCH (10:46)
[2019-04-15] MEDS: FOLIC ACID 1 MG TAB PO SCH (10:47)
[2019-04-15] MEDS: METOPROLOL SUCC *XL* 25MG TAB (TopROL *XL*) PO SCH (10:47)
[2019-04-15] MEDS: ONDANSETRON 4MG/2ML VIAL (J2405) IV PRN (11:19)
[2019-04-15 14:00] VITALS: BP 129/59
--- NOTE | 2019-04-15 14:50 | IPN ---
DATE OF SERVICE: 04/15/2019 SUBJECTIVE: The patient was seen and examined at the bedside today morning. She got the fecal transplant done yesterday for Clostridium (C) difficile colitis. She reports her diarrhea is getting better. She denies any complaints with the peritoneal dialysis. She reports her appetite is getting better. OBJECTIVE: Vital signs: Temperature is 96.4 degrees Fahrenheit, blood pressure 115/55, pulse is 83, respiratory rate of 17, saturating 99% on room air. Intake and output: Output with the peritoneal dialysis since overnight is 1 liter only. She has had two bowel movements so far since overnight. Weight in the bed scale is not available. PHYSICAL EXAMINATION: General: The patient is awake, alert, oriented times three, lying in bed, in no apparent distress. Head and neck examination: Extraocular muscles intact. Pupils equally round and reactive to light. Mucous membranes are moist. Neck is supple. There is no jugular venous distention (JVD). Cardiovascular: S1, S2, regular rate. 1+ edema of the bilateral lower extremities. Respiratory: Chest is clear to auscultation bilaterally. Bilateral equal air entry. No rales or rhonchi. Abdomen: Soft. Positive bowel sounds. Nontender. No organomegaly. Peritoneal dialysis (PD) catheter in the left lower quadrant. Musculoskeletal: No clubbing or cyanosis. Pulses are 2+. 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 Power is 5/5 in all extremities. Skin: The patient has multiple precancerous lesions on the skin all over. 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 LABORATORY REVIEW: Complete blood count (CBC) showed WBC 13, hemoglobin 8.7, platelets of 194. Basic metabolic profile (BMP) showed sodium 142, potassium 3.1, chloride 105, bicarbonate 26, BUN 37, creatinine is 6.2, C-reactive protein is 8.4. CURRENT INPATIENT MEDICATIONS: The patient's medications were all reviewed by me. There is no change in the medications today as compared with yesterday. She was at this given a dose of potassium chloride 40 mEq by mouth times one dose. ASSESSMENT AND PLAN: 1. End-stage renal disease, on peritoneal dialysis. Continue current regimen of five manual exchanges, four of them 1.5% and the fifth one 2.5%. 2. Clostridium (C) difficile colitis diarrhea, status post fecal transplant. The patient's diarrhea is improving. She is not on any antibiotics at this time. 3. Anemia in end-stage renal disease. The patient gets once a week dose of Aranesp, and she is due today. No need of blood transfusion. 4. Hypertension. Continue hydralazine and metoprolol. 5. Hypokalemia. The patient was already given oral potassium, and I have started her on potassium chloride 20 mEq by mouth daily.
[2019-04-15] MEDS ORDERED: ONDANSETRON 4 MG ORAL DISINTEGRATING TAB (Q0162 PER 1MG) SL SCH (18:00)
[2019-04-15] MEDS ORDERED: ONDANSETRON 4 MG ORAL DISINTEGRATING TAB (Q0162 PER 1MG) SL PRN (18:00)
[2019-04-15] MEDS: ACETAMINOPHEN TAB 650MG DOSE (2X325MG) PO PRN (21:35)
[2019-04-15] MEDS: SIMVASTATIN 20 MG TAB PO SCH (21:36)
[2019-04-15] MEDS: METOPROLOL SUCC (TopROL XL) 50MG **XL** TAB PO SCH (21:36)
[2019-04-15 22:00] VITALS: BP 114/56
[2019-04-16] MEDS: DIAPER RELIEF PASTE (DESITIN) 60GM TOP SCH ×3 (00:31→11:23)
[2019-04-16 06:00] VITALS: BP 128/56
[2019-04-16 07:19] LABS: HEMATOCRIT 30.3 % (36.0-47.0); HEMOGLOBIN 9.4 g/dl (12.0-15.5); MEAN CORPUSCULAR HEMOGLOBIN 34.2 pg (27.0-33.0); MEAN CORPUSCULAR VOLUME 110.2 fl (80.0-96.0); PLATELET COUNT, AUTOMATED 208 10^3/uL (150-450); RED BLOOD COUNT 2.75 10^6/uL (4.00-5.40); WHITE BLOOD COUNT 11.3 10^3/uL (4.0-10.0)
[2019-04-16 08:12] LABS: C REACTIVE PROTEIN QUANTITATIV 8.53 MG/DL (0.00-0.30); CALCIUM LEVEL 7.2 MG/DL (8.8-10.2); CREATININE FOR GFR 6.37 MG/DL (0.55-1.30); GLOMERULAR FILTRATION RATE 6.9 (>39); MAGNESIUM LEVEL 1.7 MG/DL (1.8-2.4)
[2019-04-16] MEDS: **hydrALAZINE HCL** 25 MG TAB PO SCH (09:00)
[2019-04-16] MEDS: FOLIC ACID 1 MG TAB PO SCH (10:48)
[2019-04-16 10:49] VITALS: BP 129/62
[2019-04-16] MEDS: METOPROLOL SUCC *XL* 25MG TAB (TopROL *XL*) PO SCH (10:49)
[2019-04-16] MEDS: POTASSIUM CHLORIDE 10 MEQ SR TABLET PO SCH (10:49)
[2019-04-16] MEDS: predniSONE 1 MG TAB PO SCH (10:49)
[2019-04-16] MEDS: BRIMONIDINE 0.1% OPHTH SOLN 5 ML OS SCH (10:50)
[2019-04-16] MEDS: ACETAMINOPHEN TAB 650MG DOSE (2X325MG) PO PRN (10:50)
[2019-04-16 14:00] VITALS: BP 94/51
[2019-04-16 15:09] LABS: APPEARANCE, BODY FLUID CLEAR (CLEAR); PERITONEAL DIALYSATE FL COLOR COLORLESS (COLORLESS); SOURCE, BODY FLUID PERITONEAL DIALYSATE
--- NOTE | 2019-04-16 15:21 | DS.PDOC ---
Discharge Summary General Date of Admission Apr 04, 2019 at 12:18 Date of Discharge 04/16/2019 Discharge Summary PROCEDURES PERFORMED DURING STAY: [None]. ADMITTING DIAGNOSES / DISCHARGE DIAGNOSES: Abdominal pain / Diarrhea - likely 2/2 C. 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 Patient reported that on Friday evening she began to experience abdominal discomfort and diarrhea. . She does with that. She started with 5 bowel movements a day that is progressive 10 or more bowel movements a day. In the ER she was found to be C. diff positive. Patient was admitted to hospitalist service for further evaluation and treatment. HOSPITAL COURSE: Abdominal pain / Diarrhea - likely 2/2 C. diff colitis - Presented to the ER with abdominal pain and diarrhea since Friday; has a hi story of C. difficile colitis; received stool transplant x2 on 04/2016 - Patient had a recent episode of C. difficile colitis on 01/08 and was discharged with Fidaxomicin - Currently patient has noted improvement in the consistency of her diarrhea; no longer water and reduced frequency - Leukocytosis noted, no lactic acidosis - s/p Fidaxomicin - s/p EGD stool transplant 04/14/[address] Overton - Infectious diseases on consultation; appreciate their input s/p Electrolyte abnormalities - s/p supplementation Anemia of Chronic disease - Patients hemoglobin appears to be lower than her baseline of 12 - Has remained stable ESRD on PD - Nephrology on consult HTN ; s/p Urgency - likely 2/2 inability to take oral medications - BP better controlled this morning - c/w Metoprolol and Hydralazine PO Possible adrenal insufficiency - Has chronically been on prednisone since her kidney transplant DLP - Currently not on any medications Hx of Uterine CA - s/p Hysterectomy and bilateral salpingo-oophorectomy Hx of Leukemia - s/p Cytoxan 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 ALLERGIES: Please see below. PHYSICAL EXAMINATION ON DISCHARGE: Vitals (See below) General: Lying in bed, no acute distress, comfortable, AAOx3 HEENT: NC, AT CVS: +S1S2 Lungs: Air entry remains fair bilaterally, no rhonchi / rales / wheezing Abdomen: Abdomen is soft, mild tenderness around PD site, non-distended, +PD catheter Extremities: Trace pitting edema at her ankles bilaterally, - Calf tenderness LABORATORY DATA: Please see below. ACTIVITY: [As tolerated]. DISCHARGE PLAN: Follow up with Dr. Alvarado, Dr. Overton and Dr. Martin within 7 days Remain compliant with treatment plan and medications Return to the ER if you experience any problems DISPOSITION: Home with services DISCHARGE CONDITION: [Stable]. TIME SPENT ON DISCHARGE: 37 minutes Vital Signs/I&Os Vital Signs Date Time Temp Pulse Resp B/P (MAP) Pulse Ox O2 Delivery O2 Flow Rate FiO2 04/16/19 14:00 96.6 71 18 94/51 (65) 99 I&O- Last 24 Hours up to 6 AM 04/16/19 06:00 Intake Total 5600 ml Output Total 5850 ml Balance -250 ml Laboratory Data Labs 24H Laboratory Tests 2 04/16/19 07:10: Nucleated Red Blood Cells % (auto) 0.3H, Anion Gap 9, Glomerular Filtration Rate 6.9L, Blood Urea Nitrogen 42H, Creatinine 6.37H, Sodium Level 142, Potassium Level 4.0#, Chloride Level 107, Carbon Dioxide Level 26, Calcium Level 7.2L, Magnesium Level 1.7L, C-Reactive Protein, Quantitative 8.53H 04/16/19 14:34: Body Fluid Source PERITONEAL DIALYSATE, Body Fluid WBC (Auto) 5, Body Fluid RBC (Auto) < 2, Peritoneal Fluid Color COLORLESS, Peritoneal Fluid Appearance CLEAR CBC/BMP Laboratory Tests 04/16/19 07:10 Red Blood Count 2.75 L, Mean Corpuscular Volume 110.2 H, Mean Corpuscular Hemoglobin 34.2 H, Mean Corpuscular Hemoglobin Concent 31.0 L, Red Cell Distribution Width 17.7 H, Calcium Level 7.2 L Discharge Medications Scheduled Acitretin (Acitretin) 10 Mg Cap, 10 MG PO QPM, (Reported) Brimonidine Tartrate (Alphagan P) 100 Drop/5 Ml Soln, 1 DROP OS BID, (Reported) Calcitriol (Calcitriol) 0.25 Mcg Cap, 0.25 MCG PO DAILY, (Reported) Cinacalcet (Sensipar) 30 Mg Tab, 30 MG PO Q2D, (Reported) Dicyclomine HCl (Dicyclomine HCl) 10 Mg Cap, 10 MG PO BID, (Reported) BEFORE MEALS Ergocalciferol (Vitamin D2) (Drisdol) 50,000 Unit Cap, 50,000 UNIT PO 1XWK, (Reported) MONDAYS Fenofibrate,Micronized (Fenofibrate) 134 Mg Capsule, 134 MG PO DAILY, (Reported) Folic Acid (Folic Acid) 1 Mg Tab, 1 MG PO DAILY, (Reported) Folic Acid/Vit B Complex and C (Monique-Jimbo Tablet) 1 Tab Tab, 1 TAB PO DAILY, (Reported) Loperamide HCl (Loperamide) 2 Mg Capsule, 2 MG PO QHS, (Reported) Metoprolol Succinate (Toprol Xl) 50 Mg Tab, 50 MG PO QPM, (Reported) Metoprolol Succinate (Metoprolol Succinate) 50 Mg Tab.er.24h, 25 MG PO DAILY, (Reported) Mupirocin (Mupirocin) 2 % Oin, 1 APLCT TOP ASDIRECTED, (Reported) TO CATH SITE AND AFFECTED AREA(S) Niacinamide (Niacinamide) 500 Mg Tablet, 500 MG PO QHS, (Reported) Prednisone (Prednisone) 1 Mg Tab, 4 MG PO DAILY, (Reported) Sevelamer Carbonate (Renvela) 800 Mg Tablet, 1,600 MG PO WM, (Reported) Sevelamer Carbonate (Renvela) 800 Mg Tablet, 800 MG PO ASDIRECTED, (Reported) WITH SNACKS Simvastatin (Simvastatin) 20 Mg Tab, 20 MG PO QHS, (Reported) Scheduled PRN Acetaminophen (Acetaminophen) 500 Mg Tablet, 1,000 MG PO Q4H PRN for PAIN, (Reported) Hydralazine HCl (Hydralazine HCl) 25 Mg Tablet, 25 MG PO BID PRN for BP >140, (Reported) Ondansetron HCl (Ondansetron HCl) 4 Mg Tablet, 4 MG PO Q8H PRN for NAUSEA OR VOMITING, (Reported) Allergies Coded Allergies: Sulfa (Sulfonamide Antibiotics) (Verified Adverse Reaction, Intermediate, n/v, 01/06/19) lactose (Verified Adverse Reaction, Intermediate, intolerant, 01/06/19) morphine (Verified Adverse Reaction, Intermediate, vomitting, 01/06/19) sulfamethoxazole (Verified Adverse Reaction, Intermediate, n/v, 01/06/19) trimethoprim (Verified Adverse Reaction, Intermediate, n/v, 01/06/19) SHARYN MAO MD Apr 16, 2019 15:21
--- NOTE | 2019-04-16 15:27 | IPN ---
DATE: 04/16/2019 SUBJECTIVE: The patient was seen and examined at the bedside this morning. She is afebrile, hemodynamically stable. She was sitting up in the sofa. She is not feeling well. She still had five bowel movements yesterday and she also reports that her peritoneal dialysis (PD) catheter was tugged, while getting PD and it is hurting her now. Otherwise leukocytosis is improving. She denies any cloudy fluid. OBJECTIVE: Vital signs: Temperature is 96.8 degrees Fahrenheit Blood pressure 128/56, pulse is 72, respiratory of 18, saturating 100% on room air. Intake and output: There is no urine output recorded. So far peritoneal dialysis exchange output is 1100 mL so far since overnight. She had five bowel movements yesterday two bowel movement so far today since overnight. PHYSICAL EXAMINATION: GENERAL: The patient is awake, alert, oriented times three, sitting up in the bed in no apparent distress. HEAD AND NECK EXAM: Extraocular muscles intact. Pupils equally round and reactive to light. Mucous membranes are moist. Neck is supple. There is no jugular venous distention (JVD). CARDIOVASCULAR: S1, S2 regular rate. RESPIRATORY: Chest is clear to auscultation bilaterally. Bilateral equal air entry. No rales or rhonchi. ABDOMEN: Soft, mildly distended and tender to palpation with generalized tenderness. Peritoneal dialysis access site in the left lower quadrant is seen and there is no edema. MUSCULOSKELETAL: No clubbing or cyanosis. CENTRAL NERVOUS SYSTEM (IDENTIFICATION CLERK): No focal deficit. Power is 5/5 in all extremities. SKIN: The patient has multiple precancerous lesions on the skin all over the body. LAB REVIEW: CBC showed a WBC of 11.3, hemoglobin 9.4, platelets of 108. BMP showed sodium 142, potassium 4, chloride 107, bicarb 26, BUN 42, creatinine is 6.3, calcium 7.2, magnesium is 1.7, C-reactive protein is 8.5. CURRENT INPATIENT MEDICATIONS: The patient's medications were all reviewed by me. There is no change in the medications today as compared with yesterday. ASSESSMENT/PLAN: 1. End-stage renal disease on peritoneal dialysis. The patient continues to get five manual exchanges or 1 liter four of them 1.5% and one of them 2.5%. Volume status is optimal. Continue current regimen. 2. C diff colitis diarrhea: Status post fecal transplant the patient is still having about five bowel movements a day. She still complains of abdominal distension and tenderness management is as per gastroenterology. 3. Anemia and end-stage renal disease: Hemoglobin level is optimally improving. Continue current dose of Aranesp once a week. 4. Hypertension: Continue hydralazine and metoprolol. 5. Hypokalemia: Potassium level has improved to for today. Continue current dose of potassium chloride 20 mEq p.o. once a day.
== END 2019-04-16 15:56 | disposition home health service (06) | DRG 371 ==
LOC: M ED 08:58 → M ED INP 12:18 → M ICU 14:16 → M PCU 04-05 15:45 → M MSPAV 04-07 18:54
PROVIDERS: ADMIT Internal Medicine; ATTEND Internal Medicine
PROC: 0DJ08ZZ Inspection of Upper Intestinal Tract, Via Natural or Artificial Opening Endoscopic (ICD-10-PCS; principal; 2019-04-14 13:55)
DX: A04.71 Enterocolitis due to Clostridium difficile, recurrent (principal); N18.6 End stage renal disease; E87.0 Hyperosmolality and hypernatremia; E27.40 Unspecified adrenocortical insufficiency; Z94.0 Kidney transplant status; I16.0 Hypertensive urgency; D63.1 Anemia in chronic kidney disease; Z85.42 Personal history of malignant neoplasm of other parts of uterus; Z85.828 Personal history of other malignant neoplasm of skin; F32.9 Major depressive disorder, single episode, unspecified; Z79.899 Other long term (current) drug therapy; Z88.2 Allergy status to sulfonamides; Z88.5 Allergy status to narcotic agent; Z88.8 Allergy status to other drugs, medicaments and biological substances; E73.9 Lactose intolerance, unspecified; Z89.012 Acquired absence of left thumb; E87.6 Hypokalemia; E83.42 Hypomagnesemia; E78.5 Hyperlipidemia, unspecified

== ENCOUNTER 2019-05-07 08:00 | Inpatient (IN) | payer MEDICARE, BC, OTHER ==
[~2019-05-07] VITALS: Ht 147.3 cm; Wt 45.0 kg
[~2019-05-07 08:00] MED LIST changes: +LOPE1CAP5 PO; +ONDA-195 PO
[2019-05-07] MEDS ORDERED: NS 500 ML IV ONE ×2 (08:30→11:30)
[2019-05-07 09:28] LABS: BASO % 0.1 % (0.0-1.0); HEMATOCRIT 32.9 % (36.0-47.0); HEMOGLOBIN 10.7 g/dl (12.0-15.5); LYMPH # 0.9 10^3/uL (1.5-4.5); LYMPH % 4.3 % (24.0-44.0); MEAN CORPUSCULAR HEMOGLOBIN 34.6 pg (27.0-33.0); MEAN CORPUSCULAR HGB CONC 32.5 g/dl (32.0-36.5); MEAN CORPUSCULAR VOLUME 106.5 fl (80.0-96.0); MONO % 4.9 % (0.0-5.0); NEUTROPHILS # 18.3 10^3/uL (1.8-7.7); NEUTROPHILS % 89.5 % (36.0-66.0); PLATELET COUNT, AUTOMATED 185 10^3/uL (150-450); RED BLOOD COUNT 3.09 10^6/uL (4.00-5.40); WHITE BLOOD COUNT 20.5 10^3/uL (4.0-10.0)
[2019-05-07 09:38] LABS: INR 1.03; PROTHROMBIN TIME 13.2 SECONDS (11.8-14.0)
[2019-05-07 09:58] LABS: ALBUMIN 1.5 GM/DL (3.2-5.2); BILIRUBIN,DIRECT 0.7 MG/DL (0.0-0.2); CK-MB VALUE MASS 1.2 NG/ML (<3.6); MB/CK RELATIVE INDEX 7.06 (< OR =4); TOTAL PROTEIN 4.4 GM/DL (6.4-8.2); TROPONIN I 0.09 NG/ML (< 0.10)
--- NOTE | 2019-05-07 11:00 | REP ---
Portable chest, 10:20 a.m., single AP view with the patient upright: Comparison is the PA and lateral chest dated 12/28/2018. There is an unusual for ovoid lucency projected over the cardiac silhouette on the left, not present previously. This may be a left lower lobe bulla outlined by an infiltrate. The remainder the lung lemus are clear. Cardiac size is normal. The the deborah, mediastinum, skeletal structures are unremarkable. Impression: Possible left lower lobe infiltrate. Otherwise, negative portable chest. Electronically Signed by Karthikeyan Rooney MD 05/07/2019 10:52 A
[2019-05-07 11:02] LABS: CALCIUM LEVEL 7.3 MG/DL (8.8-10.2); CREATININE FOR GFR 5.07 MG/DL (0.55-1.30); POTASSIUM SERUM 2.4 MEQ/L (3.5-5.1)
[2019-05-07] MEDS ORDERED: KCL 40MEQ IN D5/0.45NS 1000ML 1,000 ML IV SCH (12:00)
[2019-05-07] MEDS ORDERED: POTASSIUM CHLORIDE 10 MEQ SR TABLET PO ONE (12:00)
[2019-05-07] MEDS ORDERED: ONDANSETRON 4MG/2ML VIAL (J2405) IV ONE (12:15)
--- NOTE | 2019-05-07 13:17 | HPEPDOC ---
[facility] Medical History & Physical Date of Admission May 07, 2019 Date of Service: May 07, 2019 History and Physical CHIEF COMPLAINT: Weakness HISTORY OF PRESENT ILLNESS: Patient is a 68-year-old female who presents with weakness for the last several days, she denies katya abdominal pain. She tells me she continues to take Imodium and dicyclomine. She tells me that anytime she eats food she has run out of the bathroom and have a bowel movement immediately it is not katya water. It is semi-formed she is unsure if this is like her previous episodes of C. difficile. She has had recurrent bouts of C. difficile in the recent past with a stool transplant within the last [address] Overton. The patient states he has had some difficulty completing her peritoneal dialysis at home of late and thought there was some issue with it probably represented to the emergency room for further evaluation. Otherwise patient denies weight loss, hair loss, headache, visual changes, chest pain, shortness of breath, cough, nausea, vomiting, muscle aches, worsening arthritis, change in mood PAST MEDICAL HISTORY: 1. End-stage renal disease on peritoneal dialysis she completes at home. 2. Squamous cell carcinoma of the skin with multiple resections follows in dermatology clinic. 3. Depression. 4. Hypertension 5. Dyslipidemia 7 failed kidney transplant status post removal 8. Anemia secondary to end-stage renal disease 9. Recurrent C. difficile with failed stool transplant HOME MEDICATIONS: Please see below. ALLERGIES: Please see below PAST SURGICAL HISTORY: 1. Kidney transplant and removal. 2. Of squamous cell carcinoma of the skin resections multiple. 3. Hysterectomy 4. Left thumb imitation 5. Bilateral hip replacement 6. Peritoneal dialysis catheter placement 7. Bilateral [place] nephrectomy by 8. Multiple colonoscopy and fecal transplant. SOCIAL HISTORY: Lives with: Lives at home with nearby family, Employment: Not working, Tobacco use: Denies. ETOH: Denies, Illicit drug use: Denies, Tattoos done unprofessionally: Denies, CODE STATUS: Full code FAMILY HISTORY:Reviewed and noncontributory REVIEW OF SYSTEMS: 10 systems reviewed and negative other than HPI PHYSICAL EXAMINATION: VITAL SIGNS: Temperature 97.4, pulse 73, respiratory rate 18, blood pressure 106/60, pulse oximetry 100% on room air. GENERAL: Pleasant frail petite female sitting up in bed awake alert oriented speaking in complete sentences no acute distress she speaks with her chronic lisp HEENT: Dry mucous membranes no elevation and CVP CARDIOVASCULAR: S1 S2 regular no additional heart sounds appreciated. RESPIRATORY: Clear to auscultation bilaterally. ABDOMINAL: Bowel sounds present abdomen soft and nontender no significant distention EXTREMITIES: No clubbing cyanosis or edema, she has a laceration of her right elbow which is not erythematous it is tender all over or significant discharge NEUROLOGICAL: Spontaneously moves all 4 extremities cranial 2 through 12 grossly intact no gross focal deficits appreciated PSYCHOLOGICAL: Appropriate LABORATORY DATA: See below. MICROBIOLOGY: Please see below. IMAGING: Chest x-ray:Possible left lower lobe infiltrate. Otherwise, negative portable chest. ASSESSMENT & PLAN: This is a 68-year-old female with weakness and hypokalemia. PROBLEMS: 1. Weakness: She does have leukocytosis with lactic acidosis she is clinically dry she is on chronic low-dose steroids there is certainly concern for an infectious etiology. I have discussed the case with GI and nephrology and infectious disease all of who are very familiar with her challenging case. Given her history of recurrent C. difficile we hesitate to begin any antibacterial therapy, she does not provide convincing history for pneumonia despite her radiographic findings her right elbow does not appear to be cellulitic in nature we'll continue with Bactroban. She certainly could have recurrence of her C. difficile given her significant history for this. We'll provide with IV fluids potassium repletion and initiate deficid. We'll check a GI PCR panel although very likely will be positive for C. difficile given her history of significant recurrences in the recent past. Should she fail to improve with these measures would have a low threshold to consider initiation of stress dose steroids with concern for possible adrenal insufficiency given her chronic steroid use in the setting of any acute illness. All Imodium and dicyclomine for now, continue with Zofran 2.End-stage renal disease on peritoneal dialysis: Nephrology greatly appreciated, continue with Renvela 3.Squamous cell carcinoma the skin: Requested the patient bring in her own Acitretin 4. Dyslipidemia: Hold fenofibrate and statin 5. Abnormal AST: We'll hold her statin for the time being very mild monitor with hydration 6. 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3L, Monocytes (%) (Auto) 4.9, Eosinophils (%) (Auto) 0.0, Basophils (%) (Auto) 0.1, Neutrophils # (Auto) 18.3H, Lymphocytes # (Auto) 0.9L, Monocytes # (Auto) 1.0H, Eosinophils # (Auto) 0.0, Basophils # (Auto) 0.0, Nucleated Red Blood Cells % (auto) 0.0, Prothrombin Time 13.2, Prothromb Time International Ratio 1.03, Activated Partial Thromboplast Time 26.0, Anion Gap 14, Glomerular Filtration Rate 9.0L, Lactic Acid Level 3.2*H, Calcium Level 7.3L, Aspartate Amino Transf (AST/SGOT) 69H, Alanine Aminotransferase (ALT/SGPT) 43, Alkaline Phosphatase 170H, Total Bilirubin 1.0, Direct Bilirubin 0.7H, Total Creatine Kinase 17L, Creatine Kinase MB 1.2, Creatine Kinase MB Relative Index 7.06H, Troponin I 0.09, Total Protein 4.4L, Albumin 1.5L, Albumin/Globulin Ratio 0.52L, Lipase 531H 05/07/19 09:24: Bedside Glucose (Misc Panel) 76L CBC/BMP Laboratory Tests 05/07/19 09:14 Red Blood Count 3.09 L, Mean Corpuscular Volume 106.5 H, Mean Corpuscular Hemoglobin 34.6 H, Mean Corpuscular Hemoglobin Concent 32.5, Red Cell Distribution Width 17.2 H, Neutrophils (%) (Auto) 89.5 H, Lymphocytes (%) (Auto) 4.3 L, Monocytes (%) (Auto) 4.9, Eosinophils (%) (Auto) 0.0, Basophils (%) (Auto) 0.1, Neutrophils # (Auto) 18.3 H, Lymphocytes # (Auto) 0.9 L, Monocytes # (Auto) 1.0 H, Eosinophils # (Auto) 0.0, Basophils # (Auto) 0.0 Microbiology Microbiology 05/07/19 Blood Culture, Received Pending 05/07/19 Blood Culture, Received Pending Home Medications Scheduled Acitretin (Acitretin) 10 Mg Cap, 10 MG PO QPM Brimonidine Tartrate (Alphagan P) 100 Drop/5 Ml Soln, 1 DROP OS BID Calcitriol (Calcitriol) 0.25 Mcg Cap, 0.25 MCG PO QPM Cinacalcet (Sensipar) 30 Mg Tab, 30 MG PO Q2D Dicyclomine HCl (Dicyclomine HCl) 10 Mg Cap, 10 MG PO TID BEFORE MEALS Ergocalciferol (Vitamin D2) (Drisdol) 50,000 Unit Cap, 50,000 UNIT PO 1XWK MONDAYS Fenofibrate,Micronized (Fenofibrate) 134 Mg Capsule, 134 MG PO DAILY Folic Acid (Folic Acid) 1 Mg Tab, 1 MG PO DAILY Folic Acid/Vit B Complex and C (Monique-Jimbo Tablet) 1 Tab Tab, 1 TAB PO QPM Metoprolol Succinate (Toprol Xl) 50 Mg Tab, 50 MG PO QPM Metoprolol Succinate (Metoprolol Succinate) 50 Mg Tab.er.24h, 25 MG PO DAILY Mupirocin (Mupirocin) 2 % Oin, 1 APLCT TOP ASDIRECTED TO CATH SITE AND AFFECTED AREA(S) Niacinamide (Niacinamide) 500 Mg Tablet, 500 MG PO QHS Prednisone (Prednisone) 1 Mg Tab, 4 MG PO DAILY Sevelamer Carbonate (Renvela) 800 Mg Tablet, 1,600 MG PO WM Sevelamer Carbonate (Renvela) 800 Mg Tablet, 800 MG PO ASDIRECTED WITH SNACKS Simvastatin (Simvastatin) 20 Mg Tab, 20 MG PO QHS Scheduled PRN Acetaminophen (Acetaminophen) 500 Mg Tablet, 1,000 MG PO Q4H PRN for PAIN Hydralazine HCl (Hydralazine HCl) 25 Mg Tablet, 25 MG PO BID PRN for BP >140 Loperamide HCl (Loperamide) 2 Mg Capsule, 2 MG PO QID PRN for DIARRHEA Ondansetron HCl (Ondansetron HCl) 4 Mg Tablet, 4 MG PO Q8H PRN for NAUSEA OR VOMITING Allergies Coded Allergies: Sulfa (Sulfonamide Antibiotics) (Verified Adverse Reaction, Mild, n/v, 05/07/19) lactose (Verified Adverse Reaction, Mild, intolerant, 05/07/19) morphine (Verified Adverse Reaction, Mild, vomitting, 05/07/19) sulfamethoxazole (Verified Adverse Reaction, Mild, n/v, 05/07/19) trimethoprim (Verified Adverse Reaction, Mild, n/v, 05/07/19) A-FIB/CHADSVASC A-FIB History Current/History of A-Fib/PAF?: KARLOS Quinteros MD May 07, 2019 13:17
--- NOTE | 2019-05-07 13:21 | CR ---
DATE OF CONSULTATION: 05/07/2019 REQUESTING PHYSICIAN: Dr. Eddi Chen CONSULTING PHYSICIAN: Dr. Alvarado REASON FOR CONSULTATION: Management of end-stage renal disease, peritoneal dialysis and volume status. CHIEF COMPLAINT: The patient presented to the hospital with generalized weakness. 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 She was recently admitted at the hospital last month with C diff colitis, which did not respond to oral antibiotics. She needed fecal transplant. The patient has multiple squamous cell cancer lesions on the skin. She followed up with dermatology and she got skin lesions removed from the back of the neck and from left shoulder and she reports before the procedure when she was trying to move herself up that she scraped her right elbow as well. Now she has been complaining of pain at the surgical sites and right elbow abrasion. She also reports having more episodes of diarrhea. She reports stools are still semi-formed but they are increased in frequency. When the patient presented to the hospital, she was found to be hypotensive, systolic blood pressure in the 90s. She is found to have leukocytosis. She had mild elevation of lactic acid at 3.2. The patient was given IV normal saline bolus. Nephrology service was called for further help in the management of this patient with peritoneal dialysis and recommendations regarding IV fluids and antibiotics. I saw and evaluated the patient today morning at the bedside. The patient is awake and alert but she very weak and frail. She was getting IV fluids when I saw her. She was able to provide the history. 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 ALLERGIES: The patient is allergic to LACTOSE, SULFA DRUGS, MORPHINE. FAMILY HISTORY: There is family history of renal cell cancer in the mother. No history of end-stage renal disease in the family. SOCIAL HISTORY: She lives at home. Her son lives close to her. She denies any smoking, illicit drug abuse or alcohol abuse. CONSTITUTIONAL: The patient reports feeling weak and tired with generalized weakness. Eyes: She denies any blurry vision, double vision. ENT: She denies any dysphagia, odynophagia. Cardiovascular: She denies any chest pain or palpitation but she does report her blood pressure is low now. Respiratory: She denies any shortness of breath or cough. Gastrointestinal: She reports increased frequency of loose stools. Genitourinary: She denies any dysuria or hematuria. Musculoskeletal: She reports muscle weakness. Hematology/Oncology: She denies any easy bleeding or bruising. Skin: She reports two skin cancer lesions removed from neck and left shoulder. She also reports painful abrasion on the right elbow. Psychiatric: She denies any depression or anxiety. Central nervous system ([employer]): She denies any strokes or seizures. All other review of systems negative. PHYSICAL EXAMINATION: General: The patient is awake, alert, oriented times three, laying in the bed. Vital signs: Temperature is 98 degrees Fahrenheit. Blood pressure right now is 113/55, initially it was 94/61, pulse is 86, respiratory rate of 18, saturating 100% on room air. Head and neck exam: Extraocular muscles intact. Pupils equally round and react to light. Neck is supple. She has jake on the back of the neck from recent surgery. Mucous membranes are moist. Cardiovascular: S1, S2 regular rate. Trace edema of the bilateral lower extremities. Respiratory: Chest is clear to auscultation bilaterally. Bilateral equal air entry. No rales or rhonchi. Abdomen: Soft, mildly distended. Positive bowel sounds. Mild diffuse tenderness on deep palpation. Peritoneal catheter exit site is clean. Musculoskeletal: No clubbing or cyanosis. Pulses are 2+. Skin: The patient has large abrasion on the right sikhism, which is covered with a dressing and she has sutures on the left shoulder as well from recent dermatological surgery. Central nervous system ([employer]): No focal deficit. Power is 5/5 in all extremities. LABORATORY REVIEW: CBC showed WBC of 20.5, hemoglobin 10.7, platelets are 185, INR is 1.03. BMP showed sodium 141, potassium 2.4, chloride 104, bicarbonate 23, BUN 36, creatinine is 5, lactic acid is 3.2, calcium of 7.3, albumin is 1.5, lipase 531. Microbiology blood cultures are pending. IMAGING STUDIES: A chest x-ray was done today, which showed possible left lower lobe infiltrate. HOME MEDICATIONS: The patient is on: - Tylenol as needed - calcitriol 0.25 mcg daily - Sensipar 30 mg by mouth every other day - dicyclomine - vitamin D 50,000 units once a week - fenofibrate 134 mg by mouth daily - folic acid 1 mg by mouth daily - hydralazine 25 mg by mouth twice a day as needed for blood pressure more than 140 - Imodium 2 mg four times a day as needed for diarrhea - metoprolol XL 50 mg at night - Bactroban topical - Zofran as needed for nausea, vomiting - prednisone 40 mg by mouth daily - Renvela 1600 mg by mouth with meals - simvastatin 20 mg at night ASSESSMENT: 68-year-old female with history of end-stage renal disease on peritoneal dialysis, recently treated for C diff colitis, recent removal of skin cancers from the back of the neck and left shoulder admitted this time with generalized weakness, sepsis and hypokalemia. PLAN: 1. Sepsis. The patient came in with low blood pressures. She is already on beta blockers so tachycardia is not pronounced. She has leukocytosis and lactic acidosis, most likely this is associated with C diff colitis. The patient has history of recurrent C diff. Blood cultures have been sent. The patient is being given normal saline bolus. I have also started the patient on gentle IV fluid hydration as well. There is questionable infiltrate on the left side on the chest x-ray. If needed, the patient can get a CT scan of the chest without contrast. 2. End-stage renal disease on peritoneal dialysis. I would start the patient on gentle peritoneal dialysis regimen of all 1 liter exchanges all 1.5%, five exchanges a day. 3. Hypokalemia. The patient has a potassium of 2.4. She was given potassium chloride 40 mEq by mouth in the emergency room and started on KCL 40 mEq and D5 half-normal saline at 50 mL an hour as well. Recheck potassium level in the afternoon and replete potassium as needed. 4. Anemia in end-stage renal disease, hemoglobin is 10.7. I am going to check the iron levels. She will be started on Aranesp subcutaneous once a week. 5. Secondary hyperparathyroidism. Continue home dose of Sensipar 30 mg q. Friday, Friday, Friday and calcitriol 0.25 mcg p.o. daily. 6. Chronic kidney disease/mineral bone disease. Hold Renvela at this time since the patient is having diarrhea. 7. Chronic steroid dependence. Continue home dose of prednisone 40 mg p.o. daily. 8. History of hypertension. The patient is hypotensive at this time because of sepsis. Hold hydralazine and metoprolol at this time. 9. Diarrhea and history of recurrent Clostridium (C.) difficile. The patient just got the fecal transplant done last month. We will get in touch with gastroenterology and infectious disease before starting the patient on oral antibiotics. Thank you for involving me in the care of this patient. I shall be happy to follow the patient along with you tomorrow morning.
[2019-05-07] MEDS ORDERED: FIDAXOMICIN 200 MG TAB (DIFICID) PO ONE (14:00)
[2019-05-07 15:02] LABS: ALBUMIN 1.4 GM/DL (3.2-5.2); CALCIUM LEVEL 7.4 MG/DL (8.8-10.2); CREATININE FOR GFR 5.27 MG/DL (0.55-1.30); GLOMERULAR FILTRATION RATE 8.6 (>39); MAGNESIUM LEVEL 1.4 MG/DL (1.8-2.4); PHOSPHORUS LEVEL 3.3 MG/DL (2.5-4.9); POTASSIUM SERUM 2.7 MEQ/L (3.5-5.1)
[2019-05-07 15:30] VITALS: BP 120/80
[2019-05-07] MEDS: predniSONE 1 MG TAB PO SCH (18:44)
[2019-05-07] MEDS: CINACALCET 30 MG TAB (SENSIPAR) PO SCH (18:44)
[2019-05-07] MEDS: (RENVELA) SEVELAMER **CARBONate** 800 MG TAB PO SCH (18:44)
[2019-05-07] MEDS: FOLIC ACID 1 MG TAB PO SCH (18:44)
[2019-05-07 19:26] LABS: APPEARANCE, BODY FLUID CLEAR (CLEAR); PERITONEAL DIALYSATE FL COLOR PALE YELLOW (COLORLESS); SOURCE, BODY FLUID PERITONEAL DIALYSATE
[2019-05-07] MEDS: HEPARIN SOD (PORCINE) 5000 UNITS/ML VIAL SC SCH ×2 (21:00→22:27)
[2019-05-07 22:00] VITALS: BP 123/59
[2019-05-07] MEDS: FIDAXOMICIN 200 MG TAB (DIFICID) PO SCH (22:26)
[2019-05-07] MEDS: BRIMONIDINE 0.1% OPHTH SOLN 5 ML OS SCH (22:27)
[2019-05-07] MEDS: ACETAMINOPHEN 500 MG TAB PO PRN (22:29)
[2019-05-08 06:00] VITALS: BP 111/73
[2019-05-08] MEDS ORDERED: HEPARIN SOD (PORCINE) 5000 UNITS/ML VIAL PD ONE ×3 (06:00→19:00)
[2019-05-08 07:22] LABS: ALBUMIN 1.4 GM/DL (3.2-5.2); BILIRUBIN,TOTAL 0.8 MG/DL (0.2-1.0); CALCIUM LEVEL 7.2 MG/DL (8.8-10.2); CREATININE FOR GFR 5.84 MG/DL (0.55-1.30); GLOMERULAR FILTRATION RATE 7.6 (>39); POTASSIUM SERUM 4.2 MEQ/L (3.5-5.1); TOTAL PROTEIN 4.8 GM/DL (6.4-8.2)
[2019-05-08 07:25] LABS: HEMATOCRIT 33.3 % (36.0-47.0); MEAN CORPUSCULAR HEMOGLOBIN 35.8 pg (27.0-33.0); MEAN CORPUSCULAR VOLUME 108.5 fl (80.0-96.0); PLATELET COUNT, AUTOMATED 168 10^3/uL (150-450); RED BLOOD COUNT 3.07 10^6/uL (4.00-5.40); WHITE BLOOD COUNT 17.1 10^3/uL (4.0-10.0)
[2019-05-08] MEDS ORDERED: MAG SULF 1GM/100ML (MAG RUN) 1 GM in APPROPRIATE DILUENT 1 EA IV ONE (07:30)
[2019-05-08] MEDS: FOLIC ACID 1 MG TAB PO SCH (08:36)
[2019-05-08] MEDS: (RENVELA) SEVELAMER **CARBONate** 800 MG TAB PO SCH ×3 (08:36→17:08)
[2019-05-08] MEDS: HEPARIN SOD (PORCINE) 5000 UNITS/ML VIAL SC SCH ×3 (08:37→21:00)
[2019-05-08] MEDS: BRIMONIDINE 0.1% OPHTH SOLN 5 ML OS SCH ×2 (08:38→21:56)
[2019-05-08] MEDS: FIDAXOMICIN 200 MG TAB (DIFICID) PO SCH ×2 (08:47→21:56)
[2019-05-08] MEDS: predniSONE 1 MG TAB PO SCH (08:48)
[2019-05-08] MEDS: ONDANSETRON 4MG/2ML VIAL (J2405) IV PRN ×2 (08:56→17:59)
--- NOTE | 2019-05-08 09:30 | ECGEPIP ---
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
[2019-05-08] MEDS: ACETAMINOPHEN 500 MG TAB PO PRN ×2 (09:44→21:55)
--- NOTE | 2019-05-08 10:30 | REPVR ---
EXAM: CT Chest Without Contrast EXAM DATE/TIME: 05/08/2019 7:38 AM CLINICAL HISTORY: 68 years old, female; Condition or disease; Other: Pneumonia TECHNIQUE: Imaging protocol: Axial computed tomography images of the chest without intravenous contrast. Coronal and sagittal reformatted images were created and reviewed. 3D rendering: MIP reconstructed images were created and reviewed. Radiation optimization: All CT scans at this facility use at least one of these dose optimization techniques: automated exposure control; mA and/or kV adjustment per patient size (includes targeted exams where dose is matched to clinical indication); or iterative reconstruction. COMPARISON: CR Chest, 1 view 05/07/2019 10:[address] ABD PELVIS W/O CONTRAST 04/04/2019 9:34:28 AM FINDINGS: Lungs: The central airways are patent. There is calcification of the tracheobronchial tree. There is a small peripheral wedge-shaped area of consolidation within the left lower lobe which likely represents atelectasis, however, a small focal infiltrate cannot be excluded. There is mild dependent and bilateral subsegmental atelectasis. There is a stable 16 mm pleural-based nodule within the lateral base of the right lower lobe. Small calcified granuloma within the lingula. Pleural space: There is a trace right and small left pleural effusion. No pneumothorax. Heart: Cardiac size is normal. Aortic and mitral valvular calcification as well as coronary artery calcification. No pericardial effusion. Aorta: There is atherosclerosis and tortuosity of the thoracic aorta. No evidence of aneurysm. There is atherosclerosis of the great vessels, upper abdominal aorta and its branches. Lymph nodes: No adenopathy. Bones/joints: Bones are diffusely demineralized. There is a thoracic dextroscoliosis with multilevel degenerative change and compression deformities involving thoracic and upper lumbar vertebral bodies. Old/healing fractures involving the posterolateral right 9th rib and posterior left 11th rib. Advanced arthritic change involving the shoulders. There are associated shoulder joint effusions, left greater than right. Soft tissues: There are benign-appearing breast calcifications. Upper abdomen: There is free fluid within the upper abdomen containing a few bubbles of air, consistent with the history of peritoneal dialysis. There is a stable partially calcified hypodense lesion within the posterior right hepatic lobe which appears unchanged as well as several punctate granulomas within spleen. Stable 1 cm hypodensity within the inferior aspect of the spleen. IMPRESSION: 1. Trace right and small left pleural effusions. The right pleural effusion has decreased in size and the left pleural effusion slightly increased. 2. Small peripheral wedge-shaped area of consolidation within the left lower lobe which likely represent atelectasis, however, a small focal infiltrate cannot be excluded. 3. Stable 16 mm pleural-based nodule within the lateral base of the right lower lobe. 4. Stable chronic changes within the upper abdomen including free fluid containing a few bubbles of air, consistent with peritoneal dialysis. 5. Old/healing right 9th and left 11th rib fractures as well as multilevel compression deformities within the thoracolumbar spine. Advanced degenerative change involving the shoulders with associated shoulder joint effusions. 6. Additional non-emergent findings, as discussed above. Electronically signed by: Elvis Marcum On 05/08/2019 10:29:56 AM
--- NOTE | 2019-05-08 10:40 | IPN ---
DATE: 05/08/2019 Mrs. Thornton is seen this morning on her bedside. She is sitting in the chair and just finished eating her breakfast. She is feeling better and reports that she did not have any more loose stools today. She was admitted with generalized weakness and was found to have severe hypokalemia. She was also noticed to have leukocytosis yesterday with a white cell count of 20,000. A chest x-ray showed a questionable infiltrate. She has history of recurrent Clostridium (C) difficile colitis with prior history of fecal transplant. She has been started on Dificid and diarrhea is already improved and white cell count has come down to 17,000. We are reluctant to start any antibiotics due to her recurrent C difficile colitis and a CT scan of chest is done this morning to evaluate for pneumonia. She has a small left lower lobe infiltrate, but has been afebrile. Her peritoneal dialysis did not work very well as she could not drain any fluid last night and again this morning. We have put in some heparin in her peritoneal fluid this morning. The patient denies any dyspnea, chest pain, nausea or vomiting. She has complained of pain on her right elbow where she developed a laceration yesterday while she was getting a procedure for her skin cancer removal. On physical examination, temperature 98.4 degrees Fahrenheit, heart rate 71 per minute and respiratory rate 17 per minute. Blood pressure 111/73 mmHg and oxygen saturation 100% on room air. Head is atraumatic. She is frail and chronically ill looking. Neck is supple and there is no jugular venous distention (JVD) or thyroid enlargement. Heart sounds are regular and lungs sound clear to auscultation. Abdomen is soft and nontender and bowel sounds are present. Extremities have no cyanosis or clubbing. I removed the dressing from her right elbow skin tear and did not notice any signs of infection and no active bleeding. She has multiple chronic skin warts and dry skin. Neurologically she is awake, alert and at her baseline mentation. Today's labs show WBC count 17.1, hemoglobin 11.0 and hematocrit 33.3. Platelets 168. Sodium 142, potassium 4.2, CO2 21, BUN 40 and creatinine 5.84. Calcium is 7.2 and total protein 4.8. PROBLEMS: 1. End-stage renal disease. The patient has been on peritoneal dialysis, however, her dialysis is not working very well at present. Her catheter has been not draining, though fluid goes in without any difficulty. We put in some heparin this morning. I will wait and see how she does this afternoon. 2. Hypokalemia. Potassium level has corrected with oral and intravenous supplement. I will stop her IV fluid now due to risk of hyperkalemia while her peritoneal dialysis is not functioning. Her oral intake also seems to be adequate and she does not need further IV fluid. 3. Recurrent C difficile colitis. The patient is on Dificid and she seems to be improving. We will see how her white cell count goes over next couple of days. 4. Hypertension. Blood pressure is very well controlled at present and in fact her blood pressure was low when she came. No changes are being made today. 5. Anemia. At present, her anemia is stable and we will continue to watch.
[2019-05-08 14:00] VITALS: BP 132/76
--- NOTE | 2019-05-08 16:26 | IPNPDOC ---
Date Seen The patient was seen on 05/08/19. Progress Note SUBJECTIVE: Patient reports feeling better and having greater energy today. She denies cough, changes in bowel habits, chest pain or shortness of breath. Her weakness for which she presented with has not resolved but is definitely better. PHYSICAL EXAMINATION: VITAL SIGNS:Please see below GENERAL: Pleasant frail petite female sitting up in bed awake alert oriented speaking in complete sentences no acute distress she speaks with her chronic lisp HEENT: moist mucous membranes no elevation in CVP CARDIOVASCULAR: S1 S2 regular no additional heart sounds appreciated. RESPIRATORY: Clear to auscultation bilaterally. ABDOMINAL: Bowel sounds present abdomen soft and nontender no significant distention EXTREMITIES: No clubbing cyanosis or edema, she has a laceration of her right elbow which is not erythematous it is tender all over or significant discharge. [place] on her left posterior neck are clean dry intact as on her left shoulder NEUROLOGICAL: Spontaneously moves all 4 extremities cranial 2 through 12 grossly intact no gross focal deficits appreciated PSYCHOLOGICAL: Appropriate LABORATORY DATA: See below. MICROBIOLOGY: Please see below. IMAGING: Chest x-ray:Possible left lower lobe infiltrate. Otherwise, negative portable chest. ASSESSMENT & PLAN: This is a 68-year-old female with weakness and hypokalemia. PROBLEMS: 1. Weakness: Iproved today, likely secondary to hypokalemia. Hypokalemia may be related to excessive GI losses vs. malfunctioning HD. GI and Nephro help is greatly appreciated. She is empirically on dificid for possible cdiff recurrence. GI PCR panel ordered not obtained yet. 2.End-stage renal disease on peritoneal dialysis: Nephrology greatly appreciated, continue with Ang 3.Squamous cell carcinoma the skin: Requested the patient bring in her own Acit retin 4. Dyslipidemia: Hold fenofibrate and statin 5. Abnormal AST: We'll hold her statin for the time being very mild monitor with hydration 6. Hypertension: We will hold her metoprolol as well as when necessary hydralazine as she is hypotensive at this time 7. 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 prognosis is guarded VS, I&O, 24H, Fishbone Vital Signs/I&O Vital Signs Date Time Temp Pulse Resp B/P (MAP) Pulse Ox O2 Delivery O2 Flow Rate FiO2 05/08/19 06:00 98.4 71 17 111/73 (86) 100 05/07/19 10:30 Room Air I&O- Last 24 Hours up to 6 AM 05/08/19 06:00 Intake Total 2750 ml Output Total 970 ml Balance 1780 ml Laboratory Data 24H LABS Laboratory Tests 2 05/07/19 18:37: Body Fluid Source PERITONEAL DIALYSATE, Body Fluid WBC (Auto) 84H, Body Fluid RBC (Auto) < 2, Body Fluid Mononuclear Cells % Auto 35.7H, Fluid Polymorphonuclear Cell % Auto 64.3H, Peritoneal Fluid Color PALE YELLOW, Peritoneal Fluid Appearance CLEAR 05/07/19 20:28: Bedside Glucose (Misc Panel) 140H 05/08/19 06:48: Nucleated Red Blood Cells % (auto) 0.0, Anion Gap 12, Glomerular Filtration Rate 7.6L, Blood Urea Nitrogen 40H, Creatinine 5.84H, Sodium Level 142, Potassium Level 4.2#, Chloride Level 109H, Carbon Dioxide Level 21, Calcium Level 7.2L, Aspartate Amino Transf (AST/SGOT) 42H, Alanine Aminotransferase (ALT/SGPT) 34, Alkaline Phosphatase 161H, Total Bilirubin 0.8, Total Protein 4.8L, Albumin 1.4L, Albumin/Globulin Ratio 0.41L CBC/BMP Laboratory Tests 05/08/19 06:48 Red Blood Count 3.07 L, Mean Corpuscular Volume 108.5 H, Mean Corpuscular Hemoglobin 35.8 H, Mean Corpuscular Hemoglobin Concent 33.0, Red Cell Distribution Width 17.6 H, Calcium Level 7.2 L, Aspartate Amino Transf (AST/SGOT) 42 H, Alanine Aminotransferase (ALT/SGPT) 34, Alkaline Phosphatase 161 H, Total Bilirubin 0.8, Total Protein 4.8 L, Albumin 1.4 L Microbiology Microbiology 05/07/19 Blood Culture - Preliminary, Resulted No growth after 24 hours . All specim... 05/07/19 Blood Culture - Preliminary, Resulted No growth after 24 hours . All specim... 05/08/19 Gastrointestinal Tract Panel (PCR) - Final, Complete KARLOS WYLIE MD May 08, 2019 16:26
--- NOTE | 2019-05-08 17:05 | REP ---
Supine abdomen two views: Comparison is 05/14/2016. There is a peritoneal catheter coiled inferiorly in the pelvis. No catheter kinking is identified. The bowel gas pattern is normal. There are surgical clips in the pelvis on the right. There is internal fixation of the hips bilaterally. Impression: Peritoneal catheter as described. Normal bowel gas pattern. Electronically Signed by Karthikeyan Rooney MD 05/08/2019 04:57 P
[2019-05-08] MEDS: DICYCLOMINE 10 MG CAP PO SCH ×2 (17:08→21:56)
[2019-05-08] MEDS ORDERED: PREPARATION H OINTMENT (HEMORRHOID) TOP ONE (18:00)
[2019-05-08] MEDS: MUPIROCIN 2% OINT 22 GM TUBE TOP SCH (21:55)
[2019-05-08 22:00] VITALS: BP 139/73
[2019-05-09 06:00] VITALS: BP 139/77
[2019-05-09 06:30] LABS: HEMOGLOBIN 10.7 g/dl (12.0-15.5); MEAN CORPUSCULAR HEMOGLOBIN 34.7 pg (27.0-33.0); MEAN CORPUSCULAR HGB CONC 31.5 g/dl (32.0-36.5); MEAN CORPUSCULAR VOLUME 110.4 fl (80.0-96.0); PLATELET COUNT, AUTOMATED 215 10^3/uL (150-450); RED BLOOD COUNT 3.08 10^6/uL (4.00-5.40); WHITE BLOOD COUNT 16.9 10^3/uL (4.0-10.0)
[2019-05-09 07:02] LABS: ALBUMIN 1.4 GM/DL (3.2-5.2); BILIRUBIN,TOTAL 0.7 MG/DL (0.2-1.0); CALCIUM LEVEL 7.4 MG/DL (8.8-10.2); CREATININE FOR GFR 5.82 MG/DL (0.55-1.30); GLOMERULAR FILTRATION RATE 7.6 (>39)
[2019-05-09] MEDS: ONDANSETRON 4MG/2ML VIAL (J2405) IV PRN (08:26)
[2019-05-09] MEDS: ACETAMINOPHEN 500 MG TAB PO PRN ×2 (08:27→21:59)
[2019-05-09] MEDS: predniSONE 1 MG TAB PO SCH (08:28)
[2019-05-09] MEDS: FOLIC ACID 1 MG TAB PO SCH (08:28)
[2019-05-09] MEDS: FIDAXOMICIN 200 MG TAB (DIFICID) PO SCH (08:28)
[2019-05-09] MEDS: DICYCLOMINE 10 MG CAP PO SCH ×3 (08:28→21:59)
[2019-05-09] MEDS: (RENVELA) SEVELAMER **CARBONate** 800 MG TAB PO SCH (08:28)
[2019-05-09] MEDS: CINACALCET 30 MG TAB (SENSIPAR) PO SCH (08:28)
[2019-05-09] MEDS: PREPARATION H OINTMENT (HEMORRHOID) TOP SCH ×2 (08:29→21:59)
[2019-05-09] MEDS: HEPARIN SOD (PORCINE) 5000 UNITS/ML VIAL SC SCH ×2 (08:30→19:14)
[2019-05-09] MEDS: BRIMONIDINE 0.1% OPHTH SOLN 5 ML OS SCH ×2 (08:30→21:59)
--- NOTE | 2019-05-09 13:21 | IPNPDOC ---
Date Seen The patient was seen on 05/09/19. Progress Note SUBJECTIVE: Patient reports that her dialysis catheter is functioning better this morning and that she had 3 L removed. She tells me that the prescription was quite draining for her and she feels exhausted and sore all over following it. She otherwise been doing quite well yesterday evening. She tells me that she still having frequent bowel movements but they are semi-formed not katya diarrhe a PHYSICAL EXAMINATION: VITAL SIGNS:Please see below GENERAL: Pleasant frail petite female sitting on the edge of her bed awake alert oriented speaking in complete sentences no acute distress she speaks with her chronic lisp HEENT: moist mucous membranes no elevation in CVP CARDIOVASCULAR: S1 S2 regular no additional heart sounds appreciated. RESPIRATORY: Clear to auscultation bilaterally. ABDOMINAL: Bowel sounds present abdomen soft and nontender no significant distention EXTREMITIES: No clubbing cyanosis or edema, she has a laceration of her right elbow which is not erythematous it is tender all over or significant discharge. [place] on her left posterior neck are clean dry intact as on her left shoulder NEUROLOGICAL: Spontaneously moves all 4 extremities cranial 2 through 12 grossly intact no gross focal deficits appreciated PSYCHOLOGICAL: Appropriate and unchanged LABORATORY DATA: See below. MICROBIOLOGY: Please see below. IMAGING: Chest x-ray:Possible left lower lobe infiltrate. Otherwise, negative portable chest. Chest CT:1. Trace right and small left pleural effusions. The right pleural effusion has decreased in size and the left pleural effusion slightly increased. 2. Small peripheral wedge-shaped area of consolidation within the left lower lobe which likely represent atelectasis, however, a small focal infiltrate cannot be excluded. 3. Stable 16 mm pleural-based nodule within the lateral base of the right lower lobe. 4. Stable chronic changes within the upper abdomen including free fluid containing a few bubbles of air, consistent with peritoneal dialysis. 5. Old/healing right 9th and left 11th rib fractures as well as multilevel compression deformities within the thoracolumbar spine. Advanced degenerative change involving the shoulders with associated shoulder joint effusions. 6. Additional non-emergent findings, as discussed above. Abdominal x-ray:Peritoneal catheter as described. Normal bowel gas pattern. ASSESSMENT & PLAN: This is a 68-year-old female with weakness. PROBLEMS: 1. Weakness: She had been improved yesterday however today she is weak once again likely secondary to her fluid removal during her dialysis treatment. I suspect that her presenting weakness was secondary to hypokalemia which improved with supplementation and IV fluids. We'll continue to monitor her closely for now nephrology and gastroenterology help is greatly appreciated 2.End-stage renal disease on peritoneal dialysis: Nephrology greatly appreciated, continue with Ang she did receive heparin through her peritoneal dialysis catheter yesterday and is functioning much better today 3.Squamous cell carcinoma the skin: Requested the patient bring in her own Acitretin. Her previous resections appear to be healing well no evidence of any soft tissue infection 4. Dyslipidemia: Hold fenofibrate and statin 5. Abnormal AST: Resolved 6. Hypertension: We will hold her metoprolol as well as when necessary hydralazine as she has been hypotensive resume his needed 7. Anemia of ESRD: Stable 8. Leukocytosis: Possibly reactive. Downtrending. GI PCR panel is negative no evidence of recurrence of C. difficile. I will discontinue deficit. She is on steroids GI had some consideration she may have underlying Crohn's disease will benefit from further outpatient follow-up as she does have frequent bowel movements although it is not diarrhea DVT PROPHYLAXIS:Heparin q12h DISPOSITION: usp prognosis is guarded. I'll level with PT OT she does appear to be improving at this time VS, I&O, 24H, Kennethbone Vital Signs/I&O Vital Signs Date Time Temp Pulse Resp B/P (MAP) Pulse Ox O2 Delivery O2 Flow Rate FiO2 05/09/19 06:00 97.0 99 19 139/77 (97) 100 05/07/19 10:30 Room Air I&O- Last 24 Hours up to 6 AM 05/09/19 06:00 Intake Total 3830 ml Output Total 1450 ml Balance 2380 ml Laboratory Data 24H LABS Laboratory Tests 2 05/09/19 05:40: Nucleated Red Blood Cells % (auto) 0.0, Anion Gap 11, Glomerular Filtration Rate 7.6L, Blood Urea Nitrogen 45H, Creatinine 5.82H, Sodium Level 140, Potassium Level 4.0, Chloride Level 108H, Carbon Dioxide Level 21, Calcium Level 7.4L, Aspartate Amino Transf (AST/SGOT) 36, Alanine Aminotransferase (ALT/SGPT) 34, Alkaline Phosphatase 158H, Total Bilirubin 0.7, Total Protein 5.0L, Albumin 1.4L, Phosphorus Level 2.5#, Albumin/Globulin Ratio 0.39L CBC/BMP Laboratory Tests 05/09/19 05:40 Red Blood Count 3.08 L, Mean Corpuscular Volume 110.4 H, Mean Corpuscular Hemoglobin 34.7 H, Mean Corpuscular Hemoglobin Concent 31.5 L, Red Cell Distribution Width 17.2 H, Calcium Level 7.4 L, Aspartate Amino Transf (AST/SGOT) 36, Alanine Aminotransferase (ALT/SGPT) 34, Alkaline Phosphatase 158 H, Total Bilirubin 0.7, Total Protein 5.0 L, Albumin 1.4 L Microbiology Microbiology 05/07/19 Blood Culture - Preliminary, Resulted No Growth after 48 hours. All Specime... 05/07/19 Blood Culture - Preliminary, Resulted No Growth after 48 hours. All Specime... 05/08/19 Gastrointestinal Tract Panel (PCR) - Final, Complete KARLOS WYLIE MD May 09, 2019 13:21
[2019-05-09 14:00] VITALS: BP 133/74
[2019-05-09] MEDS ORDERED: HEPARIN SOD (PORCINE) 5000 UNITS/ML VIAL PD ONE (14:00)
[2019-05-09 15:23] LABS: APPEARANCE, BODY FLUID CLEAR (CLEAR); PERITONEAL DIALYSATE FL COLOR PALE YELLOW (COLORLESS); SOURCE, BODY FLUID PERITONEAL DIALYSATE
[2019-05-09] MEDS: MUPIROCIN 2% OINT 22 GM TUBE TOP SCH (18:09)
[2019-05-09 22:00] VITALS: BP 139/72
[2019-05-10 05:58] LABS: HEMATOCRIT 32.2 % (36.0-47.0); HEMOGLOBIN 10.2 g/dl (12.0-15.5); MEAN CORPUSCULAR HEMOGLOBIN 35.2 pg (27.0-33.0); MEAN CORPUSCULAR HGB CONC 31.7 g/dl (32.0-36.5); PLATELET COUNT, AUTOMATED 187 10^3/uL (150-450); WHITE BLOOD COUNT 15.4 10^3/uL (4.0-10.0)
[2019-05-10 06:00] VITALS: BP 104/52
[2019-05-10 06:14] LABS: ALBUMIN 1.3 GM/DL (3.2-5.2); BILIRUBIN,TOTAL 0.6 MG/DL (0.2-1.0); CALCIUM LEVEL 6.9 MG/DL (8.8-10.2); CREATININE FOR GFR 5.68 MG/DL (0.55-1.30); GLOMERULAR FILTRATION RATE 7.9 (>39); POTASSIUM SERUM 4.6 MEQ/L (3.5-5.1); TOTAL PROTEIN 4.5 GM/DL (6.4-8.2)
--- NOTE | 2019-05-10 07:52 | CR ---
DATE OF CONSULTATION: 05/08/2019 This is a 68-year-old white female well-known to me who presented previously 3-4 years ago with a history of refractory Clostridium (C.) difficile, which has been treated with stool transplant, which eventually resolved her symptoms. The patient has multiple medical problems, including end-stage renal disease and she is on chronic peritoneal dialysis, hypertension, anemia secondary to chronic disease, history of uterine cancer, history of leukemia, depression. She had a recent stool transplant on 04/08/2019, which was performed by upper endoscopies since the patient was reluctant to do a bowel prep. The patient presents now to [facility] with frequent bowel movements but not watery. The patient has a white count. No apparent fevers, night sweats or shaking chills. The patient describes semi-formed stools, but she does have frequent bowel movements. No melena, hematochezia or bright red blood per rectum. The patient is being seen again by GI for further evaluation. She has been started back to Dificid twice a day to control possible recurrent C diff, however, her stools are not watery. PAST MEDICAL HISTORY: As above. ALLERGIES: SULFA, MORPHINE, BACTRIM, LACTOSE. PAST SURGICAL HISTORY: 1. Kidney transplant in 2016. 2. Total hysterectomy for uterine cancer. 3. 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 5. Bilateral hip pain, placement for hip fracture prophylaxis. FAMILY HISTORY: Positive for renal cell cancer. 10-point review of systems is noncontributory. PHYSICAL EXAMINATION: Well-developed, thin, white female in no obvious acute distress. She does state that she has been losing weight. CARDIOVASCULAR: Regular rhythm. No murmurs or gallops. Normal physiological split S1, S2. ABDOMEN: Soft, nontender. No masses, guarding, rebound, hepatosplenomegaly. Bowel sounds are positive. EXTREMITIES: No cyanosis, clubbing, edema. Gabino's negative. ANALYSIS: 1. Frequent bowel movements but not watery diarrhea. At the present time, the patient is on Dificid for empiric treatment for possible Clostridium (C.) difficile. However, with bowel frequency and formation this maybe be just functional in nature. PLAN: Suggest a heating pad to the abdomen for abdominal cramps and pain. The abdominal CT did suggest inflammation of the left colon consistent with colitis, which my interpretation this is a nonspecific finding. 2. Would recommend dicyclomine 10 mg four times a day to help control spasms and urgency. 3. Possible use of antidiarrheals to obtain more formation with a high-fiber diet. 5. No colonoscopy is needed at this time. I do not recommend a stool transplant.
--- NOTE | 2019-05-10 07:53 | IPN ---
DATE OF VISIT: 05/09/2019 Mrs. Thornton is seen this morning on her bedside. She has complained of abdominal pain today. Yesterday she had alot of problems with poor functioning of her peritoneal dialysis catheter and we did put heparin in more than one exchanges. Initially she had no drainage and then she started with slow drainage but finally this morning she drained about 3 liters of fluid. Her abdomen is nondistended. She did have some bowel movement but states that it was formed. She denies any dyspnea or chest pain. She is not receiving IV fluid anymore. PHYSICAL EXAMINATION: Temperature 97.0 degrees Fahrenheit, heart rate 99 per minute and respiratory rate 19 per minute. Blood pressure 139/77 mmHg and oxygen saturation 100% on room air. Head is atraumatic. Neck is supple and there is no jugular venous distention (JVD) or thyroid enlargement. Her heart sounds are tachycardiac. Lungs sound clear to auscultation. Abdomen is mildly tender but nondistended. Bowel sounds are present. Extremities have no cyanosis or clubbing. Her peritoneal dialysis catheter is intact. Neurologically she is awake, alert and oriented times three. Today's labs show WBC count 16.9, hemoglobin 10.7 and hematocrit 34.0. Platelets 215. Sodium 140, potassium 4.0, CO2 21, BUN 45 and creatinine 5.82. Calcium level was 7.4. A total protein 5.0 and albumin only 1.4. PROBLEMS: 1. End-stage renal disease. The patient remains on peritoneal dialysis which is now functioning. Yesterday she had a poor function of peritoneal dialysis catheter and I did call Dr. Lombardi for possible intervention, however, in the meantime her catheter has started to work. At this point no other intervention is needed. 2. Diarrhea and abdominal pain. She does have history of C. difficile colitis in the past, however, now her stools are formed. She did have a GI panel done which was negative. She has been on Dificid which can probably be stopped. 3. Hypertension. Blood pressure has been very well controlled and no changes are being made today. 4. Hyperphosphatemia. I am going to stop her Renvela for now as she is not eating well. We will check her phosphorus level and then decide if she needs to have a phosphate binder. I will also check her intact PTH level tomorrow to see if she needs to continue with Sensipar or not. 5. Abdominal pain, probably is nonspecific. We will check her peritoneal fluid for cell count to rule out any possibility of peritonitis. She is currently not on any antibiotic. 6. Left lower lobe infiltrate. Her chest x-ray and CT scan showed a tiny infiltrate versus atelectasis. She is not on any antibiotic due to history of C. difficile colitis and improving leukocytosis. She has been afebrile. We will continue to watch her.
[2019-05-10] MEDS: DICYCLOMINE 10 MG CAP PO SCH ×3 (08:14→21:10)
[2019-05-10] MEDS: PREPARATION H OINTMENT (HEMORRHOID) TOP SCH ×2 (08:15→21:00)
[2019-05-10] MEDS: HEPARIN SOD (PORCINE) 5000 UNITS/ML VIAL SC SCH ×2 (08:15→21:00)
[2019-05-10] MEDS: FOLIC ACID 1 MG TAB PO SCH (08:15)
[2019-05-10] MEDS: predniSONE 1 MG TAB PO SCH (08:15)
[2019-05-10] MEDS: BRIMONIDINE 0.1% OPHTH SOLN 5 ML OS SCH ×2 (08:15→21:11)
[2019-05-10] MEDS: ONDANSETRON 4MG/2ML VIAL (J2405) IV PRN (08:49)
[2019-05-10] MEDS ORDERED: ISOVUE-370 76% 100ML VIAL (Q9967) As Ordered ONE (10:45)
[2019-05-10 11:07] LABS: APPEARANCE, BODY FLUID HAZY (CLEAR); PERITONEAL DIALYSATE FL COLOR PALE YELLOW (COLORLESS); SOURCE, BODY FLUID PERITONEAL DIALYSATE
--- NOTE | 2019-05-10 11:42 | REP ---
Clinical: Peritoneal dialysis patient with given history of colitis and pain. Technique: Axial contrast enhanced images of the abdomen using 100 ml Isovue 370 intravenous contrast material with coronal and sagittal re-formations. Comparison: 04/04/2019 Findings: Lung lemus demonstrate chronic changes with elements of bibasilar atelectasis (left greater than right) and small left pleural effusion which may be slightly increased when compared to prior examination. Moderate amount of free fluid is identified within the abdomen and visualized upper pelvis along with small amount of pneumoperitoneum which may be related to the given history of peritoneal dialysis. [place] kidneys are absent. Stable appearance to the spleen and pancreas including splenic and pancreatic cysts along with atrophic appearance to the pancreas and scattered splenic calcifications. Complex cystic lesion with scattered coarse calcifications involving the posterior aspect of the right hepatic lobe is unchanged. Bilateral adrenal glands and gallbladder appear normal. Mural enhancement involving the visualized small and large bowel is consistent with given history of enterocolitis. Portion of the peritoneal dialysis catheter is identified in the subcutaneous tissue along the very inferior margin of the examination and the visualized surrounding subcutaneous tissue appears relatively normal. Abdominal aorta demonstrates atherosclerotic changes without aneurysm. Visualized osseous structures demonstrate age-related degenerative changes. Impression: 1. Lung bases demonstrate mild basilar atelectasis (left greater than right) and small left pleural effusion. 2. Stable chronic-appearing changes to the visualized abdomen including complex cystic lesion along the posterior aspect of the right hepatic lobe and few scattered cystic changes to the spleen and pancreas. 3. Ascites and small amount of pneumoperitoneum likely related to peritoneal dialysis. 4. Enhancement of the visualized small large bowel consistent with the given history of enterocolitis. Electronically Signed by Elvis Priest MD 05/10/2019 11:34 A
[2019-05-10 14:00] VITALS: BP 138/77
[2019-05-10] MEDS ORDERED: GENTAMICIN SULF INJ 80MG/2ML VIAL (J1580) IP ONE (14:00)
--- NOTE | 2019-05-10 14:20 | IPNPDOC ---
Date Seen The patient was seen on 05/10/19. 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 difficile. She presented to the Emergency room due to progressive weakness for the past several days. She states that every time she eats, she has to use the bathroom and has semi-formed bowel movements. She has also had some difficulty completing peritoneal dialysis. Patient was admitted to [facility] for C. difficile infection and received a stool transplant from Dr. Overton in the last month. She denies weight loss, hair loss, headache, visual changes, chest pain, shortness of breath, cough, nausea, vomiting, muscle aches, or worsening arthritis. Patient was examined at bedside. She was finishing her breakfast and appeared tired and frustrated. She admits to vomiting several times yesterday and has been nauseous for most of today. She has not had a bowel movement in a few days and feels bloated. She had peritoneal dialysis yesterday and 3L of fluid was removed. She denies hematemesis, chest pain, shortness of breath, dizziness, or syncope. PHYSICAL EXAMINATION: VITAL SIGNS: Please see below. GENERAL: A pale frail white female sitting in chair eating breakfast, she appears sad and frustrated about her current health. HEENT: NC AT, moist mucous membranes CARDIOVASCULAR: Regular rate and rhythm, normal S1S2 RESPIRATORY: clear bilaterally, equal air intake bilaterally ABDOMINAL: slightly distended, soft, tender to palpation in all four quadrants EXTREMITIES: trace edema noted in lower extremities, her right elbow has a shallow abrasion NEUROLOGICAL: No focal deficits, alert and oriented X3 PSYCHOLOGICAL: anxious LABORATORY DATA, IMAGING STUDIES, MICROBIOLOGY: Please see below. 1. Chest X-ray 05/07/19: Possible left lower lobe infiltrate. Otherwise, negative portable chest. 2. Chest CT 05/08/19: 1. Trace right and small left pleural effusions. The right pleural effusion has decreased in size and the left pleural effusion slightly increased. 2. Small peripheral wedge-shaped area of consolidation within the left lower lobe which likely represent atelectasis, however, a small focal infiltrate cannot be excluded. 3. Stable 16 mm pleural-based nodule within the lateral base of the right lower lobe. 4. Stable chronic changes within the upper abdomen including free fluid con taining a few bubbles of air, consistent with peritoneal dialysis. 5. Old/healing right 9th and left 11th rib fractures as well as multilevel compression deformities within the thoracolumbar spine. Advanced degenerative change involving the shoulders with associated shoulder joint effusions. 6. Additional non-emergent findings, as discussed above. 3. Abdominal X-ray 05/08/19: Peritoneal catheter as described. Normal bowel gas pattern 4. Abdominal CT 05/10/19: 1. Lung bases demonstrate mild basilar atelectasis (left greater than right) and small left pleural effusion. 2. Stable chronic-appearing changes to the visualized abdomen including complex cystic lesion along the posterior aspect of the right hepatic lobe and few scattered cystic changes to the spleen and pancreas. 3. Ascites and small amount of pneumoperitoneum likely related to peritoneal dialysis. 4. Enhancement of the visualized small large bowel consistent with the given history of enterocolitis. DVT prophylaxis ordered?: Yes, heparin ASSESSMENT AND PLAN: Patient is a 68-year-old female with a past medical history of End stage renal disease with peritoneal dialysis, Depression, hypertension, dyslipidemia, failed kidney transplant leading to removal, anemia secondary to End stage renal disease, and recurrent C. difficile PROBLEMS: 1. Weakness 2/2 to peritoneal dialysis. Presenting weakness likely 2/2 to hypokalemia -supplemented with potassium -patient still feeling fatigued 2. End stage renal disease on peritoneal dialysis -received peritoneal dialysis yesterday, removed 3 liters of fluid -Nephrology consulted -creatinine 5.68, GFR: 7.9 3. Abdominal cramping and diarrhea likely 2/2 to inflammation from colitis -history of C. difficile -Gastrology consulted -GI PCR panel negative -Heating pad and dicyclomine recommended per Dr. Overton 4. Squamous cell carcinoma of skin -Had recent biopsies that are healing well 5. Left lower lobe infiltrate -Chest x-ray and chest CT showed slight infiltrate -Not currently on antibiotics 6. Dyslipidemia -hold home medications 7. Hypertension -blood pressure well controlled -holding home medications 8. Anemia of ESRD -stable -hemoglobin 10.2 9. Leukocytosis -may be 2/2 to steroid use -trending down -WBC today 15.4 -Venous blood culture negative DISPOSITION: Patient is stable and her prognosis is guarded. C/w PT and OT. We greatly appreciate input from Gastrology and Nephrology I saw and evaluated the patient. I agree with the findings and plan of care as documented in the above note VS, I&O, 24H, Fishbone Vital Signs/I&O Vital Signs Date Time Temp Pulse Resp B/P (MAP) Pulse Ox O2 Delivery O2 Flow Rate FiO2 05/10/19 06:00 97.2 88 16 104/52 (69) 90 05/07/19 10:30 Room Air I&O- Last 24 Hours up to 6 AM 05/10/19 06:00 Intake Total 6420 ml Output Total 8550 ml Balance -2130 ml Laboratory Data 24H LABS Laboratory Tests 2 05/09/19 14:47: Body Fluid Source PERITONEAL DIALYSATE, Body Fluid WBC (Auto) 84H, Body Fluid RBC (Auto) < 2, Body Fluid Mononuclear Cells % Auto 13.1H, Fluid Polymorphonuclear Cell % Auto 86.9H, Peritoneal Fluid Color PALE YELLOW, Peritoneal Fluid Appearance CLEAR 05/10/19 05:21: Nucleated Red Blood Cells % (auto) 0.1H, Anion Gap 10, Glomerular Filtration Rate 7.9L, Blood Urea Nitrogen 43H, Creatinine 5.68H, Sodium Level 137, Potassium Level 4.6, Chloride Level 104, Carbon Dioxide Level 23, Calcium Level 6.9L, Aspartate Amino Transf (AST/SGOT) 57H, Alanine Aminotransferase (ALT/SGPT) 39, Alkaline Phosphatase 165H, Total Bilirubin 0.6, Total Protein 4.5L, Albumin 1.3L, Albumin/Globulin Ratio 0.41L, Parathyroid Hormone (Intact) 130.7H 05/10/19 10:29: Body Fluid Source PERITONEAL DIALYSATE, Body Fluid WBC (Auto) 485H, Body Fluid RBC (Auto) < 2, Body Fluid Mononuclear Cells % Auto 12.8H, Fluid Polymorphonuclear Cell % Auto 87.2H, Peritoneal Fluid Color PALE YELLOW, Peritoneal Fluid Appearance HAZY CBC/BMP Laboratory Tests 05/10/19 05:21 Red Blood Count 2.90 L, Mean Corpuscular Volume 111.0 H, Mean Corpuscular Hemoglobin 35.2 H, Mean Corpuscular Hemoglobin Concent 31.7 L, Red Cell Distribution Width 17.0 H, Calcium Level 6.9 L, Aspartate Amino Transf (AST/SGOT) 57 H, Alanine Aminotransferase (ALT/SGPT) 39, Alkaline Phosphatase 165 H, Total Bilirubin 0.6, Total Protein 4.5 L, Albumin 1.3 L Microbiology Microbiology 05/07/19 Blood Culture - Preliminary, Resulted No Growth after 72 hours. All specime... 05/07/19 Blood Culture - Preliminary, Resulted No Growth after 72 hours. All specime... 05/08/19 Gastrointestinal Tract Panel (PCR) - Final, Complete ROMA AMBROSE S-3 May 10, 2019 14:20 KARLOS WYLIE MD May 10, 2019 16:40
[2019-05-10] MEDS ORDERED: VANCOMYCIN 1000 MG/20 ML VIAL (J3370) IP ONE (15:00)
--- NOTE | 2019-05-10 15:08 | IPN ---
DATE: 05/10/2019 Mrs. Thornton is seen this morning on her bedside. Her peritoneal dialysis exchange is in progress. She is draining about 1200 mL of fluid which looks clear. She has complained of increased abdominal pain and vomited multiple times yesterday and again this morning. She denies any diarrhea. She has no fever or chills. PHYSICAL EXAMINATION: Temperature 97.2 degrees Fahrenheit, heart rate 88 per minute and respiratory rate 16 per minute. Blood pressure 104/52 mmHg and oxygen saturation between 90% and 100% on room air. Head is atraumatic. Neck is supple and without jugular venous distention (JVD) or thyroid enlargement. Heart sounds are regular. Lungs sound clear to auscultation. Abdomen is soft with significant tenderness in right lower quadrant and periumbilical area. Bowel sounds are present. Extremities have no cyanosis or clubbing. Neurologically, she is awake, alert and oriented times three. LABORATORY DATA: Today's labs show WBC count 15.4, hemoglobin 10.2 and hematocrit 32.2. Sodium 137, potassium 4.6, CO2 23, BUN 43 and creatinine 5.68. Calcium level is 6.9 and albumin 1.3. AST 57, ALT 39 and alkaline phosphatase 165. PROBLEMS: 1. End-stage renal disease. The patient is currently on peritoneal dialysis and we will continue with her peritoneal dialysis exchanges. She is draining fluid and catheter is functioning much better now. 2. Abdominal pain. I am concerned about the possibility of colitis and peritonitis. We will get a CT scan of abdomen and pelvis with IV contrast today. I will also recheck her peritoneal fluid for cell count. I am concerned about the possibility of peritonitis. 3. Anemia. Her anemia is stable at present and we will continue to monitor. I will give her a dose of Aranesp 100 mcg tomorrow. 4. Recurrent vomiting. Probably related to intraabdominal process. I am concerned about peritonitis versus colitis. We will treat her symptomatically for now until the results of her peritoneal fluid and CT scan of abdomen and pelvis are available. 5. Hypertension. Blood pressure is doing well and no changes are made. ADDENDUM: Her peritoneal dialysis cell count has just come back and white cell count which was 84 yesterday is now up to 485 with 87% neutrophils. We will give her vancomycin 1 gram with her next peritoneal dialysis exchange and also add cultures to her peritoneal fluid. Gentamicin 80 mg will be added to her next exchange also.
[2019-05-10 18:00] VITALS: BP 144/76
[2019-05-10] MEDS: MUPIROCIN 2% OINT 22 GM TUBE TOP SCH (21:18)
[2019-05-10] MEDS: ACETAMINOPHEN 500 MG TAB PO PRN (21:49)
[2019-05-10 22:00] VITALS: BP 128/75
[2019-05-11] MEDS: ACETAMINOPHEN 500 MG TAB PO PRN (05:51)
[2019-05-11 06:03] LABS: HEMATOCRIT 31.1 % (36.0-47.0); MEAN CORPUSCULAR HEMOGLOBIN 34.5 pg (27.0-33.0); MEAN CORPUSCULAR HGB CONC 32.2 g/dl (32.0-36.5); MEAN CORPUSCULAR VOLUME 107.2 fl (80.0-96.0); PLATELET COUNT, AUTOMATED 194 10^3/uL (150-450); WHITE BLOOD COUNT 15.3 10^3/uL (4.0-10.0)
[2019-05-11 06:35] LABS: ALBUMIN 1.3 GM/DL (3.2-5.2); BILIRUBIN,TOTAL 0.6 MG/DL (0.2-1.0); CALCIUM LEVEL 7.4 MG/DL (8.8-10.2); CREATININE FOR GFR 5.61 MG/DL (0.55-1.30); POTASSIUM SERUM 4.1 MEQ/L (3.5-5.1); TOTAL PROTEIN 4.3 GM/DL (6.4-8.2)
[2019-05-11] MEDS: BRIMONIDINE 0.1% OPHTH SOLN 5 ML OS SCH ×2 (08:42→20:21)
[2019-05-11] MEDS: CINACALCET 30 MG TAB (SENSIPAR) PO SCH (08:42)
[2019-05-11] MEDS: DICYCLOMINE 10 MG CAP PO SCH ×3 (08:42→20:21)
[2019-05-11] MEDS: PREPARATION H OINTMENT (HEMORRHOID) TOP SCH ×2 (08:42→20:22)
[2019-05-11] MEDS: FOLIC ACID 1 MG TAB PO SCH (08:42)
[2019-05-11] MEDS: predniSONE 1 MG TAB PO SCH (08:42)
[2019-05-11] MEDS: HEPARIN SOD (PORCINE) 5000 UNITS/ML VIAL SC SCH ×2 (08:43→20:22)
[2019-05-11] MEDS ORDERED: DARBEPOETIN 100 MCG/0.5 ML *NON-DIALYSIS* SYRINGE (J0881) SC SCH (09:00)
--- NOTE | 2019-05-11 13:24 | IPN ---
DATE: 05/11/2019 Mrs. Thornton was seen this morning on her bedside. She is feeling much better today and reports that her abdominal pain has improved and she also has a good appetite. She did not vomit. She does feel some nausea. Yesterday her peritoneal dialysis fluid had shown 584 WBCs and she was given a dose of vancomycin 1 gram and gentamicin 80 mg intraperitoneally for peritonitis. Peritoneal fluid cultures were ordered, however no results are available as yet. The patient denies any dyspnea or chest pain. She has no fever or chills. PHYSICAL EXAMINATION Temperature is 97 degrees Fahrenheit, heart rate 98 per minute and respiratory rate 16 per minute. Blood pressure 128/76 mmHg and oxygen saturation 98% on room air. Head is atraumatic. Neck is supple and without jugular venous distention (JVD) or thyroid enlargement. Heart sounds are tachycardiac and lungs with slightly diminished breath sounds at bases. Abdomen is soft and nontender today. Bowel sounds are normal. Extremities have no cyanosis or clubbing. Neurologically, she is awake, alert and oriented times three. LABORATORY DATA: Today's labs show WBC count 15.3, hemoglobin 10.0, hematocrit 31.1, platelets 194. Sodium 138, potassium 4.1, CO2 24, BUN 43 and creatinine 5.61. Total protein 4.3 and albumin 1.3. An intact PTH level was 130.7 yesterday. PROBLEMS: 1. Peritonitis related with peritoneal dialysis. The patient had a peritoneal dialysis fluid cell count of 485 yesterday. She was given vancomycin 1 gram and gentamicin 80 mg pending cultures. I did order the cultures; however, I would do not see them in the computer as yet. She will be given another dose of gentamicin 40 mg in the last exchange of her peritoneal dialysis. We will check her vancomycin level tomorrow and then consider giving her another dose of vancomycin if needed. 2. End-stage renal disease. The patient remains on peritoneal dialysis, which has been working well now initial problem a few days ago. At this point, we will continue with current prescription of her dialysis. She seems very well dialyzed. 3. Abdominal pain and diarrhea. She does have history of Clostridium (C.) difficile colitis and has been treated with Dificid in the past. Her GI panel was negative so her Dificid has now been stopped. We are giving her vancomycin and gentamicin for peritonitis and we will need to monitor her closely. 4. Anemia. Her anemia is stable at this point and she will continue to receive Aranesp 100 mcg once a week. 5. Hypertension. Blood pressure is very well controlled and no changes in antihypertensives are being made. 6. Generalized weakness. The patient is getting out of bed. She will walk with the physical therapist. She is being advised to get out of bed more often.
[2019-05-11 14:00] VITALS: BP 118/64
--- NOTE | 2019-05-11 14:38 | IPNPDOC ---
Date Seen The patient was seen on 05/11/19. 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 difficile. She presented to the Emergency room due to progressive weakness for the past several days. She states that every time she eats, she has to use the bathroom and has semi-formed bowel movements. She has also had some difficulty completing peritoneal dialysis. Patient was admitted to [facility] for C. difficile infection and received a stool transplant from Dr. Overton in the last month. She denies weight loss, hair loss, headache, visual changes, chest pain, shortness of breath, cough, nausea, vomiting, muscle aches, or worsening arthritis. Patient examined at bedside. She appears to be in a better mood today and is feeling better. She vomited once yesterday after breakfast; she has taken zofran today and denies vomiting thus far. She denies fevers, chills, chest pain, shortness of breath, or diarrhea. OBJECTIVE PHYSICAL EXAMINATION: VITAL SIGNS: Please see below. GENERAL: A pale frail white female lying in bed. She is alert and cooperative. HEENT: NC AT, moist mucous membranes CARDIOVASCULAR: Regular rate and rhythm, normal S1S2 RESPIRATORY: clear bilaterally, equal air intake bilaterally ABDOMINAL: slightly distended, soft, minimally tender to palpation in all four quadrants EXTREMITIES: trace edema noted in lower extremities, a 2mm deep open wound is noted on right shoulder from recent SCC biopsy. NEUROLOGICAL: No focal deficits, alert and oriented X3 PSYCHOLOGICAL: normal affect LABORATORY DATA, IMAGING STUDIES, MICROBIOLOGY: Please see below. DVT prophylaxis ordered?: Yes, Heparin ASSESSMENT AND PLAN: Patient is a 68-year-old female with a past medical history of End stage renal disease with peritoneal dialysis, Depression, hypertension, dyslipidemia, failed kidney transplant leading to removal, anemia secondary to End stage renal disease, and recurrent C. difficile PROBLEMS: 1. Abdominal pain and cramping may be 2/2 to peritonitis -peritoneal fluid wbc: 485, PMN% 87.2 -Monitoring patient for infection -Given 1 dose vancomycin and 1 dose gentamycin 05/10/19 -Culture of peritoneal fluid ordered 2. End stage renal disease on peritoneal dialysis -received peritoneal dialysis today -Nephrology consulted -creatinine 5.68, GFR: 7.9 -Administered Aranesp 3. Diarrhea likely 2/2 to inflammation from colitis -history of C. difficile -Gastrology consulted -GI PCR panel negative -Heating pad and dicyclomine recommended per Dr. Overton 4. Squamous cell carcinoma of skin -Had recent biopsies on left shoulder and left posterior aspect of neck. -a 2mm deep open wound is noted on left shoulder -Dr. Anguiano has been consulted 5. Left lower lobe infiltrate - Clinically without any symptoms of pneumonia - Hemodynamically stable / Afebrile -Chest x-ray and chest CT showed slight infiltrate -Not currently on antibiotics 6. Dyslipidemia -hold home medications 7. Hypertension -blood pressure well controlled -holding home medications 8. Anemia of ESRD -stable -hemoglobin: 10.0, MCV: 107.2 -Administered Aranesp 9. Leukocytosis -may be 2/2 to steroid use -trending down -WBC today 15.3 -Venous blood culture negative DISPOSITION: Patient is stable and prognosis is guarded. We will monitor patient for infection. She will continue with PT and OT. We appreciate Nephrology, Gastrology, and Dermatology for their input. Further antibiotic recommendations per Dr. Rehman. VS, I&O, 24H, Fishbone Vital Signs/I&O Vital Signs Date Time Temp Pulse Resp B/P (MAP) Pulse Ox O2 Delivery O2 Flow Rate FiO2 05/10/19 22:00 97.9 98 17 128/75 (92) 98 05/07/19 10:30 Room Air I&O- Last 24 Hours up to 6 AM 05/11/19 06:00 Intake Total 4300 ml Output Total 4800 ml Balance -500 ml Laboratory Data 24H LABS Laboratory Tests 2 05/11/19 05:31: Nucleated Red Blood Cells % (auto) 0.0, Anion Gap 10, Glomerular Filtration Rate 8.0L, Blood Urea Nitrogen 43H, Creatinine 5.61H, Sodium Level 138, Potassium Level 4.1, Chloride Level 104, Carbon Dioxide Level 24, Calcium Level 7.4L, Aspartate Amino Transf (AST/SGOT) 69H, Alanine Aminotransferase (ALT/SGPT) 52, Alkaline Phosphatase 175H, Total Bilirubin 0.6, Total Protein 4.3L, Albumin 1.3L, Albumin/Globulin Ratio 0.43L CBC/BMP Laboratory Tests 05/11/19 05:31 Red Blood Count 2.90 L, Mean Corpuscular Volume 107.2 H, Mean Corpuscular Hemog lobin 34.5 H, Mean Corpuscular Hemoglobin Concent 32.2, Red Cell Distribution Width 16.4 H, Calcium Level 7.4 L, Aspartate Amino Transf (AST/SGOT) 69 H, Alanine Aminotransferase (ALT/SGPT) 52, Alkaline Phosphatase 175 H, Total Bilirubin 0.6, Total Protein 4.3 L, Albumin 1.3 L Microbiology Microbiology 05/07/19 Blood Culture - Preliminary, Resulted No Growth after 72 hours. All specime... 05/07/19 Blood Culture - Preliminary, Resulted No Growth after 72 hours. All specime... 05/08/19 Gastrointestinal Tract Panel (PCR) - Final, Complete GME ATTESTATION GME ATTESTATION My faculty preceptor for this patient encounter was physically present during the encounter and was fully available. All aspects of the patient interview, examination, medical decision making process, and medical care plan development were reviewed and approved by the faculty preceptor. The faculty preceptor is aware and concurs with the plan as stated in the body of this note and will attest to such by his/her cosignature. ATTENDING NOTE I, Keith Zhang, have independently examined this patient and performed my own physical exam, as well as reviewed the documentation and edited where necessary. I have discussed in detail with the resident / student the findings and plan of treatment as documented by the resident / student and edited their note. I agree with their findings and treatment plan and have edited their documentation. I will continue to follow the patient during this hospital stay. ROMA AMBROSE S-3 May 11, 2019 14:38 KEITH ZHANG MD May 11, 2019 16:09
[2019-05-11 16:09] LABS: APPEARANCE, BODY FLUID CLEAR (CLEAR); PERITONEAL DIALYSATE FL COLOR PALE YELLOW (COLORLESS); SOURCE, BODY FLUID PERITONEAL DIALYSATE
[2019-05-11 22:00] VITALS: BP 128/77
[2019-05-11] MEDS ORDERED: GENTAMICIN SULF INJ 80MG/2ML VIAL (J1580) IP ONE (22:00)
[2019-05-12] MEDS: ACETAMINOPHEN 500 MG TAB PO PRN ×2 (03:08→21:55)
[2019-05-12 06:00] VITALS: BP 126/76
[2019-05-12 06:24] LABS: HEMATOCRIT 32.5 % (36.0-47.0); HEMOGLOBIN 10.4 g/dl (12.0-15.5); MEAN CORPUSCULAR HEMOGLOBIN 35.1 pg (27.0-33.0); MEAN CORPUSCULAR VOLUME 109.8 fl (80.0-96.0); PLATELET COUNT, AUTOMATED 201 10^3/uL (150-450); RED BLOOD COUNT 2.96 10^6/uL (4.00-5.40); WHITE BLOOD COUNT 16.7 10^3/uL (4.0-10.0)
[2019-05-12 06:34] LABS: ALBUMIN 1.4 GM/DL (3.2-5.2); BILIRUBIN,TOTAL 0.6 MG/DL (0.2-1.0); CALCIUM LEVEL 7.5 MG/DL (8.8-10.2); CREATININE FOR GFR 5.6 MG/DL (0.55-1.30); POTASSIUM SERUM 4.2 MEQ/L (3.5-5.1); TOTAL PROTEIN 4.5 GM/DL (6.4-8.2); VANCOMYCIN RANDOM 6.7 UG/ML
[2019-05-12] MEDS: MUPIROCIN 2% OINT 22 GM TUBE TOP SCH (07:54)
[2019-05-12] MEDS: BRIMONIDINE 0.1% OPHTH SOLN 5 ML OS SCH ×2 (07:54→21:56)
[2019-05-12] MEDS: predniSONE 1 MG TAB PO SCH (07:55)
[2019-05-12] MEDS: DICYCLOMINE 10 MG CAP PO SCH ×3 (07:55→21:00)
[2019-05-12] MEDS: PREPARATION H OINTMENT (HEMORRHOID) TOP SCH ×2 (07:55→21:57)
[2019-05-12] MEDS: HEPARIN SOD (PORCINE) 5000 UNITS/ML VIAL SC SCH ×2 (07:55→21:00)
[2019-05-12] MEDS: FOLIC ACID 1 MG TAB PO SCH (07:55)
[2019-05-12] MEDS ORDERED: VANCOMYCIN 1000 MG/20 ML VIAL (J3370) IP ONE (10:00)
--- NOTE | 2019-05-12 10:56 | IPNPDOC ---
Date Seen The patient was seen on 05/12/19. 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 difficile. She presented to the Emergency room due to progressive weakness for the past several days. She states that every time she eats, she has to use the bathroom and has semi-formed bowel movements. She has also had some difficulty completing peritoneal dialysis. Patient was admitted to [facility] for C. difficile infection and received a stool transplant from Dr. Overton in the last month. She denies weight loss, hair loss, headache, visual changes, chest pain, shortness of breath, cough, nausea, vomiting, muscle aches, or worsening arthritis. Patient is examined at bedside. She was working with OT when I walked in the room and is progressing well. Ms. Thornton appears to be feeling better and denies having any nausea or vomiting in the last day. She had peritoneal dialysis yesterday and denies feeling fatigued afterward. The open wound on her left shoulder was closed with steri-strip yesterday and covered with a bandage. She had a small bowel movement this am and has had intense hemorrhoidal pain as sociated with bowel movements. She denies fever, chills, nausea, vomiting, or diarrhea. OBJECTIVE PHYSICAL EXAMINATION: VITAL SIGNS: Please see below. GENERAL: A pale frail white female lying in bed. She is alert and cooperative. HEENT: NC AT, moist mucous membranes CARDIOVASCULAR: Regular rate and rhythm, normal S1S2 RESPIRATORY: clear bilaterally, equal air intake bilaterally ABDOMINAL: slightly distended, soft, minimally tender to palpation in all four quadrants EXTREMITIES: trace edema noted in lower extremities, a 2mm deep open wound is noted on right shoulder from recent SCC biopsy. The open wound has been closed with steri-strip and covered with a bandage. NEUROLOGICAL: No focal deficits, alert and oriented X3 PSYCHOLOGICAL: normal affect LABORATORY DATA, IMAGING STUDIES, MICROBIOLOGY: Please see below. 1. Chest X-ray 05/07/19: Possible left lower lobe infiltrate. Otherwise, negative portable chest. 2. Chest CT 05/08/19: 1. Trace right and small left pleural effusions. The right pleural effusion has decreased in size and the left pleural effusion slightly increased. 2. Small peripheral wedge-shaped area of consolidation within the left lower lobe which likely represent atelectasis, however, a small focal infiltrate cannot be excluded. 3. Stable 16 mm pleural-based nodule within the lateral base of the right lower lobe. 4. Stable chronic changes within the upper abdomen including free fluid containing a few bubbles of air, consistent with peritoneal dialysis. 5. Old/healing right 9th and left 11th rib fractures as well as multilevel compression deformities within the thoracolumbar spine. Advanced degenerative change involving the shoulders with associated shoulder joint effusions. 6. Additional non-emergent findings, as discussed above. 3. Abdominal X-ray 05/08/19: Peritoneal catheter as described. Normal bowel gas pattern 4. Abdominal CT 05/10/19: 1. Lung bases demonstrate mild basilar atelectasis (left greater than right) and small left pleural effusion. 2. Stable chronic-appearing changes to the visualized abdomen including comp brenda cystic lesion along the posterior aspect of the right hepatic lobe and few scattered cystic changes to the spleen and pancreas. 3. Ascites and small amount of pneumoperitoneum likely related to peritoneal dialysis. 4. Enhancement of the visualized small large bowel consistent with the given history of enterocolitis. DVT prophylaxis ordered?: Yes, Heparin ASSESSMENT AND PLAN: Patient is a 68-year-old female with a past medical history of End stage renal disease with peritoneal dialysis, Depression, hypertension, dyslipidemia, failed kidney transplant leading to removal, anemia secondary to End stage renal disease, and recurrent C. difficile. PROBLEMS: 1. Possible peritonitis -peritoneal fluid WBC count: 20, significantly decreased from yesterday. -Monitoring patient for infection -Given 1 dose vancomycin and 1 dose gentamycin 05/10/19 -Patient given second dose of gentamycin 05/11/19, second dose of vancomycin ordered for today-per Dr. Rehman -Peritoneal fluid culture results are pending. A few WBCs and no organisms are seen thus far. Culture was started post antibiotic treatment 2. End stage renal disease on peritoneal dialysis -received peritoneal dialysis yesterday -Nephrology consulted -creatinine 5.60, GFR: 8.0 -Administered Aranesp 3. Abdominal pain and Diarrhea likely 2/2 to inflammation from colitis -history of C. difficile -Gastrology consulted -GI PCR panel negative -Heating pad and dicyclomine recommended per Dr. Overton 4. Squamous cell carcinoma of skin -Had recent biopsies on left shoulder and left posterior aspect of neck. -a 2mm deep open wound is noted on left shoulder -Dr. Anguiano has been consulted-he recommends cleaning the wound BID and covering with Vaseline 5. Left lower lobe infiltrate - Clinically without any symptoms of pneumonia - Hemodynamically stable / Afebrile -Chest x-ray and chest CT showed slight infiltrate -Not currently on antibiotics 6. Dyslipidemia -hold home medications 7. Hypertension -blood pressure well controlled -holding home medications 8. Anemia of ESRD -stable -hemoglobin: 10.4, MCV: 109.8 -Administered Aranesp 9. Leukocytosis -may be 2/2 to steroid use -WBC today 16.7 and trending up -Venous blood culture negative 10. Generalized weakness -Working with PT and OT DISPOSITION: Patient is stable and prognosis is guarded. She will continue to work with PT and OT. Giving second dose of Vancomycin today. Appreciate GI, Nephrology, and Dermatology for their input. VS, I&O, 24H, Fishbone Vital Signs/I&O Vital Signs Date Time Temp Pulse Resp B/P (MAP) Pulse Ox O2 Delivery O2 Flow Rate FiO2 05/12/19 06:00 97.8 69 17 126/76 (93) 99 05/07/19 10:30 Room Air I&O- Last 24 Hours up to 6 AM 05/12/19 05:59 Intake Total 5420 ml Output Total 6000 ml Balance -580 ml Laboratory Data 24H LABS Laboratory Tests 2 05/11/19 14:21: Body Fluid Source PERITONEAL DIALYSATE, Body Fluid WBC (Auto) 20H, Body Fluid RBC (Auto) < 2, Body Fluid Mononuclear Cells % Auto 45.0H, Fluid Polymorphonuclear Cell % Auto 55.0H, Peritoneal Fluid Color PALE YELLOW, Peritoneal Fluid Appearance CLEAR 05/12/19 05:14: Nucleated Red Blood Cells % (auto) 0.0, Anion Gap 11, Glomerular Filtration Rate 8.0L, Blood Urea Nitrogen 48H, Creatinine 5.60H, Sodium Level 136, Potassium Level 4.2, Chloride Level 101, Carbon Dioxide Level 24, Calcium Level 7.5L, Aspartate Amino Transf (AST/SGOT) 110H, Alanine Aminotransferase (ALT/SGPT) 76, Alkaline Phosphatase 200H, Total Bilirubin 0.6, Total Protein 4.5L, Albumin 1.4L, Albumin/Globulin Ratio 0.45L, Random Vancomycin Level 6.7 CBC/BMP Laboratory Tests 05/12/19 05:14 Red Blood Count 2.96 L, Mean Corpuscular Volume 109.8 H, Mean Corpuscular Hemoglobin 35.1 H, Mean Corpuscular Hemoglobin Concent 32.0, Red Cell Distribution Width 16.3 H, Calcium Level 7.5 L, Aspartate Amino Transf (AST/SGOT) 110 H, Alanine Aminotransferase (ALT/SGPT) 76, Alkaline Phosphatase 200 H, Total Bilirubin 0.6, Total Protein 4.5 L, Albumin 1.4 L Microbiology Microbiology 05/07/19 Blood Culture - Final, Complete NO GROWTH AFTER 5 DAYS 05/07/19 Blood Culture - Final, Complete NO GROWTH AFTER 5 DAYS 05/11/19 Gram Stain - Final, Resulted 05/11/19 Body Fluid Culture, Resulted Pending 05/08/19 Gastrointestinal Tract Panel (PCR) - Final, Complete GME ATTESTATION GME ATTESTATION My faculty preceptor for this patient encounter was physically present during the encounter and was fully available. All aspects of the patient interview, examination, medical decision making process, and medical care plan development were reviewed and approved by the faculty preceptor. The faculty preceptor is aware and concurs with the plan as stated in the body of this note and will attest to such by his/her cosignature. ATTENDING NOTE I, Keith Zhang, have independently examined this patient and performed my own physical exam, as well as reviewed the documentation and edited where necessary. I have discussed in detail with the resident / student the findings and plan of treatment as documented by the resident / student and edited their note. I agree with their findings and treatment plan and have edited their documentation. I will continue to follow the patient during this hospital stay. ROMA AMBROSE OMS-3 May 12, 2019 10:56 KEITH ZHANG MD May 12, 2019 15:22
--- NOTE | 2019-05-12 12:10 | IPN ---
DATE: 05/12/2019 Mrs. Thornton is seen this morning on her bedside. She is feeling much better and looks more energetic. She reports that she had a good breakfast. She denies any nausea, vomiting, abdominal pain, diarrhea, fever or chills. She did have high white blood cell count in her peritoneal dialysis fluid 2 days ago and has been on intraperitoneal vancomycin and gentamicin. She did get out of bed and walked with physical therapist yesterday. PHYSICAL EXAMINATION: Temperature 97.8 degrees Fahrenheit, heart rate 70 per minute and respiratory rate 18 per minute. Blood pressure 126/76 mmHg and oxygen saturation 99% on room air. Head is atraumatic. Neck is supple and without jugular venous distention (JVD) or thyroid enlargement. Heart sounds are regular and lungs clear to auscultation. Abdomen is soft and nontender and bowel sounds are normal. Peritoneal dialysis catheter is intact. Extremities have no cyanosis or clubbing. Neurologically, she is awake, alert and oriented times three. Today's labs show WBC count 16.7, hemoglobin 10.4 and hematocrit 32.5. Platelets 201. Sodium 136, potassium 4.2, CO2 24, BUN 48 and creatinine 5.6. AST is 110, ALT 76 and alkaline phosphatase 200. Serum albumin is only 1.4. Peritoneal dialysis fluid culture is still pending. PROBLMES: 1. End-stage renal disease. The patient will continue with peritoneal dialysis, which is functioning very well now. Initially, she did have some problem with catheter dysfunction; however, it has been working well now and electrolytes are stable. Her volume status is also well compensated. 2. Peritonitis. She had a white count of 485 in her peritoneal fluid on May 10. It has improved and her symptoms have also improved. Her vancomycin level today is 6.7. I am going to give her one dose of vancomycin 1 gram intraperitoneally at 10:00 a.m. and then another dose of gentamicin 40 mg tonight at 10:00 p.m.. We will check the cell count again tomorrow. 3. Hypertension. Blood pressure is well-controlled and no changes in antihypertensives is needed. 4. Anemia. Her anemia is stable at this point and does not need any urgent intervention. 5. Leukocytosis. I am concerned about her leukocytosis, which is persistent and not improving even though her symptoms have improved. We will have to continue to monitor closely. She does have history of recurrent Clostridium (C.) difficile colitis but no diarrhea at this time and her Clostridium (C.) difficile has been negative. 6. Generalized weakness and deconditioning. The patient continues with physical therapy and is not quite ready for discharge as yet.
[2019-05-12 14:00] VITALS: BP 118/62
[2019-05-12 22:00] VITALS: BP 121/65
[2019-05-12] MEDS ORDERED: GENTAMICIN SULF INJ 80MG/2ML VIAL (J1580) IP ONE (22:00)
[2019-05-12] MEDS ORDERED: HEPARIN SOD (PORCINE) 5000 UNITS/ML VIAL PD ONE (23:30)
[2019-05-13 06:00] VITALS: BP 135/78
[2019-05-13 06:03] LABS: HEMATOCRIT 32.7 % (36.0-47.0); HEMOGLOBIN 10.4 g/dl (12.0-15.5); MEAN CORPUSCULAR HEMOGLOBIN 35.3 pg (27.0-33.0); MEAN CORPUSCULAR HGB CONC 31.8 g/dl (32.0-36.5); MEAN CORPUSCULAR VOLUME 110.8 fl (80.0-96.0); PLATELET COUNT, AUTOMATED 202 10^3/uL (150-450); RED BLOOD COUNT 2.95 10^6/uL (4.00-5.40); WHITE BLOOD COUNT 15.8 10^3/uL (4.0-10.0)
[2019-05-13 06:18] LABS: BILIRUBIN,TOTAL 0.4 MG/DL (0.2-1.0); CALCIUM LEVEL 7.1 MG/DL (8.8-10.2); CREATININE FOR GFR 5.81 MG/DL (0.55-1.30); GLOMERULAR FILTRATION RATE 7.7 (>39); POTASSIUM SERUM 4.5 MEQ/L (3.5-5.1); TOTAL PROTEIN 4.5 GM/DL (6.4-8.2)
[2019-05-13] MEDS: HEPARIN SOD (PORCINE) 5000 UNITS/ML VIAL SC SCH ×2 (09:00→21:00)
[2019-05-13] MEDS: PREPARATION H OINTMENT (HEMORRHOID) TOP SCH ×2 (09:00→23:18)
[2019-05-13] MEDS: MUPIROCIN 2% OINT 22 GM TUBE TOP SCH ×2 (09:00→23:20)
--- NOTE | 2019-05-13 09:43 | IPNPDOC ---
Date Seen The patient was seen on 05/13/19. 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 difficile. She presented to the Emergency room due to progressive weakness for the past several days. She states that every time she eats, she has to use the bathroom and has semi-formed bowel movements. She has also had some difficulty completing peritoneal dialysis. Patient was admitted to [facility] for C. difficile infection and received a stool transplant from Dr. Overton in the last month. She denies weight loss, h air loss, headache, visual changes, chest pain, shortness of breath, cough, nausea, vomiting, muscle aches, or worsening arthritis. Patient is examined at bedside. She is feeling good today and was eating her breakfast as I exited the room. She has a good appetite and denies having nausea, vomiting, or diarrhea. The open wound on her left shoulder was closed with steri-strip today and covered with a bandage; yellow discharge was noted within the wound. She had a small bowel movement yesterday am and stated that she is somewhat constipated. Patient was noted as having a blood glucose level of 51 this am; will continue to monitor. She denies fever, chills, shortness of breath, or abdominal pain. OBJECTIVE PHYSICAL EXAMINATION: VITAL SIGNS: Please see below. GENERAL: A pale frail white female lying in bed under two blankets. She is alert and cooperative. HEENT: NC AT, moist mucous membranes CARDIOVASCULAR: Regular rate and rhythm, normal S1S2 RESPIRATORY: clear bilaterally, equal air intake bilaterally ABDOMINAL: slightly distended, soft, minimally tender to palpation in all four quadrants EXTREMITIES: trace edema noted in lower extremities, a 2mm deep open wound is noted on right shoulder from recent SCC biopsy. The open wound has been closed with steri-strip and covered with a bandage. NEUROLOGICAL: No focal deficits, alert and oriented X3 PSYCHOLOGICAL: normal affect LABORATORY DATA, IMAGING STUDIES, MICROBIOLOGY: Please see below. 1. Chest X-ray 05/07/19: Possible left lower lobe infiltrate. Otherwise, negative portable chest. 2. Chest CT 05/08/19: 1. Trace right and small left pleural effusions. The right pleural effusion has decreased in size and the left pleural effusion slightly increased. 2. Small peripheral wedge-shaped area of consolidation within the left lower lobe which likely represent atelectasis, however, a small focal infiltrate cannot be excluded. 3. Stable 16 mm pleural-based nodule within the lateral base of the right lower lobe. 4. Stable chronic changes within the upper abdomen including free fluid containing a few bubbles of air, consistent with peritoneal dialysis. 5. Old/healing right 9th and left 11th rib fractures as well as multilevel compression deformities within the thoracolumbar spine. Advanced degenerative change involving the shoulders with associated shoulder joint effusions. 6. Additional non-emergent findings, as discussed above. 3. Abdominal X-ray 05/08/19: Peritoneal catheter as described. Normal bowel gas pattern 4. Abdominal CT 05/10/19: 1. Lung bases demonstrate mild basilar atelectasis (left greater than right) and small left pleural effusion. 2. Stable chronic-appearing changes to the visualized abdomen including complex cystic lesion along the posterior aspect of the right hepatic lobe and few scattered cystic changes to the spleen and pancreas. 3. Ascites and small amount of pneumoperitoneum likely related to peritoneal dialysis. 4. Enhancement of the visualized small large bowel consistent with the given history of enterocolitis. DVT prophylaxis ordered?: Yes, Heparin ASSESSMENT AND PLAN: Patient is a 68-year-old female with a past medical history of End stage renal disease with peritoneal dialysis, Depression, hypertension, dyslipidemia, failed kidney transplant leading to removal, anemia secondary to End stage renal disease, and recurrent C. difficile. PROBLEMS: 1. Possible peritonitis -peritoneal fluid WBC count: 20 on 05/12/19 -Monitoring patient for infection; WBC count still elevated -Patient given single dose of gentamycin and vancomycin 05/12/19-per Dr. Rehman -Peritoneal fluid culture results are pending. A few WBCs and no organisms are seen thus far. Culture was started post antibiotic treatment 2. End stage renal disease on peritoneal dialysis -received peritoneal dialysis yesterday -Nephrology consulted -creatinine 5.60, GFR: 8.0 -Administered Aranesp 3. Abdominal pain and Diarrhea likely 2/2 to inflammation from colitis -history of C. difficile -Gastrology consulted -GI PCR panel negative -Heating pad and dicyclomine recommended per Dr. Overton 4. Squamous cell carcinoma of skin -Had recent biopsies on left shoulder and left posterior aspect of neck. -a 2mm deep open wound is noted on left shoulder -Dr. Anguiano has been consulted-he recommends cleaning the wound BID and covering with Vaseline -We are monitoring open wound; yellow discharge noted this am -Referring patient to Dr. Lyons for possible radiation therapy -Would cultures pending, antibiotic ointment will be used in the meantime 5. Left lower lobe infiltrate - Clinically without any symptoms of pneumonia - Hemodynamically stable / Afebrile -Chest x-ray and chest CT showed slight infiltrate -Not currently on antibiotics 6. Dyslipidemia -hold home medications 7. Hypertension -blood pressure well controlled -holding home medications 8. Anemia of ESRD -stable -hemoglobin: 10.4, MCV: 110.8 -Administered Aranesp once/week 9. Leukocytosis -may be 2/2 to steroid use -WBC today 15.8; will continue to monitor -Venous blood culture negative 10. Generalized weakness -Working with PT and OT -Has not been cleared by PT & OT as of yet DISPOSITION: Patient is stable and her prognosis is guarded. She will continue to work with PT and OT. Dr. Rehman still treating patient for peritonitis. We will monitor her shoulder wound. Patient is being referred to Dr. Lyons for possible radiation for squamous cell carcinoma on left shoulder. VS, I&O, 24H, Fishbone Vital Signs/I&O Vital Signs Date Time Temp Pulse Resp B/P (MAP) Pulse Ox O2 Delivery O2 Flow Rate FiO2 05/13/19 06:00 97.4 83 16 135/78 (97) 100 05/07/19 10:30 Room Air I&O- Last 24 Hours up to 6 AM 05/13/19 06:00 Intake Total 4600 ml Output Total 4550 ml Balance 50 ml Laboratory Data 24H LABS Laboratory Tests 2 05/13/19 05:26: Nucleated Red Blood Cells % (auto) 0.0, Anion Gap 11, Glomerular Filtration Rate 7.7L, Blood Urea Nitrogen 51H, Creatinine 5.81H, Sodium Level 134L, Potassium Level 4.5, Chloride Level 102, Carbon Dioxide Level 21, Calcium Level 7.1L, Aspartate Amino Transf (AST/SGOT) 148H, Alanine Aminotransferase (ALT/SGPT) 104H, Alkaline Phosphatase 215H, Total Bilirubin 0.4, Total Protein 4.5L, Albumin 1.0#L, Albumin/Globulin Ratio 0.29L CBC/BMP Laboratory Tests 05/13/19 05:26 Red Blood Count 2.95 L, Mean Corpuscular Volume 110.8 H, Mean Corpuscular Hemoglobin 35.3 H, Mean Corpuscular Hemoglobin Concent 31.8 L, Red Cell Distribution Width 15.9 H, Calcium Level 7.1 L, Aspartate Amino Transf (AST/SGOT) 148 H, Alanine Aminotransferase (ALT/SGPT) 104 H, Alkaline Phosphatase 215 H, Total Bilirubin 0.4, Total Protein 4.5 L, Albumin 1.0 #L Microbiology Microbiology 05/07/19 Blood Culture - Final, Complete NO GROWTH AFTER 5 DAYS 05/07/19 Blood Culture - Final, Complete NO GROWTH AFTER 5 DAYS 05/11/19 Gram Stain - Final, Resulted 05/11/19 Body Fluid Culture, Resulted Pending 05/08/19 Gastrointestinal Tract Panel (PCR) - Final, Complete GME ATTESTATION GME ATTESTATION My faculty preceptor for this patient encounter was physically present during the encounter and was fully available. All aspects of the patient interview, examination, medical decision making process, and medical care plan development were reviewed and approved by the faculty preceptor. The faculty preceptor is aware and concurs with the plan as stated in the body of this note and will attest to such by his/her cosignature. ATTENDING NOTE I, Keith Zhang, have independently examined this patient and performed my own physical exam, as well as reviewed the documentation and edited where necessary. I have discussed in detail with the resident / student the findings and plan of treatment as documented by the resident / student and edited their note. I agree with their findings and treatment plan and have edited their documentation. I will continue to follow the patient during this hospital stay. ROMA AMBROSE OMS-3 May 13, 2019 09:43 KEITH ZHANG MD May 13, 2019 15:59
[2019-05-13] MEDS: predniSONE 1 MG TAB PO SCH (10:25)
[2019-05-13] MEDS: DICYCLOMINE 10 MG CAP PO SCH ×3 (10:25→23:17)
[2019-05-13] MEDS: BRIMONIDINE 0.1% OPHTH SOLN 5 ML OS SCH ×2 (10:26→23:18)
[2019-05-13] MEDS: FOLIC ACID 1 MG TAB PO SCH (10:26)
[2019-05-13] MEDS: CINACALCET 30 MG TAB (SENSIPAR) PO SCH (10:26)
--- NOTE | 2019-05-13 11:24 | IPN ---
DATE: 05/13/2019 Mrs. Thornton is seen this morning on her bedside. She is feeling tired, but denies any abdominal pain, nausea, vomiting or diarrhea. She has no dyspnea, chest pain, fever or chills. I was called by the nursing staff this morning to report that the patient had normal drainage of her peritoneal solution, but then when they tried to put in the new bag it did not work. At that point, her exchange was terminated. We are hoping that with next exchange she would not have any problem. She is improving physically and has been participating with physical therapy. On physical examination, temperature 97.4 degrees Fahrenheit, heart rate 83 per minute and respiratory rate 16 per minute. Blood pressure 135/78 mmHg and oxygen saturation 100% on room air. Head is atraumatic. Neck is supple and without jugular venous distention (JVD) or thyroid enlargement. Heart sounds are regular and lungs clear to auscultation. Abdomen soft and nontender and bowel sounds are normal. Extremities have no cyanosis or clubbing. Neurologically she is awake, alert and oriented times three. Today's labs show WBC count 15.8, hemoglobin 10.4 and hematocrit 32.7. Platelets 202. Sodium 134, potassium 4.5, CO2 21, BUN 51 and creatinine 5.8. Her AST is up to 148, ALT 104 and alkaline phosphatase 215. Serum albumin is only 1.0. Her peritoneal fluid cultures have been reported negative. PROBLEMS: 1. End-stage renal disease. The patient remains on peritoneal dialysis which has been working well up until this morning. Her last exchange was unsuccessful as fluid did not go in. Nursing staff is going to perform another exchange at around 10:30 and we will see how that works. I think there was probably some technical error, but she did have catheter dysfunction before so I am concerned about catheter dysfunction with build up of fibrin. Will use heparin in her peritoneal exchange. 2. Peritonitis. She is currently afebrile and is receiving vancomycin. Last dose was given yesterday. We will check her vancomycin level tomorrow and then consider further dosing if needed. She was also given gentamicin 40 mg intraperitoneally last night. I am going to stop gentamicin as her cultures have been negative so far. 3. Abnormal liver function tests (LFTs). Her liver enzymes are gradually increasing. She is receiving acetaminophen 1000 mg every 4 hours as needed for pain and I am going to stop that. She is also receiving Sensipar 30 mg every 2 days which will be stopped for now. We will need to monitor her liver enzymes closely. 4. Generalized weakness and deconditioning. She is participating with physical therapy and her strength is gradually improving. 5. Anemia. Her anemia is stable and does not need any urgent intervention at this point.
[2019-05-13] MEDS ORDERED: HEPARIN SOD (PORCINE) 5000 UNITS/ML VIAL PD ONE (13:00)
[2019-05-13 14:00] VITALS: BP 116/61
[2019-05-13] MEDS: ONDANSETRON 4MG/2ML VIAL (J2405) IV PRN (19:59)
[2019-05-13 20:00] VITALS: BP 139/78
[2019-05-14 05:11] LABS: HEMATOCRIT 33.7 % (36.0-47.0); HEMOGLOBIN 10.7 g/dl (12.0-15.5); MEAN CORPUSCULAR HEMOGLOBIN 35.4 pg (27.0-33.0); MEAN CORPUSCULAR HGB CONC 31.8 g/dl (32.0-36.5); MEAN CORPUSCULAR VOLUME 111.6 fl (80.0-96.0); PLATELET COUNT, AUTOMATED 139 10^3/uL (150-450); RED BLOOD COUNT 3.02 10^6/uL (4.00-5.40); WHITE BLOOD COUNT 15.4 10^3/uL (4.0-10.0)
[2019-05-14 05:33] LABS: ALBUMIN 1.4 GM/DL (3.2-5.2); BILIRUBIN,TOTAL 0.5 MG/DL (0.2-1.0); CALCIUM LEVEL 7.1 MG/DL (8.8-10.2); CREATININE FOR GFR 6.01 MG/DL (0.55-1.30); GLOMERULAR FILTRATION RATE 7.4 (>39); POTASSIUM SERUM 4.7 MEQ/L (3.5-5.1); TOTAL PROTEIN 4.6 GM/DL (6.4-8.2)
[2019-05-14 06:00] VITALS: BP 137/71
[2019-05-14] MEDS: HEPARIN SOD (PORCINE) 5000 UNITS/ML VIAL SC SCH (08:44)
[2019-05-14] MEDS: predniSONE 1 MG TAB PO SCH (08:44)
[2019-05-14] MEDS: DICYCLOMINE 10 MG CAP PO SCH ×2 (08:44→16:09)
[2019-05-14] MEDS: FOLIC ACID 1 MG TAB PO SCH (08:44)
[2019-05-14] MEDS: BRIMONIDINE 0.1% OPHTH SOLN 5 ML OS SCH (08:44)
[2019-05-14] MEDS: MUPIROCIN 2% OINT 22 GM TUBE TOP SCH (08:45)
[2019-05-14] MEDS: PREPARATION H OINTMENT (HEMORRHOID) TOP SCH (09:00)
[2019-05-14] MEDS ORDERED: VANCOMYCIN 1000 MG/20 ML VIAL (J3370) IP ONE (10:30)
[2019-05-14 11:25] LABS: APPEARANCE, BODY FLUID CLEAR (CLEAR); PERITONEAL DIALYSATE FL COLOR PALE YELLOW (COLORLESS); SOURCE, BODY FLUID PERITONEAL DIALYSATE
--- NOTE | 2019-05-14 11:43 | IPNPDOC ---
Date Seen The patient was seen on 05/14/19. 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 difficile. She presented to the Emergency room due to progressive weakness for the past several days. She states that every time she eats, she has to use the bathroom and has semi-formed bowel movements. She has also had some difficulty completing peritoneal dialysis. Patient was admitted to [facility] for C. difficile infection and received a stool transplant from Dr. Overton in the last month. She denies weight loss, h air loss, headache, visual changes, chest pain, shortness of breath, cough, nausea, vomiting, muscle aches, or worsening arthritis. Patient was examined at bedside. She had just finished her breakfast and was in a pleasant mood. She stated that she could feel drainage coming from the open wound on the posterior aspect of her scalp. Yellow discharge was noted upon examination; her wound gram stain culture came back positive for S. aureus. Mrs. Thornton continues to be hypoglycemic today. She denies nausea, vomiting, diarrhea, dizziness, or syncope. She continues to be afebrile despite her elev ated white blood cell count. OBJECTIVE PHYSICAL EXAMINATION: VITAL SIGNS: Please see below. GENERAL: A pale frail white female lying in bed. She is alert and cooperative. HEENT: NC AT, moist mucous membranes CARDIOVASCULAR: Regular rate and rhythm, normal S1S2 RESPIRATORY: clear bilaterally, equal air intake bilaterally ABDOMINAL: slightly distended, soft, minimally tender to palpation in all four quadrants EXTREMITIES: trace edema noted in lower extremities, a 2mm deep open wound is noted on right shoulder; has been closed with steri-strip and covered with a bandage. Open wound on inferoposterior aspect of scalp. Yellow discharge noted. NEUROLOGICAL: No focal deficits, alert and oriented X3 PSYCHOLOGICAL: normal affect LABORATORY DATA, IMAGING STUDIES, MICROBIOLOGY: Please see below. 1. Chest X-ray 05/07/19: Possible left lower lobe infiltrate. Otherwise, negative portable chest. 2. Chest CT 05/08/19: 1. Trace right and small left pleural effusions. The right pleural effusion has decreased in size and the left pleural effusion slightly increased. 2. Small peripheral wedge-shaped area of consolidation within the left lower lobe which likely represent atelectasis, however, a small focal infiltrate cannot be excluded. 3. Stable 16 mm pleural-based nodule within the lateral base of the right lower lobe. 4. Stable chronic changes within the upper abdomen including free fluid containing a few bubbles of air, consistent with peritoneal dialysis. 5. Old/healing right 9th and left 11th rib fractures as well as multilevel compression deformities within the thoracolumbar spine. Advanced degenerative change involving the shoulders with associated shoulder joint effusions. 6. Additional non-emergent findings, as discussed above. 3. Abdominal X-ray 05/08/19: Peritoneal catheter as described. Normal bowel gas pattern 4. Abdominal CT 05/10/19: 1. Lung bases demonstrate mild basilar atelectasis (left greater than right) and small left pleural effusion. 2. Stable chronic-appearing changes to the visualized abdomen including complex cystic lesion along the posterior aspect of the right hepatic lobe and few scattered cystic changes to the spleen and pancreas. 3. Ascites and small amount of pneumoperitoneum likely related to peritoneal dialysis. 4. Enhancement of the visualized small large bowel consistent with the given history of enterocolitis. DVT prophylaxis ordered?: Yes, Heparin ASSESSMENT AND PLAN: PROBLEMS: 1. Possible peritonitis -peritoneal fluid WBC count: 20 on 05/12/19 -Monitoring patient for infection; WBC count still elevated -Patient given single dose of vancomycin 05/14/19-per Dr. Rehman -d/c gentamicin 2. End stage renal disease on peritoneal dialysis -received peritoneal dialysis yesterday -Nephrology consulted -creatinine 5.60, GFR: 8.0 -patient having catheter dysfunction, may be 2/2 to fibrin build up 3. Abdominal pain and Diarrhea likely 2/2 to inflammation from colitis -history of C. difficile -Gastrology consulted -GI PCR panel negative -Heating pad and dicyclomine recommended per Dr. Overton 4. Squamous cell carcinoma of skin -Had recent biopsies on left shoulder and left posterior aspect of neck. -2mm deep open wounds noted on left shoulder and inferoposterior aspect of neck -Dr. Anguiano has been consulted-he recommends cleaning the wounds BID and covering with Vaseline -We are monitoring open wound; yellow discharge noted this am -Referring patient to Dr. Lyons for possible radiation therapy -Would culture of neck is positive for S. aureus, c/w bactroban 5. Thrombocytopenia -platelet count 139 today. Dropped from 202 yesterday 6. Transaminitis -AST: 168 ALT: 126 -May be 2/2 to Tylenol and Sensipar -holding Tylenol and Sensipar-per Dr. Rehman 7. Left lower lobe infiltrate - Clinically without any symptoms of pneumonia - Hemodynamically stable / Afebrile -Chest x-ray and chest CT showed slight infiltrate -Not currently on antibiotics 8. Dyslipidemia -hold home medications 9. Hypertension -blood pressure well controlled -holding home medications 10. Anemia of ESRD -stable -hemoglobin: 10.7, MCV: 111.6 -Administered Aranesp once/week 11. Leukocytosis -may be 2/2 to steroid use -WBC today 15.4; will continue to monitor -Venous blood culture negative 12. Generalized weakness -Working with PT and OT -Has not been cleared by PT & OT as of yet DISPOSITION: Patient is stable and her prognosis is guarded. She will continue to work with PT and OT until they clear her. We are using Bactroban for two open wounds s/p SCC biopsy. We appreciate Dr. Caballreo and Dr. Anguiano for their input. VS, I&O, [facility]/I&O Vital Signs Date Time Temp Pulse Resp B/P (MAP) Pulse Ox O2 Delivery O2 Flow Rate FiO2 05/14/19 06:00 97.5 88 18 137/71 (93) 97 I&O- Last 24 Hours up to 6 AM 05/14/19 06:00 Intake Total 3446 ml Output Total 2600 ml Balance 846 ml Laboratory Data 24H LABS Laboratory Tests 2 05/14/19 04:48: Nucleated Red Blood Cells % (auto) 0.0, Anion Gap 11, Glomerular Filtration Rate 7.4L, Blood Urea Nitrogen 59H, Creatinine 6.01H, Sodium Level 138, Potassium Level 4.7, Chloride Level 103, Carbon Dioxide Level 24, Calcium Level 7.1L, Aspartate Amino Transf (AST/SGOT) 168H, Alanine Aminotransferase (ALT/SGPT) 126H, Alkaline Phosphatase 232H, Total Bilirubin 0.5, Total Protein 4.6L, Albumin 1.4#L, Albumin/Globulin Ratio 0.44L 05/14/19 10:26: CBC/BMP Laboratory Tests 05/14/19 04:48 Red Blood Count 3.02 L, Mean Corpuscular Volume 111.6 H, Mean Corpuscular Hemoglobin 35.4 H, Mean Corpuscular Hemoglobin Concent 31.8 L, Red Cell Distribution Width 15.9 H, Calcium Level 7.1 L, Aspartate Amino Transf (AST/SGOT) 168 H, Alanine Aminotransferase (ALT/SGPT) 126 H, Alkaline Phosphata se 232 H, Total Bilirubin 0.5, Total Protein 4.6 L, Albumin 1.4 #L Microbiology Microbiology 05/07/19 Blood Culture - Final, Complete NO GROWTH AFTER 5 DAYS 05/07/19 Blood Culture - Final, Complete NO GROWTH AFTER 5 DAYS 05/11/19 Gram Stain - Final, Complete 05/11/19 Body Fluid Culture - Final, Complete 05/08/19 Gastrointestinal Tract Panel (PCR) - Final, Complete 05/13/19 Gram Stain - Final, Resulted 05/13/19 Wound Culture, Resulted Pending 05/13/19 Gram Stain - Final, Resulted 05/13/19 Wound Culture - Preliminary, Resulted Staphylococcus Aureus GME ATTESTATION GME ATTESTATION My faculty preceptor for this patient encounter was physically present during the encounter and was fully available. All aspects of the patient interview, exa mination, medical decision making process, and medical care plan development were reviewed and approved by the faculty preceptor. The faculty preceptor is aware and concurs with the plan as stated in the body of this note and will attest to such by his/her cosignature. ATTENDING NOTE I, Keith Zhang, have independently examined this patient and performed my own physical exam, as well as reviewed the documentation and edited where necessary. I have discussed in detail with the resident / student the findings and plan of treatment as documented by the resident / student and edited their note. I agree with their findings and treatment plan and have edited their documentation. I will continue to follow the patient during this hospital stay. ROMA AMBROSE OMS-3 May 14, 2019 11:43 KEITH ZHANG MD May 14, 2019 15:17
[2019-05-14 14:00] VITALS: BP 128/48
[2019-05-14] MEDS ORDERED: MUPI2OI TOP (14:04)
--- NOTE | 2019-05-14 15:14 | DS.PDOC ---
Discharge Summary General Date of Admission May 07, 2019 at 12:27 Date of Discharge May 14, 2019 Attending Physician: SHARYN MAO MD Specialist/Consultants Involve: Zamzam Rehman MD Specialist/Consultants Involve Domingo Overton M.D., Dang Alvarado M.D., Brandt Anguiano M.D. Discharge Summary PROCEDURES PERFORMED DURING STAY: None ADMITTING DIAGNOSES: 1. Generalized fatigue and weakness 2. Hypokalemia DISCHARGE DIAGNOSES: 1. Peritonitis 2. End stage renal disease 3. Squamous cell carcinoma of skin 4. Thrombocytopenia 5. Enterocolitis 6. Transaminitis 7. Hypertension 8. Dyslipidemia 9. Anemia of ESRD 10. Generalized weakness 11. Leukocytosis COMPLICATIONS/CHIEF COMPLAINT: Progressive weakness and hypokalemia HISTORY OF PRESENT ILLNESS: Patient is a 68-year-old female with a past medical history of End stage renal disease with peritoneal dialysis, Depression, hypertension, dyslipidemia, failed kidney transplant leading to removal, anemia secondary to End stage renal disease, and recurrent C. difficile. She presented to the Emergency room due to progressive weakness for the past several days. She states that every time she eats, she has to use the bathroom and has semi-formed bowel movements. She has also had some difficulty completing peritoneal dialysis. Patient was admitted to [facility] for C. difficile infection and received a stool transplant from Dr. Overton in the last month. She denies weight loss, hair loss, headache, visual changes, chest pain, shortness of breath, cough, nausea, vomiting, muscle aches, or worsening arthritis. HOSPITAL COURSE: Patient received IV fluids and potassium repletion in the Emergency room. A GI PCR panel was negative thus ruling out recurrent C. difficile. Patient continued to have peritoneal dialysis during the course of her stay for end stage renal disease. Patient was diagnosed and treated for peritonitis, will follow up with Dr. Rehman. Patient had two skin biopsies for Squamous cell carcinoma prior to admission. She will follow up with Dr. Anguiano for assessment of open wound biopsies. In addition, she will follow up with Dr. Lyons for possible radiation. Patient developed transaminitis on 05/14/19 most likely secondary to Acetaminophen and Sensipar, those medications were held per Nephrology. Mrs. Thornton had leukocytosis upon admission, likely secondary to steroid use. Her white blood cell count trended down over the course of her stay; she continued to be afebrile and her venous blood cultures were negative. Patient was cleared by physical therapy. She will follow up with PCP, Nephrology, and Dermatology. DISCHARGE MEDICATIONS: Please see below. ALLERGIES: Please see below. PHYSICAL EXAMINATION ON DISCHARGE: VITAL SIGNS: Please see below. GENERAL: A pale frail white female lying in bed. She is alert and cooperative. HEENT: NC AT, moist mucous membranes CARDIOVASCULAR: Regular rate and rhythm, normal S1S2 RESPIRATORY: clear bilaterally, equal air intake bilaterally ABDOMINAL: slightly distended, soft, minimally tender to palpation in all four quadrants EXTREMITIES: trace edema noted in lower extremities, a 2mm deep open wound is noted on right shoulder; has been closed with steri-strip and covered with a bandage. Open wound on inferoposterior aspect of scalp. Yellow discharge noted. NEUROLOGICAL: No focal deficits, alert and oriented X3 PSYCHOLOGICAL: normal affect LABORATORY DATA: Please see below. IMAGIN. Chest X-ray 05/07/19: Possible left lower lobe infiltrate. Otherwise, negative portable chest. 2. Chest CT 05/08/19: 1. Trace right and small left pleural effusions. The right pleural effusion has decreased in size and the left pleural effusion slightly increased. 2. Small peripheral wedge-shaped area of consolidation within the left lower lobe which likely represent atelectasis, however, a small focal infiltrate cannot be excluded. 3. Stable 16 mm pleural-based nodule within the lateral base of the right lower lobe. 4. Stable chronic changes within the upper abdomen including free fluid containing a few bubbles of air, consistent with peritoneal dialysis. 5. Old/healing right 9th and left 11th rib fractures as well as multilevel compression deformities within the thoracolumbar spine. Advanced degenerative change involving the shoulders with associated shoulder joint effusions. 6. Additional non-emergent findings, as discussed above. 3. Abdominal X-ray 05/08/19: Peritoneal catheter as described. Normal bowel gas pattern 4. Abdominal CT 05/10/19: 1. Lung bases demonstrate mild basilar atelectasis (left greater than right) and small left pleural effusion. 2. Stable chronic-appearing changes to the visualized abdomen including complex cystic lesion along the posterior aspect of the right hepatic lobe and few scattered cystic changes to the spleen and pancreas. 3. Ascites and small amount of pneumoperitoneum likely related to peritoneal dialysis. 4. Enhancement of the visualized small large bowel consistent with the given history of enterocolitis. PROGNOSIS: Fair ACTIVITY: As tolerated, cleared by PT DIET: Regular diet DISPOSITION: Patient being discharged home DISCHARGE INSTRUCTIONS: 1. Return to the emergency room in the case of an emergency ITEMS TO FOLLOWUP ON ON OUTPATIENT: 1. Follow up with Primary care provider in 7-10 days 2. Follow up with Nephrology, schedule within 14 days 3. Follow up with Dermatology in 10-14 days DISCHARGE CONDITION: Stable TIME SPENT ON DISCHARGE: Greater than 35 minutes. Vital Signs/I&Os Vital Signs Date Time Temp Pulse Resp B/P (MAP) Pulse Ox O2 Delivery O2 Flow Rate FiO2 05/14/19 06:00 97.5 88 18 137/71 (93) 97 I&O- Last 24 Hours up to 6 AM 05/14/19 05:59 Intake Total 3846 ml Output Total 3400 ml Balance 446 ml Laboratory Data Labs 24H Laboratory Tests 2 05/14/19 04:48: Nucleated Red Blood Cells % (auto) 0.0, Anion Gap 11, Glomerular Filtration Rate 7.4L, Blood Urea Nitrogen 59H, Creatinine 6.01H, Sodium Level 138, Potassium Level 4.7, Chloride Level 103, Carbon Dioxide Level 24, Calcium Level 7.1L, Aspartate Amino Transf (AST/SGOT) 168H, Alanine Aminotransferase (ALT/SGPT) 126H, Alkaline Phosphatase 232H, Total Bilirubin 0.5, Total Protein 4.6L, Albumin 1.4#L, Albumin/Globulin Ratio 0.44L 05/14/19 10:26: Body Fluid Source PERITONEAL DIALYSATE, Body Fluid WBC (Auto) 9, Body Fluid RBC (Auto) < 2, Peritoneal Fluid Color PALE YELLOW, Peritoneal Fluid Appearance CLEAR CBC/BMP Laboratory Tests 05/14/19 04:48 Red Blood Count 3.02 L, Mean Corpuscular Volume 111.6 H, Mean Corpuscular Hemoglobin 35.4 H, Mean Corpuscular Hemoglobin Concent 31.8 L, Red Cell Distribution Width 15.9 H, Calcium Level 7.1 L, Aspartate Amino Transf (AST/SGOT) 168 H, Alanine Aminotransferase (ALT/SGPT) 126 H, Alkaline Phos phatase 232 H, Total Bilirubin 0.5, Total Protein 4.6 L, Albumin 1.4 #L Microbiology Microbiology 05/07/19 Blood Culture - Final, Complete NO GROWTH AFTER 5 DAYS 05/07/19 Blood Culture - Final, Complete NO GROWTH AFTER 5 DAYS 05/11/19 Gram Stain - Final, Complete 05/11/19 Body Fluid Culture - Final, Complete 05/08/19 Gastrointestinal Tract Panel (PCR) - Final, Complete 05/13/19 Gram Stain - Final, Resulted 05/13/19 Wound Culture, Resulted Pending 05/13/19 Gram Stain - Final, Resulted 05/13/19 Wound Culture - Preliminary, Resulted Staphylococcus Aureus Discharge Medications Scheduled Acitretin (Acitretin) 10 Mg Cap, 10 MG PO QPM, (Reported) Brimonidine Tartrate (Alphagan P) 100 Drop/5 Ml Soln, 1 DROP OS BID, (Reported) Calcitriol (Calcitriol) 0.25 Mcg Cap, 0.25 MCG PO QPM, (Reported) Cinacalcet (Sensipar) 30 Mg Tab, 30 MG PO Q2D, (Reported) Dicyclomine HCl (Dicyclomine HCl) 10 Mg Cap, 10 MG PO TID, (Reported) BEFORE MEALS Ergocalciferol (Vitamin D2) (Drisdol) 50,000 Unit Cap, 50,000 UNIT PO 1XWK, (Reported) MONDAYS Fenofibrate,Micronized (Fenofibrate) 134 Mg Capsule, 134 MG PO DAILY, (Reported) Folic Acid (Folic Acid) 1 Mg Tab, 1 MG PO DAILY, (Reported) Folic Acid/Vit B Complex and C (Monique-Jimbo Tablet) 1 Tab Tab, 1 TAB PO QPM, (Reported) Metoprolol Succinate (Toprol Xl) 50 Mg Tab, 50 MG PO QPM, (Reported) Metoprolol Succinate (Metoprolol Succinate) 50 Mg Tab.er.24h, 25 MG PO DAILY, (Reported) Mupirocin (Mupirocin) 2 % Oin, 1 APLCT TOP ASDIRECTED, (Reported) TO CATH SITE AND AFFECTED AREA(S) Mupirocin (Mupirocin) 22 Gm Oint...g., 0 DOSE TOP BID Apply onto left shoulder and left neck wound. Keep wound open and clean with soap and water prior to applying antibiotics Niacinamide (Niacinamide) 500 Mg Tablet, 500 MG PO QHS, (Reported) Prednisone (Prednisone) 1 Mg Tab, 4 MG PO DAILY, (Reported) Sevelamer Carbonate (Renvela) 800 Mg Tablet, 1,600 MG PO WM, (Reported) Sevelamer Carbonate (Renvela) 800 Mg Tablet, 800 MG PO ASDIRECTED, (Reported) WITH SNACKS Simvastatin (Simvastatin) 20 Mg Tab, 20 MG PO QHS, (Reported) Scheduled PRN Acetaminophen (Acetaminophen) 500 Mg Tablet, 1,000 MG PO Q4H PRN for PAIN, (Reported) Hydralazine HCl (Hydralazine HCl) 25 Mg Tablet, 25 MG PO BID PRN for BP >140, (Reported) Loperamide HCl (Loperamide) 2 Mg Capsule, 2 MG PO QID PRN for DIARRHEA, (Reported) Ondansetron HCl (Ondansetron HCl) 4 Mg Tablet, 4 MG PO Q8H PRN for NAUSEA OR VOMITING, (Reported) Allergies Coded Allergies: Sulfa (Sulfonamide Antibiotics) (Verified Adverse Reaction, Mild, n/v, 05/07/19) lactose (Verified Adverse Reaction, Mild, intolerant, 05/07/19) morphine (Verified Adverse Reaction, Mild, vomitting, 05/07/19) sulfamethoxazole (Verified Adverse Reaction, Mild, n/v, 05/07/19) trimethoprim (Verified Adverse Reaction, Mild, n/v, 05/07/19) ROMA AMBROSE S-3 May 14, 2019 15:14
--- NOTE | 2019-05-14 17:51 | IPN ---
DATE: 05/14/2019 Mrs. Thornton is seen this morning on her bedside. Nursing staff is completing her peritoneal dialysis exchange. She was admitted with severe hypokalemia, generalized weakness, and not feeling well. She has history of recurrent Clostridium (C) difficile colitis. She was treated with initially Dificid, and her diarrhea improved quickly. Her stool tested negative for C. difficile, and Dificid has been stopped. Then she had problems with her peritoneal dialysis catheter not functioning, which has also improved with aggressive heparin therapy and removal of fibrin from her peritoneal cavity. She developed peritonitis, for which she has been receiving peritoneal vancomycin and gentamicin. She has been afebrile and feeling well now and wants to go home. She has been cleared by physical therapy. The patient denies any nausea, vomiting, dyspnea, or chest pain. PHYSICAL EXAMINATION: Temperature 97.5 degrees Fahrenheit, heart rate 88 per minute, respiratory rate 18 per minute, blood pressure 137/70 mm of mercury, and oxygen saturation 97% on room air. Head is atraumatic. Neck is supple, and jugular venous distention (JVD) is not elevated. Heart sounds are regular and lungs clear to auscultation. Abdomen soft and nontender. Bowel sounds normal. Extremities have no cyanosis or clubbing. Neurologically, she is awake, alert, and oriented times three. Today's labs show WBC count 15.4, hemoglobin 10.7, hematocrit 33.7, platelets 139. Sodium 138, potassium 4.7, CO2 of 24, BUN 59, and creatinine 6.01. Peritoneal fluid cell count was 20 yesterday and is down to 9 today. Cultures have been negative. Wound culture from her left shoulder did show Staphylococcus aureus. PROBLEMS: 1. End-stage renal disease. The patient is maintained on peritoneal dialysis and is functioning reasonably well. She will return to her home prescription after discharge. 2. Peritonitis. Her peritonitis has cleared and will continue with vancomycin intraperitoneally. I have stopped the gentamicin. She will get a dose of vancomycin today prior to discharge and get another dose next week. 3. Infected wound, left shoulder. Wound culture came back positive for Staphylococcus aureus. The patient is on vancomycin, which will be continued for one more week. We will can also use topical mupirocin ointment 2%. DISPOSITION: The patient can be discharged to home today, and she will follow up in outpatient dialysis clinic next week.
== END 2019-05-14 16:43 | disposition home health service (06) | DRG 919 ==
LOC: M ED 08:00 → EDBD 08:00 → M ED INP 12:27 → M MSPAV 15:02
PROVIDERS: ADMIT Internal Medicine; ATTEND Internal Medicine
PROC: 3E1M39Z Irrigation of Peritoneal Cavity using Dialysate, Percutaneous Approach (ICD-10-PCS; principal; 2019-05-10)
DX: T85.611A Breakdown (mechanical) of intraperitoneal dialysis catheter, initial encounter (principal); K65.9 Peritonitis, unspecified; I12.0 Hypertensive chronic kidney disease with stage 5 chronic kidney disease or end stage renal disease; T86.12 Kidney transplant failure; N25.81 Secondary hyperparathyroidism of renal origin; E87.6 Hypokalemia; N18.9 Chronic kidney disease, unspecified; T85.71XA Infection and inflammatory reaction due to peritoneal dialysis catheter, initial encounter; Z99.2 Dependence on renal dialysis; F32.9 Major depressive disorder, single episode, unspecified; E78.5 Hyperlipidemia, unspecified; E73.9 Lactose intolerance, unspecified; R53.1 Weakness; D69.6 Thrombocytopenia, unspecified; K52.9 Noninfective gastroenteritis and colitis, unspecified; D63.1 Anemia in chronic kidney disease; C44.622 Squamous cell carcinoma of skin of right upper limb, including shoulder; C44.42 Squamous cell carcinoma of skin of scalp and neck; Z90.710 Acquired absence of both cervix and uterus; Z96.643 Presence of artificial hip joint, bilateral; Z90.5 Acquired absence of kidney; Z79.52 Long term (current) use of systemic steroids; Z79.899 Other long term (current) drug therapy; Z88.2 Allergy status to sulfonamides; Z88.5 Allergy status to narcotic agent; Z88.8 Allergy status to other drugs, medicaments and biological substances; Z85.42 Personal history of malignant neoplasm of other parts of uterus; Z89.012 Acquired absence of left thumb; Y84.1 Kidney dialysis as the cause of abnormal reaction of the patient, or of later complication, without mention of misadventure at the time of the procedure

== ENCOUNTER 2019-05-18 16:13 | Inpatient (IN) | payer MEDICARE, BC, OTHER ==
[~2019-05-18] VITALS: Ht 148.6 cm; Wt 43.8 kg
[2019-05-18] MEDS: predniSONE 1 MG TAB PO SCH (09:00)
[2019-05-18] MEDS: FOLIC ACID 1 MG TAB PO SCH (09:00)
[2019-05-18 17:11] LABS: VENOUS BASE EXCESS -1.8 (-2.0-2.0); VENOUS HCO3 23.1 MEQ/L (23.0-27.0); VENOUS O2 SATURATION 65.2 % (60.0-80.0); VENOUS PARTIAL PRESSURE CO2 39.9 mmHg (38.0-50.0); VENOUS PARTIAL PRESSURE O2 36.2 mmHg (30.0-50.0); VENOUS STANDARD HCO3 22.3 MEQ/L; VENOUS TOTAL CO2 24.3 MEQ/L (24.0-28.0)
[2019-05-18] MEDS ORDERED: MUPI2OI TOP (17:13)
[2019-05-18 17:20] LABS: BASO % 0.2 % (0.0-1.0); EOS # 0.1 10^3/uL (0.0-0.50); EOS % 0.5 % (0.0-3.0); HEMATOCRIT 37.6 % (36.0-47.0); HEMOGLOBIN 11.7 g/dl (12.0-15.5); LYMPH # 0.8 10^3/uL (1.5-4.5); LYMPH % 4.6 % (24.0-44.0); MEAN CORPUSCULAR HEMOGLOBIN 35.5 pg (27.0-33.0); MEAN CORPUSCULAR HGB CONC 31.1 g/dl (32.0-36.5); MEAN CORPUSCULAR VOLUME 113.9 fl (80.0-96.0); MONO # 0.9 10^3/uL (0.0-0.8); MONO % 5.7 % (0.0-5.0); NEUTROPHILS # 14.4 10^3/uL (1.8-7.7); PLATELET COUNT, AUTOMATED 225 10^3/uL (150-450); WHITE BLOOD COUNT 16.4 10^3/uL (4.0-10.0)
[2019-05-18 17:37] LABS: ALBUMIN 1.5 GM/DL (3.2-5.2); BILIRUBIN,DIRECT 0.3 MG/DL (0.0-0.2); BILIRUBIN,TOTAL 0.6 MG/DL (0.2-1.0); CALCIUM LEVEL 7.3 MG/DL (8.8-10.2); CREATININE FOR GFR 5.56 MG/DL (0.55-1.30); GLOMERULAR FILTRATION RATE 8.1 (>39); POTASSIUM SERUM 4.2 MEQ/L (3.5-5.1); TOTAL PROTEIN 4.6 GM/DL (6.4-8.2)
[2019-05-18] MEDS ORDERED: DEXTROSE 50% 50 ML SYRINGE IV STA (18:34)
[2019-05-18] MEDS: MUPIROCIN 2% OINT 22 GM TUBE TOP SCH (20:07)
--- NOTE | 2019-05-18 20:18 | HPEPDOC ---
General Date of Admission May 18, 2019 at 16:14 Date of Service: May 18, 2019 Chief Complaint The patient is a 68-year-old female admitted with a reason for visit of Esrd On Peritoneal Dialysis. Source: Patient, Family Exam Limitations: No limitations Timing/Duration: Day(s) Severity: Moderate Associated Symptoms: Loss of appetite, Weakness History of Present Illness This is a 68-year-old female who was just discharged 3-4 days ago. She has end- stage renal disease for which she undergoes peritoneal dialysis. She's also had recurrent bouts of C. difficile colitis. In the interim since she has been home she has been weak and lightheaded. She is unable to fully care for herself. She does have some assistance from her family, but it is not quite enough. Home Medications Scheduled Acitretin (Acitretin) 10 Mg Cap, 10 MG PO QPM, (Reported) Brimonidine Tartrate (Alphagan P) 100 Drop/5 Ml Soln, 1 DROP OS BID, (Reported) Calcitriol (Calcitriol) 0.25 Mcg Cap, 0.25 MCG PO DAILY, (Reported) Cinacalcet (Sensipar) 30 Mg Tab, 30 MG PO Q2D, (Reported) Dicyclomine HCl (Dicyclomine HCl) 10 Mg Cap, 10 MG PO TID, (Reported) BEFORE MEALS Ergocalciferol (Vitamin D2) (Drisdol) 50,000 Unit Cap, 50,000 UNIT PO 1XWK, (Reported) MONDAYS Fenofibrate,Micronized (Fenofibrate) 134 Mg Capsule, 134 MG PO DAILY, (Reported) Folic Acid (Folic Acid) 1 Mg Tab, 1 MG PO DAILY, (Reported) Folic Acid/Vit B Complex and C (Monique-Jimbo Tablet) 1 Tab Tab, 1 TAB PO QPM, (Reported) Metoprolol Succinate (Toprol Xl) 50 Mg Tab, 50 MG PO QPM, (Reported) Metoprolol Succinate (Metoprolol Succinate) 50 Mg Tab.er.24h, 25 MG PO DAILY, (Reported) Mupirocin (Mupirocin) 2 % Oin, 1 APLCT TOP ASDIRECTED, (Reported) TO CATH SITE AND AFFECTED AREA(S) Mupirocin (Mupirocin) 22 Gm Oint...g., 1 APLCT TOP BID, (Reported) APPLY ON LEFT SHOULDER AND LEFT NECK WOUND Prednisone (Prednisone) 1 Mg Tab, 4 MG PO DAILY, (Reported) Sevelamer Carbonate (Renvela) 800 Mg Tablet, 1,600 MG PO WM, (Reported) Sevelamer Carbonate (Renvela) 800 Mg Tablet, 800 MG PO ASDIRECTED, (Reported) WITH SNACKS Simvastatin (Simvastatin) 20 Mg Tab, 20 MG PO QHS, (Reported) Scheduled PRN Acetaminophen (Acetaminophen) 500 Mg Tablet, 1,000 MG PO Q4H PRN for PAIN, (Reported) Hydralazine HCl (Hydralazine HCl) 25 Mg Tablet, 25 MG PO BID PRN for BP >140, (Reported) Loperamide HCl (Loperamide) 2 Mg Capsule, 2 MG PO QID PRN for DIARRHEA, (Reported) Ondansetron HCl (Ondansetron HCl) 4 Mg Tablet, 4 MG PO Q8H PRN for NAUSEA OR VOMITING, (Reported) Allergies Coded Allergies: Sulfa (Sulfonamide Antibiotics) (Verified Adverse Reaction, Mild, n/v, 05/07/19) lactose (Verified Adverse Reaction, Mild, intolerant, 05/07/19) morphine (Verified Adverse Reaction, Mild, vomitting, 05/07/19) sulfamethoxazole (Verified Adverse Reaction, Mild, n/v, 05/07/19) trimethoprim (Verified Adverse Reaction, Mild, n/v, 05/07/19) Past Medical History Medical History 1. Recurrent C. difficile colitis that has been treated with multiple modalities inclusive of deficit and fecal transplant. 2. Multiple lesions of squamous cell carcinoma for which she is status post excision. 3. Depression. 4. Hypertension. 5. Dyslipidemia. 6. Anemia of chronic disease. 7. End-stage renal disease for which she undergoes peritoneal dialysis. She's also had a failed kidney transplant. Surgical History Surgical history includes: Hysterectomy, bilateral total hip arthroplasty, bilateral nephrectomy, kidney transplant and removal, multiple resections of squamous cell carcinoma lesions, left thumb amputation Family History Significant Family History: Cancer, Hypertension, Renal disease Patient reports maternal history of both rheumatoid and osteoarthritis. There is also history of kidney cancer and hypertension. She reports paternal from cerebral hemorrhage. 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 A-FIB/CHADSVASC A-FIB History Current/History of A-Fib/PAF?: No Current PO Anticoag Therapy: No Review of Systems Other systems Review of systems is otherwise negative except as stated in HPI. Physical Examination General Exam: Positive: Alert, Mild Distress Eye Exam: Positive: PERRLA, Other Eye Symptoms (left scleral and conjunctival injection) ENT Exam: Positive: Atraumatic, Mucous membr. moist/pink, Tongue Midline, Nares Patent Neck Exam: Positive: Supple; Negative: JVD, thyromegaly, +2 carotid pulse wo bruit, Lymphadenopathy, Other Chest Exam: Positive: Clear to auscultation, Normal air movement Heart Exam: Positive: Tachycardic, Regular Rhythm, Normal S1, Normal S2 Abdomen Exam: Positive: Normal bowel sounds, Soft; Negative: BS Hyperactive, BS Hypoactive, Tenderness, Hepatospenomegaly, Mass, Hernia, Other Extremity Exam: Positive: Swelling (1-2+ pitting edema to legs, but not to feet) Skin Exam: Positive: Other skin issue (she has significant thick scale to her extremities) Neuro Exam: Positive: Normal Speech, Cranial Nerves 3-12 NL Psych Exam: Positive: Anxiety, Oriented x 3 Vital Signs Vital Signs Date Time Temp Pulse Resp B/P (MAP) Pulse Ox O2 Delivery O2 Flow Rate FiO2 05/18/19 19:45 108 126/58 (80) 99 05/18/19 17:58 16 Room Air 05/18/19 16:21 97.9 Laboratory Data Labs 24H Laboratory Tests 2 05/18/19 17:04: Immature Granulocyte % (Auto) 1.0, White Blood Count 16.4H, Red Blood Count 3.30L, Hemoglobin 11.7L, Hematocrit 37.6, Mean Corpuscular Volume 113.9H, Mean Corpuscular Hemoglobin 35.5H, Mean Corpuscular Hemoglobin Concent 31.1L, Red Cell Distribution Width 16.2H, Platelet Count 225, Neutrophils (%) (Auto) 88.0H, Lymphocytes (%) (Auto) 4.6L, Monocytes (%) (Auto) 5.7H, Eosinophils (%) (Auto) 0.5, Basophils (%) (Auto) 0.2, Neutrophils # (Auto) 14.4H, Lymphocytes # (Auto) 0.8L, Monocytes # (Auto) 0.9H, Eosinophils # (Auto) 0.1, Basophils # (Auto) 0.0, Nucleated Red Blood Cells % (auto) 0.1H, Blood Gas Bicarbonate Standard 22.3, Venous Blood pH 7.380, Venous Blood Partial Pressure CO2 39.9, Venous Blood Partial Pressure O2 36.2, Venous Blood Total Carbon Dioxide 24.3, Venous Blood HCO3 23.1, Venous Blood Oxygen Saturation 65.2, Venous Blood Base Excess -1.8, Anion Gap 10, Glomerular Filtration Rate 8.1L, Calcium Level 7.3L, Aspartate Amino Transf (AST/SGOT) 84H, Alanine Aminotransferase (ALT/SGPT) 90H, Alkaline Phosphatase 201H, Total Bilirubin 0.6, Direct Bilirubin 0.3H, Ammonia 24, Total Protein 4.6L, Albumin 1.5L, Albumin/Globulin Ratio 0.48L, Lipase 693H CBC/BMP Laboratory Tests 05/18/19 17:04 Red Blood Count 3.30 L, Mean Corpuscular Volume 113.9 H, Mean Corpuscular Hemoglobin 35.5 H, Mean Corpuscular Hemoglobin Concent 31.1 L, Red Cell Distribution Width 16.2 H, Neutrophils (%) (Auto) 88.0 H, Lymphocytes (%) (Auto) 4.6 L, Monocytes (%) (Auto) 5.7 H, Eosinophils (%) (Auto) 0.5, Basophils (%) (Auto) 0.2, Neutrophils # (Auto) 14.4 H, Lymphocytes # (Auto) 0.8 L, Monocytes # (Auto) 0.9 H, Eosinophils # (Auto) 0.1, Basophils # (Auto) 0.0 Assessment/Plan #1. End-stage renal disease. Patient will continue with peritoneal dialysis per her usual schedule. We appreciate the assistance of the nephrology service. #2. History of C. difficile colitis. Patient has considerable history of recurrent C. difficile colitis. She apparently has been negative for C. difficile now for several weeks. Plan / VTE VTE Prophylaxis Ordered?: Yes Plan Disposition Patient is extremely frail. Her oral intake is poor. Even with assistance she is overwhelmed with caring for herself. Family is making arrangements for 05/05. The patient adamantly does not want to go to [facility] and states that she wants to at home. Diet: Continue Current Activity: Continue Current Therapy: PT, OT Medications: Other Med: (continue home regimen) Diagnostics: Repeat Labs in AM Anticipated Discharge: Home With Services (family is in the process of arranging sufficient staff for 24-hour care) LAMINE CARDOSO MD May 18, 2019 20:18
[2019-05-18] MEDS: BRIMONIDINE 0.1% OPHTH SOLN 5 ML OS SCH (21:00)
[2019-05-18 23:50] VITALS: BP 149/65
[2019-05-19 08:05] LABS: HEMATOCRIT 36.2 % (36.0-47.0); HEMOGLOBIN 10.6 g/dl (12.0-15.5); MEAN CORPUSCULAR HEMOGLOBIN 34.3 pg (27.0-33.0); MEAN CORPUSCULAR HGB CONC 29.3 g/dl (32.0-36.5); PLATELET COUNT, AUTOMATED 186 10^3/uL (150-450); RED BLOOD COUNT 3.09 10^6/uL (4.00-5.40)
[2019-05-19 08:08] LABS: MEAN CORPUSCULAR VOLUME 117.2 fl (80.0-96.0)
[2019-05-19 08:49] LABS: ALBUMIN 1.2 GM/DL (3.2-5.2); BILIRUBIN,TOTAL 0.5 MG/DL (0.2-1.0); CALCIUM LEVEL 7.2 MG/DL (8.8-10.2); CREATININE FOR GFR 5.99 MG/DL (0.55-1.30); GLOMERULAR FILTRATION RATE 7.4 (>39); MAGNESIUM LEVEL 1.7 MG/DL (1.8-2.4); POTASSIUM SERUM 4.3 MEQ/L (3.5-5.1); TOTAL PROTEIN 4.5 GM/DL (6.4-8.2)
[2019-05-19] MEDS: CINACALCET 30 MG TAB (SENSIPAR) PO SCH (09:23)
[2019-05-19] MEDS: BRIMONIDINE 0.1% OPHTH SOLN 5 ML OS SCH ×2 (09:23→22:28)
[2019-05-19] MEDS: ACETAMINOPHEN 500 MG TAB PO PRN (09:25)
[2019-05-19] MEDS: FOLIC ACID 1 MG TAB PO SCH (09:25)
[2019-05-19] MEDS: MUPIROCIN 2% OINT 22 GM TUBE TOP SCH ×2 (09:26→22:30)
[2019-05-19] MEDS: predniSONE 1 MG TAB PO SCH (09:26)
[2019-05-19 10:00] VITALS: BP 105/61
[2019-05-19 12:15] LABS: APPEARANCE, BODY FLUID CLEAR (CLEAR); PERITONEAL DIALYSATE FL COLOR PALE YELLOW (COLORLESS); SOURCE, BODY FLUID PERITONEAL DIALYSATE
--- NOTE | 2019-05-19 12:49 | IPNPDOC ---
Text Note Date of Service The patient was seen on 05/19/19. NOTE Ms. Medellin complains of "pain all over". Otherwise, she has remained clinic ally stable. She has considerable emotional distress over being in the hospital. The patient has end-stage renal disease for which she utilizes peritoneal dialysis. PHYSICAL EXAM: Gen.: The patient is quite frail appearing with moderate distress. HENT: Her neck is supple, oral mucosa is moist, she does have scleral and conjunctival injection to her left Cardiovascular: Regular rate and rhythm with a normal S1 and S2 Respiratory: She is currently clear to auscultation with no cough. Abdomen: Soft, nontender, nondistended. Extremities: Chronic appearing 1-2+ pitting edema to her legs. Neuro: Patient has no focal neuromotor deficit, she is able to mobilize with assistance. Psych: Patient has considerable anxiety about eating or moving. ASSESSMENT/PLAN: This is a 68-year-old female with end-stage renal disease who utilizes peritoneal dialysis. She requires considerable assistance at home with this. She fatigues easily and is not always able to fully care for herself; at times she needs assistance with mobility. She has assistance at home with managing her peritoneal dialysis bags. Family is in the process of arranging additional assistance for her at home so that she essentially has 24/7 care. The patient is adamantly opposed to transitioning to assisted or rehabilitation and is also opposed to hemodialysis. VS,Fishbone, I+O VS, Fishbone, I+O Laboratory Tests 05/18/19 17:04 Red Blood Count 3.30 L, Mean Corpuscular Volume 113.9 H, Mean Corpuscular Hemoglobin 35.5 H, Mean Corpuscular Hemoglobin Concent 31.1 L, Red Cell Distri bution Width 16.2 H, Neutrophils (%) (Auto) 88.0 H, Lymphocytes (%) (Auto) 4.6 L, Monocytes (%) (Auto) 5.7 H, Eosinophils (%) (Auto) 0.5, Basophils (%) (Auto) 0.2, Neutrophils # (Auto) 14.4 H, Lymphocytes # (Auto) 0.8 L, Monocytes # (Auto) 0.9 H, Eosinophils # (Auto) 0.1, Basophils # (Auto) 0.0 05/19/19 07:44 Red Blood Count 3.09 L, Mean Corpuscular Volume 117.2 H, Mean Corpuscular Hemoglobin 34.3 H, Mean Corpuscular Hemoglobin Concent 29.3 L, Red Cell Distribution Width 16.1 H, Calcium Level 7.2 L, Aspartate Amino Transf (AST/SGOT) 73 H, Alanine Aminotransferase (ALT/SGPT) 71, Alkaline Phosphatase 188 H, Total Bilirubin 0.5, Total Protein 4.5 L, Albumin 1.2 L Vital Signs Date Time Temp Pulse Resp B/P (MAP) Pulse Ox O2 Delivery O2 Flow Rate FiO2 05/19/19 10:00 96.1 76 16 105/61 (76) 98 05/18/19 17:58 Room Air LAMINE CARDOSO MD May 19, 2019 12:49
[2019-05-19 14:00] VITALS: BP 114/63
[2019-05-19 18:00] VITALS: BP 136/76
[2019-05-19 22:00] VITALS: BP 144/70
[2019-05-20 02:00] VITALS: BP 105/59
[2019-05-20 06:00] VITALS: BP 114/64
[2019-05-20 06:22] LABS: HEMATOCRIT 34.1 % (36.0-47.0); HEMOGLOBIN 10.6 g/dl (12.0-15.5); MEAN CORPUSCULAR HEMOGLOBIN 34.9 pg (27.0-33.0); MEAN CORPUSCULAR HGB CONC 31.1 g/dl (32.0-36.5); MEAN CORPUSCULAR VOLUME 112.2 fl (80.0-96.0); PLATELET COUNT, AUTOMATED 180 10^3/uL (150-450); RED BLOOD COUNT 3.04 10^6/uL (4.00-5.40); WHITE BLOOD COUNT 16.1 10^3/uL (4.0-10.0)
[2019-05-20 06:35] LABS: CALCIUM LEVEL 6.9 MG/DL (8.8-10.2); CREATININE FOR GFR 5.61 MG/DL (0.55-1.30); POTASSIUM SERUM 4.1 MEQ/L (3.5-5.1)
--- NOTE | 2019-05-20 08:48 | CR ---
DATE OF CONSULTATION: 05/19/2019 REQUESTING PHYSICIAN: Dr. Suni Lema CONSULTING PHYSICIAN: Dr. Alvarado REASON FOR CONSULTATION: Management of end-stage renal disease on peritoneal dialysis. CHIEF COMPLAINT: The patient presented to the hospital yesterday with weakness and inability to take care of herself. HISTORY OF PRESENT ILLNESS: Apple Thornton is a 68-year-old female with history of end-stage renal disease on peritoneal dialysis, secondary hyperparathyroidism, history of recurrent Clostridium (C) difficile colitis, status post fecal transplant. She was recently discharged from the hospital last week. She reports that when she went home she was feeling very weak, lightheaded and she was unable to take care of herself. She presented to the emergency room. She was admitted under the hospitalist service as a social admission pending possible transfer to the shelter. Nephrology service was called for further help in the management of end-stage renal disease on peritoneal dialysis. I saw and evaluated the patient today morning at the bedside. She denies any fevers, chills, diarrhea, nausea, or vomiting. She does report that she is weak and unable to perform activities of daily life. 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 PAST SURGICAL HISTORY: Status post cystectomy in the past, bilateral total hip arthroplasty, bilateral nephrectomies, status post kidney transplant and removal of the kidney transplant, multiple resections of squamous cell carcinoma lesions of the skin, and a left thumb amputation. ALLERGIES: The patient is allergic to SULFA DRUGS, LACTOSE, and MORPHINE. FAMILY HISTORY: There is significant family history of hypertension and renal disease including kidney cancer in the family. SOCIAL HISTORY: The patient denies any smoking, illicit drug abuse or alcohol abuse. She lives at home. REVIEW OF SYSTEMS: Constitutional: The patient reports feeling very weak and tired. She denies any fevers or chills. Eyes: She denies any blurry vision or double vision. ENT: She denies any dysphagia, odynophagia or ear discharge. Cardiovascular: She denies any chest pain or palpitation. Respiratory: She denies any shortness of breath or cough. GI: She denies any nausea or vomiting. She does report decreased appetite. Genitourinary: She denies any dysuria or hematuria. Musculoskeletal: She reports muscle weakness and inability to walk. Skin: She reports multiple skin cancer lesions. PARTS CONTROL CLERK: She denies any strokes or seizures. Does report weakness. Psych: She does report history of depression. Endocrine: She reports secondary hyperparathyroidism. Hematological/Oncological: She denies any easy bleeding or bruising. All other review of systems is negative. PHYSICAL EXAMINATION: General: The patient is awake, alert, oriented times three, laying in bed. Vital Signs: Temperature is 96.9 degrees Fahrenheit, blood pressure 105/61, pulse 76, respiratory rate of 60, saturating 98% on room air. Head and Neck Exam: Extraocular muscles intact. Pupils equally round and reactive to light. Mucous membranes are moist. Neck is supple. Behind the neck, there is a surgical scar. Cardiovascular: S1 and S2, regular rate. 1+ edema of the bilateral lower extremities. Respiratory: Chest is clear to auscultation bilaterally. Bilateral equal air entry. No rales or rhonchi. Abdomen: Soft. Positive bowel sounds. Peritoneal dialysis catheter exit site is mildly tender in the left lower quadrant. Genitourinary: Bladder is not palpable. Musculoskeletal: No clubbing or cyanosis. Skin: The patient has multiple skin cancer precancerous lesions on the skin and she has a recent surgical scar in the neck and a scar on the left shoulder. PARTS CONTROL CLERK: No focal deficit. Power is 5/5 in bilateral upper extremities. LAB REVIEW: CBC showed a WBC of 15, hemoglobin 10.6, platelets of 186. Peritoneal fluid cell count is 29, polymorphonuclear 44.9. BMP showed sodium 139, potassium 4.3, chloride 105, bicarb 24, BUN 46, creatinine is 5.9, calcium 7.2, magnesium 1.7, and albumin is 1.2. Microbiology: Peritoneal fluid cell count and culture showed a few WBCs, no organism was seen. CURRENT INPATIENT MEDICATIONS: The patient's medications were all reviewed by me. She is currently on Tylenol p.r.n., Sensipar 30 mg by mouth every 48 hours, folic acid 1 mg p.o. daily, Bactroban ointment to the catheter site and prednisone 4 mg daily. ASSESSMENT: 68-year-old female with past medical history of end-stage renal disease on peritoneal dialysis, history of recent C diff colitis, secondary hyperparathyroidism, and chronic steroid dependence, admitted this time with weakness and inability to perform activities of daily. PLAN: 1. End-stage renal disease on peritoneal dialysis. The patient is going to start five manual exchanges, all 1.5% or 1 liter. Volume status is optimal. 2. Anemia in end-stage renal disease. Hemoglobin is 10.6, which is optimal. If hemoglobin drops further, she will be started on Aranesp injections. 3. Secondary hyperparathyroidism. Continue current dose of Sensipar 30 mg by mouth every other day. 4. Chronic steroid dependence. Continue current dose of prednisone 4 mg by mouth daily. 5. Chronic kidney disease mineral bone disease. The patient gets Renvela at home. I am going to check the phosphorus levels and restart Renvela as needed. 6. Peritoneal dialysis catheter exit site infection prophylaxis. Continue current dose of Bactroban ointment at the exit site. Thank you for involving me in the care of this patient. I shall be happy to follow the patient along with you tomorrow morning.
[2019-05-20] MEDS: ACETAMINOPHEN 500 MG TAB PO PRN (09:33)
[2019-05-20] MEDS: FOLIC ACID 1 MG TAB PO SCH (09:33)
[2019-05-20] MEDS: predniSONE 1 MG TAB PO SCH (09:33)
[2019-05-20] MEDS: BRIMONIDINE 0.1% OPHTH SOLN 5 ML OS SCH ×2 (09:34→22:07)
[2019-05-20] MEDS: MUPIROCIN 2% OINT 22 GM TUBE TOP SCH ×2 (09:34→22:07)
[2019-05-20 10:00] VITALS: BP 86/43
[2019-05-20 14:00] VITALS: BP 114/62
--- NOTE | 2019-05-20 16:23 | IPNPDOC ---
Text Note Date of Service The patient was seen on 05/20/19. NOTE The patient continues to require assistance with most activities such as toile ting or ambulation due to weakness and fatigue. She has end-stage renal disease for which she utilizes peritoneal dialysis. PHYSICAL EXAM: Gen.: The patient is quite frail appearing with moderate distress. HENT: Her neck is supple, oral mucosa is moist, she does have scleral and conjunctival injection to her left eye Cardiovascular: Regular rate and rhythm with a normal S1 and S2 Respiratory: She is currently clear to auscultation with no cough. Abdomen: Soft, nontender, nondistended. Extremities: Chronic appearing 1-2+ pitting edema to her legs. Neuro: Patient has no focal neuromotor deficit, she is able to mobilize with assistance. Psych: Patient has considerable anxiety about eating or moving. Skin: Patient has a number of varying stages of squamous cell lesions with areas of excision, she has scaling, scarring and some skin slough. ASSESSMENT/PLAN: This is a 68-year-old female with end-stage renal disease who utilizes peritoneal dialysis. She requires considerable assistance at home with this. She fatigues easily and is not always able to fully care for herself; at times she n eeds assistance with mobility. She has assistance at home with managing her peritoneal dialysis bags. Family is in the process of arranging additional assistance for her at home so that she essentially has 24/7 care. The patient is adamantly opposed to transitioning to alf or rehabilitation and is also opposed to hemodialysis. In the interim, the patient's peritoneal hemodialysis is being managed by the nephrology service, whose assistance we appreciate. She also continues with PT which is of benefit to her, although she doesn't always think so. VS,Fishbone, I+O VS, Fishbone, I+O Laboratory Tests 05/20/19 06:06 Red Blood Count 3.04 L, Mean Corpuscular Volume 112.2 H, Mean Corpuscular Hemoglobin 34.9 H, Mean Corpuscular Hemoglobin Concent 31.1 L, Red Cell Distribution Width 15.8 H, Calcium Level 6.9 L Vital Signs Date Time Temp Pulse Resp B/P (MAP) Pulse Ox O2 Delivery O2 Flow Rate FiO2 05/20/19 14:00 96.3 112 15 114/62 (79) 100 05/18/19 17:58 Room Air I&O- Last 24 Hours up to 6 AM 05/20/19 06:00 Intake Total 4440 ml Output Total 7100 ml Balance -2660 ml LAMINE CARDOSO MD May 20, 2019 16:23
[2019-05-20 18:00] VITALS: BP 136/73
[2019-05-20 22:00] VITALS: BP 122/66
[2019-05-21 02:00] VITALS: BP 114/64
[2019-05-21 06:41] LABS: PHOSPHORUS LEVEL 4.4 MG/DL (2.5-4.9)
[2019-05-21] MEDS: MUPIROCIN 2% OINT 22 GM TUBE TOP SCH (08:21)
[2019-05-21] MEDS: predniSONE 1 MG TAB PO SCH (08:21)
[2019-05-21] MEDS: CINACALCET 30 MG TAB (SENSIPAR) PO SCH (08:21)
[2019-05-21] MEDS: BRIMONIDINE 0.1% OPHTH SOLN 5 ML OS SCH (08:21)
[2019-05-21] MEDS: FOLIC ACID 1 MG TAB PO SCH (08:21)
[2019-05-21] MEDS: ACETAMINOPHEN 500 MG TAB PO PRN (08:24)
[2019-05-21] MEDS ORDERED: DARBEPOETIN 40 MCG/0.4 ML *DIALYSIS* SYRINGE (J0882) SQ SCH (09:00)
[2019-05-21 09:34] LABS: CORTISOL AM 7.5 UG/DL (4.3-22.4)
[2019-05-21 10:00] VITALS: BP 105/53
[2019-05-21 14:00] VITALS: BP 130/65
--- NOTE | 2019-05-21 15:04 | IPNPDOC ---
Text Note Date of Service The patient was seen on 05/21/19. NOTE The patient continues with weakness and fatigue. She has end-stage renal disease for which she utilizes peritoneal dialysis. PHYSICAL EXAM: Gen.: Physical exam is essentially unchanged; the patient continues frail appearing with moderate distress. HENT: Her neck is supple, oral mucosa is moist, she does have scleral and conjunctival injection to her left eye Cardiovascular: Regular rate and rhythm with a normal S1 and S2 Respiratory: She is currently clear to auscultation with no cough. Abdomen: Soft, nontender, nondistended. Extremities: Chronic appearing 1-2+ pitting edema to her legs. Neuro: Patient has no focal neuromotor deficit, she is able to mobilize with assistance. Psych: Patient has considerable anxiety Skin: Patient has a number of varying stages of squamous cell lesions with areas of excision, she has scaling, scarring and some skin slough. ASSESSMENT/PLAN: This is a 68-year-old female with end-stage renal disease who utilizes peritoneal dialysis. She requires considerable assistance at home with this. She fatigues easily and is not always able to fully care for herself; she needs assistance with all aspects of her care. She has assistance at home with managing her peritoneal dialysis bags. Family is in the process of arranging additional assistance for her at home so that she essentially has 24/7 care. The patient is adamantly opposed to transitioning to jail or r ehabilitation because she is opposed to hemodialysis, which would be required for detention stay. In the interim, the patient's peritoneal hemodialysis is being managed by the nephrology service, whose assistance we appreciate. She also continues with PT which is of benefit to her; she does not agree. VS,Fishbone, I+O VS, Fishbone, I+O Vital Signs Date Time Temp Pulse Resp B/P (MAP) Pulse Ox O2 Delivery O2 Flow Rate FiO2 05/21/19 10:00 96.2 93 13 105/53 (70) 100 05/18/19 17:58 Room Air I&O- Last 24 Hours up to 6 AM 05/21/19 05:59 Intake Total 4600 ml Output Total 5600 ml Balance -1000 ml LAMINE CARDOSO MD May 21, 2019 15:04
--- NOTE | 2019-05-21 19:56 | IPN ---
DATE: 05/20/2019 SUBJECTIVE: The patient was seen and examined at the bedside today, morning. She was getting her peritoneal exchange when I saw her. The patient reports that she is getting too much ultrafiltration with five times a day manual exchanges. She is getting 500 mL ultrafiltration with each exchange, and she is requesting to decrease the frequency of peritoneal dialysis because she is too weak after all the dialysis and ultrafiltration. She is otherwise afebrile and hemodynamically stable. OBJECTIVE: Vital signs: Temperature is 96.3 degrees Fahrenheit, blood pressure 114/62, pulse is 112, respiratory rate of 15, saturating 100% on room air. Intake and output: There is no urine output recorded. The patient is negative 2.2 liters yesterday and negative 600 mL so far today according to intake and output. Weight on the bed scale is not available. PHYSICAL EXAMINATION: General: The patient is awake, alert, oriented times thee, laying in bed, weak and lethargic. Head and neck exam: Extraocular muscles intact. Pupils equally round and reactive to light. Mucous membranes are moist. Neck is supple. There is no jugular venous distention (JVD). Cardiovascular: S1, S2, regular rate. 1+ edema of the bilateral lower extremities. Respiratory: Chest is clear to auscultation bilaterally. Bilateral equal air entry. No rales or rhonchi. Abdomen: Soft. Positive bowel sounds. Peritoneal dialysis exit site has mild erythema. Musculoskeletal: No clubbing or cyanosis. Pulses are 2+. Skin: The patient has multiple precancerous skin lesions all over the body. Central nervous system (SUBGRADE TESTER): No focal deficit. Power is 5/5 in bilateral upper extremities. LAB REVIEW: CBC showed a WBC of 16.1, hemoglobin 10.6, platelets of 180. BMP showed sodium 137, potassium 4.1, chloride 103, bicarbonate 23, BUN 44, creatinine 5.6, calcium is 6.9. CURRENT INPATIENT MEDICATIONS: The patient's medications were all reviewed by me. There is no change in the medications today as compared with yesterday. ASSESSMENT/PLAN: 1. End-stage renal disease, on peritoneal dialysis. The patient is complaining of feeling too weak and tired after getting all the ultrafiltration done with the peritoneal exchanges. I have decreased the frequency to four manual exchanges in a day, all 1.5%, all one liter. 2. Anemia in end-stage renal disease. Hemoglobin is at 10.6, which is optimal. I am going to start the patient on once a week Aranesp. 3. Secondary hyperparathyroidism. Continue current dose of Sensipar 30 mg by mouth on alternate days. 4. Chronic steroid dependence. Continue current dose of prednisone.
--- NOTE | 2019-05-22 10:01 | IPN ---
DATE: 05/21/2019 SUBJECTIVE: Patient was seen and examined at the bedside today morning. Patient reports that she is feeling better today. She has a little bit more strength today. Her frequency of the peritoneal dialysis was decreased to four times a day only. She denies any active complaints apart from pain at the previous surgical sites in the neck and left shoulder. OBJECTIVE: Vital signs: Temperature is 96.2 degrees Fahrenheit, blood pressure 105/53, pulse is 93, respiratory rate of 13, saturating 100% on room air. Intake and output: No urine output is recorded. Patient had 150 mL ultrafiltration with the peritoneal dialysis done in the morning. PHYSICAL EXAM: General: Patient is awake, alert, oriented times three, laying in bed, no apparent distress. Head and neck exam: Pupils are equally round and reactive to light. Patient has multiple precancerous lesions on the face. Neck is supple. She has a healing surgical scar in the back of her neck. Mucous membranes are moist. Cardiovascular: S1, S2, regular rate. 1+ edema of the bilateral lower extremities. Respiratory: Chest is clear to auscultation bilaterally. Bilateral equal air entry. No rales or rhonchi. Abdomen: Soft. Positive bowel sounds. Left-sided peritoneal dialysis catheter is nontender. Musculoskeletal: 1+ edema of the bilateral lower extremities. No clubbing or cyanosis. She has a healing ulcer from the left shoulder. Central nervous system (LINER REPLACER): No focal deficit. Power is 5/5 in bilateral upper extremities. Patient has a depressed mood. LAB REVIEW: CBC showed WBC of 16.1 and hemoglobin 10.6 on the labs done yesterday. BMP is not done today. Only phosphorus level is available, which is 4.4, a.m. cortisol is 7.5. CURRENT INPATIENT MEDICATIONS: Patient's medications were all reviewed by me. There is no change in the medications today as compared with yesterday. ASSESSMENT AND PLAN: 1. End-stage renal disease on peritoneal dialysis. Continue current regimen of four manual exchanges all 1.5% or 1 liter. 2. Anemia in end-stage renal disease. Patient has been started on Aranesp 40 mcg subcu once a week. 3. Secondary hyperparathyroidism. Continue current dose of Sensipar/ 4. Chronic steroid dependent. Continue current dose of prednisone 4 mg daily, a.m. cortisol level is within the acceptable range. 5. Chronic kidney disease, mineral bone disease. Patient's phosphorus level is 4.4, which is within the acceptable range. No need of phosphorus binders at this time.
--- NOTE | 2019-05-23 17:40 | DS.PDOC ---
Discharge Summary General Date of Admission May 20, 2019 at 15:36 Date of Discharge May 21, 2019 Specialist/Consultants Involve: GRIS AGOSTO MD Discharge Summary PROCEDURES PERFORMED DURING STAY: Peritoneal dialysis. ADMITTING DIAGNOSES: 1. End-stage renal disease with peritoneal dialysis, anemia of chronic disease, dyslipidemia, hypertension, depression, multiple lesions of squamous cell carcinoma, history of recurrent C. difficile colitis. DISCHARGE DIAGNOSES: 1. End-stage renal disease with peritoneal dialysis, anemia of chronic disease, dyslipidemia, hypertension, depression, multiple lesions of squamous cell carcinoma, history of recurrent C. difficile colitis. COMPLICATIONS/CHIEF COMPLAINT: Esrd On Peritoneal Dialysis. HISTORY OF PRESENT ILLNESS/HOSPITAL COURSE: This is a 68-year-old female with known end-stage renal disease. She undergoes peritoneal dialysis. She had just been discharged to 3 days prior to this admission. In that interim time she was complaining of being weak and lightheaded. She is generally unable to fully care for herself and returned to the hospital. This has been a recurrent event. The patient was admitted to the [facility] floor. She did not have any acute medical concerns. The patient is extremely frail and is unable to do most of her activities of daily living and caring for herself. It is difficult for her to maintain her own peritoneal dialysis at home. She does have some assistance at home. With her weakness and deconditioning it had been recommended that she go to jail. However, to do this she would have to transition to hemodialysis to which she is adamantly opposed. Family is obtaining as much assistance as they possibly can and the patient plans to return to home.. DISCHARGE MEDICATIONS: Please see below. ALLERGIES: Please see below. PHYSICAL EXAMINATION ON DISCHARGE: VITAL SIGNS: Please see below. General: the patient continued frail appearing with moderate distress. HENT: Her neck is supple, oral mucosa is moist, she does have scleral and c onjunctival injection to her left eye Cardiovascular: Regular rate and rhythm with a normal S1 and S2 Respiratory: She is currently clear to auscultation with no cough. Abdomen: Soft, nontender, nondistended, peritoneal dialysis site remains intact Extremities: Chronic appearing 1-2+ pitting edema to her legs. Neuro: Patient has no focal neuromotor deficit, she is able to mobilize with assistance. Psych: Patient has considerable anxiety Skin: Patient has a number of varying stages of squamous cell lesions with areas of excision, she has scaling, scarring and some skin slough. LABORATORY DATA: Please see below. IMAGING: PROGNOSIS: ACTIVITY: As tolerated. DIET: Patient is recommended to avoid red meat, dairy, acidic foods. Expanded BRAT diet is recommended; she can have chicken, fish, potatoes, pasta and other similar items DISCHARGE PLAN: The patient is stable for return to home. She will continue with peritoneal dialysis. She has assistance from caregivers and from family. She will follow up with Dr. Rehman of the nephrology service as scheduled. DISPOSITION: Home, Self-Care. DISCHARGE INSTRUCTIONS: 1. . ITEMS TO FOLLOWUP ON ON OUTPATIENT: 1. . DISCHARGE CONDITION: Stable. TIME SPENT ON DISCHARGE: Greater than 35 minutes. Vital Signs/I&Os Vital Signs Date Time Temp Pulse Resp B/P (MAP) Pulse Ox O2 Delivery O2 Flow Rate FiO2 05/21/19 14:00 96.4 66 15 130/65 (86) 85 05/18/19 17:58 Room Air Microbiology Microbiology 05/19/19 Gram Stain - Final, Complete 05/19/19 Body Fluid Culture - Final, Complete Discharge Medications Scheduled Acitretin (Acitretin) 10 Mg Cap, 10 MG PO QPM, (Reported) Brimonidine Tartrate (Alphagan P) 100 Drop/5 Ml Soln, 1 DROP OS BID, (Reported) Calcitriol (Calcitriol) 0.25 Mcg Cap, 0.25 MCG PO DAILY, (Reported) Cinacalcet (Sensipar) 30 Mg Tab, 30 MG PO Q2D, (Reported) Dicyclomine HCl (Dicyclomine HCl) 10 Mg Cap, 10 MG PO TID, (Reported) BEFORE MEALS Ergocalciferol (Vitamin D2) (Drisdol) 50,000 Unit Cap, 50,000 UNIT PO 1XWK, (Reported) MONDAYS Fenofibrate,Micronized (Fenofibrate) 134 Mg Capsule, 134 MG PO DAILY, (Reported) Folic Acid (Folic Acid) 1 Mg Tab, 1 MG PO DAILY, (Reported) Folic Acid/Vit B Complex and C (Monique-Jimbo Tablet) 1 Tab Tab, 1 TAB PO QPM, (Reported) Metoprolol Succinate (Toprol Xl) 50 Mg Tab, 50 MG PO QPM, (Reported) Metoprolol Succinate (Metoprolol Succinate) 50 Mg Tab.er.24h, 25 MG PO DAILY, (Reported) Mupirocin (Mupirocin) 2 % Oin, 1 APLCT TOP ASDIRECTED, (Reported) TO CATH SITE AND AFFECTED AREA(S) Mupirocin (Mupirocin) 22 Gm Oint...g., 1 APLCT TOP BID, (Reported) APPLY ON LEFT SHOULDER AND LEFT NECK WOUND Prednisone (Prednisone) 1 Mg Tab, 4 MG PO DAILY, (Reported) Sevelamer Carbonate (Renvela) 800 Mg Tablet, 1,600 MG PO WM, (Reported) Sevelamer Carbonate (Renvela) 800 Mg Tablet, 800 MG PO ASDIRECTED, (Reported) WITH SNACKS Simvastatin (Simvastatin) 20 Mg Tab, 20 MG PO QHS, (Reported) Scheduled PRN Acetaminophen (Acetaminophen) 500 Mg Tablet, 1,000 MG PO Q4H PRN for PAIN, (Reported) Hydralazine HCl (Hydralazine HCl) 25 Mg Tablet, 25 MG PO BID PRN for BP >140, (Reported) Loperamide HCl (Loperamide) 2 Mg Capsule, 2 MG PO QID PRN for DIARRHEA, (Reported) Ondansetron HCl (Ondansetron HCl) 4 Mg Tablet, 4 MG PO Q8H PRN for NAUSEA OR VOMITING, (Reported) Allergies Coded Allergies: Sulfa (Sulfonamide Antibiotics) (Verified Adverse Reaction, Mild, n/v, 05/07/19) lactose (Verified Adverse Reaction, Mild, intolerant, 05/07/19) morphine (Verified Adverse Reaction, Mild, vomitting, 05/07/19) sulfamethoxazole (Verified Adverse Reaction, Mild, n/v, 05/07/19) trimethoprim (Verified Adverse Reaction, Mild, n/v, 05/07/19) LAMINE CARDOSO MD May 23, 2019 17:40
== END 2019-05-21 17:10 | disposition home or self-care (01) | DRG 947 ==
LOC: M ED 16:13 → EDBD 16:13 → M ED INP 16:14 → UNDOADMOB 18:53 → M MSPAV 23:57 → OBSVTOIN 05-20 15:36
PROVIDERS: ADMIT Internal Medicine; ATTEND Internal Medicine
DX: R53.1 Weakness (principal); N18.6 End stage renal disease; Z94.0 Kidney transplant status; N25.81 Secondary hyperparathyroidism of renal origin; I12.0 Hypertensive chronic kidney disease with stage 5 chronic kidney disease or end stage renal disease; D63.1 Anemia in chronic kidney disease; E78.5 Hyperlipidemia, unspecified; F32.9 Major depressive disorder, single episode, unspecified; Z79.899 Other long term (current) drug therapy; Z88.2 Allergy status to sulfonamides; Z88.5 Allergy status to narcotic agent; Z88.8 Allergy status to other drugs, medicaments and biological substances; E73.9 Lactose intolerance, unspecified; Z85.828 Personal history of other malignant neoplasm of skin; Z96.641 Presence of right artificial hip joint; Z96.642 Presence of left artificial hip joint; Z89.012 Acquired absence of left thumb

== ENCOUNTER 2019-06-22 06:00 | Day surgery (SDC) | payer MEDICARE, BC, OTHER ==
[~2019-06-22] VITALS: Ht 148.6 cm; Wt 44.0 kg
[~2019-06-22 06:00] MED LIST changes: +LIDOCAINE 1% MDV 20ML VIAL SQ PRN; -MIRC0.3I IJ; +MIRC100I INJ; +MIRC75IN IJ; -[UNRECOGNIZED DRUG - CODE] INJ; +heparin
[2019-06-22] MEDS ORDERED: LR 1,000 ML IV ONE (07:00)
[2019-06-22] MEDS ORDERED: LIDOCAINE 2% INJ 100 MG/5 ML SDV (FOR ANES.) As Ordered ONE (07:06)
[2019-06-22] MEDS ORDERED: PROPOFOL 200 MG/20 ML VIAL As Ordered ONE (07:06)
[2019-06-22] MEDS ORDERED: MIDAZOLAM INJ 2 MG/2 ML VIAL (J2250) As Ordered ONE (07:06)
[2019-06-22] MEDS ORDERED: fentaNYL 100 MCG/2 ML INJECTION (J3010) As Ordered ONE (07:06)
[2019-06-22] MEDS ORDERED: CLINDAMYCIN IV ONE (07:15)
[2019-06-22] MEDS ORDERED: DILUENT IV ONE (07:15)
[2019-06-22] MEDS ORDERED: LIDOCAINE 2% W/EPIN INJ 20ML **PRES FREE As Ordered ONE (07:32)
[2019-06-22] MEDS ORDERED: LACRILUBE (AKWA TEARS) OPHTH OINT 3.5 GM As Ordered ONE (08:23)
[2019-06-22] MEDS ORDERED: ePHEDrine SULFATE 25 MG/5 ML(5MG/ML) SYRINGE As Ordered ONE (08:50)
--- NOTE | 2019-06-22 10:05 | POST-OPPD ---
Postoperative Procedure Note Date Of Procedure: Jun 22, 2019 PREOPERATIVE DIAGNOSIS: Left shoulder malignant lesion POSTOPERATIVE DIAGNOSIS: same FINDINGS: Round lesion 2.2 x 2 cm, raised PROCEDURE: Excision malignant lesion left shoulder with frozen section. SURGEON: Dr Owen ANESTHESIA: local with sedation SPECIMENS: Left shoulder malignant lesion (FS). Left shoulder lesion margin ring, suture at 12 o'clock inner side (FS). Additional margin 12 and 6 o'clock. ESTIMATED BLOOD LOSS: 5cc REPLACED: none DRAINS: none COMPLICATIONS: none POSTOPERATIVE CONDITION: stable Dict: [id number] CECILE OWEN DO Jun 22, 2019 10:05
[2019-06-22] MEDS ORDERED: fentaNYL 100 MCG/2 ML INJECTION (J3010) IV PRN (10:15)
[2019-06-22] MEDS ORDERED: METOCLOPRAMIDE INJ 10MG/2ML VIAL (J2765) IV PRN (10:15)
[2019-06-22] MEDS ORDERED: NS 1,000 ML IV SCH (10:15)
[2019-06-22] MEDS ORDERED: ONDANSETRON 4MG/2ML VIAL (J2405) IV PRN (10:15)
[2019-06-22] MEDS ORDERED: PERCOCET 5MG/325MG TAB PO PRN (10:15)
[2019-06-22 10:25] VITALS: BP 149/63
--- NOTE | 2019-06-22 11:24 | RO ---
DATE OF PROCEDURE: 06/22/2019 PREPROCEDURE DIAGNOSIS: Left shoulder malignant lesion. POSTPROCEDURE DIAGNOSIS: Left shoulder malignant lesion. PROCEDURE: Excision of malignant lesion from left shoulder with frozen section. ATTENDING SURGEON: Dr. Oh ANESTHESIA: Local with sedation. SPECIMENS SENT: Left shoulder malignant lesion, frozen section. Left shoulder lesion margin ring. Sutures marking 12 o'clock on the inner side. On the malignant lesion, sutures marking 12 o'clock as well. Two permanent sections of additional margin 12 o'clock and additional margin 6 o'clock. ESTIMATED BLOOD LOSS: 5 mL. COMPLICATIONS: None. DRAINS: None. PROCEDURE: This is a 68-year-old female who has a fast growing lesion on her left shoulder. Biopsy confirming squamous cell. The patient is scheduled for a former wide resection with frozen section and closure in the operating room. All the risks, benefits and alternatives were discussed with the patient and she is ready to proceed. On the day of surgery, she was marked in the preoperative holding area. The lesion is 2.2 x 2 cm in diameter. It is raised and fixed to underlying structures. The patient was brought into the operating room and placed in supine position. Preoperative antibiotics were given. Sequentials placed on the lower calves. She was prepped and draped in the usual sterile fashion. Sedation was given to the patient by anesthesia and then 2% Lidocaine with epinephrine was infiltrated in the area of the outlined lesion plus 7 mm margins. After the effects of local anesthesia was ensured, incision was made using 10 blade. The dissection was partially done with scissor dissection, full thickness tumor was completely resected with a margin of healthy appearing subcuticular tissue. The mass invaded the muscle sheath and laterally to the capsule of the shoulder joint. Around the 12 o'clock margin there was a small lymph node that was adjacent to the tumor as well. The tumor was taken out and sent to pathology for frozen section. An additional margin of 3 mm was taken and that margin was sent for frozen and that came back clear from malignancy. I then started undermining under direct vision and closure was done in layers with interrupted 3-0 Vicryl sutures, 4-0 Monocryl, and running suture of 5-0 plain, total incision was 8 cm in length. Xeroform and an occlusive dressing was placed. The patient tolerated the procedure well and was transferred to the recovery room in stable condition. FRANKLIN
== END 2019-06-22 12:22 | disposition home or self-care (01) ==
LOC: M SDC 06:00
PROVIDERS: ATTEND Plastic Surgery Surgery of the Hand
DX: C44.629 Squamous cell carcinoma of skin of left upper limb, including shoulder (principal); L57.0 Actinic keratosis; L56.8 Other specified acute skin changes due to ultraviolet radiation; I10 Essential (primary) hypertension; E78.49 Other hyperlipidemia; K57.90 Diverticulosis of intestine, part unspecified, without perforation or abscess without bleeding; K21.9 Gastro-esophageal reflux disease without esophagitis; Z94.0 Kidney transplant status; Z92.3 Personal history of irradiation; Z79.899 Other long term (current) drug therapy; F41.9 Anxiety disorder, unspecified; F32.9 Major depressive disorder, single episode, unspecified; Z88.0 Allergy status to penicillin; Z88.8 Allergy status to other drugs, medicaments and biological substances
CPT/HCPCS: 11603; 12034; 36415; 84132; 88305; 88331; J2250; J3010

== ENCOUNTER → 2019-08-10 | Outpatient (REF) | payer MEDICARE, BC, OTHER ==
[~2019-08-10] MED LIST changes: +FENO48TA13 PO; -FENO48TA2 PO; +HYOS125TA PO; -LIDOCAINE 1% MDV 20ML VIAL SQ PRN; +LORA0.5T11 PO; +MORP20SO3 PO; -SIMV20TA2 PO; +SIMV20TA22 PO
== END ==
LOC: M SFHCPLAZ 10:37
PROVIDERS: ATTEND Dermatology
DX: C44.42 Squamous cell carcinoma of skin of scalp and neck (principal); C44.622 Squamous cell carcinoma of skin of right upper limb, including shoulder; C44.729 Squamous cell carcinoma of skin of left lower limb, including hip; C44.629 Squamous cell carcinoma of skin of left upper limb, including shoulder

== ENCOUNTER 2019-08-17 10:52 | Inpatient (IN) | payer MEDICARE, BC, OTHER ==
[~2019-08-17] VITALS: Ht 147.3 cm; Wt 42.8 kg
[~2019-08-17 10:52] MED LIST changes: -HYOS125TA PO; -LORA0.5T11 PO; -MORP20SO3 PO
[2019-08-17] MEDS ORDERED: NS 1,000 ML IV SCH (11:05)
[2019-08-17] MEDS ORDERED: ONDANSETRON 4 MG ORAL DISINTEGRATING TAB (Q0162 PER 1MG) PO ONE (11:15)
[2019-08-17 13:01] LABS: INR 1.37; PROTHROMBIN TIME 16.6 SECONDS (11.8-14.0)
[2019-08-17 13:08] LABS: BASO % 0.2 % (0.0-1.0); EOS # 0.1 10^3/uL (0.0-0.5); EOS % 0.5 % (0.0-3.0); HEMATOCRIT 33.7 % (36.0-47.0); LYMPH # 1.1 10^3/uL (1.5-5.0); LYMPH % 6.7 % (24.0-44.0); MEAN CORPUSCULAR HEMOGLOBIN 33.2 pg (27.0-33.0); MEAN CORPUSCULAR HGB CONC 32.6 g/dl (32.0-36.5); MEAN CORPUSCULAR VOLUME 101.8 fl (80.0-96.0); MONO # 0.9 10^3/uL (0.0-0.8); MONO % 5.4 % (0.0-5.0); NEUTROPHILS # 14.3 10^3/uL (1.5-8.5); NEUTROPHILS % 85.6 % (36.0-66.0); PLATELET COUNT, AUTOMATED 236 10^3/uL (150-450); RED BLOOD COUNT 3.31 10^6/uL (4.00-5.40); WHITE BLOOD COUNT 16.7 10^3/uL (4.0-10.0)
[2019-08-17] MEDS ORDERED: POTASSIUM CHLORIDE 10 MEQ SR TABLET PO ONE (13:15)
[2019-08-17 13:43] LABS: ALBUMIN 1.5 GM/DL (3.2-5.2); BILIRUBIN,DIRECT 0.4 MG/DL (0.0-0.2); BILIRUBIN,TOTAL 0.7 MG/DL (0.2-1.0); CK-MB VALUE MASS 1.6 NG/ML (<3.6); MB/CK RELATIVE INDEX 10.67 (< OR =4); TOTAL PROTEIN 5.4 GM/DL (6.4-8.2); TROPONIN I 0.02 NG/ML (< 0.10)
[2019-08-17 17:19] LABS: MAGNESIUM LEVEL 1.3 MG/DL (1.8-2.4)
[2019-08-17] MEDS ORDERED: ACETAMINOPHEN TAB 650MG DOSE (2X325MG) PO PRN (17:45)
[2019-08-17] MEDS ORDERED: MAG SULF 1GM/100ML (MAG RUN) 1 GM in IV 1 EA IV ONE ×2 (18:00→19:00)
[2019-08-17] MEDS ORDERED: POTASSIUM CHLORIDE 10% LIQ 20 MEQ/15 ML UDC PO ONE (18:15)
[2019-08-17] MEDS ORDERED: ONDANSETRON 4 MG TAB (S0181) PO PRN ×2 (18:30→19:00)
[2019-08-17] MEDS ORDERED: **hydrALAZINE HCL** 25 MG TAB PO PRN (18:30)
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
[2019-08-17] MEDS: MUPIROCIN 2% OINT 22 GM TUBE TOP SCH (21:00)
[2019-08-17] MEDS ORDERED: SIMVASTATIN 20 MG TAB PO SCH (21:00)
[2019-08-17] MEDS: BRIMONIDINE 0.1% OPHTH SOLN 5 ML OS SCH (21:00)
[2019-08-17] MEDS: METOPROLOL SUCC (TopROL XL) 50MG **XL** TAB PO SCH (22:32)
[2019-08-17 23:21] VITALS: BP 126/72
[2019-08-18] MEDS: ACETAMINOPHEN 500 MG TAB PO PRN ×4 (00:03→23:35)
[2019-08-18] MEDS ORDERED: traMADol 50 MG TAB PO ONE (00:30)
[2019-08-18] MEDS: ONDANSETRON 4MG/2ML VIAL (J2405) IV PRN ×2 (00:34→10:09)
[2019-08-18 02:02] LABS: PERITONEAL DIALYSATE FL COLOR PALE YELLOW (COLORLESS); SOURCE, BODY FLUID PERITONEAL DIALYSATE
[2019-08-18 02:03] LABS: APPEARANCE, BODY FLUID CLEAR (CLEAR)
--- NOTE | 2019-08-18 05:37 | ECGEPIP ---
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
[2019-08-18 06:00] VITALS: BP_SYST 113; BP_SYST 122; BP_SYST 93; BP_DIAS 58; BP_DIAS 62
[2019-08-18] MEDS ORDERED: NS 1,000 ML IV SCH (07:15)
[2019-08-18 07:16] LABS: HEMATOCRIT 35.7 % (36.0-47.0); HEMOGLOBIN 11.4 g/dl (12.0-15.5); MEAN CORPUSCULAR HEMOGLOBIN 33.7 pg (27.0-33.0); MEAN CORPUSCULAR HGB CONC 31.9 g/dl (32.0-36.5); MEAN CORPUSCULAR VOLUME 105.6 fl (80.0-96.0); PLATELET COUNT, AUTOMATED 269 10^3/uL (150-450); RED BLOOD COUNT 3.38 10^6/uL (4.00-5.40); WHITE BLOOD COUNT 17.8 10^3/uL (4.0-10.0)
[2019-08-18] MEDS: DICYCLOMINE 10 MG CAP PO SCH ×3 (07:30→18:14)
[2019-08-18 07:44] LABS: ALBUMIN 1.5 GM/DL (3.2-5.2); BILIRUBIN,TOTAL 0.6 MG/DL (0.2-1.0); CALCIUM LEVEL 9.2 MG/DL (8.8-10.2); CREATININE FOR GFR 4.84 MG/DL (0.55-1.30); GLOMERULAR FILTRATION RATE 9.4 (>39); MAGNESIUM LEVEL 2.5 MG/DL (1.8-2.4); POTASSIUM SERUM 4.6 MEQ/L (3.5-5.1); TOTAL PROTEIN 5.6 GM/DL (6.4-8.2)
[2019-08-18] MEDS ORDERED: METOPROLOL SUCC *XL* 25MG TAB (TopROL *XL*) PO SCH (09:00)
[2019-08-18] MEDS: BRIMONIDINE 0.1% OPHTH SOLN 5 ML OS SCH ×2 (10:04→22:15)
[2019-08-18] MEDS: (RENVELA) SEVELAMER **CARBONate** 800 MG TAB PO SCH ×3 (10:08→18:14)
[2019-08-18] MEDS: MUPIROCIN 2% OINT 22 GM TUBE TOP SCH ×2 (10:08→22:15)
[2019-08-18] MEDS: CALCITRIOL 0.25 MCG CAP (S0169) PO SCH (10:08)
[2019-08-18] MEDS: predniSONE 1 MG TAB PO SCH (10:19)
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
--- NOTE | 2019-08-18 12:50 | CR ---
DATE OF CONSULTATION: 08/18/2019 REQUESTING PHYSICIAN: Dr. Carlotta Villanueva CONSULTING PHYSICIAN: Dr. Alvarado REASON FOR CONSULTATION: Management of end-stage renal disease and peritoneal dialysis. CHIEF COMPLAINT: The patient presented to the hospital yesterday with nausea, vomiting, diarrhea and weakness. 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 She reports that she was feeling very weak and dehydrated for the last 3-4 days. She was having vomiting associated with about three to four episodes of diarrhea every day. She had generalized weakness. She denies any fevers and chills. She was unable to keep any food down so she came to the hospital. When she arrived in the hospital, she was found to have hypokalemia. Her potassium was repleted. Because of generalized weakness and diarrhea, the patient was admitted under the hospitalist service to make sure she does not have Clostridium difficile colitis or peritonitis. The patient was given potassium repletion overnight. Nephrology service was called for further help in the management of this patient's end-stage renal disease and arrangement of peritoneal dialysis. The patient was discussed by myself with the admitting physician last night. I ordered the peritoneal dialysis. The patient got two exchanges last night and she tolerated the exchanges well. I saw and evaluated the patient today morning. She has been started on IV fluid hydration because of orthostatic hypotension. 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 PAST SURGICAL HISTORY: History of a kidney transplant in the past which was later on removed because of rejection. Status post hysterectomy. Status post multiple squamous cell cancer lesions removal from the neck and from the upper extremities. History of bilateral hip replacements. Status post peritoneal dialysis catheter placement. Bilateral craig nephrectomies. status post fecal transplant times three. ALLERGIES: She is allergic to SULFA DRUGS, LACTOSE and MORPHINE. FAMILY HISTORY: Positive family history of hypertension, CVA in father, and rheumatoid arthritis in the mother. SOCIAL HISTORY: The patient lives at home. She denies any smoking, illicit drug abuse or alcohol abuse. REVIEW OF SYSTEMS: Constitutional: The patient reports feeling very weak, tired and fatigued. Eyes: She denies any blurry vision or double vision. ENT: She denies any dysphagia or odynophagia. Cardiovascular: She denies any chest pain. She does report lightheadedness. Respiratory: She denies any shortness of breath or cough. GI: She reports nausea, vomiting and diarrhea. Genitourinary: She denies any dysuria. She does not make any urine because of history of nephrectomy. Musculoskeletal: She reports recent fall and pain in her chest. Skin: She reports multiple skin cancer lesions. CHARGE AIDE: She reports generalized weakness. Psych: She has history of depression. All other review of systems is negative. PHYSICAL EXAMINATION: General: The patient is awake, alert, oriented times three, laying in bed. Vital Signs: Temperature is 97.8 degrees Fahrenheit, blood pressure 122/62, pulse 89, respiratory of 16, saturating 100% on room air. Head and Neck Exam: Extraocular muscles intact. Pupils equally round and reactive to light. Mucous membranes are moist. She has multiple precancerous lesions on the neck. She has two dressings on the neck from recent cancer resections. Cardiovascular: S1 and S2, regular rate. 1+ edema of the bilateral lower extremities. Respiratory: Mildly decreased breath sounds at the bases, otherwise no active rales or rhonchi. Abdomen: Soft. Positive bowel sounds. Mildly tender to deep palpation. PD catheter in the left lower quadrant with clean exit site. Musculoskeletal: No clubbing or cyanosis. Pulses are 2+. CHARGE AIDE: No focal deficit. Power is 5/5 in all extremities. Skin: Multiple cancerous and precancerous skin lesions. LAB REVIEW: CBC showed WBC of 17.8, hemoglobin 11.4, platelets 269. Peritoneal fluid cell count is 27 and polymorphonuclears are 51%. Point of care potassium was 2.5 yesterday. BMP done today morning showed sodium 137, potassium 4.6, chloride 102, bicarb 23, BUN 42, creatinine 4.8, calcium 9.2, magnesium 2.5, AST 65, ALT 47, alkaline phosphatase 256, and albumin is 1.5. CURRENT INPATIENT MEDICATIONS: The patient is getting mag sulfate 1 gram IV times one dose. She has been started on normal saline at 40 mL an hour. She is on Tylenol p.r.n., Mylanta p.r.n. for dyspepsia, calcitriol 0.25 mcg by mouth daily, Bentyl 10 mg p.o. with meals. She was on metoprolol 50 mg in the evening and 25 mg in the morning. I have changed it to 50 mg once a day only. She has Zofran p.r.n., potassium chloride 40 mEq by mouth and one dose was given yesterday at night. She is on prednisone 4 mg daily, Renvela 800 mg by mouth with meals and tramadol 50 mg by mouth at bedtime. ASSESSMENT: 69-year-old female with end-stage renal disease on peritoneal dialysis, history of hypertension, secondary hyperparathyroidism, multiple Clostridium difficile in the past admitted this time with nausea, vomiting, diarrhea, generalized weakness and hypokalemia. PLAN: 1. End-stage renal disease on peritoneal dialysis. I have ordered gentle peritoneal dialysis five manual exchanges all 1.5% or 1 liter to be done while she is in the hospital. 2. Hypokalemia. The patient's potassium is better now. She was given two doses of potassium chloride 40 mEq, one in the afternoon and the other one in the evening. Potassium is acceptable now. 3. Nausea, vomiting and diarrhea. The patient has generalized weakness. She has orthostatic hypotension. She has been started on gentle IV fluid hydration of normal saline at 40 mL an hour for a total of 1 liter. 4. Hypertension with end-stage renal disease. The patient has orthostatic hypotension, p.r.n. hydralazine has been stopped and metoprolol dose has been decreased to 50 mg by mouth daily only. 5. Secondary hyperparathyroidism. Continue home dose of calcitriol 0.25 mcg by mouth daily. 6. Hyperlipidemia. Because of generalized muscle aches and pains, her simvastatin is being held at this time. 7. Multiple squamous cell cancer lesions of the skin. The patient follows up with the networking specialist as outpatient. Thank you for involving me in the care of this patient. I shall be happy to follow the patient along with you tomorrow morning.
--- NOTE | 2019-08-18 12:50 | REP ---
A PA and lateral chest with the the patient sitting: Comparison is 12/28/2018. The lung lemus are clear. There is an cardiac apical epicardial fat pad, unchanged. Cardiac size is upper normal. There is tortuosity of the thoracic aorta, unchanged. The deborah, mediastinum are otherwise unremarkable. There is a deformity of the right humeral head, unchanged. Impression: No acute cardiopulmonary findings. Electronically Signed by Karthikeyan Rooney MD 08/18/2019 12:41 P
[2019-08-18 14:00] VITALS: BP 116/53
[2019-08-18 20:00] VITALS: BP 133/61
[2019-08-18] MEDS: METOPROLOL SUCC (TopROL XL) 50MG **XL** TAB PO SCH (21:00)
[2019-08-19 05:46] LABS: HEMATOCRIT 29.4 % (36.0-47.0); MEAN CORPUSCULAR HEMOGLOBIN 33.2 pg (27.0-33.0); MEAN CORPUSCULAR HGB CONC 31.3 g/dl (32.0-36.5); MEAN CORPUSCULAR VOLUME 106.1 fl (80.0-96.0); PLATELET COUNT, AUTOMATED 182 10^3/uL (150-450); RED BLOOD COUNT 2.77 10^6/uL (4.00-5.40); WHITE BLOOD COUNT 15.1 10^3/uL (4.0-10.0)
[2019-08-19 05:48] LABS: HEMOGLOBIN 9.2 g/dl (12.0-15.5)
[2019-08-19 06:00] VITALS: BP_SYST 105; BP_SYST 140; BP_SYST 141; BP_DIAS 46; BP_DIAS 53
[2019-08-19 06:08] LABS: ALBUMIN 1.2 GM/DL (3.2-5.2); BILIRUBIN,TOTAL 0.6 MG/DL (0.2-1.0); CALCIUM LEVEL 8.7 MG/DL (8.8-10.2); CREATININE FOR GFR 4.51 MG/DL (0.55-1.30); GLOMERULAR FILTRATION RATE 10.2 (>39); POTASSIUM SERUM 4.1 MEQ/L (3.5-5.1); TOTAL PROTEIN 4.6 GM/DL (6.4-8.2)
[2019-08-19] MEDS: predniSONE 1 MG TAB PO SCH (08:11)
[2019-08-19] MEDS: CALCITRIOL 0.25 MCG CAP (S0169) PO SCH (08:11)
[2019-08-19] MEDS: (RENVELA) SEVELAMER **CARBONate** 800 MG TAB PO SCH ×3 (08:12→18:25)
[2019-08-19] MEDS: DICYCLOMINE 10 MG CAP PO SCH ×3 (08:12→18:25)
[2019-08-19] MEDS: BRIMONIDINE 0.1% OPHTH SOLN 5 ML OS SCH ×2 (08:15→21:53)
[2019-08-19] MEDS: MUPIROCIN 2% OINT 22 GM TUBE TOP SCH ×2 (08:16→21:53)
[2019-08-19] MEDS: DARBEPOETIN 100 MCG/0.5 ML *NON-DIALYSIS* SYRINGE (J0881) SC SCH (10:38)
--- NOTE | 2019-08-19 10:51 | IPNPDOC ---
Text Note Date of Service The patient was seen on 08/19/19. NOTE SUBJECTIVE: Patient was examined this morning in her room. She complained of sharp sternal pain as well as rib pain. She denied any shortness of breath. She denied any chest pain. She has not had any bowel movement since presentation. OBJECTIVE: PHYSICAL EXAMINATION: GENERAL APPEARANCE: Elderly, frail , female LUNGS: Clear to auscultation bilaterally. HEART: Normal S1, S2. No murmurs, no rubs, no gallops ABDOMEN: Soft, ND, no tenderness, +PD catheter EXTREMITIES: Moves all extremities equally. No gross deformities. PULSES: 2+ upper and lower extremity LABORATORY DATA: Please see below. IMAGING: Chest x-ray pending ASSESSMENT AND PLAN: 69-year-old female with a history of ESRD on peritoneal dialysis and recurrent C. difficile infections who presents with 3-4 day history of vomiting and diarrhea, possibly secondary to gastroenteritis or a recurrence of C. difficile colitis, with electrolyte abnormalities including low potassium and low magnesium, likely secondary to vomiting. PLAN: 1. Vomiting and diarrhea - possibly 2/2 gastroenteritis, unlikely 2/2 recurrence of C. difficile, unlikely 2/2 peritonitis - Patient's positive for C. difficile, however she had formed stools, she has previously received deficit, as well as stool transplant, I believe patient is colonized. No treatment this time. We'll monitor her clinically - Patient is on soft diet; will continue to advance as tolerated - Continue home Bentyl - Clinically nontoxic appearing, no signs of dehydration, we'll continue to monitor. Leukocytosis - likely 2/2 reactive etiology; Less likely 2/2 infection - Will continue to hold off on antibiotics 2. Significant rib pain, secondary due to trauma. - She reported that she was grabbed out of the air during a mechanical fall -Chex x-ray negative, no signs of fracture - c/w PT / OT 3.Positive orthostatics. Patient has a history of orthostatic hypotension -Continues to have positive orthostatics -Nephrology has held patient's hydralazine, and has reduced her metoprolol to 50 mg by mouth daily 4. Hypokalemia. Replaced with oral replenishment -Will continue to monitor 5. Hypomagnesemia Replaced with IV magnesium runs. Currently within normal limits, we'll continue monitor 6. End-stage renal disease On peritoneal dialysis at home every night. Will continue in the hospital -Peritoneal fluid was negative for infection Consulted nephrology 7. Hypertension - s/p Hydralazine - c/w Metoprolol 8. Squamous cell carcinoma of the skin. Requested patient bring in her own acitretin to continue treatment. 9. Abnormal LFTs next Patient has history of elevated LFTs on presentation for past admissions Hold home statin, monitor LFTs daily. DVT prophylaxis: Teds and sequentials VS,Fishbone, I+O VS, Fishbone, I+O Laboratory Tests 08/19/19 05:40 Vital Signs Date Time Temp Pulse Resp B/P (MAP) Pulse Ox O2 Delivery O2 Flow Rate FiO2 08/19/19 06:00 75 140/53 (82) 82 141/53 (82) 84 105/46 (65) 08/18/19 20:00 97.6 18 98 Room Air I&O- Last 24 Hours up to 6 AM 08/19/19 06:00 Intake Total 4000 ml Output Total 4850 ml Balance -850 ml GME ATTESTATION GME ATTESTATION My faculty preceptor for this patient encounter was physically present during the encounter and was fully available. All aspects of the patient interview, examination, medical decision making process, and medical care plan development were reviewed and approved by the faculty preceptor. The faculty preceptor is aware and concurs with the plan as stated in the body of this note and will attest to such by his/her cosignature. ATTENDING NOTE I, Keith Mao, have independently examined this patient and performed my own physical exam, as well as reviewed the documentation and edited where necessary. I have discussed in detail with the resident / student the findings and plan of treatment as documented by the resident / student and edited their note. I agree with their findings and treatment plan and have edited their documentation. I will continue to follow the patient during this hospital stay. JIM MATHEW DO Aug 19, 2019 10:29 KEITH MAO MD Aug 19, 2019 14:51
[2019-08-19] MEDS ORDERED: NS 1,000 ML IV SCH (11:00)
--- NOTE | 2019-08-19 12:57 | IPN ---
DATE: 08/19/2019 OBJECTIVE: The patient was seen and examined at the bedside this morning. The patient reports that she is having formed stools. Her nausea is better. She was able to keep some food down. However, she reports nausea after taking her medications only. Stool for Clostridium (C.) difficile was done yesterday but it was done on a formed stool. It came back positive but the patient is a chronic carrier and she has history of three fecal transplants in the past. The patient is otherwise tolerating the peritoneal dialysis and she is hemodynamically stable. OBJECTIVE Vital signs: Temperature is 97. 6 degrees Fahrenheit, blood pressure is 140/53, pulse is 75, respiratory of 18, saturating 98% on room air. Intake and output, there is no urine output recorded. The patient is anuric. h/o nephrectomy.peritoneal dialysis, there is no ultrafiltration. Weight on the bed scale is not available. PHYSICAL EXAMINATION: General: The patient is awake, alert, oriented times three. She is weak and lethargic, laying in bed in no apparent distress. Head and neck exam: Extraocular muscles intact. Pupils equally round and reactive to light. Mucous membranes are moist. She has multiple precancerous and cancerous lesions on the face and neck. Cardiovascular: S1, S2. Regular rate. Trace edema of the bilateral lower extremities. Respiratory: Chest is clear to auscultation bilaterally. Bilateral equal air entry. No rales or rhonchi. Abdomen is soft, positive bowel sounds. Left lower quadrant PD catheter. Mild tenderness to the palpation in the left lower quadrant. Musculoskeletal: She has chronic venous stasis changes of the lower extremities, 1+ edema of the lower extremities, otherwise she moves extremities. Skin: She has multiple cancers and precancerous lesions all over the body. Central nervous system (TOOL WORKER): No focal deficit. Power is 5/5 in all extremities. LABORATORY REVIEW: CBC showed a WBC of 15.1, hemoglobin is 9.2, platelets of 182. BMP showed sodium 139, potassium 4.1, chloride 106, bicarbonate 24, BUN 38, creatinine is 4.5, calcium 8.7, AST 42, ALT is 37, alkaline phosphatase is 181, albumin is 1.2. Microbiology: Stool for C diff is positive; however, it was done on of formed stool. CURRENT INPATIENT MEDICATIONS: The patient's medications were all reviewed by me. The patient got 1 liter of IV fluid yesterday. I am going to stop the fluids at this time. No other change in the medications today as compared with yesterday. ASSESSMENT/PLAN: 1. End-stage renal disease on peritoneal dialysis. Continue current gentle peritoneal dialysis regimen of five exchanges all 1 liter all 1.5%. 2. Diarrhea. The patient's Clostridium (C.) difficile came back positive; however, it was on formed stool. Frequency of diarrhea is improving. IV fluids are being stopped. Continue to encourage oral hydration. 3. Hypertension with end-stage renal disease. The patient has orthostatic hypotension. Her metoprolol dose was decreased yesterday. 4. Anemia in end-stage renal disease, hemoglobin is 9.2, which is lower than yesterday. I have started Aranesp 100 mcg subcutaneous once a week. 5. Chronic kidney disease mineral bone disease. Continue current dose of Renvela 800 mg p.o. with meals. MTDD
[2019-08-19 14:00] VITALS: BP_SYST 113; BP_SYST 114; BP_SYST 127; BP_SYST 98; BP_DIAS 60; BP_DIAS 64; BP_DIAS 65; BP_DIAS 67
[2019-08-19] MEDS ORDERED: ENTER DRUG NAME HERE (PATIENT'S OWN MED) PO SCH (21:15)
[2019-08-19] MEDS: SIMVASTATIN 20 MG TAB PO SCH (21:53)
[2019-08-19] MEDS: METOPROLOL SUCC (TopROL XL) 50MG **XL** TAB PO SCH (21:59)
[2019-08-19 22:00] VITALS: BP_SYST 134; BP_SYST 138; BP_SYST 139; BP_SYST 143; BP_DIAS 56; BP_DIAS 60; BP_DIAS 62
[2019-08-20 06:00] VITALS: BP 136/55
[2019-08-20 06:14] VITALS: BP_SYST 136; BP_SYST 138; BP_SYST 94; BP_DIAS 45; BP_DIAS 53; BP_DIAS 83
[2019-08-20 06:15] LABS: HEMATOCRIT 30.6 % (36.0-47.0); HEMOGLOBIN 9.4 g/dl (12.0-15.5); MEAN CORPUSCULAR HEMOGLOBIN 33.5 pg (27.0-33.0); MEAN CORPUSCULAR HGB CONC 30.7 g/dl (32.0-36.5); MEAN CORPUSCULAR VOLUME 108.9 fl (80.0-96.0); PLATELET COUNT, AUTOMATED 218 10^3/uL (150-450); RED BLOOD COUNT 2.81 10^6/uL (4.00-5.40); WHITE BLOOD COUNT 15.2 10^3/uL (4.0-10.0)
[2019-08-20 06:44] LABS: ALBUMIN 1.3 GM/DL (3.2-5.2); BILIRUBIN,TOTAL 0.8 MG/DL (0.2-1.0); CALCIUM LEVEL 8.8 MG/DL (8.8-10.2); CREATININE FOR GFR 4.66 MG/DL (0.55-1.30); GLOMERULAR FILTRATION RATE 9.9 (>39); MAGNESIUM LEVEL 1.8 MG/DL (1.8-2.4); POTASSIUM SERUM 4.3 MEQ/L (3.5-5.1); TOTAL PROTEIN 4.5 GM/DL (6.4-8.2)
[2019-08-20] MEDS: DICYCLOMINE 10 MG CAP PO SCH ×3 (07:30→18:18)
[2019-08-20] MEDS: (RENVELA) SEVELAMER **CARBONate** 800 MG TAB PO SCH ×4 (08:00→18:18)
[2019-08-20] MEDS: predniSONE 1 MG TAB PO SCH (09:55)
[2019-08-20] MEDS: CALCITRIOL 0.25 MCG CAP (S0169) PO SCH (09:56)
[2019-08-20] MEDS: MUPIROCIN 2% OINT 22 GM TUBE TOP SCH ×2 (09:57→22:34)
[2019-08-20] MEDS: BRIMONIDINE 0.1% OPHTH SOLN 5 ML OS SCH ×2 (09:57→22:33)
[2019-08-20 11:31] LABS: APPEARANCE, BODY FLUID CLEAR (CLEAR); PERITONEAL FL COLOR COLORLESS (COLORLESS); SOURCE, BODY FLUID PERITONEAL
--- NOTE | 2019-08-20 12:43 | IPN ---
DATE OF SERVICE: 08/20/2019 SUBJECTIVE: The patient was seen and examined at the bedside today morning. She is afebrile. She still has some orthostatic hypotension. The patient reports pain in the back and she takes her on Tylenol, which she brings from home. The patient also got dressing change on the left-sided neck wound. Wound culture was sent and results are still pending. OBJECTIVE: Vital signs: Temperature is 98.1 degrees Fahrenheit. Blood pressure is 136/83, pulse is 76, respiratory of 15, saturating 97% on room air. Intake and output: There is no urine output and weight in the bed scale is not available. PHYSICAL EXAMINATION: General: The patient is awake, alert, oriented times three, laying in bed, in no apparent distress. Head and neck exam: Pupils are equally round and reactive to light. The patient has a wound in the left side of the neck, which is covered with a dressing. Cardiovascular: S1, S2, regular rate. 1+ edema of the bilateral lower extremities. Respiratory: Chest is clear to auscultation bilaterally with equal air entry. No rales or rhonchi. Abdomen: Soft, positive bowel sounds. Peritoneal dialysis catheter in the left lower quadrant. Musculoskeletal: Normal range of movement. No clubbing or cyanosis. Skin: The patient has multiple precancerous and cancerous lesions all over the skin. Central nervous system (ELECTRONIC TECHNOLOGIST): No focal deficit. Power is 5/5 in all extremities. LAB REVIEW: CBC showed WBC 15.2, hemoglobin 9.4, platelets of 218. Repeat peritoneal fluid cell count was done today, which showed WBCs are 11 only. BMP done today morning showed sodium 139, potassium 4.3, chloride 103, bicarbonate 30, BUN 40, creatinine is 4.6, AST 38, ALT 38, alkaline phosphatase is 165, albumin is 1.3. CURRENT INPATIENT MEDICATIONS: The patient's medications were all reviewed by me. I further decreased the metoprolol dose to 25 mg at night-time. No other change in the medications today as compared with yesterday. ASSESSMENT AND PLAN: 1. End-stage renal disease on peritoneal dialysis. Continue current peritoneal dialysis (PD) regimen of five manual exchanges all 1.5% on 1 liter. 2. Hypertension. The patient has orthostatic hypotension. I have further decreased the metoprolol dose to 25 mg by mouth at night-time. 3. Anemia in end-stage renal disease. Hemoglobin level is improving. Continue current dose of Aranesp 100 mcg subcu once a week. 4. Wound on the left side of the neck. Avoid using the parenteral antibiotics, because of history of Clostridium (C) difficile, the patient is getting local wound treatment.
[2019-08-20] MEDS: BACITRACIN OINT 30GM TOP SCH ×2 (13:15→22:33)
--- NOTE | 2019-08-20 13:36 | IPNPDOC ---
Text Note Date of Service The patient was seen on 08/20/19. NOTE SUBJECTIVE: Patient was examined this morning in her room. She complained of sharp sternal pain as well as rib pain. She denied any shortness of breath. She denied any chest pain. She has not had any bowel movement since presentation. OBJECTIVE: PHYSICAL EXAMINATION: GENERAL APPEARANCE: Elderly, frail , female LUNGS: Clear to auscultation bilaterally. HEART: Normal S1, S2. No murmurs, no rubs, no gallops ABDOMEN: Soft, ND, no tenderness, +PD catheter EXTREMITIES: Moves all extremities equally. No gross deformities. PULSES: 2+ upper and lower extremity LABORATORY DATA: Please see below. IMAGING: Chest x-ray pending ASSESSMENT AND PLAN: 69-year-old female with a history of ESRD on peritoneal dialysis and recurrent C. difficile infections who presents with 3-4 day history of vomiting and diarrhea, possibly secondary to gastroenteritis or a recurrence of C. difficile colitis, with electrolyte abnormalities including low potassium and low magnesium, likely secondary to vomiting. PLAN: 1. Vomiting and diarrhea - possibly 2/2 gastroenteritis, unlikely 2/2 recurrence of C. difficile, unlikely 2/2 peritonitis - Patient remains hemodynamically stable and afebrile - Patient's positive for C. difficile - likely representing colonization; give she has formed stools - Has previously received Dificid, as well as stool transplant - Patient is on soft diet; will continue to advance as tolerated - Continue home Bentyl - Clinically nontoxic appearing, no signs of dehydration, we'll continue to monitor. Leukocytosis - likely 2/2 reactive etiology; possibly 2/2 infection 2/2 to neck wound infection - Patient has chronic history of leukocytosis - Will continue to hold off on oral antibiotics - Wound culture for neck wound, ordered twice a day clean, along with twice a day bacitracin Difficulty Swallowing - Ordered swallowing evaluation 2. Significant rib pain, secondary due to trauma. - She reported that she was grabbed out of the air during a mechanical fall - Chex x-ray negative, no signs of fracture - c/w PT / OT 3.Positive orthostatics. Patient has a history of orthostatic hypotension -Continues to have positive orthostatics -Nephrology has held patient's hydralazine, and has reduced her metoprolol to 50 mg by mouth daily 4. Hypokalemia. Replaced with oral replenishment -Will continue to monitor 5. Hypomagnesemia Replaced with IV magnesium runs. Currently within normal limits, we'll continue monitor 6. End-stage renal disease On peritoneal dialysis at home every night. Will continue in the hospital -Peritoneal fluid was negative for infection Consulted nephrology 7. Hypertension - s/p Hydralazine - c/w Metoprolol 8. Squamous cell carcinoma of the skin. Requested patient bring in her own acitretin to continue treatment. 9. Mild LFTs elevation Patient has history of elevated LFTs on presentation for past admissions DVT prophylaxis: Teds and sequentials VS,Fishbone, I+O VS, Fishbone, I+O Laboratory Tests 08/20/19 06:03 Vital Signs Date Time Temp Pulse Resp B/P (MAP) Pulse Ox O2 Delivery O2 Flow Rate FiO2 08/20/19 06:14 76 136/83 (100) 77 138/53 (81) 80 94/45 (61) 08/20/19 06:00 98.1 15 97 Room Air I&O- Last 24 Hours up to 6 AM 08/20/19 06:00 Intake Total 5576 ml Output Total 5100 ml Balance 476 ml GME ATTESTATION GME ATTESTATION My faculty preceptor for this patient encounter was physically present during the encounter and was fully available. All aspects of the patient interview, examination, medical decision making process, and medical care plan development were reviewed and approved by the faculty preceptor. The faculty preceptor is aware and concurs with the plan as stated in the body of this note and will attest to such by his/her cosignature. ATTENDING NOTE I, Keith Mao, have independently examined this patient and performed my own physical exam, as well as reviewed the documentation and edited where necessary. I have discussed in detail with the resident / student the findings and plan of treatment as documented by the resident / student and edited their note. I agree with their findings and treatment plan and have edited their documentation. I will continue to follow the patient during this hospital stay. JIM MATHEW DO Aug 20, 2019 13:36 KEITH MAO MD Aug 20, 2019 15:14
[2019-08-20 15:25] VITALS: BP 156/80
[2019-08-20 15:44] VITALS: BP_SYST 104; BP_SYST 113; BP_SYST 152; BP_DIAS 50; BP_DIAS 67; BP_DIAS 88
[2019-08-20] MEDS: ONDANSETRON 4MG/2ML VIAL (J2405) IV PRN (16:22)
[2019-08-20] MEDS: ONDANSETRON 4 MG TAB (S0181) PO PRN (17:10)
[2019-08-20 22:00] VITALS: BP 136/64
[2019-08-20] MEDS: SIMVASTATIN 20 MG TAB PO SCH (22:34)
[2019-08-20 22:45] VITALS: BP_SYST 120; BP_SYST 130; BP_SYST 136; BP_DIAS 62; BP_DIAS 64
[2019-08-20] MEDS: METOPROLOL SUCC *XL* 25MG TAB (TopROL *XL*) PO SCH (22:54)
[2019-08-21 06:00] VITALS: BP 128/71
[2019-08-21 06:05] VITALS: BP_SYST 109; BP_SYST 111; BP_SYST 135; BP_DIAS 46; BP_DIAS 85
[2019-08-21 07:14] LABS: APPEARANCE, BODY FLUID CLEAR (CLEAR); PERITONEAL FL COLOR COLORLESS (COLORLESS); SOURCE, BODY FLUID PERITONEAL
[2019-08-21] MEDS: DICYCLOMINE 10 MG CAP PO SCH ×3 (08:38→17:53)
[2019-08-21] MEDS: (RENVELA) SEVELAMER **CARBONate** 800 MG TAB PO SCH ×3 (08:38→17:53)
[2019-08-21] MEDS: predniSONE 1 MG TAB PO SCH (08:38)
[2019-08-21] MEDS: CALCITRIOL 0.25 MCG CAP (S0169) PO SCH (08:38)
[2019-08-21] MEDS: BRIMONIDINE 0.1% OPHTH SOLN 5 ML OS SCH ×2 (08:39→20:58)
[2019-08-21] MEDS: MUPIROCIN 2% OINT 22 GM TUBE TOP SCH ×2 (08:40→21:03)
[2019-08-21] MEDS: BACITRACIN OINT 30GM TOP SCH ×2 (08:40→21:03)
[2019-08-21 09:50] LABS: HEMATOCRIT 32.6 % (36.0-47.0); HEMOGLOBIN 9.9 g/dl (12.0-15.5); MEAN CORPUSCULAR HEMOGLOBIN 33.4 pg (27.0-33.0); MEAN CORPUSCULAR HGB CONC 30.4 g/dl (32.0-36.5); MEAN CORPUSCULAR VOLUME 110.1 fl (80.0-96.0); PLATELET COUNT, AUTOMATED 201 10^3/uL (150-450); RED BLOOD COUNT 2.96 10^6/uL (4.00-5.40); WHITE BLOOD COUNT 20.5 10^3/uL (4.0-10.0)
[2019-08-21 10:11] LABS: ALBUMIN 1.3 GM/DL (3.2-5.2); BILIRUBIN,TOTAL 0.5 MG/DL (0.2-1.0); CALCIUM LEVEL 9.2 MG/DL (8.8-10.2); CREATININE FOR GFR 4.52 MG/DL (0.55-1.30); GLOMERULAR FILTRATION RATE 10.2 (>39); MAGNESIUM LEVEL 1.7 MG/DL (1.8-2.4); POTASSIUM SERUM 3.9 MEQ/L (3.5-5.1); TOTAL PROTEIN 4.8 GM/DL (6.4-8.2)
--- NOTE | 2019-08-21 10:43 | IPN ---
DATE OF SERVICE: 08/21/2019 SUBJECTIVE: The patient was seen and examined at the bedside today morning. She still reports feeling very weak and tired. She otherwise denies any fevers or chills. Metoprolol dose was decreased yesterday. She denies any diarrhea. Orthostatic hypotension is improving. She continues to tolerate peritoneal dialysis. OBJECTIVE: Vital Signs: Temperature 97.5 degrees Fahrenheit, blood pressure 135/85, pulse 70, respiratory rate 17, saturating 99% on room air. Intake and Output: The patient is anuric. Weight in the bed scale is not available. PHYSICAL EXAMINATION: General: The patient is awake, alert and oriented times three. Chronically weak and malnourished. Laying in bed in no apparent distress. Head and Neck Exam: Pupils are equally round and reactive to light. The wound in the left neck is covered with a dressing. There is no jugular venous distention (JVD). Cardiovascular: S1 and S2. Regular rate. Trace edema of the bilateral lower extremities. Respiratory: Chest is clear to auscultation bilaterally. Bilateral equal air entry. No rales or rhonchi. Abdomen: Soft. Positive bowel sounds. PD catheter in the left lower quadrant. Musculoskeletal: Normal range of movement. No clubbing or cyanosis. Skin: Multiple precancerous and cancerous lesions on the skin all over. JOURNALISTS AND OTHER WRITERS: No focal deficit. Power is 5/5 in all extremities. LAB REVIEW: CBC showed a WBC of 20.5, hemoglobin 9.9, platelets 201. Peritoneal fluid cell count is 11. BMP showed sodium 139, potassium 3.9, chloride 104, bicarbonate 27, BUN 40, creatinine 4.5. Magnesium 1.7. Albumin 1.3. CURRENT INPATIENT MEDICATIONS: The patient's medications are all reviewed by me. I am going to stop her simvastatin because of rising liver enzymes. ASSESSMENT AND PLAN: 1. End stage renal disease on peritoneal dialysis. Continue current manual exchanges, each volume is 1 liter or 1.5%. 2. History of hypertension. Continue current dose of metoprolol 25 mg daily 3. Anemia in end stage in renal disease. Continue Aranesp subcutaneous once a week. 4. Elevated liver enzymes. I have stopped the statin and decreased the Tylenol dose to 500 mg every 6 hours as needed.
--- NOTE | 2019-08-21 11:43 | IPNPDOC ---
Text Note Date of Service The patient was seen on 08/21/19. NOTE SUBJECTIVE: Patient was examined this morning in her room. She complained of vague body pain. However she stated that she wanted to go home on friday. She OBJECTIVE: PHYSICAL EXAMINATION: GENERAL APPEARANCE: Elderly, frail , female, resting in bed LUNGS: Clear to auscultation bilaterally. HEART: Normal S1, S2. No murmurs, no rubs, no gallops ABDOMEN: Soft, ND, no tenderness, +PD catheter EXTREMITIES: Moves all extremities equally. No gross deformities. PULSES: 2+ upper and lower extremity SKIN: Healing wound on left lower next, bilateral hands and left lower extremity LABORATORY DATA: Please see below. IMAGING: Chest x-ray pending ASSESSMENT AND PLAN: 69-year-old female with a history of ESRD on peritoneal dialysis and recurrent C. difficile infections who presents with 3-4 day history of vomiting and diarrhea, possibly secondary to gastroenteritis or a recurrence of C. difficile colitis, with electrolyte abnormalities including low potassium and low magnesium, likely secondary to vomiting. PLAN: 1. Vomiting and diarrhea - possibly 2/2 gastroenteritis, unlikely 2/2 recurrence of C. difficile, unlikely 2/2 peritonitis - Patient remains hemodynamically stable and afebrile - Patient's positive for C. difficile - likely representing colonization; give she has formed stools - Has previously received Dificid, as well as stool transplant - Patient is on soft diet; will continue to advance as tolerated - Continue home Bentyl - Clinically nontoxic appearing, no signs of dehydration, we'll continue to monitor. Leukocytosis - likely 2/2 reactive etiology; possibly 2/2 infection 2/2 to neck wound infection - Patient has chronic history of leukocytosis, but it has increase today -Order CRP and will trend it. -Ordered Procalcitonin -Ordered blood cultures - Will continue to hold off on oral antibiotics Difficulty Swallowing - Per Swallow eval - The patient's oropharyngeal swallow is wnl, no s/sx aspiration or penetration observed. The pt denied globus sensation during evaluation. Pt is currently tolerating a mechanical soft diet per GI recommendations. Recommend advance to regular solids as tolerated per GI. Recommend thin liquids. - will continue her current mechanically soft diet 2. Significant rib pain, secondary due to trauma. - She reported that she was grabbed out of the air during a mechanical fall - Chex x-ray negative, no signs of fracture - c/w PT / OT 3.Positive orthostatics. Patient has a history of orthostatic hypotension -Continues to have positive orthostatics -Nephrology has held patient's hydralazine, and has reduced her metoprolol to 50 mg by mouth daily 4. Hypokalemia. Replaced with oral replenishment -Will continue to monitor 5. Hypomagnesemia Replaced with IV magnesium runs. Currently within normal limits, we'll continue monitor 6. End-stage renal disease On peritoneal dialysis at home every night. Will continue in the hospital -Peritoneal fluid was negative for infection - Nephrology on consultation 7. Hypertension - s/p Hydralazine - c/w Metoprolol 8. Squamous cell carcinoma of the skin. Requested patient bring in her own acitretin to continue treatment. 9. Mild LFTs elevation Patient has history of elevated LFTs on presentation for past admissions DVT prophylaxis: - TEDs and sequentials VS,Fishbone, I+O VS, Fishbone, I+O Laboratory Tests 08/21/19 09:19 Vital Signs Date Time Temp Pulse Resp B/P (MAP) Pulse Ox O2 Delivery O2 Flow Rate FiO2 08/21/19 06:05 70 135/85 (102) 88 111/46 (67) 86 109/46 (67) 08/21/19 06:00 97.5 17 99 Room Air I&O- Last 24 Hours up to 6 AM 08/21/19 06:00 Intake Total 5904 ml Output Total 5050 ml Balance 854 ml GME ATTESTATION GME ATTESTATION My faculty preceptor for this patient encounter was physically present during the encounter and was fully available. All aspects of the patient interview, examination, medical decision making process, and medical care plan development were reviewed and approved by the faculty preceptor. The faculty preceptor is aware and concurs with the plan as stated in the body of this note and will attest to such by his/her cosignature. ATTENDING NOTE I, Keith Mao, have independently examined this patient and performed my own physical exam, as well as reviewed the documentation and edited where necessary. I have discussed in detail with the resident / student the findings and plan of treatment as documented by the resident / student and edited their note. I agree with their findings and treatment plan and have edited their documentation. I will continue to follow the patient during this hospital stay. JIM MATHEW DO Aug 21, 2019 11:43 KEITH MAO MD Aug 21, 2019 14:33
[2019-08-21 14:00] VITALS: BP 115/50
[2019-08-21 21:00] VITALS: BP_SYST 113; BP_SYST 128; BP_SYST 134; BP_DIAS 57; BP_DIAS 60; BP_DIAS 63
[2019-08-21] MEDS: METOPROLOL SUCC *XL* 25MG TAB (TopROL *XL*) PO SCH (21:38)
[2019-08-21 22:00] VITALS: BP 128/60
[2019-08-22 06:00] VITALS: BP_SYST 103; BP_SYST 109; BP_SYST 110; BP_SYST 121; BP_DIAS 53; BP_DIAS 54; BP_DIAS 56
[2019-08-22 06:57] LABS: SOURCE, BODY FLUID PERITONEAL
[2019-08-22 06:58] LABS: APPEARANCE, BODY FLUID CLEAR (CLEAR); PERITONEAL FL COLOR COLORLESS (COLORLESS)
[2019-08-22 08:33] LABS: BASO # 0.1 10^3/uL (0.0-0.2); BASO % 0.2 % (0.0-1.0); EOS # 0.2 10^3/uL (0.0-0.5); EOS % 0.7 % (0.0-3.0); HEMOGLOBIN 11.1 g/dl (12.0-15.5); LYMPH # 1.7 10^3/uL (1.5-5.0); LYMPH % 6.1 % (24.0-44.0); MEAN CORPUSCULAR HGB CONC 31.7 g/dl (32.0-36.5); MEAN CORPUSCULAR VOLUME 107.4 fl (80.0-96.0); MONO % 3.8 % (0.0-5.0); NEUTROPHILS # 23.7 10^3/uL (1.5-8.5); NEUTROPHILS % 87.6 % (36.0-66.0); PLATELET COUNT, AUTOMATED 227 10^3/uL (150-450); RED BLOOD COUNT 3.26 10^6/uL (4.00-5.40)
[2019-08-22] MEDS: DICYCLOMINE 10 MG CAP PO SCH ×3 (08:33→17:30)
[2019-08-22] MEDS: BRIMONIDINE 0.1% OPHTH SOLN 5 ML OS SCH ×2 (08:33→22:31)
[2019-08-22] MEDS: (RENVELA) SEVELAMER **CARBONate** 800 MG TAB PO SCH ×4 (08:33→18:00)
[2019-08-22] MEDS: CALCITRIOL 0.25 MCG CAP (S0169) PO SCH (08:33)
[2019-08-22] MEDS: predniSONE 1 MG TAB PO SCH (08:33)
[2019-08-22] MEDS: BACITRACIN OINT 30GM TOP SCH ×2 (08:34→22:31)
[2019-08-22] MEDS: MUPIROCIN 2% OINT 22 GM TUBE TOP SCH ×2 (08:34→22:30)
[2019-08-22 08:57] LABS: ALBUMIN 1.4 GM/DL (3.2-5.2); BILIRUBIN,TOTAL 0.6 MG/DL (0.2-1.0); C REACTIVE PROTEIN QUANTITATIV 8.47 MG/DL (0.00-0.30); CALCIUM LEVEL 9.5 MG/DL (8.8-10.2); CREATININE FOR GFR 4.75 MG/DL (0.55-1.30); GLOMERULAR FILTRATION RATE 9.6 (>39); MAGNESIUM LEVEL 1.6 MG/DL (1.8-2.4); POTASSIUM SERUM 4.3 MEQ/L (3.5-5.1); TOTAL PROTEIN 5.1 GM/DL (6.4-8.2)
--- NOTE | 2019-08-22 12:37 | IPNPDOC ---
Text Note Date of Service The patient was seen on 08/22/19. NOTE Subjective: Patient is a 69-year-old female with a PMHx of ESRD on PD, Recurrent C. diff (s/p stool transplants), HTN, DLP, Anemia, Depression, Multiple squamous / basal cell skin cancer lesions who presented to the ER with a 4 day history of vomiting and diarrhea. Patient was suspected of having possible gastroenteritis and was admitted to the hospitalist service for further evaluation and treatment. Patient was seen and examined at the bedside. Patient is seen sitting up in bed without any distress. She was seen eating her breakfast. She denied any nausea, vomiting, abdominal pain. Patient does not make any urine - has a history of bilateral nephrectomies. She reports that she continues to have mucoid output with formed stool. She also complains of pain around the site of her peritoneal dialysis catheter. Objective: Vitals (See below) General: Lying in bed, no acute distress, comfortable, AAOx3 HEENT: NC, AT, Left neck wound with mild drainage noted - without surrounding erythema CVS: RRR, +S1S2 Lungs: Fair air entry b/l, no appreciable wheezing / rhonchi / rales Abdomen: Soft, ND, +PD catheter, mild tenderness around PD catheter site Extremities: Trace edema noted bilaterally, - Calf tenderness Imaging: CXR 08/18: No acute cardiopulmonary findings. Assessment and plan: s/p Vomiting and diarrhea - possibly 2/2 gastroenteritis, unlikely 2/2 re currence of C. difficile, unlikely 2/2 peritonitis - Clinically patient has reported improvement/resolution of her symptoms - Patient continues to have mucoid rectal output with formed stool - Patient remains hemodynamically stable and afebrile - Patient's positive for C. difficile - likely representing colonization; give she has formed stools - s/p Prior stool transplants, multiple treatments - c/w soft diet and will advance as tolerated - c/w Bentyl; will hold Lomotil at this time Leukocytosis - possibly 2/2 infection 2/2 to neck wound infection, possibly 2/2 PD catheter insertion site, less likely 2/2 reactive etiology - Patient has leukocytosis that has been increasing - Remains hemodynamically stable / afebrile - CRP mildly elevated - PCT significantly elevated - Peritoneal fluid without signifcant elevation of WBC - Blood cultures 08/21: Negative at 24 hours - Wound culture 08/20: S. Aureus - Peritoneal fluid culture 08/18: Negative - GI Panel 08/17: C Diff A/B - Patient will continue with topical medications for neck and PD catheter site - Will consult infectious disease for further assistance Difficulty Swallowing - c/w modified diet as per speech therapy Significant rib pain - likely 2/2 mechanical trauma - She reported that she was grabbed out of the air during a mechanical fall - CXR is negative for fractures - c/w PT / OT Positive orthostatics - Remains asymptomatic - History of orthostatic hypotension s/p Hypokalemia Hypomagnesemia - Will supplement again ESRD on PD - Catheter site appears to have some mild surrounding erythema - c/w Topical medications - Nephrology on consultation Possible adrenal insufficiency - Has chronically been on prednisone since her kidney transplant - c/w Prednisone Hypertension - s/p Hydralazine - c/w Metoprolol Squamous cell carcinoma of the skin - Has had recent resections - c/w topical - Will have outpatient follow up with Dermatology s/p Mild LFTs elevation DVT prophylaxis - c/w TEDs / Sequentials VS,Fishbone, I+O VS, Fishbone, I+O Laboratory Tests 08/22/19 08:24 Vital Signs Date Time Temp Pulse Resp B/P (MAP) Pulse Ox O2 Delivery O2 Flow Rate FiO2 08/22/19 06:00 71 121/56 (77) 82 109/56 (73) 71 103/54 (70) 08/22/19 06:00 97.0 16 93 Room Air I&O- Last 24 Hours up to 6 AM 08/22/19 05:59 Intake Total 5240 ml Output Total 4950 ml Balance 290 ml SHARYN MAO MD Aug 22, 2019 12:37
[2019-08-22] MEDS ORDERED: MAG SULF 1GM/100ML (MAG RUN) 1 GM in IV 1 EA IV ONE (13:00)
[2019-08-22] MEDS ORDERED: MAGNESIUM OXIDE 400 MG TAB (MAG-OX) PO ONE (13:15)
[2019-08-22 14:00] VITALS: BP 95/62
[2019-08-22] MEDS ORDERED: PILL CUTTER 1 EACH XX PRN (14:00)
--- NOTE | 2019-08-22 14:18 | IPN ---
DATE OF SERVICE: 08/22/2019 SUBJECTIVE: Apple is seen and examined this morning at the bedside. She continues to have a rise in white count up to 27,000 today. She has been afebrile. Her PD exchanges have been uneventful. OBJECTIVE: Vital Signs: Temperature 97.0, pulse 82, respiratory rate 16, blood pressure 121/56, saturating 93-97% on room air. Review of ins and outs yesterday shows that she is net positive about 300 mL. Weight in the bed scale today is not recorded. General: The patient is seen lying in bed . Elderly female, very frail and chronically ill appearing. Extraocular muscles are intact. Sclerae are anicteric. Tongue is moist. Neck is supple. Jugular veins are not elevated. There is a dressing on her left neck. Cardiac: S1 and S2, regular rate and rhythm. No friction murmur. There is pedal edema bilaterally. Lungs show symmetric air entry. No crackle or rales. Abdomen is soft and nontender. The PD catheter exit site in the left lower quadrant has some erythema, but no discharge. The skin has diffuse lesions and she is status post many local resections for history of recurrent skin cancers. LABORATORY DATA: Sodium 137, potassium 4.3, bicarbonate 26, magnesium 1.6, CRP 8.4, white count 27, hemoglobin 11.1. INPATIENT MEDICATIONS: Reviewed by myself. She is ordered for a gram of IV magnesium sulfate. Otherwise medications are unchanged from prior. PROBLEMS: 1. End-stage renal disease on peritoneal dialysis. The patient is receiving a gentle PD prescription with all 1.5% exchanges with a volume of 1 liter five times a day. Her PD exchanges have been uneventful. Her volume status is acceptable. Her peritoneal fluid analyses have been negative for infection. Continue the current peritoneal dialysis prescription. 2. Anemia and end stage renal disease. Her hemoglobin is optimal and she continues on once weekly Aranesp. 3. Secondary hyperparathyroidism of renal origin. She is having trouble taking the Renvela. She does have severe protein calorie malnutrition and I want to encourage oral intake. We will discontinue Renvela as her phosphorus level is acceptable. 4. Leukocytosis. White count has risen to 27,000. The patient is afebrile. She does have skin wounds, including a deep resection on the left neck for local malignancy. Her PD catheter exit site also had some mild erythema, but no discharge. She is receiving topical Mupirocin. Her blood cultures have been negative. She is anuric. She did have a positive Clostridium difficile screen; however, it was on formed stool. I would be hesitant to give antibiotics to Apple because she does have a severe history of C. Difficile. I recommend infectious diseases to see her for the rise in white count. 5. Hypertension. Orthostatic vitals are noted. The patient continues on Toprol XL and she is not receiving her home hydralazine. I am going to cut down the dose of the Toprol XL.
[2019-08-22] MEDS: ONDANSETRON 4 MG TAB (S0181) PO PRN (16:53)
[2019-08-22] MEDS ORDERED: GASTROGRAFIN SOLUTION 30ML (Q9963) As Ordered ONE (18:52)
[2019-08-22] MEDS: GASTROGRAFIN SOLUTION 30ML PO SCH ×2 (19:43→19:44)
[2019-08-22] MEDS ORDERED: ISOVUE-370 76% 100ML VIAL (Q9967) As Ordered ONE (19:48)
[2019-08-22] MEDS ORDERED: MIRALAX *UNIT DOSE* 17GM PACKET PO PRN (20:30)
--- NOTE | 2019-08-22 20:52 | REPVR ---
PROCEDURE INFORMATION: Exam: CT Abdomen And Pelvis With Contrast Exam date and time: 08/22/2019 8:06 PM Clinical history: 69 years old, female; Abnormal findings; Abnormal lab test; Elevated wbc; Additional info: Leukocytosis TECHNIQUE: Imaging protocol: Computed tomography of the abdomen and pelvis with intravenous contrast. Radiation optimization: All CT scans at this facility use at least one of these dose optimization techniques: automated exposure control; mA and/or kV adjustment per patient size (includes targeted exams where dose is matched to clinical indication); or iterative reconstruction. Contrast material: ISOVUE 370; Contrast volume: 100 ml; Contrast route: IV; COMPARISON: CT ABD PELVIS W/O CONTRAST 04/04/2019 9:34 AM FINDINGS: Lungs: Mild bibasilar fibro-atelectatic change with focal consolidation or atelectasis in the posterior left lower lobe and to a much lesser degree the lateral right lower lobe. Pleural space: Mild bilateral pleural effusions. Liver: Inhomogeneous low attenuation area in the posterior right hepatic lobe with associated coarse calcifications. Gallbladder and bile ducts: Normal. No calcified stones. No ductal dilation. Pancreas: Pancreatic cysts measuring up to 19 mm in the pancreatic neck and 10 mm in the pancreatic body. Spleen: Small splenic calcifications. Adrenals: Normal. No mass. Kidneys and ureters: Absent bilateral kidneys. Stomach and bowel: Minimal sigmoid diverticulosis without diverticulitis. Appendix: There are no changes of appendicitis. A normal appendix is not seen. Intraperitoneal space: Moderate peritoneal ascites with peritoneal dialysis catheter in the anterior pelvis. Abdominal free air consistent with peritoneal dialysis catheter. Vasculature: There is moderate atherosclerotic calcification of the abdominal aorta with extension into the iliac arteries. Lymph nodes: Unremarkable. No enlarged lymph nodes. Bladder: Unremarkable as visualized. Reproductive: Status post hysterectomy. Bones/joints: Bilateral femoral medullary rods with bilateral traversing nails extending into the femoral heads. Degenerative change of the lumbar spine. Soft tissues: Unremarkable. IMPRESSION: 1. Mild bilateral pleural effusions, increased since 04/04/2019 with increased bilateral lower lobe fibro-atelectatic change and new focal atelectasis or consolidation in the posterior left lower lobe. A subpleural focus of atelectasis or consolidation is similar to slightly increased in the lateral right lower lobe. 2. Peritoneal dialysis catheter in position with moderate peritoneal fluid which is slightly increased overall and probably reflects residual dialysate. Minimal free air is again noted. 3. Absent bilateral kidneys which is similar. 4. Low attenuation area in the posterior right hepatic lobe with associated coarse calcifications which is somewhat less prominent. 5. Minimal old granulomatous disease of the spleen. 6. Absent kidneys. 7. Status post hysterectomy. 8. Pancreatic cysts which are similar to the prior study. 9. Minimal sigmoid diverticulosis without diverticulitis. Electronically signed by: Mohit Reyes On 08/22/2019 20:51:35 PM
[2019-08-22 21:00] VITALS: BP 112/66
[2019-08-22] MEDS ORDERED: METOPROLOL SUCC *XL* 25MG TAB (TopROL *XL*) PO SCH (21:00)
[2019-08-22 22:00] VITALS: BP 112/66
[2019-08-22] MEDS ORDERED: LevoFLOXacin 250 MG TABLET PO SCH (22:00)
[2019-08-22] MEDS: FIDAXOMICIN 200 MG TAB (DIFICID) PO SCH (22:28)
[2019-08-23] MEDS: ONDANSETRON 4 MG TAB (S0181) PO PRN ×3 (02:44→22:31)
[2019-08-23 06:00] VITALS: BP 98/53
[2019-08-23 06:03] LABS: HEMATOCRIT 34.1 % (36.0-47.0); HEMOGLOBIN 10.9 g/dl (12.0-15.5); MEAN CORPUSCULAR HEMOGLOBIN 34.8 pg (27.0-33.0); MEAN CORPUSCULAR VOLUME 108.9 fl (80.0-96.0); PLATELET COUNT, AUTOMATED 220 10^3/uL (150-450); RED BLOOD COUNT 3.13 10^6/uL (4.00-5.40)
[2019-08-23 06:37] LABS: WHITE BLOOD COUNT 62.9 10^3/uL (4.0-10.0)
[2019-08-23 06:43] LABS: ALBUMIN 1.3 GM/DL (3.2-5.2); BILIRUBIN,TOTAL 0.7 MG/DL (0.2-1.0); C REACTIVE PROTEIN QUANTITATIV 9.43 MG/DL (0.00-0.30); CALCIUM LEVEL 9.4 MG/DL (8.8-10.2); CREATININE FOR GFR 5.13 MG/DL (0.55-1.30); GLOMERULAR FILTRATION RATE 8.8 (>39); MAGNESIUM LEVEL 1.8 MG/DL (1.8-2.4); POTASSIUM SERUM 4.2 MEQ/L (3.5-5.1); TOTAL PROTEIN 4.8 GM/DL (6.4-8.2)
[2019-08-23] MEDS: LACTOBACILLUS ACIDOPHILUS CAP (BACID) PO SCH ×3 (08:00→17:11)
[2019-08-23] MEDS: FIDAXOMICIN 200 MG TAB (DIFICID) PO SCH ×2 (08:24→22:31)
[2019-08-23] MEDS: CALCITRIOL 0.25 MCG CAP (S0169) PO SCH (08:24)
[2019-08-23] MEDS: (RENVELA) SEVELAMER **CARBONate** 800 MG TAB PO SCH (08:24)
[2019-08-23] MEDS: DICYCLOMINE 10 MG CAP PO SCH ×3 (08:24→17:11)
[2019-08-23] MEDS: predniSONE 1 MG TAB PO SCH (08:25)
[2019-08-23] MEDS: BRIMONIDINE 0.1% OPHTH SOLN 5 ML OS SCH ×2 (08:25→22:31)
[2019-08-23] MEDS: BACITRACIN OINT 30GM TOP SCH ×2 (08:25→22:32)
[2019-08-23] MEDS: MUPIROCIN 2% OINT 22 GM TUBE TOP SCH ×2 (08:25→22:31)
[2019-08-23] MEDS ORDERED: GLUCAGON FOR INJ 1 MG VIAL (J1610) SC PRN (08:45)
[2019-08-23] MEDS ORDERED: GLUCOSE 4 GM CHEW TABLET PO PRN (08:45)
[2019-08-23] MEDS ORDERED: DEXTROSE 50% 50 ML SYRINGE IV PRN (09:00)
[2019-08-23] MEDS: NEOSPORIN TOP OINT 15GM TOP SCH ×2 (09:00→22:32)
[2019-08-23] MEDS ORDERED: NAFCILLIN SOD 1 GM in D5W MINI-BAG PLUS 50 ML IV SCH (09:15)
[2019-08-23 12:13] LABS: PERITONEAL FL COLOR PALE YELLOW (COLORLESS); SOURCE, BODY FLUID PERITONEAL
[2019-08-23 12:18] LABS: APPEARANCE, BODY FLUID HAZY (CLEAR)
[2019-08-23 14:00] VITALS: BP 122/62
[2019-08-23] MEDS ORDERED: LIDOCAINE 1% MDV 20ML VIAL As Ordered ONE ×2 (14:07→19:38)
--- NOTE | 2019-08-23 17:24 | REP ---
Midline catheter insertion with Site Isabela The procedure was performed under the direct supervision of Dr. Oliver. The risks and benefits of the procedure were explained to the patient and informed consent was obtained. The right basilic vein was localized using ultrasound guidance. The skin was prepped and draped in a sterile fashion. 1% lidocaine was used as a local anesthetic. Using ultrasound guidance the basilic vein was cannulated and a however the guidewire was not to be advanced. The right brachial vein was then localized using ultrasound guidance. 1% lidocaine was used as a local anesthetic. Using ultrasound guidance the brachial vein was cannulated and a 0.018 guide wire was inserted. The needle was removed and the 5.5 Mohawk dilator and peel-away sheath was inserted over the guide wire. A 5.5 [place] dual lumen catheter was cut to length of 12 cm. The dilator was removed and the catheter was inserted over the guide wire. However, the catheter was unable to be aspirated. Multiple attempts were tried however the catheter was unable to be aspirated. The catheter was then removed. Impression: Unsuccessful attempt at a midline catheter insertion. Electronically Signed by BERNARD Deleon 08/23/2019 05:15 P Electronically Signed by Hamzah Oliver MD 08/23/2019 05:15 P
[2019-08-23 17:38] LABS: HEMATOCRIT 36.3 % (36.0-47.0); HEMOGLOBIN 11.2 g/dl (12.0-15.5); MEAN CORPUSCULAR HEMOGLOBIN 34.9 pg (27.0-33.0); MEAN CORPUSCULAR HGB CONC 30.9 g/dl (32.0-36.5); MEAN CORPUSCULAR VOLUME 113.1 fl (80.0-96.0); PLATELET COUNT, AUTOMATED 219 10^3/uL (150-450); RED BLOOD COUNT 3.21 10^6/uL (4.00-5.40)
--- NOTE | 2019-08-23 17:59 | IPNPDOC ---
Text Note Date of Service The patient was seen on 08/23/19. NOTE Subjective: Patient is a 69-year-old female with a PMHx of ESRD on PD, Recurrent C. diff (s/p stool transplants), HTN, DLP, Anemia, Depression, Multiple squamous / basal cell skin cancer lesions who presented to the ER with a 4 day history of vomiting and diarrhea. Patient was suspected of having possible gastroenteritis and was admitted to the hospitalist service for further evaluation and treatment. Patient was seen and examined at the bedside, she was resting in bed, she complained of vague abdominal pain, as well as generalized body pain. She was almost to the point tearful. Patient had also reportedly refused her last 3 PD. She was, however, willing to try her peritoneal dialysis this a.m. Objective: Vitals (See below) General: like comfortably in bed, pleasant female, complaining of abdominal and body pain CVS: RRR, +S1S2 Lungs: Fair air entry b/l, no appreciable wheezing / rhonchi / rales Abdomen: Soft, ND, +PD catheter, mild tenderness around PD catheter site, no drainage, no sinus infection, Extremities: Trace edema noted bilaterally, - Calf tenderness Imaging: CXR 08/18: No acute cardiopulmonary findings. Assessment and plan: Leukocytosis - possibly 2/2 peritonitis, 2/2 infection 2/2 to neck wound infection, possibly 2/2 PD catheter insertion site, less likely 2/2 reactive etiology - Patient's leukocytosis significantly elevated from 27 to 62 overnight. - CRP 9.43, has had an upward trend - PCT significantly elevated - Peritoneal fluid. On 08/20/2019, on 08/21/2019, on 08/22/2019 had very mild leukocytosis, not deemed to be a source of infection. -Peritoneal fluid. On 08/23/2019 had a leukocytosis of 582, with polymorphic nuclear cells of 91.8, Nephrology has ordered a repeat. If repeat continues to have a significantly elevated leukocytosis. Patient will be started on vancomycin and gentamicin with PD cath exchange as per nephrology. - Blood cultures 08/21: Negative at 24 hours - Wound culture 08/20: S. Aureus - GI Panel 08/17: C Diff A/B, with formed stools - Patient will continue with topical medications for neck and PD catheter site - Infectious disease consult with this a.m. for patient's leukocytosis s/p Vomiting and diarrhea - possibly 2/2 gastroenteritis, unlikely 2/2 recurrence of C. difficile, unlikely 2/2 peritonitis - Clinically patient has reported improvement/resolution of her symptoms - Patient continues to have mucoid rectal output with formed stool - Patient remains hemodynamically stable and afebrile - Patient's positive for C. difficile - likely representing colonization; give she has formed stools - s/p Prior stool transplants, multiple treatments - c/w soft diet and will advance as tolerated - c/w Bentyl; will hold Lomotil at this time Difficulty Swallowing - c/w modified diet as per speech therapy Significant rib pain - likely 2/2 mechanical trauma - She reported that she was grabbed out of the air during a mechanical fall - CXR is negative for fractures - c/w PT / OT Positive orthostatics - Remains asymptomatic - History of orthostatic hypotension s/p Hypokalemia Hypomagnesemia - Will supplement again ESRD on PD - Catheter site appears to have some mild surrounding erythema - c/w Topical medications - Nephrology on consultation Possible adrenal insufficiency - Has chronically been on prednisone since her kidney transplant - c/w Prednisone Hypertension - s/p Hydralazine - c/w Metoprolol Squamous cell carcinoma of the skin - Has had recent resections - c/w topical - Will have outpatient follow up with Dermatology s/p Mild LFTs elevation DVT prophylaxis - c/w TEDs / Sequentials Attending Physician Addendum; I have independently interviewed and examined this patient at the bedside, and agree with the documented physical findings and management plan as written above. Pt's questions have been satisfactoriy answered. VS,Ashlyne, I+O VS, Kennethbone, I+O Laboratory Tests 08/23/19 05:45 08/23/19 05:56 Vital Signs Date Time Temp Pulse Resp B/P (MAP) Pulse Ox O2 Delivery O2 Flow Rate FiO2 08/23/19 14:19 Room Air 08/23/19 14:00 96.7 80 16 122/62 (82) 97 I&O- Last 24 Hours up to 6 AM 08/23/19 06:00 Intake Total 2240 ml Output Total 2200 ml Balance 40 ml GME ATTESTATION GME ATTESTATION My faculty preceptor for this patient encounter was physically present during the encounter and was fully available. All aspects of the patient interview, examination, medical decision making process, and medical care plan development were reviewed and approved by the faculty preceptor. The faculty preceptor is aware and concurs with the plan as stated in the body of this note and will attest to such by his/her cosignature. JIM MATHEW DO Aug 23, 2019 17:59 TOMMIE NEWTON MD Aug 24, 2019 10:57
[2019-08-23 18:32] LABS: WHITE BLOOD COUNT 69.9 10^3/uL (4.0-10.0)
[2019-08-23 19:00] LABS: APPEARANCE, BODY FLUID HAZY (CLEAR); PERITONEAL DIALYSATE FL COLOR COLORLESS (COLORLESS); SOURCE, BODY FLUID PERITONEAL DIALYSATE
[2019-08-23] MEDS ORDERED: VANCOMYCIN 1000 MG/20 ML VIAL (J3370) IP ONE (19:30)
[2019-08-23] MEDS ORDERED: GENTAMICIN SULF INJ 80MG/2ML VIAL (J1580) IP ONE (19:30)
--- NOTE | 2019-08-23 21:49 | IPN ---
DATE: 08/23/2019 SUBJECTIVE: Apple is seen and examined this morning at the bedside. She refused peritoneal dialysis exchanges overnight. She was complaining of nausea and abdominal cramping. She was having watery emesis at the time of my visit to her bedside. Her serum white count has skyrocketed up to 62,000. She remains afebrile. She agreed to resume peritoneal dialysis exchanges this morning, and a repeat cell count of the peritoneal dialysis fluid is consistent with peritonitis. Vital signs: Temperature 96.7, pulse 80, respiratory rate 16, blood pressure 122/62, saturating 97% on room air. Review of intake and output yesterday shows equivalent fluid balance. Weight on the bed scale today is 41.8 kg. General: The patient is seen lying in bed, elderly female, thin, frail, appears chronically ill. Sclera are anicteric. Tongue is moist. She is clutching the vomiting back and visibly nauseous and vomiting. Neck is supple. Jugular veins are not elevated. There is a dressing on the left neck. Cardiac: S1, S2, regular rate and rhythm. No friction murmur. There is pedal edema bilaterally. Lungs: Show symmetric air entry. No crackle or rales. Abdomen is soft and diffusely and mildly tender to palpation. There is no rebound tenderness nor guarding. There is peritoneal dialysis (PD) fluid in situ. The PD catheter exit site in the left lower quadrant is traumatized and has erythema, but there is no discharge noted. The skin has diffuse lesions and she is status post many local resections for history of recurrent skin cancer. Neurologic: She is oriented times three. No focal deficit. Interactive and conversational. LABORATORY DATA: Serum WBC 62, hemoglobin 10.9, platelets 220, sodium 138, potassium 4.2, bicarbonate 27, calcium 9.4, phosphorus 4.7, CRP 9.4. PD fluid analysis shows WBC of 582, repeat 974. INPATIENT MEDICATIONS: I discontinued her Renvela. I discontinued her metoprolol. I ordered 1 gram intraperitoneal vancomycin and 80 mg intraperitoneal gentamicin. Primary team started her on Dificid 200 mg by mouth twice a day and also started her on Bacid. Remainder of medications are unchanged from prior. PROBLEMS: 1. End-stage renal disease, on peritoneal dialysis. She refused PD exchanges overnight. She had been having a daily PD cell count, which up until this morning had been benign. This morning her PD cell count showed a significant increase in polymorphs, likewise her serum WBC skyrocketed to 62,000. She has katya peritonitis. She is going to receive intraperitoneal vancomycin and gentamicin with her next peritoneal dialysis exchange. She agrees to resume PD exchanges, and she is receiving all 1.5% exchanges with a volume of 1 liter five times a day. Her volume status is acceptable. 2. Peritonitis associated with peritoneal dialysis. Extreme elevation in serum WBC noted. Her CRP is also rising. She had been having daily peritoneal cell counts, which had been benign up until this morning, August 23, 2019, when her peritoneal cell count showed a significant increase in WBCs. A repeat cell count was sent for confirmation and was likewise elevated. She is receiving intraperitoneal gentamicin and vancomycin. Repeat cultures have already been sent. She is high risk for fungal peritonitis as well given her significant history of prolonged antibiotic use in the past related to multiple recurrent hospitalizations and recurrent Clostridium difficile colitis. 3. Anemia in end-stage renal disease. Hemoglobin is optimal, and she continues on once weekly Aranesp. 4. Secondary hyperparathyroidism of renal origin. She is very nauseous, she is vomiting. Her phosphorus is acceptable. I am discontinuing Renvela as it makes her more nauseated. She has severe protein-calorie malnutrition. Encourage oral intake and protein intake. 5. History of Clostridium difficile colitis. The patient is again receiving antibiotics at present because of peritonitis associated with PD catheter. She is at risk for a flare-up of her Clostridium difficile. Primary team has already started her on Dificid and Bacid. Infectious disease consultation is pending as well. 6. Hypertension. The patient is critically ill with peritonitis. Her blood pressures are thus far stable, but I am discontinuing her metoprolol.
[2019-08-24] MEDS ORDERED: GENTAMICIN SULF INJ 80MG/2ML VIAL (J1580) IP ONE ×3 (06:00→20:00)
[2019-08-24] MEDS ORDERED: VANCOMYCIN 1000 MG/20 ML VIAL (J3370) IP ONE ×2 (06:00→19:30)
[2019-08-24 06:28] LABS: HEMATOCRIT 35.3 % (36.0-47.0); HEMOGLOBIN 10.6 g/dl (12.0-15.5); MEAN CORPUSCULAR HEMOGLOBIN 34.2 pg (27.0-33.0); MEAN CORPUSCULAR VOLUME 113.9 fl (80.0-96.0); PLATELET COUNT, AUTOMATED 184 10^3/uL (150-450)
[2019-08-24 06:30] LABS: WHITE BLOOD COUNT 49.1 10^3/uL (4.0-10.0)
[2019-08-24] MEDS: ONDANSETRON 4 MG TAB (S0181) PO PRN ×3 (06:32→22:53)
[2019-08-24 06:51] LABS: ALBUMIN 1.3 GM/DL (3.2-5.2); BILIRUBIN,TOTAL 0.7 MG/DL (0.2-1.0); C REACTIVE PROTEIN QUANTITATIV 29.8 MG/DL (0.00-0.30); CALCIUM LEVEL 9.5 MG/DL (8.8-10.2); CREATININE FOR GFR 4.93 MG/DL (0.55-1.30); GLOMERULAR FILTRATION RATE 9.2 (>39); POTASSIUM SERUM 4.1 MEQ/L (3.5-5.1); TOTAL PROTEIN 4.3 GM/DL (6.4-8.2)
--- NOTE | 2019-08-24 08:34 | REP ---
Portable chest x-ray: Single view. History: Line placement. Comparison chest x-ray: August 18, 2019. Findings: Inch there is a left subclavian central venous catheter in place with its tip in the expected location of the superior vena cava. There is no evidence of pneumothorax. There is slight blunting of the left lateral pleural angle although this is unchanged from the prior study. There is a nodular opacity in the right lateral pleural angle which is unchanged from May 07, 2019. There is diffuse osteopenia. Advanced degenerative changes are noted in the shoulders. There is vascular calcification and tortuosity of the thoracic aorta. Impression: Central venous catheter in place with its tip in the expected location of the superior vena cava. Electronically Signed by Hamzah Oliver MD 08/24/2019 08:25 A
[2019-08-24] MEDS: DICYCLOMINE 10 MG CAP PO SCH ×3 (08:59→17:33)
[2019-08-24] MEDS: predniSONE 1 MG TAB PO SCH (09:00)
[2019-08-24] MEDS: BRIMONIDINE 0.1% OPHTH SOLN 5 ML OS SCH ×2 (09:00→20:45)
[2019-08-24] MEDS: FIDAXOMICIN 200 MG TAB (DIFICID) PO SCH ×2 (09:00→20:44)
[2019-08-24] MEDS: LACTOBACILLUS ACIDOPHILUS CAP (BACID) PO SCH ×3 (09:00→17:33)
[2019-08-24] MEDS: CALCITRIOL 0.25 MCG CAP (S0169) PO SCH (09:00)
[2019-08-24] MEDS: BACITRACIN OINT 30GM TOP SCH ×2 (09:01→20:47)
[2019-08-24] MEDS: MUPIROCIN 2% OINT 22 GM TUBE TOP SCH ×2 (09:02→20:47)
[2019-08-24] MEDS: NEOSPORIN TOP OINT 15GM TOP SCH ×2 (09:02→20:47)
--- NOTE | 2019-08-24 12:07 | IPNPDOC ---
Text Note Date of Service The patient was seen on 08/24/19. NOTE Subjective: Patient was examined this morning. She was afebrile overnight. She stated that she did not have any breathing difficulty. No chest pain. She had some mild abdominal pain around her PD catheter site. No overnight activities reported. Objective: Vitals (See below) General: like comfortably in bed, pleasant female, complaining of abdominal and body pain SKIN: Triple-lumen catheter placed on patient's right chest, placed yesterday due to poor vascular access CVS: S1 and S2 present, no murmurs, rubs or gallops Lungs: Fair air entry b/l, no appreciable wheezing / rhonchi / rales Abdomen: Soft, ND, +PD catheter, mild tenderness around PD catheter site, no drainage, no erythema Extremities: Trace edema noted bilaterally, - Calf tenderness Imaging: CXR 08/18: No acute cardiopulmonary findings. Assessment and plan: Leukocytosis - secondary to peritonitis, secondary to C. difficile infection, 2/2 to neck wound infection, possibly 2/2 PD catheter insertion site, less likely 2/2 reactive etiology -Patient had elevated white count and peritoneal fluid, with elevated polymorphonucleocytes in peritoneal fluid, peritoneal cultures , acid-fast stain, mycobacterial culture, and anaerobic culture pending -Started on vancomycin and gentamicin for peritonitis - This AM patient had improve. Leukocytosis, there was a decrease from 69.9 to 49.1 - CRP elevated at 29.8 - Blood cultures 08/21: Negative at 24 hours - Wound culture 08/20: S. Aureus -Infectious disease consult C. difficile - Multiple history of C. 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 - GI Panel 08/17: C Diff A/B, with formed stools ( treatment was pending symptoms) -On Friday patient was started on deficit due to mucous he diarrhea -Infectious disease consult ESRD on PD - Nephrology on consultation -Peritoneal dialysis at bedside Difficulty Swallowing - c/w modified diet as per speech therapy Positive orthostatics - Resolved s/p Hypokalemia Hypomagnesemia - Will supplement again Possible adrenal insufficiency - Has chronically been on prednisone since her kidney transplant - c/w Prednisone Hypertension - s/p Hydralazine - c/w Metoprolol Squamous cell carcinoma of the skin - Has had recent resections - c/w topical - Will have outpatient follow up with Dermatology s/p Mild LFTs elevation DVT prophylaxis - c/w TEDs / Sequentials Disposition -Pending infection resolution, and PT clearance ATTENDING NOTE I have personally evaluated and examined the patient. Discussed with residents and student regarding plan of care and agree with the above assessment and plan. VS,Fishbone, I+O VS, Fishbone, I+O Laboratory Tests 08/23/19 17:07 08/24/19 05:57 Vital Signs Date Time Temp Pulse Resp B/P (MAP) Pulse Ox O2 Delivery O2 Flow Rate FiO2 08/23/19 14:19 Room Air 08/23/19 14:00 96.7 80 16 122/62 (82) 97 I&O- Last 24 Hours up to 6 AM 08/24/19 06:00 Intake Total 4360 ml Output Total 4250 ml Balance 110 ml GME ATTESTATION GME ATTESTATION My faculty preceptor for this patient encounter was physically present during the encounter and was fully available. All aspects of the patient interview, examination, medical decision making process, and medical care plan development were reviewed and approved by the faculty preceptor. The faculty preceptor is aware and concurs with the plan as stated in the body of this note and will attest to such by his/her cosignature. JIM MATHEW DO Aug 24, 2019 12:07 JORDYN GARCIA MD Aug 24, 2019 19:16
--- NOTE | 2019-08-24 12:54 | IPN ---
DATE OF SERVICE: 08/24/2019 SUBJECTIVE: Apple is seen and examined this morning at the bedside. She received intraperitoneal vancomycin and gentamicin overnight with her peritoneal dialysis exchange. Her serum white blood cell (WBC) has improved. A repeat peritoneal dialysis cell count has not yet been sent. She states that her abdominal discomfort and nausea is better than yesterday. She denies diarrhea, shortness of breath. Temperature 96.7, pulse 80, respiratory rate 16, blood pressure 122/62, saturating 97% on room air. Review of intake and output (I and O) yesterday shows equivalent fluid balance. There is no weight recorded in the bed scale today. General: The patient is seen lying in bed. Elderly female, appears older than stated age. Thin, frail, chronically ill-appearing. Sclerae anicteric. Tongue is moist. Neck is supple. Jugular veins are not elevated. There is an IV site present on the left. Cardiac: S1, S2, regular rate and rhythm. No friction murmur. There is pedal edema bilaterally. Lungs show symmetric air entry. No crackle or rales. Abdomen is soft. There is peritoneal dialysis (PD) fluid in situ. There is no rebound tenderness or guarding. There is a PD catheter exit site, which is traumatized and has erythema but without discharge. The skin has diffuse lesions, and she is status post many local resections for history of recurrent skin cancer. Neurologic: She is oriented times three. No focal deficit. Interactive and conversational. LABORATORIES: Serum WBC 49, hemoglobin 10.6, platelet 184. Sodium 137, potassium 4.1, bicarbonate 26, BUN 49, magnesium 2.0, CRP 29. MICROBIOLOGY: Repeat peritoneal dialysis fluid culture is pending. INPATIENT MEDICATIONS: Reviewed by me. The patient received intraperitoneal gentamicin and intraperitoneal vancomycin with her overnight PD exchange. Remainder of medications are unchanged from prior. PROBLEMS: 1. Peritonitis associated with peritoneal dialysis. The patient was having a daily PD cell count, which was appropriate and benign until 08/23/2019 when she had a significant rise in her peritoneal dialysis fluid WBCs. She received intraperitoneal vancomycin and intraperitoneal gentamicin overnight with her PD exchange. Her serum WBC has improved this morning down to 49 from 69 yesterday. However, her C-reactive protein (CRP) continues to rise significantly. A repeat PD cell count is pending for today. We will continue with intraperitoneal antibiotics. A random vancomycin level has been ordered for tomorrow morning. If her peritoneal fluid culture is negative, I will get a fungal culture, as well, given her significant history of prolonged antibiotic use in the past. 2. Peritoneal dialysis. Continue current prescription with five exchanges daily, all 1.5% with a volume of 1 liter. Her volume status and electrolytes are acceptable. She is receiving peritoneal dialysis catheter exit site care, as well, along with the intraperitoneal antibiotics. 3. Anemia of end-stage renal disease. Hemoglobin is optimal. She continues on once weekly Aranesp. 4. Secondary hyperparathyroidism of renal origin. She is nauseous. She is having poor oral intake. Her phosphorus is acceptable, and her Renvela was discontinued. Continue with calcitriol and encourage oral protein intake for severe protein-calorie malnutrition. 5. History of Clostridium (C) difficile colitis. She is again receiving intraperitoneal antibiotics at present because of peritonitis associated with PD catheter. She is at risk for a flareup of her C. difficile. Primary team has already resumed her on Dificid and Bacid. Infectious diseases' consultation is pending, as well. The patient has no complaints of diarrhea at present. I am concerned that her CRP continues to rise. 6. Hypertension. She is critically ill with peritonitis. She is off of all antihypertensives, and her blood pressure at present remains acceptable. DISPOSITION: The patient has been initiated on intraperitoneal vancomycin and gentamicin last night for concern of peritonitis. Although her serum WBC has improved, her CRP continues to uptrend, and I am concerned. A repeat PD cell count is pending. Await infectious diseases' evaluation.
[2019-08-24] MEDS: SODIUM CHLORIDE 0.9% INJ 10 ML SYR IV SCH ×2 (13:55→20:45)
[2019-08-24 14:00] VITALS: BP 98/56
[2019-08-24 14:41] LABS: APPEARANCE, BODY FLUID HAZY (CLEAR); PERITONEAL FL COLOR PALE YELLOW (COLORLESS); SOURCE, BODY FLUID PERITONEAL
[2019-08-24] MEDS: SODIUM CHLORIDE 0.9% INJ 10 ML SYR IV PRN (20:45)
[2019-08-24 22:00] VITALS: BP 104/64
--- NOTE | 2019-08-24 23:59 | CR ---
DATE OF CONSULTATION: 08/24/2019 REASON FOR CONSULTATION: Peritonitis. ATTENDING PHYSICIAN: Dr. Jordana Martin HISTORY OF THE PRESENT ILLNESS: Ms. Thornton is a 69-year-old female with a past medical history for end-stage renal disease, on peritoneal dialysis and a history of a failed kidney transplant, as well as recent Clostridium difficile infection that required fecal transplant. The patient presented to [facility] with a complaint of nausea, vomiting, and diarrhea for 3-4 days. She had stated that she was unable to keep anything down and had developed generalized weakness. At the time, the patient denied any fevers or chills. She did say she had some abdominal pain, which was associated with her nausea and vomiting. When she was admitted to the hospital, she was hypokalemic and had some episodes of vomiting. The patient received a stool culture, which was done on formed stool, which was positive for Clostridium difficile. Additionally, the patient was found to have an elevated white blood cell count of 20.5. The patient had received a analysis of her peritoneal fluid, which originally on 08/22/2019 had 21 white blood cells. However, on repeat on 08/23/2019, she had 582 and subsequently 974 with 98.1% neutrophils. The patient has complained about worsening abdominal pain and was subsequently given vancomycin and gentamicin through the peritoneal exchange for suspected peritonitis associated with her peritoneal dialysis. The patient has had repeat labs today. Her white blood cell count has gone from 62.9 to 49.1 today. Her blood cultures remained negative for any growth. Today, the patient states that she has continued abdominal pain. She states that she feels worse today than she did yesterday. She denies any vomiting; however, she continues to have nausea. She continues to have bowel movements; however, there is no diarrhea. This is formed stool with some mucus. PAST MEDICAL HISTORY: 1. End-stage renal disease, on peritoneal dialysis. 2. History of multiple squamous cell carcinoma lesions on multiple areas of the body with multiple resections. 3. Depression. 4. Hypertension. 5. Hyperlipidemia. 6. Anemia secondary to end-stage renal disease. 7. Recurrent Clostridium difficile colitis. 8. History of renal transplant. PAST SURGICAL HISTORY: 1. History of renal transplant with failure. 2. Hysterectomy. 3. Multiple squamous cell cancer lesions removal, most recently on the left neck. 4. Bilateral hip replacement. 5. Peritoneal dialysis catheter placement. 6. Bilateral s[place]ovia nephrectomies. 7. Fecal transplant times three. 8. Central line placement. ALLERGIES: The patient has an allergy to SULFA DRUGS, LACTOSE and MORPHINE. FAMILY HISTORY: Patient has a family history positive for hypertension, cerebrovascular disease in her father, and rheumatoid arthritis in her mother. SOCIAL HISTORY: The patient lives at home. She denies any history of tobacco abuse. She denies any illicit or IV drug use. She denies any alcohol abuse. REVIEW OF SYSTEMS: CONSTITUTIONAL: The patient denies any fevers, chills. She admits to weakness and fatigue. She denies any night sweats. HEENT: The patient denies any blurry vision. She denies any dysphagia, odynophagia. CARDIOVASCULAR: The patient denies any chest pain. She denies any palpitations or feelings of her heart racing. She denies any lightheadedness. RESPIRATORY: The patient denies any shortness of breath or coughing. GASTROINTESTINAL: The patient admits to nausea and vomiting. She admits to abdominal pain, which is diffuse. GENITOURINARY: The patient denies any dysuria. The patient states she does not make any urine. MUSCULOSKELETAL: The patient admits to weakness. SKIN: The patient admits to multiple skin lesions. She admits to a recent skin biopsy of her left neck. NEUROLOGIC: The patient admits to generalized weakness. She denies any changes in her speech or gait. PSYCHIATRIC: The patient admits to a history of depression. She denies any current anxiety. PHYSICAL EXAMINATION: VITAL SIGNS: Temperature 95.2, pulse 48, respiratory rate 18, blood pressure 98/56, pulse oximetry 100% on room air. GENERAL: Patient is awake, alert and oriented. She does not appear in acute distress. She does appear tired. She is lying in bed. HEENT: Atraumatic, normocephalic. Eyes are not icteric. Her trachea is midline. Mucous membranes are pink and moist. She has multiple precancerous lesions on her neck. She has an area of excision on her left neck. She has a central line placed on her left IJV. CARDIOVASCULAR: Normal S1, S2. There is a regular rate and rhythm. There are no clicks, rubs, or murmurs auscultated. RESPIRATORY: The patient has decreased breath sounds bilaterally, more so in the bases. There is good respiratory effort. There is no wheezes, rhonchi or rales. ABDOMEN: The patient abdomen is soft. It is nondistended. There are normoactive bowel sounds. She has diffuse tenderness. She had a peritoneal dialysis (PD) catheter in the left lower quadrant. The site is with slight erythema. EXTREMITIES: The patient has 1+ pitting edema in bilateral lower extremities. She has 2+ posterior tibial and radial pulses bilaterally. NEUROLOGIC: No focal neurologic deficits. SKIN: Multiple cancerous and precancerous skin lesions. There is a wound on her left neck, which is secondary to surgical excision. It is currently bandaged. LABORATORY DATA: Hematology: White blood cells 49.1, hemoglobin 10.6, hematocrit 35.3, platelet count 184. Chemistries: Sodium 137, potassium 4.1, chloride 100, carbon dioxide 26, BUN 49, creatinine 4.93, fasting glucose 71. Calcium 9.5. Magnesium 2.0. C-reactive protein 29.8. Peritoneal fluid: White blood cells 974, polymorphonuclear cells 98.1. Microbiology: AFB stain and culture, anaerobic cultures, aerobic cultures and fungal cultures currently pending. Left neck wound culture: Positive for Staphylococcus aureus. Gastrointestinal tract panel: Positive for Clostridium difficile. CURRENT INPATIENT ANTIBIOTICS: 1. Vancomycin 1 gram with PD exchanges. 2. Gentamicin 80 mg with PD exchanges. 3. Bacitracin ointment twice a day to left neck wound. 4. Bacid twice weekly 5. Dificid 200 mg twice a day by mouth. 6. Mupirocin twice a day, apply to PD catheter site. ASSESSMENT AND PLAN: 1. Peritonitis in the setting of peritoneal dialysis. Patient had originally a significant elevation in her white blood cell count of 62.9. Additionally, she had peritoneal dialysate demonstrating 974 white blood cells with neutrophil predominance of 98.1. She has been afebrile. She was given vancomycin and gentamicin through her PD exchange. Today, her white blood cell count has come down to 49.1. The patient still has an elevation in her C-reactive protein, and this will need to be trended. The plan is to continue vancomycin and gentamicin with her PD exchanges. Currently, aerobic and anaerobic as well as AFB staining and culturing, as well as fungal cultures have been added to patient's peritoneal fluid. Pending what culture shows, will tailor antibiotic therapy accordingly. Will repeat CRP on . If still elevated, will consider tailoring antibiotic therapy. 2. History of recurrent Clostridium difficile. The patient has a history of recurrent Clostridium difficile. Originally she had complained of diarrhea; however, she has not had any diarrhea in the hospital. Her stool has been formed. She had a gastrointestinal panel performed on formed stool, which was positive for Clostridium difficile, which is likely colonization. The patient has been placed on Dificid as well as Bacid in the setting that she is receiving antibiotics and she has a history of Clostridium difficile in the past. Will continue this therapy until the patient is off antibiotics. MTDD
[2019-08-25] MEDS: SODIUM CHLORIDE 0.9% INJ 10 ML SYR IV SCH ×3 (06:13→20:32)
[2019-08-25 08:04] LABS: APPEARANCE, BODY FLUID HAZY (CLEAR); SOURCE, BODY FLUID PERITONEAL
[2019-08-25 08:05] LABS: PERITONEAL FL COLOR PALE YELLOW (COLORLESS)
[2019-08-25 08:27] LABS: VANCOMYCIN RANDOM 17.4 UG/ML
[2019-08-25 08:46] LABS: HEMATOCRIT 34.1 % (36.0-47.0); HEMOGLOBIN 10.5 g/dl (12.0-15.5); MEAN CORPUSCULAR HEMOGLOBIN 34.2 pg (27.0-33.0); MEAN CORPUSCULAR HGB CONC 30.8 g/dl (32.0-36.5); MEAN CORPUSCULAR VOLUME 111.1 fl (80.0-96.0); PLATELET COUNT, AUTOMATED 174 10^3/uL (150-450); RED BLOOD COUNT 3.07 10^6/uL (4.00-5.40)
[2019-08-25 08:48] LABS: CALCIUM LEVEL 9.7 MG/DL (8.8-10.2); CREATININE FOR GFR 4.55 MG/DL (0.55-1.30); GLOMERULAR FILTRATION RATE 10.1 (>39); POTASSIUM SERUM 3.6 MEQ/L (3.5-5.1)
[2019-08-25 09:20] LABS: WHITE BLOOD COUNT 34.3 10^3/uL (4.0-10.0)
[2019-08-25] MEDS: LACTOBACILLUS ACIDOPHILUS CAP (BACID) PO SCH ×3 (10:03→18:29)
[2019-08-25] MEDS: DICYCLOMINE 10 MG CAP PO SCH ×3 (10:03→18:29)
[2019-08-25] MEDS: CALCITRIOL 0.25 MCG CAP (S0169) PO SCH (10:03)
[2019-08-25] MEDS: predniSONE 1 MG TAB PO SCH (10:03)
[2019-08-25] MEDS: FIDAXOMICIN 200 MG TAB (DIFICID) PO SCH ×2 (10:03→20:31)
[2019-08-25] MEDS: NEOSPORIN TOP OINT 15GM TOP SCH ×2 (10:04→20:32)
[2019-08-25] MEDS: MUPIROCIN 2% OINT 22 GM TUBE TOP SCH ×2 (10:04→20:31)
[2019-08-25] MEDS: BRIMONIDINE 0.1% OPHTH SOLN 5 ML OS SCH ×2 (10:04→20:33)
[2019-08-25] MEDS: BACITRACIN OINT 30GM TOP SCH ×2 (10:06→20:32)
--- NOTE | 2019-08-25 11:30 | IPNPDOC ---
Text Note Date of Service The patient was seen on 08/25/19. NOTE Subjective: Patient was examined at bedside. She was resting comfortably in bed, eating breakfast. She complained of generalized body pain. She also expressed a sense of sadness over her impending doom. Objective: Vitals (See below) General: Elderly, frail, female lying in bed, not agitated, sad expression on her face SKIN: Triple-lumen catheter placed on patient's right chest, no purulent drainage, PD catheter in place. No erythema around PD catheter, neck wounds appear to be well healing, CVS: S1 and S2 present, no murmurs, rubs or gallops Lungs: CTAP Abdomen: Soft, ND, +PD catheter, mild tenderness around PD catheter site, no drainage, no erythema Extremities: No calf tenderness, no edema Imaging: CXR 08/18: No acute cardiopulmonary findings. Assessment and plan: #Leukocytosis - secondary to peritonitis, secondary to C. difficile infection, 2/2 to neck wound infection, possibly 2/2 PD catheter insertion site, less likely 2/2 reactive etiology -Patient had elevated white count and peritoneal fluid, with elevated polymorphonucleocytes in peritoneal fluid, peritoneal cultures , acid-fast stain, mycobacterial culture, and anaerobic culture pending -Started on vancomycin and gentamicin for peritonitis with PDS change on 08/23/2019, we'll de-escalate as cultures become available - Blood cultures 08/21: Negative at 24 hours - Wound culture 08/20: S. Aureus, neck wound -Afebrile -Continues to have decreasing leukocytosis most recent measurement was 34.3, a decrease from 49.1 yesterday -Infectious disease consult #C. difficile - Multiple history of C. 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 - GI Panel 08/17: C Diff A/B, with formed stools ( treatment was pending symptoms) -On Friday patient was started on deficit due to mucous he diarrhea -Will continue deficit until patient is off vancomycin and gentamicin -Infectious disease consult #ESRD on PD - Nephrology on consultation -Peritoneal dialysis at bedside #Difficulty Swallowing - c/w modified diet as per speech therapy #Positive orthostatics - Resolved s/p Hypokalemia #Hypomagnesemia - Will supplement again Possible adrenal insufficiency - Has chronically been on prednisone since her kidney transplant - c/w Prednisone Hypertension - s/p Hydralazine - c/w Metoprolol Squamous cell carcinoma of the skin - Has had recent resections - c/w topical - Will have outpatient follow up with Dermatology s/p Mild LFTs elevation DVT prophylaxis - c/w TEDs / Sequentials Disposition -Pending infection resolution, and PT clearance ATTENDING NOTE I have personally evaluated and examined the patient. Discussed with residents and student regarding plan of care and agree with the above assessment and plan. VS,Fishbone, I+O VS, Fishbone, I+O Laboratory Tests 08/25/19 07:08 08/25/19 07:32 Vital Signs Date Time Temp Pulse Resp B/P (MAP) Pulse Ox O2 Delivery O2 Flow Rate FiO2 08/24/19 22:00 98.4 92 16 104/64 (77) 95 08/24/19 14:00 Room Air I&O- Last 24 Hours up to 6 AM 08/25/19 05:59 Intake Total 4450 ml Output Total 5100 ml Balance -650 ml GME ATTESTATION GME ATTESTATION My faculty preceptor for this patient encounter was physically present during the encounter and was fully available. All aspects of the patient interview, examination, medical decision making process, and medical care plan development were reviewed and approved by the faculty preceptor. The faculty preceptor is aware and concurs with the plan as stated in the body of this note and will attest to such by his/her cosignature. JIM MATHEW DO Aug 25, 2019 11:30 JORDYN GARCIA MD Aug 25, 2019 14:48
[2019-08-25 14:33] VITALS: BP 92/63
--- NOTE | 2019-08-25 19:50 | IPN ---
DATE: 08/25/2019 SUBJECTIVE: Apple is seen and examined this morning at the bedside. She continues to feel fatigued and generalized weakness, but she reports that her nausea is improved. She did not vomit today. She had toast and Nepro this morning. Her serum white blood cell (WBC) count and peritoneal dialysis (PD) cell count both show improvement. VITAL SIGNS: Temperature 97.6, pulse 86, respiratory rate 16, blood pressure 92/63, saturating 100% on room air. Review of intake and output yesterday shows net negative 600. Weight in the bed scale today is not recorded. GENERAL: The patient is seen sitting in bed. Head of bed elevated. Awake, alert, oriented. Appears tired and chronically ill appearing but in no acute distress. Extraocular muscles are intact. Tongue is moist. Neck is supple. Jugular veins are not elevated. There is a catheter present in the left chest. CARDIAC: S1, S2, regular rate and rhythm. LUNGS: Show clear air entry bilaterally. No crackle, rale, or rhonchus. ABDOMEN: Soft and diffusely minimally tender to palpation. There is PD fluid in situ. The lower extremities show pedal edema bilaterally. SKIN: Shows multiple skin lesions and local resections for history of recurrent skin cancer. NEUROLOGIC: She is oriented times three, interactive and conversational. PSYCHIATRIC: She is depressed. LABORATORY DATA: White count 34, hemoglobin 10.5, platelets 174. Sodium 136, potassium 3.6, bicarbonate 26, calcium 9.7, CRP 28. PD cell count: 792 WBC, of which 95% are polymorphs. Vancomycin random level 17. INPATIENT MEDICATIONS: She is ordered for 80 mg of gentamicin tonight with the PD exchange. Remainder medications are unchanged from prior. PROBLEMS: 1. Peritonitis associated with peritoneal dialysis. The patient continues on intraperitoneal vancomycin and intraperitoneal gentamicin with her over night PD exchange. Her vancomycin random level is therapeutic this morning. We will continue to check a daily random level, and we dosed the intraperitoneal vancomycin as indicated (random vancomycin level less than 15). She continues on gentamicin as well with her overnight exchange. Her PD cell count is slowly improving, but if it does not normalize within 5 days of antibiotic initiation, she will need the catheter to be removed. Her CRP and the serum WBC show improvement as well. Followup peritoneal fluid culture. She is also at risk for fungal peritonitis given the history of prolonged antibiotic use in the past; however, given her clinical improvement I am not going to empirically start Diflucan at present. 2 Ed-stage renal disease, on peritoneal dialysis. Continue current prescription, five exchanges, 1.5%, volume of 1 liter. Her electrolytes and volume status are acceptable. Continue intraperitoneal antibiotics, which are given with her overnight exchange. 3. Anemia of end-stage renal disease. Hemoglobin is optimal, and she continues on once weekly Aranesp. 4. History of Clostridium (C) difficile colitis. She has not had any recurrent flare. Her stools are formed; however, she is receiving intraperitoneal antibiotics because peritonitis, and she is at risk for flare-up of C. difficile. Infectious diseases is following her. She is on Dificid and Bacid. 5. Hypertension. She remains off of all antihypertensives, and her blood pressures are acceptable.
[2019-08-25 20:00] VITALS: BP 94/58
[2019-08-25] MEDS: SODIUM CHLORIDE 0.9% INJ 10 ML SYR IV PRN (20:32)
[2019-08-25] MEDS ORDERED: GENTAMICIN SULF INJ 80MG/2ML VIAL (J1580) IP ONE (22:00)
[2019-08-25] MEDS: ONDANSETRON 4 MG TAB (S0181) PO PRN (22:09)
[2019-08-26] VITALS (7 sets, daily range): BP systolic 63–104; BP diastolic 42–70
[2019-08-26] MEDS ORDERED: NS 500 ML IV ONE ×3 (01:30→14:15)
[2019-08-26] MEDS: SODIUM CHLORIDE 0.9% INJ 10 ML SYR IV SCH ×3 (06:33→23:26)
[2019-08-26 07:39] LABS: APPEARANCE, BODY FLUID HAZY (CLEAR); PERITONEAL FL COLOR PALE YELLOW (COLORLESS); SOURCE, BODY FLUID PERITONEAL
--- NOTE | 2019-08-26 07:40 | RO ---
DATE OF PROCEDURE: 08/23/2019 PREOPERATIVE DIAGNOSIS: Sepsis with absent IV access. POSTOPERATIVE DIAGNOSIS: Sepsis with absent IV access. PROCEDURE PERFORMED: Ultrasound guided insertion of a left subclavian vein triple-lumen central venous catheter. SURGEON: Dr. Raman [employer]: ANESTHESIA: Local with 1% Xylocaine. INDICATIONS FOR PROCEDURE: The patient is a 69-year-old woman with chronic renal failure on peritoneal dialysis. She has multiple medical issues and has developed evidence for an infection, possibly representing Clostridium difficile and possibly related to peritonitis associated with her peritoneal dialysis. She does not have any IV access and I was asked by the hospitalist, Dr. Wyman, to place a central line. OPERATIVE PROCEDURE: The patient was placed flat in her bed. The ultrasound probe was used to inspect the neck. Inspection of the right side of the neck reveals no evidence of an internal jugular vein. She was inspected with the bed in the Trendelenburg position. Inspection on the left appeared to show a small to medium sized internal jugular vein. The left side of the patient's neck and upper chest was prepped and draped sterilely. The ultrasound was used to identify the vein and after local anesthesia of 1% Xylocaine was achieved, I attempted to pass an 18 gauge needle into the vein without success. Following several attempts, I inspected the left subclavian area and there was also a vein identified in the usual anatomic location just inferior to the clavicle. Local anesthesia was achieved in this area and I was able to pass the 18 gauge needle into the subclavian vein using ultrasound guidance. The Guidewire was passed. A skin lou was made and the triple-lumen central venous catheter was inserted over the guidewire into the subclavian vein. This was advanced to approximately 16 cm at the skin. All lumens aspirated blood easily and were then flushed with saline. The suture wing was attached and this was sutured to the skin with two #2-0 silk sutures. A chlorhexidine gluconate OpSite dressing was applied. The patient tolerated the procedure well without apparent complication. A followup chest x-ray was obtained which showed no evidence of pneumothorax with good positioning of the catheter in the superior vena cava. [facility]
[2019-08-26 07:42] LABS: C REACTIVE PROTEIN QUANTITATIV 20.2 MG/DL (0.00-0.30); VANCOMYCIN RANDOM 12.8 UG/ML
[2019-08-26 08:53] LABS: HEMATOCRIT 32.3 % (36.0-47.0); HEMOGLOBIN 9.9 g/dl (12.0-15.5); MEAN CORPUSCULAR HEMOGLOBIN 33.9 pg (27.0-33.0); MEAN CORPUSCULAR HGB CONC 30.7 g/dl (32.0-36.5); MEAN CORPUSCULAR VOLUME 110.6 fl (80.0-96.0); PLATELET COUNT, AUTOMATED 150 10^3/uL (150-450); RED BLOOD COUNT 2.92 10^6/uL (4.00-5.40); WHITE BLOOD COUNT 27.3 10^3/uL (4.0-10.0)
[2019-08-26 08:57] LABS: CREATININE FOR GFR 4.21 MG/DL (0.55-1.30); GLOMERULAR FILTRATION RATE 11.1 (>39); POTASSIUM SERUM 3.3 MEQ/L (3.5-5.1)
[2019-08-26] MEDS: FIDAXOMICIN 200 MG TAB (DIFICID) PO SCH ×2 (09:06→21:00)
[2019-08-26] MEDS: predniSONE 1 MG TAB PO SCH (09:06)
[2019-08-26] MEDS: LACTOBACILLUS ACIDOPHILUS CAP (BACID) PO SCH ×3 (09:06→18:34)
[2019-08-26] MEDS: DICYCLOMINE 10 MG CAP PO SCH ×3 (09:06→18:34)
[2019-08-26] MEDS: CALCITRIOL 0.25 MCG CAP (S0169) PO SCH (09:06)
[2019-08-26] MEDS: BACITRACIN OINT 30GM TOP SCH ×2 (09:07→22:56)
[2019-08-26] MEDS: BRIMONIDINE 0.1% OPHTH SOLN 5 ML OS SCH ×2 (09:07→21:00)
[2019-08-26] MEDS: NEOSPORIN TOP OINT 15GM TOP SCH ×2 (09:08→22:57)
[2019-08-26] MEDS: MUPIROCIN 2% OINT 22 GM TUBE TOP SCH ×2 (09:08→22:58)
[2019-08-26] MEDS: SODIUM CHLORIDE 0.9% INJ 10 ML SYR IV PRN (09:47)
[2019-08-26] MEDS: ONDANSETRON 4 MG TAB (S0181) PO PRN (10:21)
--- NOTE | 2019-08-26 12:05 | IPNPDOC ---
Text Note Date of Service The patient was seen on 08/26/19. NOTE Subjective: Patient was examined where she was resting comfortably in bed. She had no specific complaints. Expressed a generalized sadness over her overall condition. She remained afebrile overnight. She was hypotensive overnight, as well as early this AM. Denied headaches, denied change in vision. Denies chest pain Objective: Vitals (See below) General: Elderly, frail, female lying in bed, not agitated, somewhat tearful during conversation SKIN: Triple-lumen catheter placed on patient's right chest, no purulent drainage, PD catheter in place. No erythema around PD catheter, neck wounds appear to be well healing, covered with bandage CVS: S1 and S2 present, no murmurs, rubs or gallops Lungs: No wheezing, no rhonchi, no rubs Abdomen: Soft, ND, +PD catheter, mild tenderness around PD catheter site, no drainage, no erythema Extremities: No calf tenderness, no edema Imaging: CXR 08/18: No acute cardiopulmonary findings. Assessment and plan: #Leukocytosis - secondary to peritonitis -Anaerobic, body fluid culture, negative so far, fungal smear pending, acid-fast stain pending, mycobacterial culture pending -Currently on vancomycin and gentamicin with PD cath exchange -Nephrology has added Diflucan empirically, due to patient's prior history of fungal peritonitis -Improving leukocytosis -Infectious disease consult -Afebrile #Hypotension -Overnight patient received 500 mL bolus of IV fluids due to hypotension. This morning, this was repeated. -Has improved with IV hydration #C. difficile - Multiple history of C. 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 - GI Panel 08/17: C Diff A/B, with formed stools ( treatment was pending symptoms) -On Friday patient was started on deficit due to mucous he diarrhea -Will continue deficit until patient is off vancomycin and gentamicin -Infectious disease consult #Hypokalemia -By mouth replenished #ESRD on PD - Nephrology on consultation -Peritoneal dialysis at bedside #Difficulty Swallowing - c/w modified diet as per speech therapy #Positive orthostatics - Resolved s/p Hypokalemia #Hypomagnesemia -Will monitor Possible adrenal insufficiency - Has chronically been on prednisone since her kidney transplant - c/w Prednisone Hypertension - s/p Hydralazine - c/w Metoprolol Squamous cell carcinoma of the skin - Has had recent resections - c/w topical - Will have outpatient follow up with Dermatology s/p Mild LFTs elevation DVT prophylaxis - c/w TEDs / Sequentials Disposition -Pending resolution of peritonitis and PT clearance ATTENDING NOTE I have personally evaluated and examined the patient. Discussed with residents and student regarding plan of care and agree with the above assessment and plan. VS,Fishbone, I+O VS, Fishbone, I+O Laboratory Tests 08/26/19 06:36 08/26/19 06:37 Vital Signs Date Time Temp Pulse Resp B/P (MAP) Pulse Ox O2 Delivery O2 Flow Rate FiO2 08/26/19 06:18 80/50 (60) 08/26/19 06:00 97.6 59 18 99 Room Air I&O- Last 24 Hours up to 6 AM 08/26/19 06:00 Intake Total 5680 ml Output Total 6050 ml Balance -370 ml GME ATTESTATION GME ATTESTATION My faculty preceptor for this patient encounter was physically present during the encounter and was fully available. All aspects of the patient interview, exa mination, medical decision making process, and medical care plan development were reviewed and approved by the faculty preceptor. The faculty preceptor is aware and concurs with the plan as stated in the body of this note and will attest to such by his/her cosignature. JIM MATHEW DO Aug 26, 2019 12:05 JORDYN GARCIA MD Aug 26, 2019 13:49
[2019-08-26] MEDS: DARBEPOETIN 100 MCG/0.5 ML *NON-DIALYSIS* SYRINGE (J0881) SC SCH (13:07)
[2019-08-26] MEDS: POTASSIUM CHLORIDE 10 MEQ SR TABLET PO SCH (13:10)
--- NOTE | 2019-08-26 13:43 | IPN ---
DATE: 08/26/2019 SATNAM Chiu is seen and examined this morning at the bedside. Reports her nausea is less than prior days. She has not vomited but her appetite remains poor. Blood pressures were soft this morning, systolic 70s to 80s, and she received a fluid bolus. Her blood work shows improvement in her WBC in the peritoneal dialysate along with an improvement in her leukocytosis. VITAL SIGNS: Temperature 97.6, pulse 59, respiratory rate 18, blood pressure ranging from systolic 80-102 and diastolic 50, saturating 99% on room air. Review of input and output yesterday shows net negative 700 mL. Weight on the bed scale today is 39.2 kg, which is decreased from prior. General: The patient is seen lying in bed, elderly female appears older than stated age, tired and chronically ill appearing but in no acute distress, awake, alert, oriented, conversational. Extraocular muscles are intact. Tongue is moist. Neck is supple. There is a dressing on the left side of the neck. There is catheter present there as well. Jugular veins are not elevated. CARDIAC: S1, S2. Regular rate and rhythm. Lungs show symmetric air entry bilaterally. No crackle, rale or rhonchus. Abdomen is soft and less tender to palpation. The PD catheter exit site has a dressing, she is having a PD exchange at present. The lower extremities show only pedal edema. Skin: Shows multiple skin lesions and local resections for history of recurrent skin cancer. Neurologic: She is oriented times three, interactive and conversational. Psychiatric: She is depressed. LABORATORIES: White count 27, hemoglobin 9.9, platelet 150, sodium 139, potassium 3.3, bicarbonate 27, CRP 20. Peritoneal fluid analysis shows WBCs of 360. INPATIENT MEDICATIONS: Inpatient medications reviewed by myself. She is ordered for intraperitoneal vancomycin 1 gram and intraperitoneal gentamicin 80 mg this evening. She received 1 liter normal saline bolus. She also received potassium chloride 40 mEq p.o. times one. PROBLEMS: 1. Peritonitis associated with peritoneal dialysis. The patient is clinically improving. Her serum WBCs and peritoneal WBCs continue to downward trend. Her vancomycin random level is subtherapeutic. She will get a dose of intraperitoneal vancomycin 1 gram this evening. She also continues on once daily intraperitoneal gentamicin with her over night PD exchange. Continue to check daily random vancomycin level. Her fluid cultures are pending. Her peritoneal fluid analysis should normalize within 5 days from initiation of antibiotics. Otherwise, we would have to consider PD catheter exchange. 2. End-stage renal disease on peritoneal dialysis. Continue current prescription, which is a very gentle prescription for minimal ultrafiltration and given her minimal oral intake. She is having five exchanges 1.5% volume of 1 liter each. Her blood pressure was soft and she received 1 liter of normal saline today. Continue intraperitoneal antibiotics as well as mentioned above with the PD exchange once per day. 3. Hypotension and she is already on a very gentle PD prescription for minimal ultrafiltration. Her oral intake has been not much. Primary team gave her normal saline. 4. Anemia of end-stage renal disease. She continues on once weekly Aranesp and her hemoglobin is acceptable. 5. Hypokalemia. She received oral supplementation. 6. History of Clostridium (C.) difficile colitis. She has not had any recurrent flare. She is receiving intraperitoneal antibiotics because of peritonitis. Infectious disease is following her. She continues on Dificid and Bacid.
[2019-08-26] MEDS ORDERED: VANCOMYCIN 1000 MG/20 ML VIAL (J3370) IP ONE ×2 (14:00→18:00)
[2019-08-26] MEDS ORDERED: GENTAMICIN SULF INJ 80MG/2ML VIAL (J1580) IP ONE ×2 (14:00→18:00)
[2019-08-26] MEDS: ACETAMINOPHEN 500 MG TAB PO PRN (22:50)
[2019-08-26] MEDS: MAALOX 30 ML SUSP *UDC PO PRN (22:50)
[2019-08-26] MEDS ORDERED: SUCRALFATE SUSP 1GM/10ML UD PO ONE (23:00)
[2019-08-26] MEDS ORDERED: PANTOPRAZOLE 40MG INJ (PROTONIX) (C9113) IV SCH (23:00)
[2019-08-26] MEDS ORDERED: NS 1,000 ML IV ONE (23:00)
[2019-08-26 23:13] LABS: HEMATOCRIT 33.2 % (36.0-47.0); HEMOGLOBIN 10.3 g/dl (12.0-15.5)
[2019-08-27] VITALS (16 sets, daily range): BP systolic 78–121; BP diastolic 42–57
[2019-08-27] MEDS ORDERED: HEPARIN SOD (PORCINE) 5000 UNITS/ML VIAL PD ONE (00:30)
[2019-08-27] MEDS: SODIUM CHLORIDE 0.9% INJ 10 ML SYR IV SCH ×3 (06:14→21:12)
[2019-08-27 06:45] LABS: HEMATOCRIT 32.5 % (36.0-47.0); MEAN CORPUSCULAR HGB CONC 30.8 g/dl (32.0-36.5); MEAN CORPUSCULAR VOLUME 110.5 fl (80.0-96.0); PLATELET COUNT, AUTOMATED 141 10^3/uL (150-450); RED BLOOD COUNT 2.94 10^6/uL (4.00-5.40); WHITE BLOOD COUNT 20.9 10^3/uL (4.0-10.0)
[2019-08-27 07:04] LABS: APPEARANCE, BODY FLUID CLOUDY (CLEAR); PERITONEAL FL COLOR PALE YELLOW (COLORLESS); SOURCE, BODY FLUID PERITONEAL
[2019-08-27 07:05] LABS: C REACTIVE PROTEIN QUANTITATIV 15.6 MG/DL (0.00-0.30); CALCIUM LEVEL 8.9 MG/DL (8.8-10.2); CREATININE FOR GFR 3.72 MG/DL (0.55-1.30); GLOMERULAR FILTRATION RATE 12.8 (>39); POTASSIUM SERUM 3.8 MEQ/L (3.5-5.1); VANCOMYCIN RANDOM 17.2 UG/ML
[2019-08-27] MEDS: CALCITRIOL 0.25 MCG CAP (S0169) PO SCH (08:39)
[2019-08-27] MEDS: FIDAXOMICIN 200 MG TAB (DIFICID) PO SCH ×2 (08:39→21:10)
[2019-08-27] MEDS: predniSONE 1 MG TAB PO SCH (08:39)
[2019-08-27] MEDS: POTASSIUM CHLORIDE 10 MEQ SR TABLET PO SCH (08:39)
[2019-08-27] MEDS: LACTOBACILLUS ACIDOPHILUS CAP (BACID) PO SCH ×3 (08:39→17:16)
[2019-08-27] MEDS: SODIUM CHLORIDE 0.9% INJ 10 ML SYR IV PRN ×2 (08:39→12:45)
[2019-08-27] MEDS: PANTOPRAZOLE 40MG INJ (PROTONIX) (C9113) IV SCH ×2 (08:40→21:10)
[2019-08-27] MEDS: DICYCLOMINE 10 MG CAP PO SCH ×3 (08:41→17:16)
[2019-08-27] MEDS: BRIMONIDINE 0.1% OPHTH SOLN 5 ML OS SCH ×2 (09:00→21:11)
[2019-08-27] MEDS: NEOSPORIN TOP OINT 15GM TOP SCH ×2 (09:00→21:11)
[2019-08-27] MEDS: BACITRACIN OINT 30GM TOP SCH ×2 (09:00→21:12)
[2019-08-27] MEDS: MUPIROCIN 2% OINT 22 GM TUBE TOP SCH ×2 (09:00→21:11)
--- NOTE | 2019-08-27 12:28 | REP ---
CT ABDOMEN AND PELVIS WITH IV CONTRAST: HISTORY: Sepsis, suspect intra-abdominal process. COMPARISON: CT study, August 22, 2019. CT FINDINGS: Preliminary digital cavalry scout radiograph demonstrates peritoneal dialysis catheter in the pelvis and bilateral femoral intramedullary rods and hip pins. Bowel gas pattern is unremarkable. On axial CT images, there are bilateral pleural effusions again noted, essentially unchanged. There is a tiny quantity of pericardial fluid. There is mild diffuse abdominal ascites. This is similar in extent. Peritoneal dialysis catheter is again noted in the pelvis surrounded by ascitic fluid. No walled off for loculated fluid collection is appreciated. No new liver lesion is seen. Heterogeneous low density calcified lesion in the right lobe of the liver again seen, unchanged. No adrenal lesion is observed. A slit-like inferior vena cava is seen, consistent with hypovolemia, although this is also unchanged. The bois forte kidneys are absent. There is high-density contrast in the colon from previously administered oral contrast. No small or large bowel lesion is seen. There is no evidence of obstruction. No free air is appreciated. There is redundant colon at a rectosigmoid anastomosis as previously visible. Extensive vascular calcifications noted. No abdominal wall defect is seen. IMPRESSION: Mild diffuse ascites. Peritoneal dialysis catheter, as before. Small bilateral pleural effusions again noted. No evidence of free air or obstruction. No acute change from August 22, 2019. Electronically Signed by Hamzah Oliver MD 08/27/2019 12:37 P
[2019-08-27] MEDS: MEROPENEM INJ 1 GM in IV 1 EA IV SCH (12:46)
--- NOTE | 2019-08-27 13:11 | IPNPDOC ---
Text Note Date of Service The patient was seen on 08/27/19. NOTE Subjective: Overnight patient became hypotensive with a measure BP of 63/42 and was given 1 liter bolus of fluid. This mornning she complained of generalized pain and having a fear that she was going to . She continues to be afebrile, with decreasing WBC. She is currently on Objective: Vitals (See below) General: Elderly, frail, female lying in bed, not agitated, somewhat tearful during conversation SKIN: Triple-lumen catheter placed on patient's right chest, no purulent drainage, PD catheter in place. No erythema around PD catheter, neck wounds appear to be well healing, covered with bandage CVS: S1 and S2 present, no murmurs, rubs or gallops Lungs: No wheezing, no rhonchi, no rubs Abdomen: Soft, ND, +PD catheter, mild tenderness around PD catheter site, no drainage, no erythema Extremities: No calf tenderness, no edema Imaging: CXR 08/18: No acute cardiopulmonary findings. CT abdomen and Pelvis: Mild diffuse ascites. Peritoneal dialysis catheter, as before. Small bilateral pleural effusions again noted. No evidence of free air or obstruction. No acute change from August 22, 2019 Assessment and plan: #Sepsis secondary to peritonitis -[place] [address] -She had been on gentamicin and vancomycin, with downtrending WBCs in the peritoneal fluid. Patient has also continued to require IV fluid hydration due to hypertension -Body fluid, anaerobic cultures, acid-fast stain, mycobacterial culture, fungal smear and fungal culture. Due to elevated WBC on peritoneal fluid. Prior cultur es have been negative. -Started on meropenem for broad coverage by ID -ID added Diflucan for fungal infection -CT of the abdomen did not show any specific abnormalities, patient might require catheter exchange -CRP treading down -Afebrile #Secondary to sepsis Hypotension -Patient is currently unresponsive to fluids -Transferred to ICU, in the event. Patient requires vasopressors #C. difficile - Multiple history of C. 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 - GI Panel 08/17: C Diff A/B, with formed stools ( treatment was pending symptoms) -On Friday patient was started on deficit due to mucous he diarrhea -Will continue deficit until patient is off vancomycin and gentamicin -Infectious disease consult #Hypokalemia -By mouth replenished #ESRD on PD - Nephrology on consultation -Peritoneal dialysis at bedside #Difficulty Swallowing - c/w modified diet as per speech therapy #Positive orthostatics - Resolved s/p Hypokalemia #Hypomagnesemia -Will monitor Possible adrenal insufficiency - Has chronically been on prednisone since her kidney transplant - c/w Prednisone Hypertension - s/p Hydralazine - c/w Metoprolol Squamous cell carcinoma of the skin - Has had recent resections - c/w topical - Will have outpatient follow up with Dermatology s/p Mild LFTs elevation DVT prophylaxis - c/w TEDs / Sequentials Disposition -Pending clinical improvement ATTENDING NOTE I have personally evaluated and examined the patient. Discussed with residents and student regarding plan of care and agree with the above assessment and plan. VS,Fishbone, I+O VS, Fishbone, I+O Laboratory Tests 08/26/19 23:06 08/27/19 06:20 Vital Signs Date Time Temp Pulse Resp B/P (MAP) Pulse Ox O2 Delivery O2 Flow Rate FiO2 08/27/19 00:00 100 121/56 (77) 08/26/19 22:00 96.8 16 92 08/26/19 14:00 Room Air I&O- Last 24 Hours up to 6 AM 08/27/19 06:00 Intake Total 5270 ml Output Total 5450 ml Balance -180 ml GME ATTESTATION GME ATTESTATION My faculty preceptor for this patient encounter was physically present during the encounter and was fully available. All aspects of the patient interview, examination, medical decision making process, and medical care plan development were reviewed and approved by the faculty preceptor. The faculty preceptor is aware and concurs with the plan as stated in the body of this note and will attest to such by his/her cosignature. JIM MATHEW DO Aug 27, 2019 13:11 JORDYN GARCIA MD Aug 27, 2019 19:24
[2019-08-27] MEDS ORDERED: NS 500 ML IV ONE (14:30)
--- NOTE | 2019-08-27 14:41 | IPN ---
DATE: 08/27/2019 SATNAM Chiu is seen and examined this morning at the bedside. Her peritoneal cell count skyrocketed with WBCs yesterday being 360 and today being in excess of 10,000. The patient has also been progressively hypotensive requiring normal saline fluid bolus. She is complaining this morning of chills and rigors and complains of pain with bowel movement, otherwise denies any nausea or vomiting today. She has not had issues with the PD exchange except for some fibrin, for which she received intraperitoneal heparin. She received vancomycin and gentamicin with her exchange yesterday evening. PHYSICAL EXAMINATION: Temperature 96.8, pulse 104, respiratory rate 16, blood pressure 121/56, saturating 92-98% on room air. Review of input and output yesterday shows positive 700 mL. Weight on the bed scale today is not recorded. General: The patient is seen lying in bed, elderly female, frail, appears older than stated age, having chills and rigors. Extraocular muscles are intact. Tongue is moist. Neck is supple. Jugular veins are not elevated. There is a central line present in the left. Cardiac: S1, S2. Regular rate and rhythm. Lungs: Show symmetric air entry bilaterally. No crackle, rale or rhonchus. Abdomen is soft. There is a peritoneal dialysis fluid in situ. Extremities: The lower extremities show 1+ edema. Dusky fingertips and toes. Skin: Shows multiple skin lesions and local resections. Neurologic: She is oriented times three, interactive and conversational. Psychiatric: She is depressed and tearful. LABORATORIES: PD fluid 10,573 WBCs, sodium 141, potassium 3.8, CRP 15, hemoglobin 10.0, WBC in the serum 20, platelet 141. INPATIENT MEDICATIONS: She was started on meropenem 1 gram IV daily by infectious diseases. She received 1500 mL normal saline bolus. She received vancomycin and gentamicin with yesterday's exchange. Her random vancomycin level is therapeutic at 17. She is on Protonix 40 mg IV twice a day and she also received one-time dose of Carafate. Remainder medications are unchanged from prior. PROBLEMS: 1. Sepsis, presumed source is peritonitis associated with peritoneal dialysis. The patient has become progressively more hypotensive, required 1.5 liters normal saline bolus over night. Her peritoneal cell count showed a significant up tic in the fluid WBCs from 360 yesterday to greater than 10,000 today, this is despite her getting intraperitoneal vancomycin and gentamicin and despite the decrease in serum WBCs and a decrease in CRP. I am concerned that there is something else going on in her abdomen. She is ordered for a CT scan of the abdomen and pelvis. If there is further hemodynamic instability, she should be started on pressor support. I am also ordering repeat blood cultures and lactic acid. She was having notable chills and rigors at the time of my visit today. Infectious disease has also started her on once daily meropenem. 2. Peritonitis associated with peritoneal dialysis. She has been receiving intraperitoneal vancomycin and gentamicin. Her vancomycin random level is therapeutic. Her peritoneal fluid analysis shows significant up tic in WBC despite decreasing serum WBC and CRP. Repeat cultures have been sent for PD fluid and blood culture. CT scan is ordered. Her PD catheter may need to be exchanged if no other etiology is found. 3. End-stage renal disease on peritoneal dialysis. She is having minimal oral intake and hence she is on a very gentle prescription of 1.5% Dianeal for five exchanges daily 1 liter each. She appears hypovolemic. She is getting IV fluid bolus. She is receiving once daily intraperitoneal antibiotics as well. She did have some fibrin with her over night exchange and she received heparin with the next exchange. 4. Hypotension. She has been off of all her antihypertensives for a few days. She has been receiving normal saline bolus. If her hemodynamic instability persists, she would need to start pressor support.
--- NOTE | 2019-08-27 15:55 | IPN ---
DATE: 08/27/2019 SUBJECTIVE: Ms. Thornton was seen this morning. She currently states that her abdominal pain has some improvement. She currently denies any diarrhea but she still complains of nausea. It appears her white blood cell count remains elevated although has decreased from previously today up 20.9. Her peritoneal fluid however demonstrated 10,574 white blood cells, which is a significant increase from yesterday. Additionally, the patient had some hypotension this morning with a blood pressure of 73/42. She had received a 1 liter normal saline bolus. She has remained afebrile. She is slightly tachycardic with a heart rate of 104. The patient has received additional cultures on her peritoneal fluid today with fungal smears and cultures, AFB smear and culture, and aerobic and anaerobic cultures. Additionally, the patient was started on meropenem 1 gram every 24 hours in addition to her vancomycin and gentamicin. OBJECTIVE: Vital signs: Temperature 96.8, pulse 100, respiratory rate 16, blood pressure 121/56, pulse oximetry 92% on room air. GENERAL: The patient is awake, alert. She is oriented. She does not appear in acute distress. She is lying in bed. She states that her belly is somewhat uncomfortable. HEENT: Atraumatic, normocephalic. The patient's eyes are nonicteric. Her trachea is midline. Mucous membranes appear pink and moist. She has multiple precancerous lesions on her neck, legs. She has an area of excision on her left neck, which is currently bandaged. She has a central line placed in her left internal jugular vein. CARDIOVASCULAR: Normal S1, S2. She is slightly tachycardic with a regular rhythm. No clicks, rubs or murmurs appreciated. RESPIRATORY: The patient continues to have decreased breath sounds bilaterally, more so in the bases, also some fine crackles. There is good respiratory effort. There are no wheezes or rhonchi. Symmetric chest expansion. ABDOMEN: The patient's abdomen is soft. There is mild distention. Normoactive bowel sounds. She has a peritoneal dialysis catheter in place in the left lower quadrant with surrounding erythema. There is diffuse tenderness. There is tenderness over her PD catheter site EXTREMITIES: The patient has continued 1+ pitting edema in the bilateral lower extremities. She has 2+ posterior tibial and radial pulses bilaterally. NEUROLOGIC: No focal neurologic deficits. INTEGUMENTARY: The patient has multiple cancerous and precancerous skin lesions on her bilateral lower extremities, as well as on her arms and on her neck. She has a wound on her left neck that is currently bandaged. LABORATORY DATA: Hematology: White blood cells 20.9, hemoglobin 10.0, hematocrit 32.5, platelet count 141. Chemistry: Sodium 141, potassium 3.8, chloride 107, CO2 of 24, BUN 40, creatinine 3.72, fasting glucose 73, calcium 8.9. C-reactive protein 15.6. Microbiology: Peritoneal dialysate fluid: White blood cells 66841, polymorphic nuclear cell percentage 94.0, peritoneal color is pale yellow, peritoneal appearance is cloudy. Blood cultures: Anaerobic, aerobic, AFB cultures and stain and fungal smear and cultures are currently pending. Gram-stain of peritoneal fluid from admission demonstrated preliminary growth, report currently pending. IMAGING: Abdominal and pelvis CT demonstrated mild diffuse ascites, peritoneal dialysis catheter in place with small bilateral pleural effusions. There is no evidence of free air or obstruction. No acute change from 08/22/2019 reading. CURRENT INPATIENT ANTIBIOTICS: - vancomycin 1 gram with peritoneal dialysis exchanges - gentamicin 80 mg with peritoneal dialysis exchanges - meropenem 1 gram IV every 24 hours - bacitracin ointment twice a day to her left neck wound - Bacid twice weekly - Dificid 200 mg twice a day - mupirocin twice a day to peritoneal dialysis catheter site ASSESSMENT AND PLAN: 1. Peritonitis in the setting of peritoneal dialysis. The patient has continued elevation in white blood cell count, although trending down. Her peritoneal dialysate this [place] [address]. She appears to be slightly tachycardic and hypotensive. The patient received a CT of the abdomen and pelvis to assess for possible other causes for her elevation in white count, such as ruptured diverticula. Her CT imaging only demonstrated mild diffuse ascites and small bilateral pleural effusions but with no significant changes from her previous imaging on 08/22/2019. Given the patient's elevated white blood cell count in her peritoneal dialysate, she was started on meropenem 1 gram every 24 hours. We will also continue the patient on vancomycin and gentamicin with her peritoneal dialysis exchanges. The patient's C-reactive protein is slightly decreased today from previously. We will continue to trend. Given the patient's increase in white blood cell count in her peritoneal dialysate, she will need to have her peritonea dialysis catheter removed as this may be a source of her infection as well. 2. Hypotension. She has received 1 liter of normal saline bolus. 3. History of recurrent Clostridium (C.) difficile. The patient has a history of Clostridium (C.) difficile. She currently does not complain of any diarrhea. Her original gastrointestinal panel was performed on formed stool. Given her history, she is started on Dificid and Bacid, as she is currently receiving vancomycin and gentamicin. Unfortunately, the patient's peritoneal dialysate continues to show elevated white blood cell count and therefore she was started on meropenem. We will continue Dificid and Bacid given that she is now on broad spectrum antibiotic. The patient will be continued on this therapy until her antibiotics are discontinued. PLAN: Continue patient on Vancomycin and Gentamicin with PD exchanges. Patient will be started on Meropenem 1g q24h. She will need her PD catheter removed as it may be the source of her infection MTDD
[2019-08-27] MEDS: HYDROCORTISONE 100 MG/2 ML VIAL (J1720 PER 1) IV SCH ×2 (17:16→23:19)
[2019-08-27] MEDS ORDERED: SODIUM CHLORIDE 0.9% 1000ML IV ONE (17:30)
[2019-08-27] MEDS: FLUCONAZOLE 200 MG in IV 1 EA IV SCH (17:39)
[2019-08-27] MEDS: ONDANSETRON 4 MG TAB (S0181) PO PRN (20:12)
[2019-08-28] VITALS (38 sets, daily range): BP systolic 76–127; BP diastolic 39–61
[2019-08-28] MEDS ORDERED: NOREPINEPHRINE 4 MG/4 ML AMP As Ordered ONE (02:16)
[2019-08-28] MEDS: NOREPINEPHRINE BITARTRATE 16 MG in D5W 484 ML IV SCH (03:56)
[2019-08-28] MEDS ORDERED: GENTAMICIN SULF INJ 80MG/2ML VIAL (J1580) IP ONE (05:00)
[2019-08-28] MEDS: SODIUM CHLORIDE 0.9% INJ 10 ML SYR IV SCH ×3 (05:18→22:28)
[2019-08-28 05:22] LABS: HEMATOCRIT 30.3 % (36.0-47.0); HEMOGLOBIN 9.3 g/dl (12.0-15.5); MEAN CORPUSCULAR HEMOGLOBIN 34.4 pg (27.0-33.0); MEAN CORPUSCULAR HGB CONC 30.7 g/dl (32.0-36.5); MEAN CORPUSCULAR VOLUME 112.2 fl (80.0-96.0); PLATELET COUNT, AUTOMATED 129 10^3/uL (150-450); WHITE BLOOD COUNT 15.6 10^3/uL (4.0-10.0)
[2019-08-28 05:40] LABS: APPEARANCE, BODY FLUID HAZY (CLEAR); PERITONEAL FL COLOR COLORLESS (COLORLESS); SOURCE, BODY FLUID PERITONEAL
[2019-08-28 05:53] LABS: C REACTIVE PROTEIN QUANTITATIV 19.7 MG/DL (0.00-0.30); CALCIUM LEVEL 9.1 MG/DL (8.8-10.2); CREATININE FOR GFR 3.43 MG/DL (0.55-1.30); POTASSIUM SERUM 4.8 MEQ/L (3.5-5.1); VANCOMYCIN RANDOM 14.7 UG/ML
[2019-08-28] MEDS: FIDAXOMICIN 200 MG TAB (DIFICID) PO SCH ×2 (09:20→20:27)
[2019-08-28] MEDS: LACTOBACILLUS ACIDOPHILUS CAP (BACID) PO SCH ×3 (09:20→17:00)
[2019-08-28] MEDS: BRIMONIDINE 0.1% OPHTH SOLN 5 ML OS SCH ×2 (09:21→20:27)
[2019-08-28] MEDS: DICYCLOMINE 10 MG CAP PO SCH ×3 (09:21→17:00)
[2019-08-28] MEDS: HYDROCORTISONE 100 MG/2 ML VIAL (J1720 PER 1) IV SCH ×3 (09:21→23:00)
[2019-08-28] MEDS: PANTOPRAZOLE 40MG INJ (PROTONIX) (C9113) IV SCH ×2 (09:21→20:27)
[2019-08-28] MEDS: CALCITRIOL 0.25 MCG CAP (S0169) PO SCH (09:21)
[2019-08-28] MEDS: predniSONE 1 MG TAB PO SCH (09:21)
[2019-08-28] MEDS: BACITRACIN OINT 30GM TOP SCH ×2 (09:22→20:28)
[2019-08-28] MEDS: MUPIROCIN 2% OINT 22 GM TUBE TOP SCH ×2 (09:22→20:27)
[2019-08-28] MEDS: NEOSPORIN TOP OINT 15GM TOP SCH ×2 (09:23→20:27)
--- NOTE | 2019-08-28 10:40 | IPNPDOC ---
Text Note Date of Service The patient was seen on 08/28/19. NOTE Subjective: Patient was examined in the ICU this morning. She stated that her abdominal pain has completely resolved. Overnight due to patient's hypotensive episodes. She was started on Levophed. She has been able to maintain adequate although soft blood pressure. She denied any chest pain. Denied abdominal pain. Her leukocytosis continues to trend down Objective: Vitals (See below) General: Elderly, frail, female lying in bed, very pleasant this morning SKIN: Triple-lumen catheter placed on patient's right chest, no purulent drainage, PD catheter in place. CVS: S1 and S2 present, no murmurs, rubs or gallops Lungs: No wheezing, no rhonchi, no rubs Abdomen: Soft, ND, +PD catheter, mild tenderness around PD catheter site, no drainage, no erythema Extremities: no edema. No tenderness CXR 08/18: No acute cardiopulmonary findings. CT abdomen and Pelvis: Mild diffuse ascites. Peritoneal dialysis catheter, as before. Small bilateral pleural effusions again noted. No evidence of free air or obstruction. No acute change from August 22, 2019 Assessment and plan: #Sepsis secondary to peritonitis - Peritoneal fluid continues to have decreasing leukocytosis - Continues gentamicin and vancomycin, - Pending peritoeal fluids cultures and gram stain. -Started on meropenem for broad coverage by ID -ID added Diflucan for fungal infection -CT of the abdomen did not show any specific abnormalities, patient might require catheter exchange -CRP treading down -Afebrile #Adrenal crisis -Patient has been on prednisone 40 mg for the last few years. This was discontinue by nephrology today. She was given hydrocortisone 50 mg IV q8h #Secondary to sepsis Hypotension -Patient is currently unresponsive to fluids -Transferred to ICU, in the event. Patient requires vasopressors #C. difficile - Multiple history of C. 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 - GI Panel 08/17: C Diff A/B, with formed stools ( treatment was pending symptoms) -On Friday patient was started on deficit due to mucous he diarrhea -Will continue deficit until patient is off vancomycin and gentamicin -Infectious disease consult #Hypokalemia -By mouth replenished #ESRD on PD - Nephrology on consultation -Peritoneal dialysis at bedside #Difficulty Swallowing - c/w modified diet as per speech therapy #Positive orthostatics - Resolved s/p Hypokalemia #Hypomagnesemia -Will monitor Possible adrenal insufficiency - Has chronically been on prednisone since her kidney transplant - c/w Prednisone Hypertension - s/p Hydralazine - c/w Metoprolol Squamous cell carcinoma of the skin - Has had recent resections - c/w topical - Will have outpatient follow up with Dermatology s/p Mild LFTs elevation DVT prophylaxis - c/w TEDs / Sequentials Disposition -Pending clinical improvement ATTENDING NOTE I have personally evaluated and examined the patient. Discussed with residents and student regarding plan of care and agree with the above assessment and plan. VS,Fishbone, I+O VS, Fishbone, I+O Laboratory Tests 08/28/19 05:01 Vital Signs Date Time Temp Pulse Resp B/P (MAP) Pulse Ox O2 Delivery O2 Flow Rate FiO2 08/28/19 06:41 115 92/53 (66) Room Air 08/28/19 04:00 96.6 16 97 I&O- Last 24 Hours up to 6 AM 08/28/19 06:00 Intake Total 6153.8 ml Output Total 5960 ml Balance 193.8 ml JIM MATHEW DO Aug 28, 2019 10:40 JORDYN GARCIA MD Aug 28, 2019 15:16
[2019-08-28] MEDS: MEROPENEM INJ 1 GM in IV 1 EA IV SCH (12:52)
[2019-08-28] MEDS: MAALOX 30 ML SUSP *UDC PO PRN (12:53)
[2019-08-28] MEDS: FLUCONAZOLE 200 MG in IV 1 EA IV SCH (17:00)
--- NOTE | 2019-08-28 17:24 | IPN ---
DATE: 08/28/2019 Mrs. Thornton is seen this morning on her bedside in intensive care unit. She is feeling much better today and is lying in her bed with head elevated at about 45 degrees. She reports that her abdominal pain has improved, and she was able to drink and also eat a small amount. She denies any dyspnea or chest pain. She has no fever or chills. She was hypotensive yesterday, and for a short period of time Levophed was started; however, this morning she is off Levophed. She was also given fluid boluses yesterday due to low blood pressure. Her peritoneal dialysis has been functioning, and she continues to receive antibiotics for peritonitis. Peritoneal dialysis fluid had a cell count of 10,573 yesterday, which has come down to 4530 today. The patient was given stress-dose steroids last evening due to the long-term use of steroids and hypotension in the setting of acute infection. PHYSICAL EXAMINATION: Temperature 97.9 degrees Fahrenheit, heart rate 118 per minute, respiratory rate 18 per minute, blood pressure is now up to 92/55 mm of mercury, and oxygen saturation 97% on room air. She is pale but not in any acute distress. She is frail looking and able to have a conversation. She feels that yesterday she was not in good spirits, but today she feels much better. She has no oral thrush or ulcers. She has multiple chronic skin lesions and scars from prior surgeries. Neck is supple and without jugular venous distention (JVD) or thyroid enlargement. Heart sounds are tachycardiac and without a pericardial friction rub. Lungs with diminished breath sounds at bases. Abdomen soft and tender all over. Bowel sounds are hypoactive. Peritoneal dialysis catheter is intact. Extremities have no cyanosis or clubbing. She has significant muscle wasting on all her limbs. She has small ischemic ulcers on her toes and feet. Neurologically, she is awake, alert, and oriented times three. Today's labs show a peritoneal dialysis cell count of 4530. Culture is still pending. Sodium is 141, potassium 4.8, CO2 of 23, BUN 35, and creatinine 3.43. Glucose is 100 and calcium 9.1. C-reactive protein went up to 19.7 from 15.6 yesterday. She also had a lactic acid level of 4.0 late afternoon yesterday, which is only down to 3.9 at around midnight. On the CBC, her white cell count is 15.6, hemoglobin 9.3, and hematocrit 30.3. Platelets 129. PROBLEMS: 1. Peritonitis. The patient has been on intraperitoneal antibiotics and intravenous antibiotics. We will continue with the current therapy pending repeat cultures. Her peritoneal fluid cell count was doing very well with 360 on August 26, while yesterday it increased to 10,573. A CT scan of abdomen and pelvis was done, which did not show any acute perforation or fluid collection other than her peritoneal fluid. At this point, we will continue with antibiotic therapy and monitor her peritoneal fluid cell count on a daily basis. Seems to have some improvement today. 2. Hypotension. Her blood pressure was low yesterday, and she was on pressors for a short period of time. Her blood pressure did improve with fluid boluses. I am going to start her on intravenous albumin 12.5 grams every 12 hours. Her serum albumin has been very low, 1.3 on August 24. We will recheck her albumin level again tomorrow. We will continue with IV albumin 12.5 grams every 12 hours for 3 days. The patient signed the consent for it. 3. Anemia. Her anemia is stable at this point and does not need any urgent intervention. 4. End-stage renal disease. The patient continues with peritoneal dialysis, which she likes to continue. I am not sure that she will be a suitable candidate for hemodialysis, so we will try to preserve her peritoneal dialysis catheter as long as possible and treat the infection. 5. Sepsis. She seems to be doing better and remains on multiple antibiotics, including intraperitoneal gentamicin and vancomycin and intravenous meropenem.
[2019-08-28] MEDS: ONDANSETRON 4 MG TAB (S0181) PO PRN (22:27)
[2019-08-29] VITALS (18 sets, daily range): BP systolic 97–127; BP diastolic 50–63
[2019-08-29] MEDS: NOREPINEPHRINE BITARTRATE 16 MG in D5W 484 ML IV SCH (03:00)
[2019-08-29] MEDS: SODIUM CHLORIDE 0.9% INJ 10 ML SYR IV SCH ×3 (05:29→21:12)
[2019-08-29 05:56] LABS: HEMATOCRIT 25.5 % (36.0-47.0); HEMOGLOBIN 7.9 g/dl (12.0-15.5); MEAN CORPUSCULAR HEMOGLOBIN 34.6 pg (27.0-33.0); MEAN CORPUSCULAR VOLUME 111.8 fl (80.0-96.0); RED BLOOD COUNT 2.28 10^6/uL (4.00-5.40)
[2019-08-29 06:09] LABS: PLATELET COUNT, AUTOMATED 95 10^3/uL (150-450)
[2019-08-29 06:18] LABS: C REACTIVE PROTEIN QUANTITATIV 12.1 MG/DL (0.00-0.30); CREATININE FOR GFR 3.42 MG/DL (0.55-1.30); GLOMERULAR FILTRATION RATE 14.1 (>39); POTASSIUM SERUM 3.9 MEQ/L (3.5-5.1)
[2019-08-29] MEDS: MUPIROCIN 2% OINT 22 GM TUBE TOP SCH ×2 (08:54→20:34)
[2019-08-29] MEDS: BACITRACIN OINT 30GM TOP SCH ×2 (08:54→20:35)
[2019-08-29] MEDS: NEOSPORIN TOP OINT 15GM TOP SCH ×2 (08:54→20:35)
[2019-08-29] MEDS: BRIMONIDINE 0.1% OPHTH SOLN 5 ML OS SCH ×2 (08:54→20:34)
[2019-08-29] MEDS: predniSONE 1 MG TAB PO SCH (08:55)
[2019-08-29] MEDS: HYDROCORTISONE 100 MG/2 ML VIAL (J1720 PER 1) IV SCH ×2 (08:55→21:10)
[2019-08-29] MEDS: LACTOBACILLUS ACIDOPHILUS CAP (BACID) PO SCH ×3 (08:55→18:07)
[2019-08-29] MEDS: DICYCLOMINE 10 MG CAP PO SCH ×3 (08:55→18:07)
[2019-08-29] MEDS: FIDAXOMICIN 200 MG TAB (DIFICID) PO SCH ×2 (08:55→21:11)
[2019-08-29] MEDS: PANTOPRAZOLE 40MG INJ (PROTONIX) (C9113) IV SCH ×2 (08:55→21:10)
[2019-08-29] MEDS: CALCITRIOL 0.25 MCG CAP (S0169) PO SCH (08:58)
[2019-08-29 09:30] LABS: VANCOMYCIN LEVEL TROUGH 13.6 UG/ML (10.0-20.0)
[2019-08-29 11:09] LABS: SOURCE, BODY FLUID PERITONEAL DIALYSATE
[2019-08-29 11:10] LABS: APPEARANCE, BODY FLUID CLOUDY (CLEAR)
[2019-08-29 11:11] LABS: PERITONEAL DIALYSATE FL COLOR PALE YELLOW (COLORLESS)
[2019-08-29] MEDS: MEROPENEM INJ 1 GM in IV 1 EA IV SCH (11:51)
--- NOTE | 2019-08-29 12:04 | IPNPDOC ---
Date Seen The patient was seen on 08/29/19. Progress Note SUBJECTIVE: Patient was in moderate discomfort this morning from back and multiple joint pains but otherwise has no other complaints. BP improved to 100-110s, off of pressor. Was started on albumin yesterday. HR 90-100s. Afebrile, leukocytosis resolved WBC 15-> 9.0. Peritoneal WBC up to 6100 from 4500. OBJECTIVE PHYSICAL EXAMINATION: VITAL SIGNS: Please see below. General: moderate distress, Alert Eyes: Normal sclera, EOMI HENT: Atraumatic Cardiovascular:Borderline tachycardia Pulmonary: Clear to auscultation b/l, no wheezing GI: Soft, generalized tenderness. PD catheter in place. Skin: Warm and dry Neuro: CN grossly intact. No focal deficits. LABORATORY DATA, IMAGING STUDIES, MICROBIOLOGY: Please see below. DVT prophylaxis ordered?: TEDs ASSESSMENT AND PLAN: 1. Peritonitis - c/w intraperitoneal and IV antibiotics. - c/w gentamicin, meropenem and vancomycin. - Peritoneal fluid WBCs fluctuating, today to >6000. - Previous CT does not show other acute pathology. c/w daily peritoneal cell count. 2. Hypotension - Likely 2/2 sepsis and low oncotic pressure from hypoalbuminemia - Had been off pressors. Improved to SBP >100s. - Nephro had added albumin. c/w antibiotics. - c/w current regimen. Appear stable to transfer out of ICU. 3. ESRD - c/w peritoneal dialysis per Nephro recommendations. - Will be difficult for hemodialysis if PD catheter were to be removed at this time. 4. C. diff. 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 - c/w Fidaxomicin. ID also following. VS, I&O, 24H, Fishbone Vital Signs/I&O Vital Signs Date Time Temp Pulse Resp B/P (MAP) Pulse Ox O2 Delivery O2 Flow Rate FiO2 08/29/19 08:00 96.0 106 16 104/51 (68) 99 Room Air I&O- Last 24 Hours up to 6 AM 08/29/19 06:00 Intake Total 6220.0 ml Output Total 6500 ml Balance -280.0 ml Laboratory Data 24H LABS Laboratory Tests 2 08/29/19 05:28: Nucleated Red Blood Cells % (auto) 0.4H, Immature Platelet Fraction 6.0, Anion Gap 10, Glomerular Filtration Rate 14.1L, Calcium Level 9.0, C-Reactive Protein, Quantitative 12.10H, Vancomycin Level Trough 13.6 08/29/19 10:46: Body Fluid Source PERITONEAL DIALYSATE, Body Fluid WBC (Auto) 6127H, Body Fluid RBC (Auto) < 2, Body Fluid Mononuclear Cells % Auto 8.7H, Fluid Polymorphonuclear Cell % Auto 91.3H, Peritoneal Fluid Color PALE YELLOW, Peritoneal Fluid Appearance CLOUDY CBC/BMP Laboratory Tests 08/29/19 05:28 Microbiology Microbiology 08/27/19 Blood Culture - Preliminary, Resulted No growth after 24 hours . All specim... 08/27/19 Body Fluid Culture - Final, Complete 08/27/19 Anaerobic Culture - Final, Complete 08/27/19 Acid Fast Stain, Received Pending 08/27/19 Mycobacterial Culture, Received Pending 08/27/19 Fungal Smear, Received Pending 08/27/19 Fungal Culture, Received Pending 08/24/19 Fungal Smear, Received Pending 08/24/19 Fungal Culture, Received Pending 08/23/19 Gram Stain - Final, Complete 08/23/19 Body Fluid Culture - Final, Complete 08/22/19 Acid Fast Stain, Received Pending 08/22/19 Mycobacterial Culture, Received Pending 08/22/19 Body Fluid Culture - Final, Complete 08/22/19 Anaerobic Culture - Final, Complete 08/21/19 Blood Culture - Final, Complete NO GROWTH AFTER 5 DAYS 08/20/19 Wound Culture - Final, Complete Staphylococcus Aureus JORDYN GARCIA MD Aug 29, 2019 12:04
[2019-08-29] MEDS: GASTROGRAFIN SOLUTION 30ML PO SCH ×2 (12:55→13:28)
[2019-08-29] MEDS ORDERED: ISOVUE-370 76% 100ML VIAL (Q9967) As Ordered ONE (15:00)
[2019-08-29] MEDS: FLUCONAZOLE 200 MG in IV 1 EA IV SCH (18:07)
[2019-08-29] MEDS: ONDANSETRON 4 MG TAB (S0181) PO PRN (21:11)
--- NOTE | 2019-08-29 21:15 | IPN ---
DATE: 08/29/2019 Mrs. Thornton is seen this morning on her bedside. She is feeling slightly better and currently eating her bangle. Her blood pressure has improved with IV albumin and she was also given stress dose steroids. She has not required pressors. She remains nauseated but denies any fever or chills. She does report a bowel movement small one yesterday. Her peritoneal dialysis fluid remains cloudy despite the antibiotics and white count has worsened once again in the peritoneal fluid after initial improvement, which is concerning. PHYSICAL EXAMINATION: She is very frail and without any acute distress. Temperature 96 degrees Fahrenheit, heart [id number] per minute and respiratory rate 16 per minute. Blood pressure 104/50 mmHg and oxygen saturation is 99% on room air. Her head is atraumatic. She has significant muscle wasting and looks emaciated. Neck is supple and without JVD or thyroid enlargement. Heart sounds are tachycardiac and without a pericardial friction rub. Lungs with diminished breath sounds at bases. Abdomen is very tender and peritoneal dialysis catheter is intact. Bowel sounds are hypoactive. Extremities without any cyanosis or clubbing. Neurologically, she is grossly intact. Today's labs show WBC count down to 9.0, hemoglobin is 7.9 and hematocrit 25.5. Platelets 95,000. Sodium 142, potassium 3.9, CO2 25, BUN 38 and creatinine 3.42. Calcium level is 9.0 and a C-reactive protein is down to 12.1. A random vancomycin level is 13.6 from this morning. Peritoneal fluid cell count showed white blood cells 6127 today while there were 4530 yesterday. Fluid looks cloudy. PROBLEMS: 1. Peritonitis and abdominal pain. She did have initially improvement in her peritoneal fluid cell count down to 360 on August 26. On the , it went up to 10,573 and yesterday was down to 4530, but today went up again to 6127. I am concerned about possibility of bowel problems like ischemia or a perforation. Her peritoneal fluid cultures have been negative so far. I am going to order another CT scan of abdomen and pelvis with contrast to look for any bowel problems. In the meantime, we will continue with the antibiotics including intravenous meropenem and intraperitoneal gentamicin and vancomycin. I am going to give her another dose of vancomycin 1000 mg tonight and gentamicin 80 mg. She is also on fluconazole 200 mg intravenously every 24 hours. She is very frail and her prognosis remains guarded due to recurrent worsening of peritonitis and no improvement despite appropriate antibiotic treatment. She is not likely to tolerate hemodialysis and I will try to maintain her peritoneal dialysis catheter as long as possible. We will wait for the CT scan results and see what it shows. 2. Sepsis and hypotension. Blood pressure has improved with IV albumin and stress dose steroids. Will continue the albumin for one more day after today. 3. History of kidney transplant and steroid use. She has been on longstanding steroids due to kidney transplant and stress dose steroids was given yesterday with hydrocortisone 50 mg every 8 hours. I am going to cut down the dose to 50 mg twice a day now as her blood pressure has improved. 4. DO NOT RESUSCITATE status. She is currently full code and I will discuss with her and if her family comes, about possibility of DO NOT RESUSCITATE as her condition is not improving and she is not a suitable candidate for resuscitation due to her chronic advanced medical problems from which she is not likely to improve.
[2019-08-29] MEDS ORDERED: GENTAMICIN SULF INJ 80MG/2ML VIAL (J1580) IP ONE (22:00)
[2019-08-29] MEDS ORDERED: VANCOMYCIN 1000 MG/20 ML VIAL (J3370) IP ONE (22:00)
[2019-08-30] VITALS (11 sets, daily range): BP systolic 88–125; BP diastolic 44–94
[2019-08-30] MEDS: SODIUM CHLORIDE 0.9% INJ 10 ML SYR IV SCH ×3 (05:39→22:02)
[2019-08-30 05:54] LABS: HEMATOCRIT 23.5 % (36.0-47.0); HEMOGLOBIN 7.1 g/dl (12.0-15.5); MEAN CORPUSCULAR HEMOGLOBIN 33.6 pg (27.0-33.0); MEAN CORPUSCULAR HGB CONC 30.2 g/dl (32.0-36.5); MEAN CORPUSCULAR VOLUME 111.4 fl (80.0-96.0); RED BLOOD COUNT 2.11 10^6/uL (4.00-5.40); WHITE BLOOD COUNT 10.6 10^3/uL (4.0-10.0)
[2019-08-30 05:57] LABS: PLATELET COUNT, AUTOMATED 84 10^3/uL (150-450)
[2019-08-30 06:14] LABS: C REACTIVE PROTEIN QUANTITATIV 13.2 MG/DL (0.00-0.30); CALCIUM LEVEL 9.2 MG/DL (8.8-10.2); CREATININE FOR GFR 3.38 MG/DL (0.55-1.30); GLOMERULAR FILTRATION RATE 14.3 (>39); POTASSIUM SERUM 3.3 MEQ/L (3.5-5.1)
--- NOTE | 2019-08-30 06:58 | REP ---
CT abdomen and pelvis with IV and oral contrast: History: Peritonitis. Question ischemic bowel. Comparison CT study August 27, 2019. CT contrast dose: 100 ml of intravenous Isovue 370. Oral dilute Gastrografin was administered. CT findings: Small bilateral pleural effusions are again noted unchanged. There is minimal diffuse abdominal ascites. This has decreased in quantity since the August 27, 2019 study. The peritoneal dialysis catheter remains in place in the pelvis. The irregular low density in the posterior segment right hepatic lesion with a calcification is again seen in the liver. No new liver lesion is seen. There are small low density areas in the spleen consistent with cysts and there are granulomatous calcifications in the spleen. No vascular abnormality is seen. The gallbladder shows no abnormality. The common bile duct is somewhat prominent measuring 1.1 cm in greatest diameter. No pancreatic mass is seen. There are multiple small pancreatic cysts and there is mild diffuse dilation of the main pancreatic duct. The largest cyst measures 1.8 cm and is in the pancreatic body. In the tail there is a 1.0 cm cyst and a 1.1 cm cyst in the tail. There are two tiny cysts in the tail as well. These cysts were visible previously August 2016. One of these is a quite a bit smaller. There is some edematous change in the pancreatic head which may reflect pancreatitis. No new fluid collection is seen. Stomach is somewhat distended with air and fluid but otherwise intact. Small bowel loops are mildly prominent but no obstructive lesion is seen. There is no evidence of free intraperitoneal air. There is diverticulosis in the distal colon. Impression: There is a decrease in the amount of peritoneal fluid. Small bilateral pleural effusions persist. Peritoneal catheter is seen. Some edema in the pancreatic head may reflect pancreatitis. Mild ileus pattern in the bowel gas again noted. Otherwise no acute abnormality. Electronically Signed by Hamzah Oliver MD 08/30/2019 08:37 A
[2019-08-30 07:25] LABS: APPEARANCE, BODY FLUID CLOUDY (CLEAR); PERITONEAL DIALYSATE FL COLOR PALE YELLOW (COLORLESS); SOURCE, BODY FLUID PERITONEAL DIALYSATE
[2019-08-30] MEDS: DICYCLOMINE 10 MG CAP PO SCH ×3 (07:30→17:58)
[2019-08-30] MEDS ORDERED: POTASSIUM CHLORIDE 10 MEQ SR TABLET PO ONE (07:30)
[2019-08-30] MEDS: DIMETHICONE 2% OINTMENT(VANIPLY) 70GM TUBE TOP SCH ×2 (09:00→21:00)
[2019-08-30] MEDS: HYDROCORTISONE 100 MG/2 ML VIAL (J1720 PER 1) IV SCH ×2 (09:54→22:01)
[2019-08-30] MEDS: PANTOPRAZOLE 40MG INJ (PROTONIX) (C9113) IV SCH ×2 (09:54→22:02)
[2019-08-30] MEDS: FIDAXOMICIN 200 MG TAB (DIFICID) PO SCH ×2 (09:54→22:00)
[2019-08-30] MEDS: LACTOBACILLUS ACIDOPHILUS CAP (BACID) PO SCH ×3 (09:54→17:58)
[2019-08-30] MEDS: predniSONE 1 MG TAB PO SCH (09:54)
[2019-08-30] MEDS: CALCITRIOL 0.25 MCG CAP (S0169) PO SCH (09:55)
[2019-08-30] MEDS: BRIMONIDINE 0.1% OPHTH SOLN 5 ML OS SCH ×2 (09:55→22:04)
[2019-08-30] MEDS: MUPIROCIN 2% OINT 22 GM TUBE TOP SCH ×2 (09:56→22:03)
[2019-08-30] MEDS: BACITRACIN OINT 30GM TOP SCH ×2 (09:56→22:03)
--- NOTE | 2019-08-30 11:45 | IPNPDOC ---
Text Note Date of Service The patient was seen on 08/30/19. NOTE SUBJECTIVE: Patient is seen at bedside, she is frail-appearing. She mentions that she is continuously thirsty and that it is becoming more taxing to move. She does not wish to do hemodialysis, and was afebrile overnight. She continues to be uncomfortable, mostly with any type of movement, and is complaining of dry skin on her legs bilaterally. Blood pressure continues to be soft, this morning was 92/51, has improved to 105/51. Was started on albumin by Dr. Rehman. Does not require pressors at this time. Heart rate continues to be mildly tachycardic, but she has remained afebrile. Peritoneal WBC 6127 -> 5737 OBJECTIVE PHYSICAL EXAMINATION: VITAL SIGNS: Please see below. General: Frail-appearing elderly female, voice is soft, she has difficulty moving her extremities Eyes: Normal sclera, anicteric HEENT: Atraumatic, facial muscles moving symmetrically Neck: supple, no JVD Cardiovascular: Fast rate with a regular rhythm, crescendo-decrescendo systolic murmur heard best at the second intercostal space on the right, but able to be heard over all valvular areas, no pericardial friction rub Pulmonary: Clear to auscultation bilaterally, no wheezes/rhonchi/rales GI: Protuberant, soft, generalized tenderness. PD catheter in place. Skin: Covered in bruises, multiple areas of dry skin on the bilateral lower extremities Neuro: CN grossly intact. No focal deficits. LABORATORY DATA, IMAGING STUDIES, MICROBIOLOGY: Please see below. DVT prophylaxis ordered?: TEDs ASSESSMENT AND PLAN: 1. Peritonitis - c/w IP Gentamicin and Vancomycin and IV Meropenem, IV Fluconazole. - Peritoneal fluid WBC continue to be high, continue with daily peritoneal lisa count - May have seeding from ?colitis/pancreatitis on CT abdomen/pelvis from 08/29/19, Dr. Raman from surgery consulted, appreciate his help) 2. Hypotension - Likely 2/2 sepsis and low oncotic pressure from hypoalbuminemia - No longer on pressors, continue hydrocortisone 50 mg BID (decreased from TID 08/29/19) - Nephro had added albumin. - BP soft, but mentation is stable. Systolic BPs are in 90-100s 3. ESRD - c/w peritoneal dialysis per Nephro recommendations. - not a good candidate for hemodialysis per Dr. Rehman 4. C. diff. 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 - c/w Fidaxomicin. ID also following. 5. Colitis on CT abdomen, ?ischemic colitis v chronic colitis - potential source of seeding into the peritoneum - Dr. Raman (surgery) consulted for second opinion, appreciate his input Prognosis is guarded. Dr Rehman has spoken to the patient regarding her deteriorating condition, as well as to her son. She is a DNR. Will have a discussion with her and her family about appropriate goals of care VS,Fishbone, I+O VS, Fishbone, I+O Laboratory Tests 08/30/19 05:33 Vital Signs Date Time Temp Pulse Resp B/P (MAP) Pulse Ox O2 Delivery O2 Flow Rate FiO2 08/30/19 08:00 97.1 101 16 105/51 (69) 98 Room Air I&O- Last 24 Hours up to 6 AM 08/30/19 06:00 Intake Total 4680.0 ml Output Total 3800 ml Balance 880.0 ml GME ATTESTATION GME ATTESTATION My faculty preceptor for this patient encounter was physically present during the encounter and was fully available. All aspects of the patient interview, examination, medical decision making process, and medical care plan development were reviewed and approved by the faculty preceptor. The faculty preceptor is aware and concurs with the plan as stated in the body of this note and will attest to such by his/her cosignature. GME ATTESTATION GME ATTESTATION My faculty preceptor for this patient encounter was physically present during the encounter and was fully available. All aspects of the patient interview, examination, medical decision making process, and medical care plan development were reviewed and approved by the faculty preceptor. The faculty preceptor is aware and concurs with the plan as stated in the body of this note and will attest to such by his/her cosignature. ATTENDING NOTE Patient was seen and examined by me this morning with the residents. Agree with the above assessment and plan JEFRY BEAL DO Aug 30, 2019 11:45 CYNTHIA COTTRELL MD Aug 30, 2019 17:15
[2019-08-30] MEDS: MEROPENEM INJ 1 GM in IV 1 EA IV SCH (13:09)
[2019-08-30] MEDS: FLUCONAZOLE 200 MG in IV 1 EA IV SCH (17:58)
[2019-08-31 04:00] VITALS: BP 99/46
[2019-08-31] MEDS: MAALOX 30 ML SUSP *UDC PO PRN (05:58)
[2019-08-31] MEDS: SODIUM CHLORIDE 0.9% INJ 10 ML SYR IV SCH (05:58)
[2019-08-31] MEDS: ACETAMINOPHEN 500 MG TAB PO PRN (05:58)
[2019-08-31 06:01] LABS: HEMATOCRIT 27.6 % (36.0-47.0); HEMOGLOBIN 8.6 g/dl (12.0-15.5); MEAN CORPUSCULAR HEMOGLOBIN 34.7 pg (27.0-33.0); MEAN CORPUSCULAR HGB CONC 31.2 g/dl (32.0-36.5); MEAN CORPUSCULAR VOLUME 111.3 fl (80.0-96.0); RED BLOOD COUNT 2.48 10^6/uL (4.00-5.40)
[2019-08-31 06:02] LABS: PLATELET COUNT, AUTOMATED 93 10^3/uL (150-450)
--- NOTE | 2019-08-31 06:14 | IPN ---
DATE OF VISIT: 08/30/2019 Mrs. Thornton is seen this morning on her bedside. She has been in significant pain due to abdominal distension and peritonitis. She had another CAT scan of abdomen and pelvis done yesterday which did show possible acute pancreatitis and some pancreatic cysts. Peritoneal dialysis fluid was drained prior to CAT scan. She did have some distended bowel loops but no other significant abnormality. Her stomach is markedly distended. Peritoneal fluid cell count remains elevated despite antibiotic use and cultures have been negative so far. l PHYSICAL EXAMINATION: VITAL SIGNS: Temperature 97.1 degrees Fahrenheit, heart rate 101 per minute and respiratory rate 16 per minute. Blood pressure 105/50 mmHg and oxygen saturation 98%. GENERAL: She is emaciated, chronically ill looking with significant weight loss. She is in significant discomfort due to abdominal pain and tenderness. HEART: Sounds are tachycardiac. LUNGS: Diminished breath sounds. She has a poor inspiratory effort. ABDOMEN: Abdomen is distended with peritoneal fluid and markedly tender. Bowel sounds are hypoactive. EXTREMITIES: Without any cyanosis or clubbing. NEUROLOGICALLY: She is awake, alert and at her baseline mentation. LABORATORY DATA: Today's labs show WBC count 10.6, hemoglobin 7.1 and hematocrit 23.5. Platelets 84,000. Sodium 140, potassium 3.3, CO2 26, BUN 38 and creatinine 3.38. Glucose 76 and calcium 9.2. C-reactive protein is slightly increased from yesterday up to 13.2. PROBLEMS: 1. Abdominal pain in the setting of pancreatitis and peritonitis. The patient remains in significant pain and markedly tender abdomen despite antibiotic use since admission. I have explained to the patient that she is not making any progress. I have also explained all the options including removal of peritoneal catheter and switching to hemodialysis, surgical consultation for possible laparotomy and comfort care. The patient certainly does not wish to have hemodialysis. She understands that her condition is very frail and even though she does not she does not want to be on hemodialysis. She already has a DO NOT RESUSCITATE (DNR) status as per her son. I have talked to her son twice today over the phone and explained to him and updated him about her condition. He will bring the copy of DNR. In the meantime we are going to continue with peritoneal dialysis. She was given vancomycin 1 gram and gentamicin 80 mg in the peritoneal fluid last night. We will give her another dose of gentamicin 40 mg tonight. She is also receiving intravenous meropenem. 2. End-stage renal disease. At present she is on peritoneal dialysis which is kind of failing due to persistent peritonitis. The patient does not wish to be switched to hemodialysis and she is very much unlikely to tolerate dialysis due to her frail condition and chronic hypotension, even getting a dialysis access in her could be a problem. After surgical consultation if she is not felt to be a candidate for surgery, comfort care is probably going to be appropriate. I have discussed this with the patient and explained it to her. 3. Anemia. Her anemia is also getting worse without any obvious blood loss. Probably one unit of packed red blood cells (RBCs) could be transfused without any respiratory compromise as she is oxygenating very well on room air. Once again her overall prognosis is quite poor due to persistent abdominal pain with peritonitis and possible pancreatitis. She does not wish to be switched to hemodialysis. The patient has a prehospital DNR status and the patient's son will bring the DNR form and she will be made DNR today. We will wait for her decision about comfort measures only once she has a chance to talk her son and other family members.
[2019-08-31 06:31] LABS: C REACTIVE PROTEIN QUANTITATIV 16.1 MG/DL (0.00-0.30); CALCIUM LEVEL 9.2 MG/DL (8.8-10.2); CREATININE FOR GFR 3.43 MG/DL (0.55-1.30); POTASSIUM SERUM 4.3 MEQ/L (3.5-5.1)
[2019-08-31 07:08] LABS: APPEARANCE, BODY FLUID CLOUDY (CLEAR); PERITONEAL DIALYSATE FL COLOR PALE YELLOW (COLORLESS); SOURCE, BODY FLUID PERITONEAL DIALYSATE
[2019-08-31] MEDS: DICYCLOMINE 10 MG CAP PO SCH ×3 (07:30→17:30)
[2019-08-31] MEDS: LACTOBACILLUS ACIDOPHILUS CAP (BACID) PO SCH ×3 (08:00→18:00)
[2019-08-31] MEDS: BACITRACIN OINT 30GM TOP SCH ×2 (09:00→20:06)
[2019-08-31] MEDS: predniSONE 1 MG TAB PO SCH (09:00)
[2019-08-31] MEDS: FIDAXOMICIN 200 MG TAB (DIFICID) PO SCH ×2 (09:00→20:03)
[2019-08-31] MEDS: BRIMONIDINE 0.1% OPHTH SOLN 5 ML OS SCH ×2 (09:00→20:04)
[2019-08-31] MEDS: PANTOPRAZOLE 40MG TAB (PROTONIX) PO SCH ×2 (09:00→20:06)
[2019-08-31] MEDS: CALCITRIOL 0.25 MCG CAP (S0169) PO SCH (09:00)
[2019-08-31] MEDS: MUPIROCIN 2% OINT 22 GM TUBE TOP SCH ×2 (09:00→20:06)
[2019-08-31] MEDS: DIMETHICONE 2% OINTMENT(VANIPLY) 70GM TUBE TOP SCH ×2 (09:00→20:06)
[2019-08-31] MEDS ORDERED: HYDROCORTISONE 100 MG/2 ML VIAL (J1720 PER 1) IV SCH (09:00)
[2019-08-31] MEDS ORDERED: GASTROGRAFIN SOLUTION 30ML (Q9963) PO SCH (10:15)
--- NOTE | 2019-08-31 10:41 | IPNPDOC ---
Text Note Date of Service The patient was seen on 08/31/19. NOTE SUBJECTIVE: Patient is seen at bedside, she is frail-appearing and has decided, along with her son, to become Comfort Measures Only. She is tired and would like hospice consult and to be seen by pastoral care. OBJECTIVE PHYSICAL EXAMINATION: VITAL SIGNS: Please see below. General: Frail-appearing elderly female, voice is soft, she has difficulty moving her extremities Eyes: Normal sclera, anicteric HEENT: Atraumatic, facial muscles moving symmetrically Neck: supple, no JVD Cardiovascular: Fast rate with a regular rhythm, crescendo-decrescendo systolic murmur heard best at the second intercostal space on the right, but able to be heard over all valvular areas, no pericardial friction rub Pulmonary: Clear to auscultation bilaterally, no wheezes/rhonchi/rales GI: Protuberant, soft, generalized tenderness. PD catheter in place. Skin: Covered in bruises, multiple areas of dry skin on the bilateral lower extremities Neuro: CN grossly intact. No focal deficits. LABORATORY DATA, IMAGING STUDIES, MICROBIOLOGY: Please see below. DVT prophylaxis ordered?: TEDs ASSESSMENT AND PLAN: 69 year old female admitted for peritonitis, likely secondary to seeding from ch ronic colitis. She has decided to withdraw life-sustaining measures and to be Comfort Measures only New MOLST form witness and signed, medications changed appropriately Hospice and Pastoral Care Consulted, will provide comfort measures appropriately VS,Fishbone, I+O VS, Fishbone, I+O Laboratory Tests 08/31/19 05:39 Vital Signs Date Time Temp Pulse Resp B/P (MAP) Pulse Ox O2 Delivery O2 Flow Rate FiO2 08/31/19 04:00 97.6 107 18 99/46 (63) 97 Room Air I&O- Last 24 Hours up to 6 AM 08/31/19 06:00 Intake Total 5220 ml Output Total 5301 ml Balance -81 ml GME ATTESTATION GME ATTESTATION My faculty preceptor for this patient encounter was physically present during the encounter and was fully available. All aspects of the patient interview, examination, medical decision making process, and medical care plan development were reviewed and approved by the faculty preceptor. The faculty preceptor is aware and concurs with the plan as stated in the body of this note and will attest to such by his/her cosignature. GME ATTESTATION GME ATTESTATION My faculty preceptor for this patient encounter was physically present during th e encounter and was fully available. All aspects of the patient interview, examination, medical decision making process, and medical care plan development were reviewed and approved by the faculty preceptor. The faculty preceptor is aware and concurs with the plan as stated in the body of this note and will attest to such by his/her cosignature. ATTENDING NOTE Patient was seen and examined by me this morning with the residents. Agree with the above assessment and plan JEFRY BEAL DO Aug 31, 2019 10:41 CYNTHIA COTTRELL MD Aug 31, 2019 13:49
--- NOTE | 2019-08-31 15:08 | IPN ---
DATE OF VISIT: 08/31/2019 Mrs. Thornton is this morning on her bedside. She was made DO NOT RESUSCITATE yesterday due to poor response to antibiotic therapy for her peritonitis. She has been very frail and weak. She is in persistent pain and unable to even move due to severe abdominal pain. She has acute pancreatitis and peritonitis related to peritoneal dialysis. She has been very frail even prior to this admission due to recurrent Clostridium difficile (C. diff) colitis and other comorbid conditions. I discussed with the patient and her son yesterday and she did agree for comfort measures and has signed the papers. Her son was present again today and I comforted him and explained to him about prolonged pain and suffering that his mother is going through and not making any progress. The patient has clearly stated that she does not want to be switched to hemodialysis. She would like to be comfortable. Her peritoneal fluid cell count remains elevated at about 6000 despite appropriate antibiotic therapy. Comfort measures only orders are being written and dialysis is being stopped today. Hospice consult has also been requested and the patient will be discharged to home when appropriate with hospice care. FRANKLIN
[2019-08-31 16:57] VITALS: BP 82/37
[2019-08-31] MEDS ORDERED: LORazepam 2 MG/ML VIAL (J2060) IV PRN (18:30)
[2019-08-31] MEDS ORDERED: SCOPOLAMINE 1MG TRANSDERMAL PATCH TOP PRN (18:30)
[2019-08-31] MEDS ORDERED: MORPHINE 10MG/0.5ML ORAL CONCENTRATE SOLUTION U/D SL PRN (18:30)
[2019-08-31] MEDS: ONDANSETRON 4 MG TAB (S0181) PO PRN (20:04)
[2019-08-31] MEDS: MORPHINE 10MG/0.5ML ORAL CONCENTRATE SOLUTION U/D SL PRN ×2 (20:05→23:17)
[2019-09-01] MEDS: DICYCLOMINE 10 MG CAP PO SCH ×3 (07:30→17:30)
[2019-09-01] MEDS: MORPHINE 10MG/0.5ML ORAL CONCENTRATE SOLUTION U/D SL PRN ×2 (09:45→21:08)
[2019-09-01] MEDS ORDERED: ONDANSETRON 4MG/2ML VIAL (J2405) IV PRN (10:00)
[2019-09-01] MEDS: PANTOPRAZOLE 40MG TAB (PROTONIX) PO SCH ×2 (10:14→21:07)
[2019-09-01] MEDS: predniSONE 1 MG TAB PO SCH (10:15)
[2019-09-01] MEDS: LACTOBACILLUS ACIDOPHILUS CAP (BACID) PO SCH ×3 (10:17→17:41)
[2019-09-01] MEDS: BRIMONIDINE 0.1% OPHTH SOLN 5 ML OS SCH ×2 (10:20→21:07)
[2019-09-01] MEDS: BACITRACIN OINT 30GM TOP SCH ×2 (10:20→21:10)
[2019-09-01] MEDS: FIDAXOMICIN 200 MG TAB (DIFICID) PO SCH ×2 (10:20→21:07)
[2019-09-01] MEDS: MUPIROCIN 2% OINT 22 GM TUBE TOP SCH ×2 (10:22→21:10)
[2019-09-01] MEDS: DIMETHICONE 2% OINTMENT(VANIPLY) 70GM TUBE TOP SCH ×2 (10:22→21:09)
[2019-09-02] MEDS: DICYCLOMINE 10 MG CAP PO SCH (07:30)
[2019-09-02] MEDS: LACTOBACILLUS ACIDOPHILUS CAP (BACID) PO SCH (08:00)
[2019-09-02] MEDS: MUPIROCIN 2% OINT 22 GM TUBE TOP SCH (09:00)
[2019-09-02] MEDS: FIDAXOMICIN 200 MG TAB (DIFICID) PO SCH (09:00)
[2019-09-02] MEDS: BACITRACIN OINT 30GM TOP SCH (09:00)
[2019-09-02] MEDS: predniSONE 1 MG TAB PO SCH (09:00)
[2019-09-02] MEDS: BRIMONIDINE 0.1% OPHTH SOLN 5 ML OS SCH (09:00)
[2019-09-02] MEDS: DIMETHICONE 2% OINTMENT(VANIPLY) 70GM TUBE TOP SCH (09:00)
[2019-09-02] MEDS: PANTOPRAZOLE 40MG TAB (PROTONIX) PO SCH (09:00)
[2019-09-02] MEDS ORDERED: HYOS125TA PO (10:01)
[2019-09-02] MEDS ORDERED: MORP20SO3 PO (10:01)
[2019-09-02] MEDS ORDERED: DIFI200T PO (10:01)
[2019-09-02] MEDS ORDERED: LORA0.5T11 PO (10:01)
--- NOTE | 2019-09-02 15:48 | DSES ---
DATE OF ADMISSION: 08/18/2019 DATE OF DISCHARGE: 09/02/2019 DISCHARGE DIAGNOSES: 1. End-stage renal disease on peritoneal dialysis. 2. Sepsis secondary to peritonitis. 3. Hypotension secondary to sepsis. 4. History of Clostridium (C) difficile colitis. CONSULTANTS: 1. Dr. Dang Alvarado. 2. Dr. Tj Raman. 3. Dr. Jordana Martin. PROCEDURES: 1. Ultrasound-guided insertion of left subclavian vein triple lumen central venous catheter. 2. Peritoneal dialysis. HOSPITAL COURSE: Apple Thornton is a 69-year-old female who presented to the emergency department on 08/17/2019 with 3-4 days of vomiting, diarrhea and generalized weakness. She had been vomiting mostly at night, typically the food that she had eaten earlier in the day. She denied any blood in her vomit and stated that she had been having diarrhea 2-3 times a day with watery stools and was sometimes not able to make it to the bathroom. There was no blood in her stool. She also had some generalized abdominal pain that but had been able to eat normally. She had noticed that since this had been going on she felt increasingly weak and unsteady on her feet along with lightheadedness and shortness of breath when getting up and walking around. She continued her peritoneal dialysis every night but admitted to irritation around her peritoneal dialysis catheter. She had also fallen a few days prior and when the person she was with tried to catch her, she ended up bruising her sternum. She was found to have a low potassium in the emergency department as well as a low magnesium and her past medical history was significant for Clostridium (C) difficile colitis, and was thought to be a recurrence of this so she was admitted to the hospital. Gastrointestinal (GI) panel was done to evaluate for cause of the nausea, vomiting, and diarrhea. Peritoneal fluid sample was sent for analysis. Her electrolytes were replenished. The patient's blood pressure continued to deteriorate, despite trying to treat the underlying cause of her original symptoms. Her blood pressure medications were discontinued. She continued on peritoneal dialysis. However, her white count continued to climb. 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 Blood cultures have been negative. Despite being positive for Clostridium difficile, she was having formed stool and was not on antibiotics. On the sixth day of the hospital admission, the peritoneal fluid started having an increased white blood cell count. This continued to rise, peaking at 10,000 on 08/27/2019. Dr. Martin was consulted on 08/24/2019. Intraperitoneal vancomycin and gentamicin had been started on 08/23/2019 through peritoneal exchange for suspected peritonitis. Dr. Martin was consulted for worsening abdominal pain with peritonitis, and recommended continuing the patient on Dificid as she had a history of Clostridium difficile in the past. On 08/26/2019, Dr. Raman was consulted for a central line placement as the patient did not have any IV access and had started to look like a septic-like picture. Unfortunately, despite multiple interventions, she did not quite continue to improve. She was able to be weaned off pressors for hypotension as well as hydrocortisone. On 08/31/2019, a conversation was had with the patient and her son and she elected to become COMFORT MEASURES ONLY. She was discharged to hospice on 09/02/2019. DISCHARGE MEDICATIONS: - Dificid 200 mg by mouth twice a day for diarrhea secondary to Clostridium difficile - hyoscyamine sulfate 0.125 mg tablets sublingual every four hours as needed for terminal secretions - lorazepam 0.5 mg by mouth every four hours as needed for anxiety or agitation - morphine sulfate 100 mg per 5 mL solution 0.25 to 1 mL by mouth every two hours as needed for pain or dyspnea - loperamide 2 mg capsules by mouth four times a day as needed for diarrhea - Zofran 4 mg tablets by mouth every eight hours as needed for nausea or vomiting All other medications were stopped for comfort. The patient was discharged home to hospice for end-of-life care. Greater than 30 minutes was spent coordinating care for discharge. Patient was seen and examined by me personally with the residents. Agree with the above assessment and plan MTDD
== END 2019-09-02 13:12 | disposition hospice, home (50) | DRG 391 ==
LOC: M ED 10:52 → M ED INP 10:53 → M MSPAV 23:21 → OBSVTOIN 08-18 10:34 → M ICU 08-27 16:15 → M PCU 08-30 06:27 → M MSPAV 08-31 16:55
PROVIDERS: ADMIT Internal Medicine; ATTEND Internal Medicine
PROC: 3E1M39Z Irrigation of Peritoneal Cavity using Dialysate, Percutaneous Approach (ICD-10-PCS; 2019-08-18)
PROC: 02HV33Z Insertion of Infusion Device into Superior Vena Cava, Percutaneous Approach (ICD-10-PCS; principal; 2019-08-23 13:00)
DX: K52.9 Noninfective gastroenteritis and colitis, unspecified (principal); N18.6 End stage renal disease; A41.9 Sepsis, unspecified organism; K85.90 Acute pancreatitis without necrosis or infection, unspecified; K65.9 Peritonitis, unspecified; E43 Unspecified severe protein-calorie malnutrition; I12.0 Hypertensive chronic kidney disease with stage 5 chronic kidney disease or end stage renal disease; N25.81 Secondary hyperparathyroidism of renal origin; T86.12 Kidney transplant failure; E27.2 Addisonian crisis; Z68.1 Body mass index [BMI] 19.9 or less, adult; F32.9 Major depressive disorder, single episode, unspecified; E78.5 Hyperlipidemia, unspecified; Z51.5 Encounter for palliative care; D63.1 Anemia in chronic kidney disease; Z66 Do not resuscitate; E87.6 Hypokalemia; E73.9 Lactose intolerance, unspecified; E83.42 Hypomagnesemia; Z79.52 Long term (current) use of systemic steroids; Z79.899 Other long term (current) drug therapy; Z96.643 Presence of artificial hip joint, bilateral; Z99.2 Dependence on renal dialysis; Z90.5 Acquired absence of kidney; Z88.2 Allergy status to sulfonamides; Z85.828 Personal history of other malignant neoplasm of skin; Z88.5 Allergy status to narcotic agent; Z88.8 Allergy status to other drugs, medicaments and biological substances; R26.81 Unsteadiness on feet; Y83.1 Surgical operation with implant of artificial internal device as the cause of abnormal reaction of the patient, or of later complication, without mention of misadventure at the time of the procedure; R13.10 Dysphagia, unspecified